=== PATIENT | female | born 1965 | race Caucasian/White ===

== ENCOUNTER → 2017-03-26 | Outpatient (CLI) | payer MEDICARE, OTHER ==
--- NOTE | 2017-03-27 07:15 | US ---
EXAMINATION TYPE: US thyroid st tissue head/neck DATE OF EXAM: 03/26/2017 5:13 PM COMPARISON: 06/17/2016 CLINICAL HISTORY: E03.9 Hypothyroidism unspecified. GLAND SIZE: Right Lobe: 4.4 x 1.7 x 1.2 cm Overall Parenchyma: heterogenous Left Lobe: 4.2 x 1.9 x 1.2 cm Overall Parenchyma: heterogeneous Isthmus Thickness: 0.3 cm NODULES RIGHT: # of nodules measured on right: 1 1. 0.6 X 0.5 x 0.5 cm hypoechoic mixed nodule at the mid pole with well-defined margins; . This no dule is wider than tall and shows peripheral vascularity. Prior size: 0.8 x 0.6 x 0.6 cm LEFT: # of nodules measured on left: 3 1. 1.0 X 0.5 x 0.7 cm isoechoic solid nodule at the upper pole with well-defined margins; . This n odule is wider than tall and shows intranodular vascularity. Prior size: 1.1 x 0.6 x 0.7 cm 2. 0.5 X 0.5 x 0.4 cm hypoechoic cystic nodule at the mid pole with well-defined margins; . This no dule is wider than tall and shows no intranodular vascularity. Prior size: 0.6 x 0.5 x 0.6 cm 3. 0.4 X 0.4 x 0.4 cm hypoechoic solid nodule at the lower pole with well-defined margins; present w ith microcalcifications. This nodule is wider than tall and shows intranodular vascularity. Prior size: 0.5 x 0.4 x 0.5 cm ISTHMUS: # of nodules measured in the isthmus: 0 Bilateral neck scanned, no evidence of lymphadenopathy. IMPRESSION: Nonspecific nodules as discussed above.
== END | disposition home or self-care (01) ==
LOC: RADUSWWP 16:50
PROVIDERS: ATTEND Internal Medicine Endocrinology, Diabetes & Metabolism
DX: E04.2 Nontoxic multinodular goiter (principal); E03.9 Hypothyroidism, unspecified
CPT/HCPCS: 76536

== ENCOUNTER 2017-12-23 19:28 | Emergency (ER) | payer MEDICARE, OTHER ==
[2017-12-23 20:07] VITALS: TEMP 99.2
[2017-12-23] MEDS ORDERED: KETOROLAC 30 MG/ML 1 ML VIAL IVP STA (22:13)
[2017-12-23] MEDS ORDERED: SODIUM CHLORIDE 0.9% 1,000 ML IV STA (22:13)
[2017-12-23] MEDS ORDERED: ONDANSETRON 4 MG/2 ML VIAL IVP STA (22:13)
[2017-12-23 22:51] LABS: Basophils % (A) 1 %; Eosinophils # (A) 0.2 k/uL (0-0.7); Eosinophils % (A) 4 %; HCT 39.8 % (34.0-46.0); Lymphocytes # (A) 1.4 k/uL (1.0-4.8); Lymphocytes % (A) 29 %; MCH 29.1 pg (25.0-35.0); MCHC 32.6 g/dL (31.0-37.0); MCV 89.2 fL (80.0-100.0); Mean Platelet Volume 7.5; Monocytes # (A) 0.3 k/uL (0-1.0); Monocytes % (A) 6 %; Neutrophils # (A) 2.9 k/uL (1.3-7.7); Neutrophils % (A) 58 %; Platelet Count 208 k/uL (150-450); RBC 4.46 m/uL (3.80-5.40); RDW 13.2 % (11.5-15.5)
[2017-12-23 22:54] LABS: Appearance,Urine Clear (Clear); Bilirubin,Urine 3+ (Negative); Blood,Urine Negative (Negative); Color,Urine Yellow; Glucose,Urine (UA) Negative (Negative); Ketones,Urine Negative (Negative); Leukocyte Esterase,Urine Negative (Negative); Nitrite,Urine Negative (Negative); PH, Urine 5.5 (5.0-8.0); Protein,Urine Trace (Negative)
--- NOTE | 2017-12-23 22:56 | ED ---
Abdominal Pain HPI - General Chief Complaint: Abdominal Pain Stated Complaint: right side pain Time Seen by Provider: 12/23/17 21:55 Source: patient Mode of arrival: ambulatory Limitations: no limitations - History of Present Illness Initial Comments: 52-year-old female patient presents to the emergency department today for complaints of right upper quadrant abdominal pain. Patient states that she has a sharp severe pain just below her ribs on the right side. She states that this pain started last night however has been increasingly worse throughout the day today. She states that she has had no appetite. She denies any nausea or vomiting with this. Denies any constipation or diarrhea. Patient states that she has had similar pain intermittently throughout the past 14 years. States she has been worked up twice for gallbladder issues and hasn't tested been inconclusive. She denies any history of abdominal surgeries. She denies any fever or chills. Patient denies any recent rash, shortness breath, chest pain, back pain, numbness, tingling, dizziness, weakness, hematuria, dysuria, urinary urgency, urinary frequency, headache, visual changes, or any other complaints. - Related Data Home Medications Medication Instructions Recorded Confirmed ALPRAZolam [Xanax] 0.25 mg PO TID 12/05/15 12/23/17 DULoxetine HCL [Cymbalta] 60 mg PO BID 12/05/15 12/23/17 Dexlansoprazole [Dexilant] 60 mg PO DAILY 12/05/15 12/23/17 Etodolac [Lodine] 400 mg PO BID 12/05/15 12/23/17 Gabapentin [Neurontin] 800 mg PO TID 12/05/15 12/23/17 Levothyroxine Sodium [Levoxyl] 100 mcg PO DAILY 12/05/15 12/23/17 Metaxalone [Skelaxin] 800 mg PO TID 12/05/15 12/23/17 Multivitamins, Thera [Theragran] 1 tab PO DAILY 12/05/15 12/23/17 traZODone HCL [Desyrel] 100 mg PO HS 12/05/15 12/23/17 HYDROcodone/APAP 7.5-325MG [[place] 1 tab PO Q6HR PRN 04/05/16 12/23/17 7.5-325] Balsalazide Disodium [Colazal] 750 mg PO TID 12/23/17 12/23/17 Budesonide/Formoterol Fumarate 2 puff INHALATION RT-BID 12/23/17 12/23/17 [Symbicort 160-4.5 Mcg Inhaler] Cetirizine HCl [Zyrtec] 10 mg PO DAILY PRN 12/23/17 12/23/17 Loteprednol Etabonate [Alrex] 1 drop BOTH EYES BID 12/23/17 12/23/17 Allergies Allergy/AdvReac Type Severity Reaction Status Date / Time aspirin Allergy Severe Vomiting Verified 12/23/17 21:56 amoxicillin trihydrate Allergy yeast Verified 12/23/17 21:56 [From Augmentin] infection buspirone HCl [From BuSpar] Allergy numbness Verified 12/23/17 21:56 of tongue and face iron Allergy Nausea & Verified 12/23/17 21:56 Vomiting,hives,swelling,skin changed color loracarbef [From Lorabid] Allergy yeast Verified 12/23/17 21:56 infection potassium clavulanate Allergy yeast Verified 12/23/17 21:56 [From Augmentin] infection Sulfa (Sulfonamide Allergy Rash/Hives Verified 12/23/17 21:56 Antibiotics) coconut Allergy Rash/Hives Uncoded 12/23/17 20:06 Review of Systems ROS Statement: Those systems with pertinent positive or pertinent negative responses have been documented in the HPI. ROS Other: All systems not noted in ROS Statement are negative. Past Medical History Past Medical History: Asthma, Eye Disorder, GERD/Reflux, Osteoarthritis (OA), Thyroid Disorder Additional Past Medical History / Comment(s): ANEMIA, FIBROMYALGIA, MIGRAINE, DIVERTICULOSIS, ULCERATIVE COLITIS, IBD, OVARIAN CYST, CHRONIC BACK History of Any Multi-Drug Resistant Organisms: None Reported Additional Past Surgical History / Comment(s): CARPAL TUNNEL BILATERAL, RT HAND THUMB TENDON REPAIR, LIPOMA, LEFT KNEE REPLACEMENT, RIGHT KNEE PREPLACEMENT, D&C Past Psychological History: Anxiety, Depression Smoking Status: Former smoker Past Alcohol Use History: Occasional Past Drug Use History: None Reported General Exam Limitations: no limitations General appearance: alert, in no apparent distress, other (This is a well- developed, obese female patient in no acute distress. Vital signs upon presentation are temperature 99.2F, pulse 82, respirations 18, blood pressure 152/85, pulse ox 98% on room air.) Eye exam: Present: normal appearance, PERRL, EOMI. Absent: scleral icterus, conjunctival injection, periorbital swelling ENT exam: Present: normal exam, normal oropharynx, mucous membranes moist Respiratory exam: Present: normal lung sounds bilaterally. Absent: respiratory distress, wheezes, rales, rhonchi, stridor Cardiovascular Exam: Present: regular rate, normal rhythm, normal heart sounds. Absent: systolic murmur, diastolic murmur, rubs, gallop, clicks GI/Abdominal exam: Present: soft, tenderness (Right upper quadrant abdominal tenderness, negative Nayak sign), normal bowel sounds. Absent: distended, guarding, rebound, rigid Back exam: Present: normal inspection. Absent: CVA tenderness (R), CVA tenderness (L) Neurological exam: Present: alert, oriented X3, CN II-XII intact Psychiatric exam: Present: normal affect, normal mood Skin exam: Present: warm, dry, intact, normal color. Absent: rash Course Vital Signs 12/23/17 20:04 Temperature 99.2 F Pulse Rate 82 Respiratory 18 Rate Blood Pressure 152/85 O2 Sat by Pulse 98 Oximetry Medical Decision Making - Medical Decision Making 52-year-old female patient presents to the emergency department today for complaints of right upper quadrant abdominal pain. Physical examination did reveal some right upper quadrant tenderness however there is negative Nayak sign. Labs reviewed and were unremarkable. KUB x-ray of the abdomen did show overall nonobstructive bowel gas pattern but a large hiatal hernia. Ultrasound of the right upper quadrant was negative for any acute process. I did discuss the findings with the patient. She was aware of this hiatal hernia. She is instructed to follow up with GI specialist for further evaluation. She is instructed to return here immediately for any new, worsening, or concerning symptoms. She verbalizes understanding and agrees with this plan. - Lab Data Result diagrams: 12/23/17 22:36 12/23/17 22:36 Lab Results 12/23/17 12/23/17 12/23/17 Range/Units 22:36 22:36 22:36 WBC 5.0 (3.8-10.6) k/uL RBC 4.46 (3.80-5.40) m/uL Hgb 13.0 (11.4-16.0) gm/dL Hct 39.8 (34.0-46.0) % MCV 89.2 (80.0-100.0) fL MCH 29.1 (25.0-35.0) pg MCHC 32.6 (31.0-37.0) g/dL RDW 13.2 (11.5-15.5) % Plt Count 208 (150-450) k/uL Neutrophils % 58 % Lymphocytes % 29 % Monocytes % 6 % Eosinophils % 4 % Basophils % 1 % Neutrophils # 2.9 (1.3-7.7) k/uL Lymphocytes # 1.4 (1.0-4.8) k/uL Monocytes # 0.3 (0-1.0) k/uL Eosinophils # 0.2 (0-0.7) k/uL Basophils # 0.0 (0-0.2) k/uL Sodium 145 (137-145) mmol/L Potassium 4.2 (3.5-5.1) mmol/L Chloride 104 (98-107) mmol/L Carbon Dioxide 30 (22-30) mmol/L Anion Gap 11 mmol/L BUN 9 (7-17) mg/dL Creatinine 0.80 (0.52-1.04) mg/dL Est GFR (MDRD) Af Amer >60 (>60 ml/min/1.73 sqM) Est GFR (MDRD) Non-Af >60 (>60 ml/min/1.73 sqM) Glucose 107 H (74-99) mg/dL Calcium 9.3 (8.4-10.2) mg/dL Total Bilirubin 0.4 (0.2-1.3) mg/dL AST 23 (14-36) U/L ALT 23 (9-52) U/L Alkaline Phosphatase 62 (38-126) U/L Total Protein 6.9 (6.3-8.2) g/dL Albumin 4.0 (3.5-5.0) g/dL Amylase <30 L (30-110) U/L Lipase 39 (23-300) U/L Urine Color Yellow Urine Appearance Clear (Clear) Urine pH 5.5 (5.0-8.0) Ur Specific [place] 1.020 (1.001-1.035) Urine Protein Trace H (Negative) Urine Glucose (UA) Negative (Negative) Urine Ketones Negative (Negative) Urine Blood Negative (Negative) Urine Nitrite Negative (Negative) Urine Bilirubin 3+ H (Negative) Urine Urobilinogen 2.0 (<2.0) mg/dL Ur Leukocyte Esterase Negative (Negative) - Radiology Data Radiology results: report reviewed, image reviewed Ultrasound of the right upper quadrant was obtained, report was reviewed in its entirety. Impression by Dr. Blevins shows negative right upper quadrant abdominal sonogram. No gallstones or dilated ducts. No free fluid. KUB x-ray of the abdomen was obtained, no sign of intestinal obstruction or pneumoperitoneum. Fecal pattern is normal. There is a large hiatal hernia. There are no pathologic calcifications over the kidneys. Impression by Dr. Blevins shows nonacute abdomen. Hiatal hernia. Disposition Clinical Impression: Right upper quadrant abdominal pain Disposition: HOME SELF-CARE Condition: Good Instructions: Abdominal Pain (ED) Additional Instructions: Follow-up with GI specialist for further evaluation. Return here immediately for any new, worsening, or concerning symptoms. Referrals: Lu Mancera MD [Primary Care Provider] - 1-2 days Cecilia Meehan MD [STAFF PHYSICIAN] - 1-2 days Time of Disposition: 23:48
[2017-12-23 23:03] LABS: ALT 23 U/L (9-52); AST 23 U/L (14-36); Alkaline Phosphatase 62 U/L (38-126); Amylase <30 U/L (30-110); Anion Gap 11 mmol/L; Blood Urea Nitrogen 9 mg/dL (7-17); Calcium 9.3 mg/dL (8.4-10.2); Carbon Dioxide 30 mmol/L (22-30); Chloride 104 mmol/L (98-107); Glucose 107 mg/dL (74-99); Lipase 39 U/L (23-300); Potassium 4.2 mmol/L (3.5-5.1); Sodium 145 mmol/L (137-145); Total Bilirubin 0.4 mg/dL (0.2-1.3); Total Protein 6.9 g/dL (6.3-8.2)
--- NOTE | 2017-12-23 23:03 | XR ---
EXAMINATION TYPE: XR KUB DATE OF EXAM: 12/23/2017 COMPARISON: NONE HISTORY: Flank pain TECHNIQUE: 2 views FINDINGS: There is no sign of intestinal obstruction or pneumoperitoneum. Fecal pattern is normal. Th ere is a large hiatal hernia. There are no pathologic calcifications over the kidneys. IMPRESSION: Nonacute abdomen. Hiatal hernia.
--- NOTE | 2017-12-23 23:36 | US ---
EXAMINATION TYPE: US abdomen limited DATE OF EXAM: 12/23/2017 COMPARISON: NONE CLINICAL HISTORY: RUQ pain. RUQ pain EXAM MEASUREMENTS: Liver Length: 18.1 cm Gallbladder Wall: 0.22 cm CBD: 0.42 cm Right Kidney: 11.2 x 4.7 x 4.2 cm Pancreas: Obscured by bowel gas Liver: Increased attenuation Gallbladder: No stones seen Evidence for sonographic Nayak's sign: No CBD: wnl Right Kidney: No hydronephrosis or masses seen IMPRESSION: Negative right upper quadrant abdominal sonogram. No gallstones or dilated ducts. No free fluid.
[2017-12-23 23:58] VITALS: BP 152/81; PULSE 70; RESP 16
== END 2017-12-23 23:58 | disposition home or self-care (01) ==
LOC: EC 19:28
DX: R10.11 Right upper quadrant pain (principal); J45.909 Unspecified asthma, uncomplicated; K21.9 Gastro-esophageal reflux disease without esophagitis; E07.9 Disorder of thyroid, unspecified; M79.7 Fibromyalgia; Z86.69 Personal history of other diseases of the nervous system and sense organs; F41.9 Anxiety disorder, unspecified; F32.9 Major depressive disorder, single episode, unspecified; Z87.891 Personal history of nicotine dependence; Z79.51 Long term (current) use of inhaled steroids; Z79.1 Long term (current) use of non-steroidal anti-inflammatories (NSAID); Z79.899 Other long term (current) drug therapy; Z88.6 Allergy status to analgesic agent; Z88.0 Allergy status to penicillin; Z88.8 Allergy status to other drugs, medicaments and biological substances; Z91.048 Other nonmedicinal substance allergy status; Z88.2 Allergy status to sulfonamides; Z91.018 Allergy to other foods
CPT/HCPCS: 36415; 80053; 82150; 83690; 85025; 81003; 74018; 76705; 99284; 96374; 96375; 96361; J2405; J1885

== ENCOUNTER 2018-04-25 11:30 | Inpatient (IN) | payer MEDICARE, OTHER ==
[2018-04-25] MEDS ORDERED: SODIUM CHLORIDE 0.9% 1,000 ML IV STA (11:46)
[2018-04-25] MEDS ORDERED: ACETAMINOPHEN TAB 325 MG TAB PO STA (12:00)
--- NOTE | 2018-04-25 12:00 | ED ---
General Adult HPI - General Source: patient, RN notes reviewed Mode of arrival: ambulatory Limitations: no limitations <Dion Meza - Last Filed: 04/25/18 13:27> <Yfn Padron - Last Filed: 04/25/18 13:32> - General Chief complaint: Nausea/Vomiting/Diarrhea Stated complaint: Diarrhea Time Seen by Provider: 04/25/18 11:45 - History of Present Illness Initial comments: This is a 52-year-old female presents emergency department to complaint of abdominal pain. Patient states pain started last few days and she's developed diarrhea which is yellow in nature. She does have a history of ulcerative colitis and states that she is concerned about exacerbation. Patient states her GI physician is Dr. Herzog her surgeon is Dr. Simpson. Patient states that she is also had on-and-off fever at home. Patient states that she's had some nausea and burping but no vomiting. She states mainly she has right-sided abdominal pain and diarrhea. (Dion Meza) - Related Data Home Medications Medication Instructions Recorded Confirmed ALPRAZolam [Xanax] 0.25 mg PO TID 12/05/15 12/23/17 DULoxetine HCL [Cymbalta] 60 mg PO BID 12/05/15 12/23/17 Dexlansoprazole [Dexilant] 60 mg PO DAILY 12/05/15 12/23/17 Etodolac [Lodine] 400 mg PO BID 12/05/15 12/23/17 Gabapentin [Neurontin] 800 mg PO TID 12/05/15 12/23/17 Levothyroxine Sodium [Levoxyl] 100 mcg PO DAILY 12/05/15 12/23/17 Metaxalone [Skelaxin] 800 mg PO TID 12/05/15 12/23/17 Multivitamins, Thera [Theragran] 1 tab PO DAILY 12/05/15 12/23/17 traZODone HCL [Desyrel] 100 mg PO HS 12/05/15 12/23/17 HYDROcodone/APAP 7.5-325MG [[place] 1 tab PO Q6HR PRN 04/05/16 12/23/17 7.5-325] Balsalazide Disodium [Colazal] 750 mg PO TID 12/23/17 12/23/17 Budesonide/Formoterol Fumarate 2 puff INHALATION RT-BID 12/23/17 12/23/17 [Symbicort 160-4.5 Mcg Inhaler] Cetirizine HCl [Zyrtec] 10 mg PO DAILY PRN 12/23/17 12/23/17 Loteprednol Etabonate [Alrex] 1 drop BOTH EYES BID 12/23/17 12/23/17 Allergies Allergy/AdvReac Type Severity Reaction Status Date / Time aspirin Allergy Severe Vomiting Verified 04/25/18 11:41 amoxicillin trihydrate Allergy yeast Verified 04/25/18 11:41 [From Augmentin] infection buspirone HCl [From BuSpar] Allergy numbness Verified 04/25/18 11:41 of tongue and face iron Allergy Nausea & Verified 04/25/18 11:41 Vomiting,hives,swelling,skin changed color loracarbef [From Lorabid] Allergy yeast Verified 04/25/18 11:41 infection potassium clavulanate Allergy yeast Verified 04/25/18 11:41 [From Augmentin] infection Sulfa (Sulfonamide Allergy Rash/Hives Verified 04/25/18 11:41 Antibiotics) coconut Allergy Rash/Hives Uncoded 04/25/18 11:41 Review of Systems ROS Other: All systems not noted in ROS Statement are negative. <Dion Meza - Last Filed: 04/25/18 13:27> ROS Other: All systems not noted in ROS Statement are negative. <Yfn Padron - Last Filed: 04/25/18 13:32> ROS Statement: Those systems with pertinent positive or pertinent negative responses have been documented in the HPI. Past Medical History Past Medical History: Asthma, Eye Disorder, GERD/Reflux, Osteoarthritis (OA), Thyroid Disorder Additional Past Medical History / Comment(s): ANEMIA, FIBROMYALGIA, MIGRAINE, DIVERTICULOSIS, ULCERATIVE COLITIS, IBD, OVARIAN CYST, CHRONIC BACK History of Any Multi-Drug Resistant Organisms: None Reported Additional Past Surgical History / Comment(s): CARPAL TUNNEL BILATERAL, RT HAND THUMB TENDON REPAIR, LIPOMA, LEFT KNEE REPLACEMENT, RIGHT KNEE PREPLACEMENT, D&C Past Psychological History: Anxiety, Depression Smoking Status: Former smoker Past Alcohol Use History: Occasional Past Drug Use History: None Reported <Dion Meza - Last Filed: 04/25/18 13:27> General Exam Limitations: no limitations General appearance: alert, in no apparent distress Head exam: Present: atraumatic, normocephalic, normal inspection Respiratory exam: Present: normal lung sounds bilaterally. Absent: respiratory distress, wheezes, rales, rhonchi, stridor Cardiovascular Exam: Present: regular rate, normal rhythm, normal heart sounds. Absent: systolic murmur, diastolic murmur, rubs, gallop, clicks GI/Abdominal exam: Present: soft, tenderness (Moderate right lower quadrant tenderness), normal bowel sounds. Absent: distended, guarding, rebound, rigid Back exam: Absent: CVA tenderness (R), CVA tenderness (L) Skin exam: Present: warm, dry, intact, normal color. Absent: rash <Dion Meza - Last Filed: 04/25/18 13:27> Course <Dion Meza - Last Filed: 04/25/18 13:27> <Yfn Padron - Last Filed: 04/25/18 13:32> Vital Signs 04/25/18 11:37 Temperature 101.7 F H Pulse Rate 96 Respiratory 20 Rate Blood Pressure 126/74 O2 Sat by Pulse 97 Oximetry - Reevaluation(s) Reevaluation #1: 04/25/18 13:31 PA supervision: I proceeded do a [id number] evaluation the patient did discuss the findings with her. She does demonstrate some evidence of right side abdominal pain with no guarding or rebound at this time. She's had diarrhea with fever. CAT scan does show evidence of colitis. I did discuss the case with Dr. Welch. Patient will be admitted GI consultation IV antibiotics and pain control. (Yfn Padron) Medical Decision Making - Lab Data Result diagrams: 04/25/18 12:04 04/25/18 12:04 <Dion Meza - Last Filed: 04/25/18 13:27> - Lab Data Result diagrams: 04/25/18 12:04 04/25/18 12:04 <Yfn Padron - Last Filed: 04/25/18 13:32> - Lab Data Lab Results 04/25/18 04/25/18 04/25/18 Range/Units 12:04 12:04 12:04 WBC 8.0 (3.8-10.6) k/uL RBC 4.66 (3.80-5.40) m/uL Hgb 13.2 (11.4-16.0) gm/dL Hct 39.9 (34.0-46.0) % MCV 85.6 (80.0-100.0) fL MCH 28.2 (25.0-35.0) pg MCHC 33.0 (31.0-37.0) g/dL RDW 13.6 (11.5-15.5) % Plt Count 197 (150-450) k/uL Neutrophils % 85 % Lymphocytes % 8 % Monocytes % 4 % Eosinophils % 1 % Basophils % 0 % Neutrophils # 6.8 (1.3-7.7) k/uL Lymphocytes # 0.7 L (1.0-4.8) k/uL Monocytes # 0.4 (0-1.0) k/uL Eosinophils # 0.1 (0-0.7) k/uL Basophils # 0.0 (0-0.2) k/uL PT (9.0-12.0) sec INR (<1.2) APTT (22.0-30.0) sec Sodium 141 (137-145) mmol/L Potassium 3.4 L (3.5-5.1) mmol/L Chloride 103 (98-107) mmol/L Carbon Dioxide 23 (22-30) mmol/L Anion Gap 15 mmol/L BUN 7 (7-17) mg/dL Creatinine 0.80 (0.52-1.04) mg/dL Est GFR (CKD-EPI)AfAm >90 (>60 ml/min/1.73 sqM) Est GFR (CKD-EPI)NonAf 85 (>60 ml/min/1.73 sqM) Glucose 110 H (74-99) mg/dL Plasma Lactic Acid [place] 1.3 (0.7-2.0) mmol/L Calcium 9.1 (8.4-10.2) mg/dL Total Bilirubin 0.2 (0.2-1.3) mg/dL AST 29 (14-36) U/L ALT 34 (9-52) U/L Alkaline Phosphatase 84 (38-126) U/L Total Protein 6.9 (6.3-8.2) g/dL Albumin 3.8 (3.5-5.0) g/dL Amylase 54 (30-110) U/L Lipase 144 (23-300) U/L Urine Color Urine Appearance (Clear) Urine pH (5.0-8.0) Ur Specific [place] (1.001-1.035) Urine Protein (Negative) Urine Glucose (UA) (Negative) Urine Ketones (Negative) Urine Blood (Negative) Urine Nitrite (Negative) Urine Bilirubin (Negative) Urine Urobilinogen (<2.0) mg/dL Ur Leukocyte Esterase (Negative) Urine RBC (0-5) /hpf Urine WBC (0-5) /hpf Ur Squamous Epith Cells (0-4) /hpf Urine Bacteria (None) /hpf Hyaline Casts (0-2) /lpf Urine Mucus (None) /hpf 04/25/18 04/25/18 Range/Units 12:04 12:04 WBC (3.8-10.6) k/uL RBC (3.80-5.40) m/uL Hgb (11.4-16.0) gm/dL Hct (34.0-46.0) % MCV (80.0-100.0) fL MCH (25.0-35.0) pg MCHC (31.0-37.0) g/dL RDW (11.5-15.5) % Plt Count (150-450) k/uL Neutrophils % % Lymphocytes % % Monocytes % % Eosinophils % % Basophils % % Neutrophils # (1.3-7.7) k/uL Lymphocytes # (1.0-4.8) k/uL Monocytes # (0-1.0) k/uL Eosinophils # (0-0.7) k/uL Basophils # (0-0.2) k/uL PT 9.6 (9.0-12.0) sec INR 1.0 (<1.2) APTT 23.9 (22.0-30.0) sec Sodium (137-145) mmol/L Potassium (3.5-5.1) mmol/L Chloride (98-107) mmol/L Carbon Dioxide (22-30) mmol/L Anion Gap mmol/L BUN (7-17) mg/dL Creatinine (0.52-1.04) mg/dL Est GFR (CKD-EPI)AfAm (>60 ml/min/1.73 sqM) Est GFR (CKD-EPI)NonAf (>60 ml/min/1.73 sqM) Glucose (74-99) mg/dL Plasma Lactic Acid [place] (0.7-2.0) mmol/L Calcium (8.4-10.2) mg/dL Total Bilirubin (0.2-1.3) mg/dL AST (14-36) U/L ALT (9-52) U/L Alkaline Phosphatase (38-126) U/L Total Protein (6.3-8.2) g/dL Albumin (3.5-5.0) g/dL Amylase (30-110) U/L Lipase (23-300) U/L Urine Color Dark Brown Urine Appearance Turbid H (Clear) Urine pH 6.0 (5.0-8.0) Ur Specific [place] 1.023 (1.001-1.035) Urine Protein 3+ H (Negative) Urine Glucose (UA) Trace H (Negative) Urine Ketones Trace H (Negative) Urine Blood Moderate H (Negative) Urine Nitrite Negative (Negative) Urine Bilirubin 1+ H (Negative) Urine Urobilinogen 3.0 (<2.0) mg/dL Ur Leukocyte Esterase Large H (Negative) Urine RBC 11 H (0-5) /hpf Urine WBC 81 H (0-5) /hpf Ur Squamous Epith Cells 46 H (0-4) /hpf Urine Bacteria Many H (None) /hpf Hyaline Casts 91 H (0-2) /lpf Urine Mucus Many H (None) /hpf Disposition <Dion Meza - Last Filed: 04/25/18 13:27> <Yfn Padron - Last Filed: 04/25/18 13:32> Clinical Impression: Exacerbation of ulcerative colitis, UTI (urinary tract infection) Disposition: ADMITTED IP TO THIS HOSP Referrals: Lu Mancera MD [Primary Care Provider] - 1-2 days
[2018-04-25 12:15] LABS: Basophils % (A) 0 %; Eosinophils # (A) 0.1 k/uL (0-0.7); Eosinophils % (A) 1 %; HCT 39.9 % (34.0-46.0); HGB 13.2 gm/dL (11.4-16.0); Lymphocytes # (A) 0.7 k/uL (1.0-4.8); Lymphocytes % (A) 8 %; MCH 28.2 pg (25.0-35.0); MCV 85.6 fL (80.0-100.0); Monocytes # (A) 0.4 k/uL (0-1.0); Monocytes % (A) 4 %; Neutrophils # (A) 6.8 k/uL (1.3-7.7); Neutrophils % (A) 85 %; Platelet Count 197 k/uL (150-450); RBC 4.66 m/uL (3.80-5.40); RDW 13.6 % (11.5-15.5)
[2018-04-25 12:17] LABS: Appearance,Urine Turbid (Clear); Bacteria,Urine Many /hpf; Bilirubin,Urine 1+ (Negative); Blood,Urine Moderate (Negative); Color,Urine Dark Brown; Glucose,Urine (UA) Trace (Negative); Hyaline Casts,Urine 91 /lpf (0-2); Ketones,Urine Trace (Negative); Leukocyte Esterase,Urine Large (Negative); Mucus,Urine Many /hpf; Nitrite,Urine Negative (Negative); Protein,Urine 3+ (Negative); RBC,Urine 11 /hpf (0-5); Specific Gravity,Urine 1.023 (1.001-1.035); Squamous Epithelial Cell,Urine 46 /hpf (0-4); WBC,Urine 81 /hpf (0-5)
[2018-04-25 12:25] LABS: ALT 34 U/L (9-52); AST 29 U/L (14-36); Albumin 3.8 g/dL (3.5-5.0); Alkaline Phosphatase 84 U/L (38-126); Amylase 54 U/L (30-110); Anion Gap 15 mmol/L; Blood Urea Nitrogen 7 mg/dL (7-17); Calcium 9.1 mg/dL (8.4-10.2); Carbon Dioxide 23 mmol/L (22-30); Chloride 103 mmol/L (98-107); Glucose 110 mg/dL (74-99); Lipase 144 U/L (23-300); Potassium 3.4 mmol/L (3.5-5.1); Sodium 141 mmol/L (137-145); Total Bilirubin 0.2 mg/dL (0.2-1.3); Total Protein 6.9 g/dL (6.3-8.2)
[2018-04-25 12:27] LABS: Partial Thromboplastin Time 23.9 sec (22.0-30.0); Prothrombin Time 9.6 sec (9.0-12.0)
--- NOTE | 2018-04-25 12:54 | CT ---
EXAMINATION TYPE: CT abdomen pelvis w con DATE OF EXAM: 04/25/2018 COMPARISON: NONE HISTORY: RLQ pain CT DLP: 2912.0 mGycm CONTRAST: CT scan of the abdomen and pelvis is performed without Oral Contrast and with IV Contrast, patient in jected with 100 mL of Isovue 300. FINDINGS: LUNG BASES-: No visible nodule. No infiltrate. Moderate to large fixed hiatal hernia noted. LIVER/GB: No calcified gallstones. No space occupying hepatic lesion. Biliary tree is of normal ca liber. PANCREAS: No inflammation. No distinct mass. SPLEEN: No splenic enlargement. No lesion seen. ADRENALS: No nodule. No thickening. KIDNEYS/BLADDER: No hydronephrosis. No nephrolithiasis. No distinct renal mass. Urinary bladder g rossly unremarkable. BOWEL: Wall thickening involving the cecum and portions of the ascending colon with differential diag nostic possibilities include inflammatory, infectious and vascular etiologies. Normal appendix. Remai nder of the small and large bowel are of normal caliber. GENITAL ORGANS: No gross abnormality. LYMPH NODES: No greater than 1cm abdominal or pelvic lymph nodes are appreciated. AORTA: No significant abnormality. OSSEOUS STRUCTURES: No significant abnormality is seen. OTHER: No significant additional abnormality is seen. IMPRESSION: 1. Nonspecific colitis ascending colon and cecum.
[2018-04-25] MEDS ORDERED: HYDROcodone/APAP 5-325MG 1 EACH TAB PO PRN (13:28)
[2018-04-25] MEDS ORDERED: NALOXONE 0.4 MG/ML 1 ML VIAL IV PRN (13:28)
[2018-04-25] MEDS ORDERED: ONDANSETRON 4 MG/2 ML VIAL IVP PRN (13:28)
[2018-04-25] MEDS ORDERED: LEVOFLOXACIN 750MG-D5W PMX 750 MG in DEXTROSE/WATER 1 150ML.BAG IVPB STA (13:29)
[2018-04-25] MEDS ORDERED: metroNIDAZOLE-NS PMX 500 MG in SALINE 1 100ML.BAG IVPB STA (13:30)
[2018-04-25 15:39] VITALS: BMI 46.3
[2018-04-25] MEDS: SODIUM CHLORIDE 0.9% 1,000 ML IV SCH (17:38)
[2018-04-25] MEDS ORDERED: LORATADINE 10 MG TAB PO PRN (21:33)
[2018-04-25] MEDS ORDERED: HYDROcodone/APAP 7.5-325MG 1 EACH TAB PO PRN (21:33)
[2018-04-25] MEDS: BALSALAZIDE DISODIUM 750 MG CAPSULE PO SCH (22:11)
[2018-04-25] MEDS: GABAPENTIN 400 MG CAP PO SCH (22:11)
[2018-04-25] MEDS: CYCLOBENZAPRINE 10 MG TAB PO SCH (22:11)
[2018-04-25] MEDS: ALPRAZolam 0.25 MG TAB PO SCH (22:11)
[2018-04-25] MEDS: prednisoLONE ACETATE 1% OPHTH DROPS 5 ML BTL BOTH EYES SCH (22:11)
[2018-04-25] MEDS: MULTIVITAMINS, THERA 1 EACH TAB PO SCH (22:50)
[2018-04-25] MEDS: MELOXICAM 7.5 MG TAB PO SCH (22:50)
[2018-04-25] MEDS: DULoxetine HCL 60 MG CAPSULE.DR PO SCH (22:50)
[2018-04-25] MEDS: traZODone HCL 100 MG TAB PO SCH (22:50)
[2018-04-25] MEDS: metroNIDAZOLE-NS PMX 500 MG in SALINE 1 100ML.BAG IVPB SCH (23:55)
[2018-04-26] MEDS: SODIUM CHLORIDE 0.9% 1,000 ML IV SCH ×2 (06:13→15:04)
[2018-04-26] MEDS: PANTOPRAZOLE 40 MG TABLET PO SCH (06:36)
[2018-04-26] MEDS: LEVOTHYROXINE 100 MCG TAB PO SCH (06:36)
[2018-04-26] MEDS ORDERED: DULoxetine HCL 60 MG CAPSULE.DR PO SCH (09:00)
[2018-04-26] MEDS ORDERED: MELOXICAM 7.5 MG TAB PO SCH (09:00)
[2018-04-26] MEDS: metroNIDAZOLE-NS PMX 500 MG in SALINE 1 100ML.BAG IVPB SCH ×2 (09:13→16:13)
--- NOTE | 2018-04-26 09:46 | CONS ---
CONSULTATION DATE OF SERVICE: April 26, 2018. REQUESTING PHYSICIAN: Dr. Lu Mancera. REASON FOR CONSULTATION: Exacerbation of ulcerative colitis. HISTORY OF PRESENT ILLNESS: The patient is a 52-year-old pleasant white female with longstanding history of ulcerative colitis diagnosed in the . She follows with Dr. Simpson on outpatient basis and has recently seen her in office in consultation about 6 weeks ago for management of ulcerative colitis. The patient has been maintained on Asacol for several years. However, for the last 2 years, the medications were changed to 750 mg 3 times daily and remained in clinical remission. She had a very mild flare up in November of this year that lasted for a week and resolved. She started experiencing worsening diarrhea for the last 5 days duration. Bowel movements anywhere from 5-6 a day which are loose to water in consistency with small streaks of blood in the stool. Some cramping lower abdominal pain. She denies any fever, chills, or night sweats. She denies any recent antibiotic use. Last colonoscopy in November of this year by Dr. Simpson showed quiescent colitis. At the time of admission to the hospital, she did have a CT of the abdomen and pelvis done that showed some mild thickening in the cecum and ascending colon. She was subsequently started on empiric antibiotics with Flagyl. PAST MEDICAL HISTORY: Significant for hypertension, anxiety, depression, GERD, hypothyroidism, ulcerative colitis, COPD. MEDICATIONS: At home include: Desyrel, Theragran, Mobic, Levoxyl, [place], Neurontin, , Cymbalta, Flexeril, Zyrtec, Tenormin and Xanax. ALLERGIES: TO ASPIRIN, BUSPAR, SULFA, LORABID, AUGMENTIN. SOCIAL HISTORY: No smoking. No alcohol use. FAMILY HISTORY: Unremarkable. REVIEW OF SYSTEMS: Cardiopulmonary: She denies any chest pain or shortness of breath. GENITOURINARY: No dysuria or hematuria. Musculoskeletal unremarkable. Skin unremarkable. Endocrine unremarkable. Psychiatric unremarkable other than history of anxiety and depression. Neurology unremarkable. ENT vision unremarkable. Constitutional no recent weight loss. No fever, chills, night sweats. PAST SURGICAL HISTORY: Carpal tunnel surgery, right thumb surgery, hernia repair, right knee replacement, colonoscopy in November of this year. PHYSICAL EXAMINATION: She appears comfortable in no apparent distress. VITAL SIGNS: Vital signs stable. Blood pressure is 117/73, pulse rate is 87, temperature 98. HEENT examination unremarkable. Conjunctivae pink. Sclerae anicteric. Oral cavity no lesions. NECK: No JVD or lymph node enlargement. CHEST: Clear to auscultation. HEART: Regular rate and rhythm. ABDOMEN: Soft, it was slightly obese. Bowel sounds are positive. No organomegaly. EXTREMITIES: No pedal edema. SKIN: No rashes. NEUROLOGIC: Alert and oriented x3. No focal deficits. LAB: WBC 8, hemoglobin 13.2, platelets are normal. Basic metabolic panel is within normal limits. Urinalysis showed moderate amount of blood and leukocyte esterase that was positive. C diff toxin was negative. CT of the abdomen and pelvis done yesterday showed thickening of the cecum and ascending colon. IMPRESSION: This is a patient with longstanding history of ulcerative colitis maintained on 1 tablet 3 times daily, presents to the hospital with worsening diarrhea for the last 5-6 days duration. She had small streaks of blood in the stool. Lately has been having 5- [address] of the abdomen showed thickening of the cecum and ascending colon suspicious for acute colitis. Her symptoms are likely related to exacerbation of ulcerative colitis with [id number] activity. Stool for C diff toxin has been negative. RECOMMENDATIONS: 1. Advance diet as tolerated. 2. We will start her on prednisone 30 mg orally and was advised to taper it by 5 mg every week. 3. Increase to 3 tablets 3 times daily. 4. Obtain sedimentation rate and C-reactive protein. Thank you for this consultation. We will follow the patient during her hospital stay. MMODL / IJN: [id number] /
[2018-04-26] MEDS: ACETAMINOPHEN TAB 325 MG TAB PO PRN (09:56)
[2018-04-26] MEDS: ATENOLOL 25 MG TAB PO SCH (09:57)
[2018-04-26] MEDS: ALPRAZolam 0.25 MG TAB PO SCH ×3 (09:57→21:29)
[2018-04-26] MEDS: CYCLOBENZAPRINE 10 MG TAB PO SCH ×3 (09:58→21:30)
[2018-04-26] MEDS: DULoxetine HCL 60 MG CAPSULE.DR PO SCH ×2 (09:58→21:26)
[2018-04-26] MEDS: GABAPENTIN 400 MG CAP PO SCH ×3 (09:58→21:28)
[2018-04-26] MEDS: BALSALAZIDE DISODIUM 750 MG CAPSULE PO SCH ×3 (09:58→21:28)
[2018-04-26] MEDS: prednisoLONE ACETATE 1% OPHTH DROPS 5 ML BTL BOTH EYES SCH ×3 (09:59→21:25)
[2018-04-26] MEDS: MELOXICAM 7.5 MG TAB PO SCH ×2 (09:59→21:28)
[2018-04-26] MEDS: predniSONE 10 MG TAB PO SCH (10:14)
--- NOTE | 2018-04-26 14:00 | P.HPIM ---
History of Present Illness H&P Date: 04/26/18 Ny Covington is a 52-year-old female who presented to [facility] emergency department with a chief complaint of abdominal pain. Patient states pain started last few days and she started having diarrhea which is yellow in nature she also had low-grade fever at home. She has a known history of ulcerative colitis , her last exacerbation was in November 2017, patient stated that her pain and discomfort at this time is similar to her previous exacerbations. Patient states her primary care physician is Dr. villa in [place], GI physician is Dr. Meehan and her surgeon is Dr. Simpson. . Patient states that she's had some nausea and burping but no vomiting. She states mainly she has right-sided abdominal pain and diarrhea. patient was evaluated in the emergency room she had a computed tomography scan that confirmed evidence of colitis in the cecum and ascending colon was started on steroid and was admitted to medical floor and gastroenterology consultation was requested . Past Medical History Past Medical History: Asthma, Eye Disorder, Fibromyalgia, GERD/Reflux, Hypertension, Osteoarthritis (OA), Thyroid Disorder Additional Past Medical History / Comment(s): ANEMIA, FIBROMYALGIA, MIGRAINE, DIVERTICULOSIS, ULCERATIVE COLITIS, IBD, OVARIAN CYST, CHRONIC BACK PAIN. BULDGING AND COMPRESSED DISC C 6/7; T 3/4; L4/5. BURSITIS TENDONITIS RIGHT SHOULDRE, ENDOMETRIOSIS. CARPAL TUNNEL SYNDROME LEANNE WRISTS. BRUXISM, BREAST CYSTS. ANEMIA, GLAUCOMA History of Any Multi-Drug Resistant Organisms: None Reported Past Surgical History: Joint Replacement Additional Past Surgical History / Comment(s): CARPAL TUNNEL BILATERAL, RT HAND THUMB TENDON REPAIR, LIPOMA, LEFT KNEE REPLACEMENT, RIGHT KNEE PREPLACEMENT, D&C Past Anesthesia/Blood Transfusion Reactions: No Reported Reaction Past Psychological History: Anxiety, Depression, PTSD Additional Psychological History / Comment(s): Panic attacks. Smoking Status: Never smoker Past Alcohol Use History: Occasional Past Drug Use History: None Reported - Past Family History Mother Family Medical History: Asthma, Cancer, GERD/Reflux, Osteoarthritis (OA) Additional Family Medical History / Comment(s): cancer on the kidney that grew into the kidney. cancer of the uterine. blood clots. obesity. carotid artery narrowing Medications and Allergies Home Medications Medication Instructions Recorded Confirmed Type ALPRAZolam [Xanax] 0.25 mg PO TID 12/05/15 04/25/18 History DULoxetine HCL [Cymbalta] 60 mg PO BID 12/05/15 04/25/18 History Dexlansoprazole [Dexilant] 60 mg PO DAILY 12/05/15 04/25/18 History Gabapentin [Neurontin] 800 mg PO TID 12/05/15 04/25/18 History Levothyroxine Sodium [Levoxyl] 100 mcg PO DAILY 12/05/15 04/25/18 History Multivitamins, Thera [Theragran] 1 tab PO HS 12/05/15 04/25/18 History traZODone HCL [Desyrel] 100 mg PO HS 12/05/15 04/25/18 History HYDROcodone/APAP 7.5-325MG [[place] 0.5 - 1 tab PO Q6HR PRN 04/05/16 04/25/18 History 7.5-325] Balsalazide Disodium [Colazal] 750 mg PO TID 12/23/17 04/25/18 History Budesonide/Formoterol Fumarate 2 puff INHALATION RT-BID PRN 12/23/17 04/25/18 History [Symbicort 160-4.5 Mcg Inhaler] Cetirizine HCl [Zyrtec] 10 mg PO DAILY PRN 12/23/17 04/25/18 History Atenolol [Tenormin] 25 mg PO DAILY 04/25/18 04/25/18 History Cyclobenzaprine [Flexeril] 10 mg PO TID 04/25/18 04/25/18 History Meloxicam [Mobic] 7.5 mg PO BID 04/25/18 04/25/18 History prednisoLONE ACETATE [Pred Forte 1 drop BOTH EYES TID 04/25/18 04/25/18 History 1%] Allergies Allergy/AdvReac Type Severity Reaction Status Date / Time aspirin Allergy Severe Vomiting Verified 04/25/18 16:00 buspirone HCl [From BuSpar] Allergy Severe numbness Verified 04/25/18 16:00 of tongue and face iron Allergy Severe Nausea & Verified 04/25/18 16:00 Vomiting,hives,swelling,skin changed color Sulfa (Sulfonamide Allergy Severe Rash/Hives Verified 04/25/18 16:00 Antibiotics) loracarbef [From Lorabid] Allergy Intermediate yeast Verified 04/25/18 16:00 infection potassium clavulanate Allergy Intermediate yeast Verified 04/25/18 16:00 [From Augmentin] infection amoxicillin trihydrate Allergy yeast Verified 04/25/18 16:00 [From Augmentin] infection coconut Allergy Severe Rash/Hives Uncoded 04/25/18 16:00 Physical Exam Vitals: Vital Signs Temp Pulse Pulse Resp BP BP BP 04/26/18 08:30 98.1 F 58 L 19 99/57 04/25/18 23:57 98.7 F 89 18 116/75 04/25/18 20:06 98.5 F 64 20 119/75 04/25/18 16:12 98.1 F 87 24 117/77 04/25/18 14:25 99.5 F 88 20 123/73 04/25/18 13:56 99.8 F H 88 18 146/77 Pulse Ox 04/26/18 08:30 94 L 04/25/18 23:57 95 04/25/18 20:06 95 04/25/18 16:12 95 04/25/18 14:25 95 04/25/18 13:56 96 Intake and Output 04/25/18 04/26/18 04/26/18 22:59 06:59 14:59 Intake Total 1160 240 Output Total 700 Balance 460 240 Intake: Oral 1160 240 Output: Stool 700 Other: Voiding Method Toilet # Voids 1 # Bowel Movements 1 In general patient is alert and oriented 3 in no apparent distress HEENT head normocephalic and atraumatic Neck is supple no JVD no goiter no lymphadenopathy Chest exam reveals a few scattered crackles no wheezing Cardiac exam reveals regular heart sounds no murmurs Abdomen is soft with mild diffuse tenderness no organomegaly no palpable masses was normal bowel sounds Extremity exam reveals no edema no cyanosis or clubbing Neurological examination reveals no gross focal deficit Results CBC & Chem 7: 04/25/18 12:04 04/25/18 12:04 Labs: Microbiology - Last 24 Hours (Table) 04/25/18 16:30 Urine Culture - Preliminary Urine,Clean Catch Thrombosis Risk Factor Assmnt - Choose All That Apply Any of the Below Risk Factors Present?: Yes Each Factor Represents 1 point: Age 41-60 years, Hx of IBD, Obesity (BMI >25) Other congenital or acquired thrombophilia - If yes, enter type in comment: No Thrombosis Risk Factor Assessment Total Risk Factor Score: 3 Thrombosis Risk Factor Assessment Level: Moderate Risk Assessment and Plan Plan: #1 acute exacerbation of ulcerative colitis #2 underlying history of hypertension #3 underlying history of hypothyroidism #4 underlying history of depression with anxiety disorder and posttraumatic stress disorder #5 underlying history of fibromyalgia per patient #6 evidence of urinary tract infection #7 underlying history of asthma #8 for DVT prophylaxis we will use subcu Lovenox for GI prophylaxis we will use Protonix At this time continue with IV antibiotic, oral steroids, Further treatment plan will depend on clinical progress
[2018-04-26] MEDS: LEVOFLOXACIN 500MG-D5W PMX 500 MG in DEXTROSE/WATER 1 100ML.BAG IVPB SCH (15:06)
[2018-04-26] MEDS ORDERED: MULTIVITAMINS, THERA 1 EACH TAB PO SCH (21:00)
[2018-04-26] MEDS ORDERED: traZODone HCL 100 MG TAB PO SCH (21:00)
[2018-04-26] MEDS: traZODone HCL 100 MG TAB PO SCH (21:25)
[2018-04-26] MEDS: MULTIVITAMINS, THERA 1 EACH TAB PO SCH (21:29)
[2018-04-27] MEDS: metroNIDAZOLE-NS PMX 500 MG in SALINE 1 100ML.BAG IVPB SCH ×4 (00:04→23:29)
[2018-04-27] MEDS: SODIUM CHLORIDE 0.9% 1,000 ML IV SCH ×2 (00:04→16:33)
[2018-04-27 06:43] LABS: Basophils % (A) 0 %; Eosinophils # (A) 0.1 k/uL (0-0.7); Eosinophils % (A) 1 %; HCT 34.6 % (34.0-46.0); HGB 11.4 gm/dL (11.4-16.0); Lymphocytes % (A) 18 %; MCH 28.2 pg (25.0-35.0); MCHC 33.1 g/dL (31.0-37.0); MCV 85.1 fL (80.0-100.0); Monocytes # (A) 0.4 k/uL (0-1.0); Monocytes % (A) 6 %; Neutrophils % (A) 72 %; Platelet Count 173 k/uL (150-450); RBC 4.06 m/uL (3.80-5.40); RDW 13.4 % (11.5-15.5); WBC 5.5 k/uL (3.8-10.6)
[2018-04-27] MEDS: SYMBICORT 160-4.5 MCG INHALER INHALATION PRN ×2 (07:20→20:56)
[2018-04-27 07:21] LABS: ALT 26 U/L (9-52); AST 23 U/L (14-36); Albumin 3.1 g/dL (3.5-5.0); Alkaline Phosphatase 55 U/L (38-126); Anion Gap 9 mmol/L; Blood Urea Nitrogen 9 mg/dL (7-17); Calcium 8.9 mg/dL (8.4-10.2); Carbon Dioxide 25 mmol/L (22-30); Chloride 110 mmol/L (98-107); Glucose 94 mg/dL (74-99); Potassium 3.8 mmol/L (3.5-5.1); Sodium 144 mmol/L (137-145); Total Bilirubin 0.3 mg/dL (0.2-1.3); Total Protein 5.7 g/dL (6.3-8.2)
[2018-04-27] MEDS: ENOXAPARIN 40 MG/0.4 ML SYRINGE SQ SCH (07:41)
[2018-04-27] MEDS: predniSONE 10 MG TAB PO SCH (07:42)
[2018-04-27] MEDS: GABAPENTIN 400 MG CAP PO SCH ×3 (07:42→20:46)
[2018-04-27] MEDS: prednisoLONE ACETATE 1% OPHTH DROPS 5 ML BTL BOTH EYES SCH ×3 (07:42→20:46)
[2018-04-27] MEDS: MELOXICAM 7.5 MG TAB PO SCH ×2 (07:43→20:45)
[2018-04-27] MEDS: BALSALAZIDE DISODIUM 750 MG CAPSULE PO SCH ×3 (07:44→20:46)
[2018-04-27] MEDS: PANTOPRAZOLE 40 MG TABLET PO SCH (07:44)
[2018-04-27] MEDS: ALPRAZolam 0.25 MG TAB PO SCH ×3 (07:44→20:46)
[2018-04-27] MEDS: CYCLOBENZAPRINE 10 MG TAB PO SCH ×3 (07:44→20:46)
[2018-04-27] MEDS: DULoxetine HCL 60 MG CAPSULE.DR PO SCH ×2 (07:44→20:46)
[2018-04-27] MEDS: ATENOLOL 25 MG TAB PO SCH (07:45)
--- NOTE | 2018-04-27 10:55 | P.PN ---
Subjective Progress Note Date: 04/27/18 Ny Covington is a 52-year-old female who presented to [facility] emergency department with a chief complaint of abdominal pain. Patient states pain started last few days and she started having diarrhea which is yellow in nature she also had low-grade fever at home. She has a known history of ulcerative colitis , her last exacerbation was in November 2017, patient stated that her pain and discomfort at this time is similar to her previous exacerbations. Patient states her primary care physician is Dr. villa in [place], GI physician is Dr. Meehan and her surgeon is Dr. Simpson. . Patient states that she's had some nausea and burping but no vomiting. She states mainly she has right-sided abdominal pain and diarrhea. patient was evaluated in the emergency room she had a computed tomography scan that confirmed evidence of colitis in the cecum and ascending colon was started on steroid and was admitted to medical floor and gastroenterology consultation was requested . 04/27/2018 patient had 8 stools through the day yesterday. Already has had 2 bowel movements this morning. Stools are still liquidy. Abdominal pain is improved. They're still greenish in color. She has an occasional spot of blood on the tissue. Denies any nausea or vomiting. Does maintain on the prednisone 30 mg daily. Also on Levaquin and Flagyl. Followed by GI service. Stool for C. diff negative Objective - Vital Signs Vital signs: Vital Signs Temp 98.0 F 04/27/18 07:43 Pulse 71 04/27/18 07:43 Resp 20 04/27/18 07:43 BP 132/73 04/27/18 07:43 Pulse Ox 94 L 04/27/18 07:43 Intake & Output 04/26/18 04/27/18 04/27/18 18:59 06:59 18:59 Intake Total 600 600 Balance 600 600 Weight 128.3 kg Intake: Oral 600 600 Other: Voiding Method Toilet Toilet Toilet # Voids 2 1 1 # Bowel Movements 2 2 1 - Exam Head normocephalic Neck supple Lungs clear to auscultation bilaterally no wheezing or crackles Heart regular rate and rhythm S1-S2, no rub or gallop Abdomen is soft nontender nondistended positive bowel sounds no hepatosplenomegaly Extremities no edema Neuro alert and orientated to 3 - Labs CBC & Chem 7: 04/27/18 06:21 04/27/18 06:21 Labs: Abnormal Lab Results - Last 24 Hours (Table) 04/27/18 Range/Units 06:21 Chloride 110 H (98-107) mmol/L Total Protein 5.7 L (6.3-8.2) g/dL Albumin 3.1 L (3.5-5.0) g/dL Microbiology - Last 24 Hours (Table) 04/25/18 16:30 Urine Culture - Final Urine,Clean Catch 04/25/18 12:04 Blood Culture - Preliminary Blood No Growth after 24 hours Assessment and Plan Assessment: #1 acute exacerbation of ulcerative colitis: Seen by GI service. Continue oral prednisone. Continue Levaquin and Flagyl for possible infectious cause. Stool for C. diff negative. Still having frequent watery stools. #2 underlying history of hypertension #3 underlying history of hypothyroidism #4 underlying history of depression with anxiety disorder and posttraumatic stress disorder #5 underlying history of fibromyalgia per patient #6 UTI ruled out: Urine culture negative. Likely contaminated from stool #7 underlying history of asthma #8 for DVT prophylaxis we will use subcu Lovenox for GI prophylaxis we will use Protonix I performed an examination of the patient and discussed their management with the physician Latent Print Examiner. I have reviewed the Physician Latent Print Examiner's notes and agree with the documented findings and plan of care
[2018-04-27] MEDS: LEVOTHYROXINE 100 MCG TAB PO SCH (14:25)
[2018-04-27] MEDS: LEVOFLOXACIN 500MG-D5W PMX 500 MG in DEXTROSE/WATER 1 100ML.BAG IVPB SCH (14:25)
[2018-04-27] MEDS: traZODone HCL 100 MG TAB PO SCH (20:45)
[2018-04-27] MEDS: MULTIVITAMINS, THERA 1 EACH TAB PO SCH (20:46)
[2018-04-27] MEDS: ACETAMINOPHEN TAB 325 MG TAB PO PRN (23:33)
[2018-04-28 06:36] LABS: Basophils % (A) 0 %; Eosinophils % (A) 0 %; HCT 32.8 % (34.0-46.0); HGB 10.6 gm/dL (11.4-16.0); Hypochromasia Slight; Lymphocytes # (A) 1.2 k/uL (1.0-4.8); Lymphocytes % (A) 22 %; MCH 28.1 pg (25.0-35.0); MCHC 32.2 g/dL (31.0-37.0); MCV 87.3 fL (80.0-100.0); Mean Platelet Volume 7.3; Monocytes # (A) 0.3 k/uL (0-1.0); Monocytes % (A) 6 %; Neutrophils # (A) 3.7 k/uL (1.3-7.7); Neutrophils % (A) 69 %; Platelet Count 187 k/uL (150-450); RBC 3.75 m/uL (3.80-5.40); RDW 13.4 % (11.5-15.5); WBC 5.4 k/uL (3.8-10.6)
[2018-04-28] MEDS: LEVOTHYROXINE 100 MCG TAB PO SCH (06:44)
[2018-04-28] MEDS: PANTOPRAZOLE 40 MG TABLET PO SCH (06:44)
[2018-04-28] MEDS: SODIUM CHLORIDE 0.9% 1,000 ML IV SCH ×2 (06:49→21:44)
[2018-04-28 06:52] LABS: ALT 28 U/L (9-52); AST 20 U/L (14-36); Albumin 3.1 g/dL (3.5-5.0); Alkaline Phosphatase 55 U/L (38-126); Anion Gap 12 mmol/L; Blood Urea Nitrogen 14 mg/dL (7-17); Calcium 8.9 mg/dL (8.4-10.2); Carbon Dioxide 24 mmol/L (22-30); Chloride 108 mmol/L (98-107); Glucose 95 mg/dL (74-99); Magnesium 1.9 mg/dL (1.6-2.3); Potassium 3.1 mmol/L (3.5-5.1); Sodium 144 mmol/L (137-145); Total Bilirubin 0.1 mg/dL (0.2-1.3); Total Protein 5.7 g/dL (6.3-8.2)
[2018-04-28] MEDS: metroNIDAZOLE 500 MG TAB PO SCH ×2 (07:44→15:38)
[2018-04-28] MEDS: prednisoLONE ACETATE 1% OPHTH DROPS 5 ML BTL BOTH EYES SCH ×3 (07:44→21:37)
[2018-04-28] MEDS: ENOXAPARIN 40 MG/0.4 ML SYRINGE SQ SCH (07:44)
[2018-04-28] MEDS: DULoxetine HCL 60 MG CAPSULE.DR PO SCH ×2 (07:45→21:34)
[2018-04-28] MEDS: BALSALAZIDE DISODIUM 750 MG CAPSULE PO SCH ×3 (07:45→21:36)
[2018-04-28] MEDS: GABAPENTIN 400 MG CAP PO SCH ×3 (07:45→21:32)
[2018-04-28] MEDS: ALPRAZolam 0.25 MG TAB PO SCH ×3 (07:45→21:33)
[2018-04-28] MEDS: predniSONE 10 MG TAB PO SCH (07:45)
[2018-04-28] MEDS: ATENOLOL 25 MG TAB PO SCH (07:45)
[2018-04-28] MEDS: CYCLOBENZAPRINE 10 MG TAB PO SCH ×3 (07:46→21:35)
[2018-04-28] MEDS: MELOXICAM 7.5 MG TAB PO SCH ×2 (07:46→21:33)
[2018-04-28] MEDS ORDERED: POTASSIUM CHLORIDE ER 20 MEQ TAB.ER PO STA (08:13)
[2018-04-28] MEDS: SYMBICORT 160-4.5 MCG INHALER INHALATION PRN ×2 (08:26→19:23)
[2018-04-28] MEDS ORDERED: MAGNESIUM SULFATE-D5W PMX 1 GM in DEXTROSE/WATER 1 100ML.BAG IVPB ONE (09:00)
--- NOTE | 2018-04-28 10:47 | P.PN ---
Subjective Progress Note Date: 04/28/18 Ny Covington is a 52-year-old female who presented to [facility] emergency department with a chief complaint of abdominal pain. Patient states pain started last few days and she started having diarrhea which is yellow in nature she also had low-grade fever at home. She has a known history of ulcerative colitis , her last exacerbation was in November 2017, patient stated that her pain and discomfort at this time is similar to her previous exacerbations. Patient states her primary care physician is Dr. villa in [place], GI physician is Dr. Meehan and her surgeon is Dr. Simpson. . Patient states that she's had some nausea and burping but no vomiting. She states mainly she has right-sided abdominal pain and diarrhea. patient was evaluated in the emergency room she had a computed tomography scan that confirmed evidence of colitis in the cecum and ascending colon was started on steroid and was admitted to medical floor and gastroenterology consultation was requested . 04/27/2018 patient had 8 stools through the day yesterday. Already has had 2 bowel movements this morning. Stools are still liquidy. Abdominal pain is improved. They're still greenish in color. She has an occasional spot of blood on the tissue. Denies any nausea or vomiting. Does maintain on the prednisone 30 mg daily. Also on Levaquin and Flagyl. Followed by GI service. Stool for C. diff negative 04/28/2018 patient is still having multiple watery stools. She's already had 3 bowel movements this morning. She is feeling about the same. Denies any significant abdominal pain. Denies any nausea or vomiting. Denies any chest pain or shortness of breath. Denies any burning with urination. No blood reported in stools Objective - Vital Signs Vital signs: Vital Signs Temp 97.6 F 04/28/18 07:30 Pulse 67 04/28/18 07:30 Resp 18 04/28/18 07:30 BP 116/68 04/28/18 07:30 Pulse Ox 96 04/28/18 07:30 Intake & Output 04/27/18 04/28/18 04/28/18 18:59 06:59 18:59 Intake Total 1000 1180 Output Total 1 Balance 999 1180 Intake: Oral 1000 1180 Output: Emesis 1 Other: Voiding Method Toilet # Voids 2 1 # Bowel Movements 1 1 - Exam Head normocephalic Neck supple Lungs clear to auscultation bilaterally no wheezing or crackles Heart regular rate and rhythm S1-S2, no rub or gallop Abdomen is soft mild right-sided tenderness nondistended positive bowel sounds no hepatosplenomegaly Extremities no edema Neuro alert and orientated to 3 - Labs CBC & Chem 7: 04/28/18 06:13 04/28/18 06:13 Labs: Abnormal Lab Results - Last 24 Hours (Table) 04/28/18 04/28/18 Range/Units 06:13 06:13 RBC 3.75 L (3.80-5.40) m/uL Hgb 10.6 L (11.4-16.0) gm/dL Hct 32.8 L (34.0-46.0) % Potassium 3.1 L (3.5-5.1) mmol/L Chloride 108 H (98-107) mmol/L Total Bilirubin 0.1 L (0.2-1.3) mg/dL Total Protein 5.7 L (6.3-8.2) g/dL Albumin 3.1 L (3.5-5.0) g/dL Microbiology - Last 24 Hours (Table) 04/25/18 12:04 Blood Culture - Preliminary Blood No Growth after 48 hours Assessment and Plan Assessment: #1 acute exacerbation of ulcerative colitis: Seen by GI service. Continue oral prednisone. Continue Levaquin and Flagyl for possible infectious cause. Stool for C. diff negative. Still having frequent watery stools. #2 underlying history of hypertension #3 underlying history of hypothyroidism #4 underlying history of depression with anxiety disorder and posttraumatic stress disorder #5 underlying history of fibromyalgia per patient #6 UTI ruled out: Urine culture negative. Likely contaminated from stool #7 underlying history of mild intermittent asthma #8 hypokalemia and hypomagnesemia likely secondary to the diarrhea. Patient will receive replacement. Repeat labs in a.m. #9 anemia with a known history of iron deficiency anemia and could be dilutional from IV fluids. Patient also reports having ALLERGY to both oral and IV iron. Check iron stool studies. Check stool for occult blood. Patient reporting no further blood in stools for DVT prophylaxis we will use subcu Lovenox for GI prophylaxis we will use Protonix I performed an examination of the patient and discussed their management with the physician Sky Diver. I have reviewed the Physician Sky Diver's notes and agree with the documented findings and plan of care
[2018-04-28] MEDS ORDERED: BALSALAZIDE DISODIUM 750 MG CAPSULE PO ONE (11:15)
[2018-04-28] MEDS: LEVOFLOXACIN 500 MG TAB PO SCH (13:11)
--- NOTE | 2018-04-28 13:26 | P.PN ---
Subjective Progress Note Date: 04/28/18 Principal diagnosis: Ulcerative colitis Still passing multiple nonbloody bowel movements today. Denies abdominal pain. Tolerating diet. Afebrile. Hemoglobin 10.6. White count 5.4. C. diff negative. Objective - Vital Signs Vital signs: Vital Signs Temp 97.7 F 04/28/18 11:35 Pulse 63 04/28/18 11:35 Resp 18 04/28/18 11:35 BP 117/74 04/28/18 11:35 Pulse Ox 95 04/28/18 11:35 Intake & Output 04/27/18 04/28/18 04/28/18 18:59 06:59 18:59 Intake Total 1000 1180 300 Output Total 1 1 Balance 999 1180 299 Intake: Oral 1000 1180 300 Output: Emesis 1 1 Other: Voiding Method Toilet # Voids 2 1 1 # Bowel Movements 1 1 - Exam General appearance: The patient is alert, oriented, in no acute distress. HET: Head is normocephalic and atraumatic. Pupils are equal and reactive. Oropharynx is clear without lesions. Neck: Supple without lymphadenopathy. Trachea midline. Heart: S1 S2. Regular rate and rhythm. Lungs: No crackles or wheezes are heard. Abdomen: Soft, nontender, nondistended with bowel sounds. No peritoneal signs. No palpable organomegaly or masses. Extremities: Normal skin color and turgor. No cyanosis, rash, ulceration, clubbing, or edema. Radial and pedal pulses are 2/4 bilaterally. Neurological: No focal deficits. Strength and sensation are grossly intact. - Labs CBC & Chem 7: 04/29/18 06:52 04/29/18 06:52 Labs: Abnormal Lab Results - Last 24 Hours (Table) 04/28/18 04/28/18 Range/Units 06:13 06:13 RBC 3.75 L (3.80-5.40) m/uL Hgb 10.6 L (11.4-16.0) gm/dL Hct 32.8 L (34.0-46.0) % Potassium 3.1 L (3.5-5.1) mmol/L Chloride 108 H (98-107) mmol/L Total Bilirubin 0.1 L (0.2-1.3) mg/dL Total Protein 5.7 L (6.3-8.2) g/dL Albumin 3.1 L (3.5-5.0) g/dL Microbiology - Last 24 Hours (Table) 04/25/18 12:04 Blood Culture - Preliminary Blood No Growth after 48 hours Assessment and Plan (1) Exacerbation of ulcerative colitis Narrative/Plan: Possible underlying IBS Current Visit: Yes Status: Acute Code(s): K51.90 - ULCERATIVE COLITIS, UNSPECIFIED, WITHOUT COMPLICATIONS SNOMED Code(s): 548154266 (2) UTI (urinary tract infection) Current Visit: Yes Status: Acute Code(s): N39.0 - URINARY TRACT INFECTION, SITE NOT SPECIFIED SNOMED Code(s): 70365496 Plan: 1. Increase balsalazide 750 mg 3 tablets 3 times a day. Continue prednisone 30 mg daily with 5 mg taper every 7 days. 2. CRP in a.m. Continue to observe. Continue antibiotics. We'll continue to follow. Assessment and plan a care discussed with Dr. Meehan
[2018-04-28 17:52] LABS: Iron Saturation 30.61 (12.00-45.00)
[2018-04-28] MEDS: MULTIVITAMINS, THERA 1 EACH TAB PO SCH (21:35)
[2018-04-28] MEDS: traZODone HCL 100 MG TAB PO SCH (21:37)
[2018-04-29] MEDS: metroNIDAZOLE 500 MG TAB PO SCH ×4 (00:13→23:50)
[2018-04-29] MEDS: PANTOPRAZOLE 40 MG TABLET PO SCH (06:26)
[2018-04-29] MEDS: LEVOTHYROXINE 100 MCG TAB PO SCH (06:26)
[2018-04-29] MEDS: SYMBICORT 160-4.5 MCG INHALER INHALATION PRN (07:43)
[2018-04-29] MEDS: ALPRAZolam 0.25 MG TAB PO SCH ×3 (08:30→21:29)
[2018-04-29] MEDS: BALSALAZIDE DISODIUM 750 MG CAPSULE PO SCH ×3 (08:30→21:35)
[2018-04-29] MEDS: CYCLOBENZAPRINE 10 MG TAB PO SCH ×3 (08:31→21:29)
[2018-04-29] MEDS: GABAPENTIN 400 MG CAP PO SCH ×3 (08:31→21:29)
[2018-04-29] MEDS: MELOXICAM 7.5 MG TAB PO SCH ×2 (08:32→21:27)
[2018-04-29 08:33] LABS: Basophils % (A) 0 %; Eosinophils % (A) 1 %; HCT 34.5 % (34.0-46.0); HGB 11.1 gm/dL (11.4-16.0); Lymphocytes # (A) 1.5 k/uL (1.0-4.8); Lymphocytes % (A) 28 %; MCH 27.9 pg (25.0-35.0); MCHC 32.2 g/dL (31.0-37.0); MCV 86.6 fL (80.0-100.0); Mean Platelet Volume 7.3; Monocytes # (A) 0.4 k/uL (0-1.0); Monocytes % (A) 7 %; Neutrophils # (A) 3.2 k/uL (1.3-7.7); Neutrophils % (A) 61 %; Platelet Count 205 k/uL (150-450); RBC 3.98 m/uL (3.80-5.40); RDW 13.6 % (11.5-15.5); WBC 5.2 k/uL (3.8-10.6)
[2018-04-29] MEDS: predniSONE 10 MG TAB PO SCH (08:33)
[2018-04-29] MEDS: DULoxetine HCL 60 MG CAPSULE.DR PO SCH ×2 (08:34→21:27)
[2018-04-29] MEDS: prednisoLONE ACETATE 1% OPHTH DROPS 5 ML BTL BOTH EYES SCH ×3 (08:35→21:29)
[2018-04-29] MEDS: ACETAMINOPHEN TAB 325 MG TAB PO PRN ×2 (08:35→16:42)
[2018-04-29] MEDS: ATENOLOL 25 MG TAB PO SCH (08:35)
[2018-04-29] MEDS: ENOXAPARIN 40 MG/0.4 ML SYRINGE SQ SCH (08:37)
[2018-04-29 08:42] LABS: ALT 31 U/L (9-52); AST 43 U/L (14-36); Albumin 3.3 g/dL (3.5-5.0); Alkaline Phosphatase 58 U/L (38-126); Anion Gap 11 mmol/L; Blood Urea Nitrogen 16 mg/dL (7-17); Calcium 8.8 mg/dL (8.4-10.2); Carbon Dioxide 27 mmol/L (22-30); Chloride 108 mmol/L (98-107); Glucose 86 mg/dL (74-99); Potassium 3.6 mmol/L (3.5-5.1); Sodium 146 mmol/L (137-145); Total Bilirubin 0.2 mg/dL (0.2-1.3); Total Protein 5.9 g/dL (6.3-8.2)
[2018-04-29] MEDS ORDERED: amLODIPine 5 MG TAB PO STA (11:37)
[2018-04-29] MEDS: methylPREDNISolone SOD SUCCI 125 MG/2 ML VIAL IV SCH ×3 (11:54→23:50)
[2018-04-29 12:02] LABS: C Reactive Protein 12.4 mg/L (<10.0)
--- NOTE | 2018-04-29 12:05 | P.PN ---
Subjective Progress Note Date: 04/29/18 Principal diagnosis: Ulcerative colitis Still passing multiple nonbloody bowel movements 3 today so far, 8 yesterday; amounts vary from small to moderate. Denies abdominal pain. Tolerating diet. Afebrile. C. diff negative. Stool culture pending. CRP 12.4. Objective - Vital Signs Vital signs: Vital Signs Temp 97.8 F 04/29/18 07:55 Pulse 73 04/29/18 08:00 Resp 18 04/29/18 08:00 BP 148/86 04/29/18 07:55 Pulse Ox 94 L 04/29/18 07:55 Intake & Output 04/28/18 04/29/18 04/29/18 18:59 06:59 18:59 Intake Total 500 Output Total 1 Balance 499 Intake: Oral 500 Output: Emesis 1 Other: Voiding Method Toilet Toilet # Voids 1 1 # Bowel Movements 1 1 1 - Exam General appearance: The patient is alert, oriented, in no acute distress. HET: Head is normocephalic and atraumatic. Pupils are equal and reactive. Oropharynx is clear without lesions. Neck: Supple without lymphadenopathy. Trachea midline. Heart: S1 S2. Regular rate and rhythm. Lungs: No crackles or wheezes are heard. Abdomen: Soft, nontender, nondistended with bowel sounds. No peritoneal signs. No palpable organomegaly or masses. Extremities: Normal skin color and turgor. No cyanosis, rash, ulceration, clubbing, or edema. Radial and pedal pulses are 2/4 bilaterally. Neurological: No focal deficits. Strength and sensation are grossly intact. - Labs CBC & Chem 7: 04/29/18 06:52 04/29/18 06:52 Labs: Abnormal Lab Results - Last 24 Hours (Table) 04/28/18 04/29/18 04/29/18 Range/Units 13:15 06:52 06:52 Hgb 11.1 L (11.4-16.0) gm/dL Sodium 146 H (137-145) mmol/L Chloride 108 H (98-107) mmol/L AST 43 H (14-36) U/L Total Protein 5.9 L (6.3-8.2) g/dL Albumin 3.3 L (3.5-5.0) g/dL Stool Occult Blood Positive H (Negative) Microbiology - Last 24 Hours (Table) 04/28/18 13:15 Stool Culture - Preliminary Stool 04/25/18 12:04 Blood Culture - Preliminary Blood No Growth after 72 hours Assessment and Plan (1) Exacerbation of ulcerative colitis Narrative/Plan: Possible underlying IBS Current Visit: Yes Status: Acute Code(s): K51.90 - ULCERATIVE COLITIS, UNSPECIFIED, WITHOUT COMPLICATIONS SNOMED Code(s): 616333226 (2) UTI (urinary tract infection) Current Visit: Yes Status: Acute Code(s): N39.0 - URINARY TRACT INFECTION, SITE NOT SPECIFIED SNOMED Code(s): 77548401 Plan: 1. Continue balsalazide 750 mg 3 tablets 3 times a day. Continue prednisone 30 mg daily with 5 mg taper every 7 days. Bentyl 10 mg TID. 2. Continue to observe. Continue antibiotics. We'll continue to follow. Assessment and plan a care discussed with Dr. Meehan
[2018-04-29] MEDS: LEVOFLOXACIN 500 MG TAB PO SCH (14:15)
[2018-04-29] MEDS: DICYCLOMINE 10 MG CAP PO SCH ×2 (16:35→21:29)
[2018-04-29] MEDS: MULTIVITAMINS, THERA 1 EACH TAB PO SCH (21:28)
[2018-04-29] MEDS: traZODone HCL 100 MG TAB PO SCH (21:28)
[2018-04-29 23:57] VITALS: RESP 16
[2018-04-30] MEDS: LEVOTHYROXINE 100 MCG TAB PO SCH (06:36)
[2018-04-30] MEDS: PANTOPRAZOLE 40 MG TABLET PO SCH (06:36)
[2018-04-30 07:07] LABS: Basophils % (A) 0 %; Eosinophils % (A) 1 %; HCT 35.1 % (34.0-46.0); HGB 11.4 gm/dL (11.4-16.0); Lymphocytes # (A) 0.7 k/uL (1.0-4.8); Lymphocytes % (A) 9 %; MCHC 32.4 g/dL (31.0-37.0); MCV 86.2 fL (80.0-100.0); Mean Platelet Volume 7.2; Monocytes # (A) 0.2 k/uL (0-1.0); Monocytes % (A) 2 %; Neutrophils # (A) 6.2 k/uL (1.3-7.7); Neutrophils % (A) 87 %; Platelet Count 225 k/uL (150-450); RBC 4.07 m/uL (3.80-5.40); RDW 13.7 % (11.5-15.5); WBC 7.1 k/uL (3.8-10.6)
[2018-04-30 07:31] LABS: ALT 36 U/L (9-52); AST 48 U/L (14-36); Albumin 3.4 g/dL (3.5-5.0); Alkaline Phosphatase 64 U/L (38-126); Anion Gap 11 mmol/L; Blood Urea Nitrogen 14 mg/dL (7-17); Calcium 8.8 mg/dL (8.4-10.2); Carbon Dioxide 27 mmol/L (22-30); Chloride 107 mmol/L (98-107); Glucose 135 mg/dL (74-99); Potassium 3.5 mmol/L (3.5-5.1); Sodium 145 mmol/L (137-145); Total Bilirubin 0.2 mg/dL (0.2-1.3)
[2018-04-30] MEDS: ENOXAPARIN 40 MG/0.4 ML SYRINGE SQ SCH (07:40)
[2018-04-30] MEDS: prednisoLONE ACETATE 1% OPHTH DROPS 5 ML BTL BOTH EYES SCH (07:41)
[2018-04-30] MEDS: methylPREDNISolone SOD SUCCI 125 MG/2 ML VIAL IV SCH (07:41)
[2018-04-30] MEDS: metroNIDAZOLE 500 MG TAB PO SCH (07:41)
[2018-04-30] MEDS: GABAPENTIN 400 MG CAP PO SCH (07:41)
[2018-04-30] MEDS: DICYCLOMINE 10 MG CAP PO SCH (07:42)
[2018-04-30] MEDS: CYCLOBENZAPRINE 10 MG TAB PO SCH (07:42)
[2018-04-30] MEDS: BALSALAZIDE DISODIUM 750 MG CAPSULE PO SCH (07:42)
[2018-04-30] MEDS: ALPRAZolam 0.25 MG TAB PO SCH (07:42)
[2018-04-30] MEDS: MELOXICAM 7.5 MG TAB PO SCH (07:42)
[2018-04-30] MEDS: ATENOLOL 25 MG TAB PO SCH (07:42)
[2018-04-30] MEDS: DULoxetine HCL 60 MG CAPSULE.DR PO SCH (07:43)
[2018-04-30 08:22] VITALS: BP 143/84; PULSE 58; TEMP 98
--- NOTE | 2018-04-30 09:54 | P.PN ---
Subjective Progress Note Date: 04/29/18 Ny Covington is a 52-year-old female who presented to [facility] emergency department with a chief complaint of abdominal pain. Patient states pain started last few days and she started having diarrhea which is yellow in nature she also had low-grade fever at home. She has a known history of ulcerative colitis , her last exacerbation was in November 2017, patient stated that her pain and discomfort at this time is similar to her previous exacerbations. Patient states her primary care physician is Dr. villa in [place], GI physician is Dr. Meehan and her surgeon is Dr. Simpson. . Patient states that she's had some nausea and burping but no vomiting. She states mainly she has right-sided abdominal pain and diarrhea. patient was evaluated in the emergency room she had a computed tomography scan that confirmed evidence of colitis in the cecum and ascending colon was started on steroid and was admitted to medical floor and gastroenterology consultation was requested . 04/27/2018 patient had 8 stools through the day yesterday. Already has had 2 bowel movements this morning. Stools are still liquidy. Abdominal pain is improved. They're still greenish in color. She has an occasional spot of blood on the tissue. Denies any nausea or vomiting. Does maintain on the prednisone 30 mg daily. Also on Levaquin and Flagyl. Followed by GI service. Stool for C. diff negative 04/28/2018 patient is still having multiple watery stools. She's already had 3 bowel movements this morning. She is feeling about the same. Denies any significant abdominal pain. Denies any nausea or vomiting. Denies any chest pain or shortness of breath. Denies any burning with urination. No blood reported in stools On 04/29/2018 patient is alert and oriented 3 she denies any nausea vomiting or abdominal pain she is still having multiple episodes of diarrhea otherwise no complaints at this time patient had very slow improvement, at this point will discontinue prednisone and start IV Solu-Medrol 60 mg every 8 hours Objective - Vital Signs Vital signs: Vital Signs Temp 98 F 04/30/18 07:37 Pulse 58 L 04/30/18 07:37 Resp 16 04/30/18 07:37 BP 143/84 04/30/18 07:37 Pulse Ox 97 04/30/18 07:37 Intake & Output 04/29/18 04/30/18 04/30/18 18:59 06:59 18:59 Intake Total 240 Balance 240 Intake: Oral 240 Other: Voiding Method Toilet # Voids 1 # Bowel Movements 5 1 - Exam Head normocephalic and atraumatic Neck supple no JVD Lungs clear to auscultation bilaterally no wheezing or crackles Heart regular rate and rhythm S1-S2, no rub or gallop Abdomen is soft mild right-sided tenderness nondistended positive bowel sounds no hepatosplenomegaly Extremities no edema Neuro alert and orientated to 3 - Labs CBC & Chem 7: 04/30/18 06:52 04/30/18 06:52 Labs: Abnormal Lab Results - Last 24 Hours (Table) 04/28/18 04/29/18 04/30/18 Range/Units 13:15 06:52 06:52 Lymphocytes # 0.7 L (1.0-4.8) k/uL Glucose (74-99) mg/dL AST (14-36) U/L C-Reactive Protein 12.4 H (<10.0) mg/L Total Protein (6.3-8.2) g/dL Albumin (3.5-5.0) g/dL Stool Lactoferrin POSITIVE H (NEGATIVE) 04/30/18 Range/Units 06:52 Lymphocytes # (1.0-4.8) k/uL Glucose 135 H (74-99) mg/dL AST 48 H (14-36) U/L C-Reactive Protein (<10.0) mg/L Total Protein 6.0 L (6.3-8.2) g/dL Albumin 3.4 L (3.5-5.0) g/dL Stool Lactoferrin (NEGATIVE) Microbiology - Last 24 Hours (Table) 04/25/18 12:04 Blood Culture - Preliminary Blood No Growth after 96 hours Assessment and Plan Plan: #1 acute exacerbation of ulcerative colitis: Seen by GI service. Hold oral prednisone. Start IV Solu-Medrol Continue Levaquin and Flagyl for possible infectious cause. Stool for C. diff negative. Still having frequent watery stools. #2 underlying history of hypertension #3 underlying history of hypothyroidism #4 underlying history of depression with anxiety disorder and posttraumatic stress disorder #5 underlying history of fibromyalgia per patient #6 UTI ruled out: Urine culture negative. Likely contaminated from stool #7 underlying history of mild intermittent asthma #8 hypokalemia and hypomagnesemia likely secondary to the diarrhea. Patient will receive replacement. Repeat labs in a.m. #9 anemia with a known history of iron deficiency anemia and could be dilutional from IV fluids. Patient also reports having ALLERGY to both oral and IV iron. Check iron stool studies. Check stool for occult blood. Patient reporting no further blood in stools for DVT prophylaxis we will use subcu Lovenox for GI prophylaxis we will use Protonix
--- NOTE | 2018-04-30 09:59 | P.PN ---
Subjective Progress Note Date: 04/30/18 Principal diagnosis: Ulcerative colitis Multiple nonbloody bowel movements 5 yesterday 1 this morning frequency improving. Afebrile. Tolerating diet. Denies abdominal pain. Started on Bentyl 3 times daily yesterday. Stool lactoferrin positive. Objective - Vital Signs Vital signs: Vital Signs Temp 98 F 04/30/18 07:37 Pulse 58 L 04/30/18 07:37 Resp 16 04/30/18 07:37 BP 143/84 04/30/18 07:37 Pulse Ox 97 04/30/18 07:37 Intake & Output 04/29/18 04/30/18 04/30/18 18:59 06:59 18:59 Intake Total 240 Balance 240 Intake: Oral 240 Other: Voiding Method Toilet # Voids 1 # Bowel Movements 5 1 - Exam General appearance: The patient is alert, oriented, in no acute distress. HET: Head is normocephalic and atraumatic. Pupils are equal and reactive. Oropharynx is clear without lesions. Neck: Supple without lymphadenopathy. Trachea midline. Heart: S1 S2. Regular rate and rhythm. Lungs: No crackles or wheezes are heard. Abdomen: Soft, nontender, nondistended with bowel sounds. No peritoneal signs. No palpable organomegaly or masses. Extremities: Normal skin color and turgor. No cyanosis, rash, ulceration, clubbing, or edema. Radial and pedal pulses are 2/4 bilaterally. Neurological: No focal deficits. Strength and sensation are grossly intact. - Labs CBC & Chem 7: 04/30/18 06:52 04/30/18 06:52 Labs: Abnormal Lab Results - Last 24 Hours (Table) 04/28/18 04/29/18 04/30/18 Range/Units 13:15 06:52 06:52 Lymphocytes # 0.7 L (1.0-4.8) k/uL Glucose (74-99) mg/dL AST (14-36) U/L C-Reactive Protein 12.4 H (<10.0) mg/L Total Protein (6.3-8.2) g/dL Albumin (3.5-5.0) g/dL Stool Lactoferrin POSITIVE H (NEGATIVE) 04/30/18 Range/Units 06:52 Lymphocytes # (1.0-4.8) k/uL Glucose 135 H (74-99) mg/dL AST 48 H (14-36) U/L C-Reactive Protein (<10.0) mg/L Total Protein 6.0 L (6.3-8.2) g/dL Albumin 3.4 L (3.5-5.0) g/dL Stool Lactoferrin (NEGATIVE) Microbiology - Last 24 Hours (Table) 04/25/18 12:04 Blood Culture - Preliminary Blood No Growth after 96 hours Assessment and Plan (1) Exacerbation of ulcerative colitis Narrative/Plan: Possible underlying IBS Current Visit: Yes Status: Acute Code(s): K51.90 - ULCERATIVE COLITIS, UNSPECIFIED, WITHOUT COMPLICATIONS SNOMED Code(s): 854699331 (2) UTI (urinary tract infection) Narrative/Plan: Ruled out urine culture negative. Current Visit: Yes Status: Acute Code(s): N39.0 - URINARY TRACT INFECTION, SITE NOT SPECIFIED SNOMED Code(s): 78239032 Plan: 1. Continue balsalazide 750 mg 3 tablets 3 times a day. DC IV steroids. Continue prednisone 30 mg daily on discharge with 5 mg taper every 7 days. Bentyl 10 mg TID. 2. Agreeable for discharge. Return to office in 4-6 weeks. Assessment and plan a care discussed with Dr. Meehan
--- NOTE | 2018-04-30 10:04 | P.DS ---
Providers Date of admission: 04/25/18 13:30 Expected date of discharge: 04/30/18 Attending physician: Roma Welch Consults: 04/25/18 13:28 Consult Physician Stat Consulting Provider: Cecilia Meehan Consult Reason/Comments: Ulcerative colitis Do you want consulting provider notified?: Yes Primary care physician: Lu Mancera [facility] Course: Diagnoses on discharge: #1 acute exacerbation of ulcerative colitis: Seen by GI service. Continue oral prednisone. Continue Levaquin and Flagyl for possible infectious cause. Stool for C. diff negative. Still having frequent watery stools. #2 underlying history of hypertension #3 underlying history of hypothyroidism #4 underlying history of depression with anxiety disorder and posttraumatic stress disorder #5 underlying history of fibromyalgia per patient #6 UTI ruled out: Urine culture negative. Likely contaminated from stool #7 underlying history of mild intermittent asthma #8 hypokalemia and hypomagnesemia likely secondary to the diarrhea. Patient will receive replacement. Repeat labs in a.m. #9 anemia with a known history of iron deficiency anemia and could be dilutional from IV fluids. Patient also reports having ALLERGY to both oral and IV iron. Check iron stool studies. Check stool for occult blood. Patient reporting no further blood in stools Hospital course: Ny Covington is a 52-year-old female who presented to [facility] emergency department with a chief complaint of abdominal pain. Patient states pain started last few days and she started having diarrhea which is yellow in nature she also had low-grade fever at home. She has a known history of ulcerative colitis , her last exacerbation was in November 2017, patient stated that her pain and discomfort at this time is similar to her previous exacerbations. Patient states her primary care physician is Dr. villa in [place], GI physician is Dr. Meehan and her surgeon is Dr. Simpson. . Patient states that she's had some nausea and burping but no vomiting. She states mainly she has right-sided abdominal pain and diarrhea. patient was evaluated in the emergency room she had a computed tomography scan that confirmed evidence of colitis in the cecum and ascending colon was started on steroid and was admitted to medical floor and gastroenterology consultation was requested . 04/27/2018 patient had 8 stools through the day yesterday. Already has had 2 bowel movements this morning. Stools are still liquidy. Abdominal pain is improved. They're still greenish in color. She has an occasional spot of blood on the tissue. Denies any nausea or vomiting. Does maintain on the prednisone 30 mg daily. Also on Levaquin and Flagyl. Followed by GI service. Stool for C. diff negative 04/28/2018 patient is still having multiple watery stools. She's already had 3 bowel movements this morning. She is feeling about the same. Denies any significant abdominal pain. Denies any nausea or vomiting. Denies any chest pain or shortness of breath. Denies any burning with urination. No blood reported in stools On 04/29/2018 patient is alert and oriented 3 she denies any nausea vomiting or abdominal pain she is still having multiple episodes of diarrhea otherwise no complaints at this time patient had very slow improvement, at this point will discontinue prednisone and start IV Solu-Medrol 60 mg every 8 hours On 04/30/2018 patient is feeling better, she had one bowel movements this morning there is no fever or chills no headache no dizziness no chest pain no shortness of breath no cough no nausea or vomiting no abdominal pain and no urinary symptoms. Patient was evaluated by gastroenterology and was cleared for discharge Patient Condition at Discharge: Stable Plan - Discharge Summary Discharge Rx Participant: Yes New Discharge Prescriptions: New Balsalazide Disodium 2,250 mg PO TID #270 capsule Dicyclomine [Bentyl] 10 mg PO TID #90 capsule Dicyclomine [Bentyl] 10 mg PO TID cap Levofloxacin [Levaquin] 500 mg PO 1400 tab metroNIDAZOLE [Flagyl] 500 mg PO Q8HR tab predniSONE 10 mg PO DAILY #30 tab Continue ALPRAZolam [Xanax] 0.25 mg PO TID Multivitamins, Thera [Multivitamin (formulary)] 1 tab PO HS Gabapentin [Neurontin] 800 mg PO TID Levothyroxine Sodium [Levoxyl] 100 mcg PO DAILY Dexlansoprazole [Dexilant] 60 mg PO DAILY traZODone HCL [Desyrel] 100 mg PO HS DULoxetine HCL [Cymbalta] 60 mg PO BID HYDROcodone/APAP 7.5-325MG [[place] 7.5-325] 0.5 - 1 tab PO Q6HR PRN PRN Reason: Pain Cetirizine HCl [Zyrtec] 10 mg PO DAILY PRN PRN Reason: Allergy Symptoms Budesonide/Formoterol Fumarate [Symbicort 160-4.5 Mcg Inhaler] 2 puff INHALATION RT-BID PRN PRN Reason: breathing problems Atenolol [Tenormin] 25 mg PO DAILY Cyclobenzaprine [Flexeril] 10 mg PO TID Meloxicam [Mobic] 7.5 mg PO BID prednisoLONE ACETATE [Pred Forte 1%] 1 drop BOTH EYES TID Discontinued Balsalazide Disodium [Colazal] 750 mg PO TID Discharge Medication List ALPRAZolam [Xanax] 0.25 mg PO TID 12/05/15 [History] DULoxetine HCL [Cymbalta] 60 mg PO BID 12/05/15 [History] Dexlansoprazole [Dexilant] 60 mg PO DAILY 12/05/15 [History] Gabapentin [Neurontin] 800 mg PO TID 12/05/15 [History] Levothyroxine Sodium [Levoxyl] 100 mcg PO DAILY 12/05/15 [History] Multivitamins, Thera [Multivitamin (formulary)] 1 tab PO HS 12/05/15 [History] traZODone HCL [Desyrel] 100 mg PO HS 12/05/15 [History] HYDROcodone/APAP 7.5-325MG [[place] 7.5-325] 0.5 - 1 tab PO Q6HR PRN 04/05/16 [ History] Budesonide/Formoterol Fumarate [Symbicort 160-4.5 Mcg Inhaler] 2 puff INHALATION RT-BID PRN 12/23/17 [History] Cetirizine HCl [Zyrtec] 10 mg PO DAILY PRN 12/23/17 [History] Atenolol [Tenormin] 25 mg PO DAILY 04/25/18 [History] Cyclobenzaprine [Flexeril] 10 mg PO TID 04/25/18 [History] Meloxicam [Mobic] 7.5 mg PO BID 04/25/18 [History] prednisoLONE ACETATE [Pred Forte 1%] 1 drop BOTH EYES TID 04/25/18 [History] Balsalazide Disodium 2,250 mg PO TID #270 capsule 04/30/18 [Rx] Dicyclomine [Bentyl] 10 mg PO TID cap 04/30/18 [Rx] Dicyclomine [Bentyl] 10 mg PO TID #90 capsule 04/30/18 [Rx] Levofloxacin [Levaquin] 500 mg PO 1400 tab 04/30/18 [Rx] metroNIDAZOLE [Flagyl] 500 mg PO Q8HR tab 04/30/18 [Rx] predniSONE 10 mg PO DAILY #30 tab 04/30/18 [Rx] Follow up Appointment(s)/Referral(s): Cecilia Meehan MD [STAFF PHYSICIAN] - 05/20/18 4:30 pm Lu Mancera MD [Primary Care Provider] - 1-2 days
== END 2018-04-30 11:45 | disposition home or self-care (01) | DRG 387 ==
LOC: EC 11:30 → 6PED 13:30
PROVIDERS: ADMIT Internal Medicine; ATTEND Internal Medicine
DX: K51.911 Ulcerative colitis, unspecified with rectal bleeding (principal); E03.9 Hypothyroidism, unspecified; E83.42 Hypomagnesemia; E87.6 Hypokalemia; F32.9 Major depressive disorder, single episode, unspecified; F41.0 Panic disorder [episodic paroxysmal anxiety]; F43.10 Post-traumatic stress disorder, unspecified; H40.9 Unspecified glaucoma; I10 Essential (primary) hypertension; J44.9 Chronic obstructive pulmonary disease, unspecified; J45.20 Mild intermittent asthma, uncomplicated; K21.9 Gastro-esophageal reflux disease without esophagitis; M79.7 Fibromyalgia; Z79.51 Long term (current) use of inhaled steroids; Z80.51 Family history of malignant neoplasm of kidney; Z82.5 Family history of asthma and other chronic lower respiratory diseases; Z87.891 Personal history of nicotine dependence; Z96.653 Presence of artificial knee joint, bilateral; Z79.890 Hormone replacement therapy; Z79.899 Other long term (current) drug therapy; Z88.6 Allergy status to analgesic agent; Z88.1 Allergy status to other antibiotic agents; Z88.2 Allergy status to sulfonamides; Z88.8 Allergy status to other drugs, medicaments and biological substances; Z91.018 Allergy to other foods
CPT/HCPCS: 36415; 74177; 80053; 81001; 82150; 82272; 82728; 83540; 83550; 83605; 83630; 83690; 83735; 85025; 85610; 85730; 86140; 87040; 87045; 87046; 87086; 87324; 87328; 87329; 94640; 96361; 96365; 99285

== ENCOUNTER → 2019-09-15 | Outpatient (CLI) | payer MEDICARE ==
--- NOTE | 2019-09-15 16:21 | XR ---
EXAMINATION TYPE: XR chest 2V DATE OF EXAM: 09/15/2019 COMPARISON: Right chest 08/14/2011 HISTORY: Stridor, wheezing TECHNIQUE: Frontal and lateral views of the chest are obtained. FINDINGS: There is no focal air space opacity, pleural effusion, or pneumothorax seen. The cardiac silhouette size is table, enlarged. Retrocardiac lucency and soft tissue density compatible with pro bable partial intrathoracic stomach. The osseous structures are intact. IMPRESSION: No acute cardiopulmonary process.
--- NOTE | 2019-09-15 16:35 | XR ---
Soft tissue neck HISTORY: Stridor and wheezing 2 views of the neck The airway is patent. Epiglottis shows a normal appearance in profile. No radiopaque foreign body. De generative disc changes in the visualized spine. IMPRESSION: Normal soft tissue neck. Degenerative disc disease.
== END | disposition home or self-care (01) ==
LOC: RADXRMAIN 15:34
PROVIDERS: ATTEND Family Medicine
DX: M50.30 Other cervical disc degeneration, unspecified cervical region (principal); R06.1 Stridor; R06.2 Wheezing
CPT/HCPCS: 70360; 71046

== ENCOUNTER → 2019-11-01 | Outpatient (CLI) | payer MEDICARE ==
[2019-11-02 10:56] LABS: Alt. alternata IgE Class CLASS 0; Alternaria alternata IgE <0.10 kU/L (<0.10); Asperg. fumagatus IgE <0.10 kU/L (<0.10); Asperg. fumagatus IgE Class CLASS 0; Candida albicans IgE Class CLASS 0; Clad herbarum IgE <0.10 kU/L (<0.10); Clad herbarum IgE Class CLASS 0; Latex IgE Class CLASS 0; Mucor racemosus IgE <0.10 kU/L (<0.10); Mucor racemosus IgE Class CLASS 0; Penicillium chrysogenum IgE <0.10 kU/L (<0.10); Penicillium chrysogenum IgE Cl CLASS 0
[2019-11-05 22:15] LABS: Alternaria Alternata IgG 9.1 mcg/mL (< 13.6); Aspergillus fumigatus IgG Not detected (Not detected); Aureobasidium pullulans IgG 10.8 mcg/mL (< 13.6); Cladosporium herbarium IgG 50.3 mcg/mL (< 14.7); Phoma ssp. IgG 11.4 mcg/mL (< 6.6); Saccaharomospora viridis Not detected (Not detected); Saccaharopoly. rectivirgula Not detected (Not detected)
== END ==
LOC: LABWHC1 12:23
PROVIDERS: ATTEND Internal Medicine Sleep Medicine
DX: B44.81 Allergic bronchopulmonary aspergillosis (principal)
CPT/HCPCS: 36415; 86001; 86003; 86606; 86609

== ENCOUNTER → 2019-12-13 | Outpatient (CLI) | payer MEDICARE ==
--- NOTE | 2019-12-14 13:23 | MM ---
Reason for exam: screening (asymptomatic). Last mammogram was performed 5 years and 6 months ago. History: Patient is postmenopausal and is nulliparous. Family history of breast cancer in maternal grandmother and breast cancer in aunt at age 49. Benign cyst aspiration of the right breast, 2011. Benign cyst aspiration of the right breast, 2010. Took hormonal contraceptives for 1 month beginning at age 36. Physical Findings: A clinical breast exam by your physician is recommended on an annual basis and results should be correlated with mammographic findings. MG 3D Screening Mammo W/Cad Bilateral CC and MLO view(s) were taken. Prior study comparison: June 17, 2014, bilateral MG screening mammo w CAD. June 15, 2013, CAD bilateral diagnostic mammogram. The breast tissue is heterogeneously dense. This may lower the sensitivity of mammography. Finding #1: There is a 8 mm high density, oval mass in the upper outer quadrant of the left breast. Finding #2: There are typically benign calcifications in the right breast. There is a chronic nodularity in the left breast. ASSESSMENT: Incomplete: need additional imaging evaluation, BI-RAD 0 RECOMMENDATION: Special view mammogram of the left breast. If lesion persists on supplemental views, image directed ultrasound is recommended. [facility] will attempt to contact patient to return for supplemental views and ultrasound if indicated.
== END | disposition home or self-care (01) ==
LOC: RADMAMWWP 13:13
PROVIDERS: ATTEND Family Medicine
DX: Z12.31 Encounter for screening mammogram for malignant neoplasm of breast (principal)
CPT/HCPCS: 77063; 77067

== ENCOUNTER → 2019-12-13 | Outpatient (CLI) | payer MEDICARE | END | disposition home or self-care (01) | LOC: LABWHC1 13:48 | PROVIDERS: ATTEND Internal Medicine Sleep Medicine | DX: G47.419 Narcolepsy without cataplexy (principal) | CPT/HCPCS: 36415; 81383 ==

== ENCOUNTER → 2019-12-23 | Outpatient (CLI) | payer MEDICARE ==
--- NOTE | 2019-12-24 10:26 | MM ---
Reason for exam: additional evaluation requested from abnormal screening. Last mammogram was performed less than 1 month ago. History: Patient is postmenopausal and is nulliparous. Family history of breast cancer in maternal grandmother and breast cancer in aunt at age 49. Benign cyst aspiration of the right breast, 2011. Benign cyst aspiration of the right breast, 2010. Took hormonal contraceptives for 1 month beginning at age 36. Physical Findings: Nurse did not find any significant physical abnormalities on exam. MG 3D Work Up W/Cad LT Spot compression CC, spot compression MLO, and LM view(s) were taken of the left breast. Prior study comparison: December 13, 2019, bilateral MG 3d screening mammo w/cad. June 17, 2014, bilateral MG screening mammo w CAD. The breast tissue is heterogeneously dense. This may lower the sensitivity of mammography. There is a persistent upper outer quadrant mass at middle depth measuring 9 x 5mm on the left, ultrasound will be performed. These results were verbally communicated with the patient and result sheet given to the patient on 12/23/19. ASSESSMENT: Incomplete: need additional imaging evaluation, BI-RAD 0 RECOMMENDATION: Ultrasound of the left breast. (upper outer quadrant)
--- NOTE | 2019-12-24 10:27 | USB ---
Reason for exam: additional evaluation requested from abnormal screening. History: Patient is postmenopausal and is nulliparous. Family history of breast cancer in maternal grandmother and breast cancer in aunt at age 49. Benign cyst aspiration of the right breast, 2012. Benign cyst aspiration of the right breast, 2010. Took hormonal contraceptives for 1 month beginning at age 36. US Breast Workup Limited LT Technologist: Shanae Yanez Left limited breast ultrasound including focal area of concern, retroareolar and axilla demonstrates a 0.8 x 0.6 x 0.4cm lymph node at 2 o'clock, correlates with mammogram. These results were verbally communicated with the patient and result sheet given to the patient on 12/23/19. ASSESSMENT: Benign, BI-RAD 2 RECOMMENDATION: Return to routine screening mammogram schedule for both breasts.
== END | disposition home or self-care (01) ==
LOC: RADMAMWWP 13:30
PROVIDERS: ATTEND Family Medicine
DX: R92.8 Other abnormal and inconclusive findings on diagnostic imaging of breast (principal)
CPT/HCPCS: 77065; 76642; G0279; 77061

== ENCOUNTER 2020-06-09 08:42 | Day surgery (SDC) | payer MEDICARE ==
[2020-06-07 12:04] VITALS: BMI 51.6
[~2020-06-09 08:42] MED LIST: LIDOCAINE 1% (10MG/ML) FOR IV START INTRADERMA PRN
[2020-06-09 09:12] VITALS: TEMP 97
[2020-06-09] MEDS: LACTATED RINGERS 1,000 ML IV SCH ×2 (09:28→09:32)
[2020-06-09] MEDS ORDERED: PROPOFOL 10 MG/ML 20 ML VIAL IV ONE (09:36)
[2020-06-09] MEDS ORDERED: LIDOCAINE 1% INJ 10MG/ML (20 ML MDV) ONE (09:36)
--- NOTE | 2020-06-09 09:58 | P.PCN ---
Date of Procedure: 06/09/20 Procedure(s) Performed: Brief history: Patient is a pleasant 55-year-old white female scheduled for an elective upper endoscopy as well as colonoscopy as a part of evaluation of and long-standing history of ulcerative colitis Procedure performed: Esophagogastroduodenoscopy with biopsy Colonoscopy with biopsy Preoperative diagnosis: GERD Long-standing history of ulcerative colitis Anesthesia: [facility] [place] Procedure: After informed consent was obtained from the patient was brought into the endoscopy unit and IV sedation was administered by anesthesia under continuous monitoring. Initially upper endoscopy was done. The Olympus GF 160 video endoscope was inserted inserted into the mouth and esophagus intubated without any difficulty and was gradually advanced into the stomach and duodenum and carefully examined. The bulb and second part of the duodenum appeared normal. The scope was then withdrawn into the stomach adequately insufflated with air and upon careful examination the antrum had mild gastritis and biopsies were done from this area. The body, cardia and fundus appeared normal. The scope was then withdrawn into the esophagus. Moderate size hiatal hernia noted. The GE junction was located at 33 cm to the incisors. It appeared regular with no erythema erosions or ulcerations. Rest of the esophagus appeared normal. Patient tolerated the procedure well. At this time the patient continued to remain sedation. Initial digital rectal examination was normal. Olympus CF 160 video colonoscope was then inserted into the rectum and gradually advanced to the cecum without any difficulty. Careful examination was performed as the scope was gradually being withdrawn. The prep was excellent. The cecum, ascending colon, transverse colon appeared normal. In the descending colon there was a 5 mm polyp that was removed by cold biopsy. Rest, descending colon, sigmoid colon appeared normal. In the mid rectum there was one isolated area witherythema and superficial erosion it somewhat thickened folds and biopsies were done from this area. Also random biopsies were done from the cecum to rectum at every 10 cm intervals. Retroflexion was performed in the rectum and no lesions were noted. Patient tolerated the procedure well. Impression: 1. Upper endoscopy revealed moderate size hiatal hernia and mild gastritis 2. Colonoscopy revealed mild erythema with superficial erosions in the mid rectum and a 5 polyps in the descending colon biopsied. No evidence of active colitis Recommendations: Findings of this examination were discussed with the patient as well as a family. She was advised to follow with the biopsy results. If the biopsy does not show any evidence of distal esophagus she can have a repeat colonoscopy in 2 years. She will continue her medications .
[2020-06-09 10:04] VITALS: RESP 16
[2020-06-09 10:14] VITALS: BP 125/84; PULSE 69
== END 2020-06-09 10:34 | disposition home or self-care (01) ==
LOC: ORWHC2ENDO 08:42
PROVIDERS: ATTEND Internal Medicine Gastroenterology
DX: K21.9 Gastro-esophageal reflux disease without esophagitis (principal); K44.9 Diaphragmatic hernia without obstruction or gangrene; K29.50 Unspecified chronic gastritis without bleeding; D12.2 Benign neoplasm of ascending colon; L81.8 Other specified disorders of pigmentation; K51.90 Ulcerative colitis, unspecified, without complications; J45.909 Unspecified asthma, uncomplicated; E07.9 Disorder of thyroid, unspecified; M19.90 Unspecified osteoarthritis, unspecified site; M79.7 Fibromyalgia; Z79.899 Other long term (current) drug therapy; Z79.890 Hormone replacement therapy; Z79.891 Long term (current) use of opiate analgesic; Z88.6 Allergy status to analgesic agent; Z88.2 Allergy status to sulfonamides; Z88.8 Allergy status to other drugs, medicaments and biological substances; Z88.1 Allergy status to other antibiotic agents
CPT/HCPCS: 88305; 88342; 45380; 43239; J2001; J2704

== ENCOUNTER 2021-02-18 02:38 | Emergency (ER) | payer MEDICARE, OTHER ==
[2021-02-18 02:47] VITALS: TEMP 100.9
[2021-02-18] MEDS ORDERED: CLINDAMYCIN 150 MG CAP PO STA (04:07)
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
[2021-02-18 05:04] VITALS: BP 130/78; PULSE 88; RESP 18
== END 2021-02-18 05:04 | disposition home or self-care (01) ==
LOC: EC 02:38
DX: U07.1 COVID-19 (principal); K02.9 Dental caries, unspecified; F41.9 Anxiety disorder, unspecified; F32.9 Major depressive disorder, single episode, unspecified; F43.10 Post-traumatic stress disorder, unspecified; J45.909 Unspecified asthma, uncomplicated; K21.9 Gastro-esophageal reflux disease without esophagitis; I10 Essential (primary) hypertension; M19.90 Unspecified osteoarthritis, unspecified site; E07.9 Disorder of thyroid, unspecified; Z79.51 Long term (current) use of inhaled steroids; Z79.899 Other long term (current) drug therapy; Z79.890 Hormone replacement therapy; Z88.0 Allergy status to penicillin; Z88.1 Allergy status to other antibiotic agents; Z88.2 Allergy status to sulfonamides; Z88.6 Allergy status to analgesic agent; Z88.8 Allergy status to other drugs, medicaments and biological substances; Z91.018 Allergy to other foods; Z91.048 Other nonmedicinal substance allergy status; Z86.69 Personal history of other diseases of the nervous system and sense organs; Z87.891 Personal history of nicotine dependence; Z77.22 Contact with and (suspected) exposure to environmental tobacco smoke (acute) (chronic); Z90.89 Acquired absence of other organs; Z96.653 Presence of artificial knee joint, bilateral
CPT/HCPCS: 99283; U0003; U0005

== ENCOUNTER 2021-02-27 23:12 | Inpatient (IN) | payer MEDICARE, OTHER ==
[2021-02-27] MEDS ORDERED: ACETAMINOPHEN TAB 500 MG TAB PO STA (23:40)
--- NOTE | 2021-02-27 23:49 | ED ---
Fever HPI - General Chief Complaint: Fever Stated Complaint: Covid+,SOB Time Seen by Provider: 02/27/21 23:49 Source: patient, RN notes reviewed, old records reviewed Mode of arrival: wheelchair Limitations: no limitations - History of Present Illness Initial Comments: This is a 55-year-old female DF for evaluation patient Dese for evaluation of severe shortness of breath weakness positive fever in known coronavirus. Patient has cough congestion lightheaded, not feeling well. Patient believes she is about 1 week into coronavirus diagnosis. MD Complaint: fever, malaise, weakness -: week(s) Temperature Source: subjective Context: multiple patients with similar symptoms Associated Symptoms: chills, myalgias, headache, sore throat, cough, shortness of breath, abdominal pain, nausea, vomiting Treatments Prior to Arrival: none - Related Data Home Medications Medication Instructions Recorded Confirmed ALPRAZolam [Xanax] 0.25 mg PO TID 12/05/15 06/09/20 DULoxetine HCL [Cymbalta] 60 mg PO BID 12/05/15 06/09/20 Dexlansoprazole [Dexilant] 60 mg PO DAILY 12/05/15 06/09/20 Gabapentin [Neurontin] 800 mg PO TID 12/05/15 06/09/20 Levothyroxine Sodium [Levoxyl] 100 mcg PO DAILY 12/05/15 06/09/20 Multivitamins, Thera [Multivitamin 1 tab PO HS 12/05/15 06/09/20 (formulary)] traZODone HCL [Desyrel] 100 mg PO HS 12/05/15 06/09/20 Budesonide/Formoterol Fumarate 2 puff INHALATION RT-BID PRN 12/23/17 06/09/20 [Symbicort 160-4.5 Mcg Inhaler] Cyclobenzaprine [Flexeril] 10 mg PO TID 04/25/18 06/09/20 atenoloL [Tenormin] 25 mg PO DAILY 04/25/18 06/09/20 Albuterol Sulfate [Ventolin HFA] 1 - 2 puff INHALATION Q6H PRN 06/07/20 06/09/20 Hydroxychloroquine Sulfate 200 mg PO BID 06/07/20 06/09/20 [Plaquenil] Loteprednol Etabonate [Alrex] 2 drop BOTH EYES BID 06/07/20 06/09/20 Previous Rx's Medication Instructions Recorded Balsalazide Disodium 2,250 mg PO TID #270 capsule 04/30/18 Dicyclomine [Bentyl] 10 mg PO TID #90 capsule 04/30/18 Clindamycin [Cleocin] 150 mg PO Q6H #28 capsule 02/18/21 Allergies Allergy/AdvReac Type Severity Reaction Status Date / Time aspirin Allergy Severe Vomiting Verified 02/27/21 23:28 buspirone HCl [From BuSpar] Allergy Severe numbness Verified 02/27/21 23:28 of tongue and face iron Allergy Severe Nausea & Verified 02/27/21 23:28 Vomiting,hives,swelling,skin changed color Sulfa (Sulfonamide Allergy Severe Rash/Hives Verified 02/27/21 23:28 Antibiotics) loracarbef [From Lorabid] Allergy Intermediate yeast Verified 02/27/21 23:28 infection potassium clavulanate Allergy Intermediate yeast Verified 02/27/21 23:28 [From Augmentin] infection amoxicillin trihydrate Allergy yeast Verified 02/27/21 23:28 [From Augmentin] infection coconut Allergy Severe Rash/Hives Uncoded 02/27/21 23:28 Review of Systems ROS Statement: Those systems with pertinent positive or pertinent negative responses have been documented in the HPI. ROS Other: All systems not noted in ROS Statement are negative. Past Medical History Past Medical History: Asthma, Eye Disorder, Fibromyalgia, GERD/Reflux, Hypertension, Osteoarthritis (OA), Thyroid Disorder Additional Past Medical History / Comment(s): ANEMIA, FIBROMYALGIA, MIGRAINE, DIVERTICULOSIS, ULCERATIVE COLITIS, IBD, OVARIAN CYST, CHRONIC BACK PAIN. BULDGING AND COMPRESSED DISC C 6/7; T 3/4; L4/5. BURSITIS TENDONITIS RIGHT SHOULDER, ENDOMETRIOSIS. CARPAL TUNNEL SYNDROME LEANNE WRISTS. BRUXISM, BREAST CYSTS. GLAUCOMA, DX SJORGREN'S SYNDROME, HIATAL HERNIA History of Any Multi-Drug Resistant Organisms: None Reported Past Surgical History: Joint Replacement, Orthopedic Surgery, Tonsillectomy Additional Past Surgical History / Comment(s): , RT HAND THUMB TENDON REPAIR, LIPOMA, BILAT TKA, D&C, COLONOSCOPY, EGD, EYE SX FOR GLAUCOMA X 2, CYST REMOVED FROM BREAST AND FOOT, BILAT KNEE SX Past Anesthesia/Blood Transfusion Reactions: Motion Sickness Past Psychological History: Anxiety, Depression, PTSD Smoking Status: Former smoker, Second hand smoke exposure Past Alcohol Use History: Rare Past Drug Use History: None Reported - Past Family History Mother Family Medical History: Asthma, Cancer, GERD/Reflux, Osteoarthritis (OA) Additional Family Medical History / Comment(s): cancer on the kidney that grew into the kidney. cancer of the uterine. blood clots. obesity. carotid artery narrowing General Exam Limitations: no limitations General appearance: alert, in no apparent distress, anxious, in distress, obese Head exam: Present: atraumatic, normocephalic, normal inspection Eye exam: Present: normal appearance, PERRL, EOMI. Absent: scleral icterus, conjunctival injection, periorbital swelling ENT exam: Present: normal exam, mucous membranes moist Neck exam: Present: normal inspection. Absent: tenderness, meningismus, lymphad enopathy Respiratory exam: Present: normal lung sounds bilaterally. Absent: respiratory distress, wheezes, rales, rhonchi, stridor Cardiovascular Exam: Present: regular rate, normal rhythm, normal heart sounds. Absent: systolic murmur, diastolic murmur, rubs, gallop, clicks GI/Abdominal exam: Present: soft, normal bowel sounds. Absent: distended, tenderness, guarding, rebound, rigid Extremities exam: Present: normal inspection, full ROM, normal capillary refill. Absent: tenderness, pedal edema, joint swelling, calf tenderness Back exam: Present: normal inspection Neurological exam: Present: alert, oriented X3, CN II-XII intact Psychiatric exam: Present: normal affect, normal mood Skin exam: Present: warm, dry, intact, normal color. Absent: rash Course Vital Signs 02/27/21 02/28/21 02/28/21 23:25 00:29 00:31 Temperature 101.1 F H Pulse Rate 79 98 Respiratory 22 28 H 25 H Rate Blood Pressure 123/68 104/58 O2 Sat by Pulse 90 L 87 L Oximetry 02/28/21 02/28/21 02/28/21 00:34 01:01 01:55 Temperature 100.0 F H Pulse Rate 78 Respiratory 18 Rate Blood Pressure 104/56 O2 Sat by Pulse 93 L 93 L Oximetry - Reevaluation(s) Reevaluation #1: 02/28/21 02:21 Medical record is reviewed Reevaluation #2: 02/28/21 02:21 Symptoms mildly improved Reevaluation #3: 02/28/21 02:21 Spoke patient regarding findings here in the ER questions have been answered - Consultations Consultation #1: Spoke with sound who agrees to admit the patient Medical Decision Making - Medical Decision Making 55 female DEL with known coronavirus positive coronavirus positive hypoxia positive pneumonia on x-ray. Patient be admitted for supportive care - Lab Data Result diagrams: 02/28/21 00:26 02/28/21 00:26 Lab Results 02/28/21 02/28/21 02/28/21 Range/Units 00:26 00:26 00:26 WBC 3.9 (3.8-10.6) k/uL RBC 4.21 (3.80-5.40) m/uL Hgb 12.5 (11.4-16.0) gm/dL Hct 36.3 (34.0-46.0) % MCV 86.1 (80.0-100.0) fL MCH 29.6 (25.0-35.0) pg MCHC 34.3 (31.0-37.0) g/dL RDW 13.2 (11.5-15.5) % Plt Count 108 L (150-450) k/uL MPV 9.2 Neutrophils % 83 % Lymphocytes % 10 % Monocytes % 5 % Eosinophils % 0 % Basophils % 0 % Neutrophils # 3.2 (1.3-7.7) k/uL Lymphocytes # 0.4 L (1.0-4.8) k/uL Monocytes # 0.2 (0-1.0) k/uL Eosinophils # 0.0 (0-0.7) k/uL Basophils # 0.0 (0-0.2) k/uL PT 9.8 (9.0-12.0) sec INR 0.9 (<1.2) APTT 24.0 (22.0-30.0) sec Sodium 137 (137-145) mmol/L Potassium 3.5 (3.5-5.1) mmol/L Chloride 97 L (98-107) mmol/L Carbon Dioxide 31 H (22-30) mmol/L Anion Gap 9 mmol/L BUN 12 (7-17) mg/dL Creatinine 0.84 (0.52-1.04) mg/dL Est GFR (CKD-EPI)AfAm >90 (>60 ml/min/1.73 sqM) Est GFR (CKD-EPI)NonAf 78 (>60 ml/min/1.73 sqM) Glucose 104 H (74-99) mg/dL Plasma Lactic Acid [place] (0.7-2.0) mmol/L Calcium 7.9 L (8.4-10.2) mg/dL Magnesium 1.9 (1.6-2.3) mg/dL Total Bilirubin 0.6 (0.2-1.3) mg/dL AST 104 H (14-36) U/L ALT 17 (4-34) U/L Alkaline Phosphatase 69 (38-126) U/L Lactate Dehydrogenase 1355 H (313-618) U/L C-Reactive Protein 55.9 H (<10.0) mg/L Total Protein 6.1 L (6.3-8.2) g/dL Albumin 3.4 L (3.5-5.0) g/dL 02/28/21 Range/Units 00:26 WBC (3.8-10.6) k/uL RBC (3.80-5.40) m/uL Hgb (11.4-16.0) gm/dL Hct (34.0-46.0) % MCV (80.0-100.0) fL MCH (25.0-35.0) pg MCHC (31.0-37.0) g/dL RDW (11.5-15.5) % Plt Count (150-450) k/uL MPV Neutrophils % % Lymphocytes % % Monocytes % % Eosinophils % % Basophils % % Neutrophils # (1.3-7.7) k/uL Lymphocytes # (1.0-4.8) k/uL Monocytes # (0-1.0) k/uL Eosinophils # (0-0.7) k/uL Basophils # (0-0.2) k/uL PT (9.0-12.0) sec INR (<1.2) APTT (22.0-30.0) sec Sodium (137-145) mmol/L Potassium (3.5-5.1) mmol/L Chloride (98-107) mmol/L Carbon Dioxide (22-30) mmol/L Anion Gap mmol/L BUN (7-17) mg/dL Creatinine (0.52-1.04) mg/dL Est GFR (CKD-EPI)AfAm (>60 ml/min/1.73 sqM) Est GFR (CKD-EPI)NonAf (>60 ml/min/1.73 sqM) Glucose (74-99) mg/dL Plasma Lactic Acid [place] 1.5 (0.7-2.0) mmol/L Calcium (8.4-10.2) mg/dL Magnesium (1.6-2.3) mg/dL Total Bilirubin (0.2-1.3) mg/dL AST (14-36) U/L ALT (4-34) U/L Alkaline Phosphatase (38-126) U/L Lactate Dehydrogenase (313-618) U/L C-Reactive Protein (<10.0) mg/L Total Protein (6.3-8.2) g/dL Albumin (3.5-5.0) g/dL - EKG Data -: EKG Interpreted by Me (EKG shows sinus rhythm 76 WI 172 QRS 76 QTC 400) - Radiology Data Radiology results: report reviewed (Chest x-rays positive for coronavirus with pneumonia), image reviewed Critical Care Time Critical Care Time: Yes Total Critical Care Time: 31 Disposition Clinical Impression: Upper respiratory infection, Coronavirus infection, Pneumonia due to COVID-19 virus, Hypoxia Disposition: ADMITTED IP TO THIS [facility] Condition: Serious Is patient prescribed a controlled substance at d/c from ED?: No Referrals: Lu Mancera MD [Primary Care Provider] - 1-2 days
[2021-02-27] MEDS ORDERED: ALBUTEROL HFA INHALER INHALATION STA (23:55)
[2021-02-27] MEDS ORDERED: DEXAMETHASONE SOD PHOSPHATE 10 MG/ML 1 ML VIAL IV STA (23:55)
[2021-02-27] MEDS ORDERED: KETOROLAC 15 MG/ML 1 ML VIAL IVP STA (23:55)
[2021-02-27] MEDS ORDERED: SODIUM CHLORIDE 0.9% 1,000 ML IV STA ×2 (23:55)
--- NOTE | 2021-02-27 23:57 | XR ---
EXAMINATION TYPE: XR chest 2V DATE OF EXAM: 02/27/2021 COMPARISON: 09/15/2019 HISTORY: Vertebra TECHNIQUE: 2 views FINDINGS: There is large hiatal hernia with air-fluid level. There is pulmonary interstitial and airs pace edema. Heart appears enlarged. There is no definite pleural effusion. IMPRESSION: Pulmonary edema appears new compared to old exam and could relate to acute pneumonia or R DS. No pleural fluid seen to suggest heart failure. Large hiatal hernia unchanged.
[2021-02-28 00:54] LABS: Basophils % (A) 0 %; Eosinophils % (A) 0 %; HCT 36.3 % (34.0-46.0); HGB 12.5 gm/dL (11.4-16.0); Lymphocytes # (A) 0.4 k/uL (1.0-4.8); Lymphocytes % (A) 10 %; MCH 29.6 pg (25.0-35.0); MCHC 34.3 g/dL (31.0-37.0); MCV 86.1 fL (80.0-100.0); Mean Platelet Volume 9.2; Monocytes # (A) 0.2 k/uL (0-1.0); Monocytes % (A) 5 %; Neutrophils # (A) 3.2 k/uL (1.3-7.7); Neutrophils % (A) 83 %; Platelet Count 108 k/uL (150-450); RBC 4.21 m/uL (3.80-5.40); RDW 13.2 % (11.5-15.5); WBC 3.9 k/uL (3.8-10.6)
[2021-02-28 01:06] LABS: INR 0.9 (<1.2); Prothrombin Time 9.8 sec (9.0-12.0)
[2021-02-28 01:12] LABS: ALT 17 U/L (4-34); AST 104 U/L (14-36); African American GFR (CKD) >90 (>60 ml/min/1.73 sqM); Albumin 3.4 g/dL (3.5-5.0); Alkaline Phosphatase 69 U/L (38-126); Anion Gap 9 mmol/L; Blood Urea Nitrogen 12 mg/dL (7-17); C Reactive Protein 55.9 mg/L (<10.0); Calcium 7.9 mg/dL (8.4-10.2); Carbon Dioxide 31 mmol/L (22-30); Chloride 97 mmol/L (98-107); Glucose 104 mg/dL (74-99); LDH 1355 U/L (313-618); Magnesium 1.9 mg/dL (1.6-2.3); Non-African American GFR(CKD) 78 (>60 ml/min/1.73 sqM); Potassium 3.5 mmol/L (3.5-5.1); Sodium 137 mmol/L (137-145); Total Bilirubin 0.6 mg/dL (0.2-1.3); Total Protein 6.1 g/dL (6.3-8.2)
[2021-02-28] MEDS ORDERED: NALOXONE 0.4 MG/ML 1 ML VIAL IV PRN (01:39)
[2021-02-28] MEDS: SODIUM CHLORIDE 0.9% 1,000 ML IV SCH ×3 (02:35→23:01)
--- NOTE | 2021-02-28 04:53 | P.HPIM ---
History of Present Illness H&P Date: 02/28/21 Chief Complaint: SOB , dizziness 55 year old female with sjogren syndrome , colitis , intermittent asthma she was diagnosed with COVID about 1 week ago , she is not sure how she contracted the disease, no known sick contact. she has been experiencing progressive symptoms of fever, chills, sore throat, body aches, loss of taste sensation , and intermittent diarrhea. she felt that she was getting worse over past two days, with episodes of feeling dizzy , fogginess, and confusion , she was not feeling much worse SOB or any chest pain . [facility] decided to come and get evaluated. she was found to be hypoxic and was started on supplemental oxygen and IVF hydration with normal saline, she started feeling some improvement. she is currently on 3 L NC blood work showed mild thrombocytopenia , elevated LDH and CRP CXR showed some degree of pulmonary edema Review of Systems Pertinent positives as noted in HPI. All other systems were reviewed and are negative Past Medical History Past Medical History: Asthma, Eye Disorder, Fibromyalgia, GERD/Reflux, Hypertension, Osteoarthritis (OA), Thyroid Disorder Additional Past Medical History / Comment(s): ANEMIA, FIBROMYALGIA, MIGRAINE, DIVERTICULOSIS, ULCERATIVE COLITIS, IBD, OVARIAN CYST, CHRONIC BACK PAIN. BULDGING AND COMPRESSED DISC C 6/7; T 3/4; L4/5. BURSITIS TENDONITIS RIGHT SHOULDER, ENDOMETRIOSIS. CARPAL TUNNEL SYNDROME LEANNE WRISTS. BRUXISM, BREAST CYSTS. GLAUCOMA, DX SJORGREN'S SYNDROME, HIATAL HERNIA History of Any Multi-Drug Resistant Organisms: None Reported Past Surgical History: Joint Replacement, Orthopedic Surgery, Tonsillectomy Additional Past Surgical History / Comment(s): , RT HAND THUMB TENDON REPAIR, LIPOMA, BILAT TKA, D&C, COLONOSCOPY, EGD, EYE SX FOR GLAUCOMA X 2, CYST REMOVED FROM BREAST AND FOOT, BILAT KNEE SX Past Anesthesia/Blood Transfusion Reactions: Motion Sickness Past Psychological History: Anxiety, Depression, PTSD Smoking Status: Former smoker, Second hand smoke exposure Past Alcohol Use History: Rare Past Drug Use History: None Reported - Past Family History Mother Family Medical History: Asthma, Cancer, GERD/Reflux, Osteoarthritis (OA) Additional Family Medical History / Comment(s): cancer on the kidney that grew into the kidney. cancer of the uterine. blood clots. obesity. carotid artery narrowing Medications and Allergies Home Medications Medication Instructions Recorded Confirmed Type ALPRAZolam [Xanax] 0.25 mg PO TID 12/05/15 06/09/20 History DULoxetine HCL [Cymbalta] 60 mg PO BID 12/05/15 06/09/20 History Dexlansoprazole [Dexilant] 60 mg PO DAILY 12/05/15 06/09/20 History Gabapentin [Neurontin] 800 mg PO TID 12/05/15 06/09/20 History Levothyroxine Sodium [Levoxyl] 100 mcg PO DAILY 12/05/15 06/09/20 History Multivitamins, Thera [Multivitamin 1 tab PO HS 12/05/15 06/09/20 History (formulary)] traZODone HCL [Desyrel] 100 mg PO HS 12/05/15 06/09/20 History Budesonide/Formoterol Fumarate 2 puff INHALATION RT-BID PRN 12/23/17 06/09/20 History [Symbicort 160-4.5 Mcg Inhaler] Cyclobenzaprine [Flexeril] 10 mg PO TID 04/25/18 06/09/20 History atenoloL [Tenormin] 25 mg PO DAILY 04/25/18 06/09/20 History Balsalazide Disodium 2,250 mg PO TID #270 capsule 04/30/18 06/09/20 Rx Dicyclomine [Bentyl] 10 mg PO TID #90 capsule 04/30/18 06/09/20 Rx Albuterol Sulfate [Ventolin HFA] 1 - 2 puff INHALATION Q6H PRN 06/07/20 06/09/20 History Hydroxychloroquine Sulfate 200 mg PO BID 06/07/20 06/09/20 History [Plaquenil] Loteprednol Etabonate [Alrex] 2 drop BOTH EYES BID 06/07/20 06/09/20 History Clindamycin [Cleocin] 150 mg PO Q6H #28 capsule 02/18/21 Rx Allergies Allergy/AdvReac Type Severity Reaction Status Date / Time aspirin Allergy Severe Vomiting Verified 02/27/21 23:28 buspirone HCl [From BuSpar] Allergy Severe numbness Verified 02/27/21 23:28 of tongue and face iron Allergy Severe Nausea & Verified 02/27/21 23:28 Vomiting,hives,swelling,skin changed color Sulfa (Sulfonamide Allergy Severe Rash/Hives Verified 02/27/21 23:28 Antibiotics) loracarbef [From Lorabid] Allergy Intermediate yeast Verified 02/27/21 23:28 infection potassium clavulanate Allergy Intermediate yeast Verified 02/27/21 23:28 [From Augmentin] infection amoxicillin trihydrate Allergy yeast Verified 02/27/21 23:28 [From Augmentin] infection coconut Allergy Severe Rash/Hives Uncoded 02/27/21 23:28 Physical Exam Vitals: Vital Signs Temp Pulse Resp BP Pulse Ox 02/28/21 02:00 99.0 F 02/28/21 01:55 78 18 104/56 93 L 02/28/21 01:01 100.0 F H 02/28/21 00:34 93 L 02/28/21 00:31 98 25 H 104/58 87 L 02/28/21 00:29 28 H 02/27/21 23:25 101.1 F H 79 22 123/68 90 L Intake and Output 02/27/21 02/27/21 02/28/21 14:59 22:59 06:59 Other: Weight 147.418 kg Constitutional: No acute distress, conversant, pleasant Eyes: Anicteric sclerae, moist conjunctiva, Pupils equal round reactive to light ENMT: NC/AT Oropharynx clear, no erythema, or exudates Neck: Supple, FROM, no masses, or JVD No carotid bruits No thyromegaly Lungs: Clear to auscultation Clear to percussion Normal respiratory effort, no accessory muscle use Cardiovascular: Heart regular in rate and rhythm, No murmurs, gallops, or rubs No peripheral edema Abdominal: Soft Nontender, no guarding, rebound or rigidity Abdomen moving with respiration Normoactive bowel sounds No hepatomegaly, No splenomegaly No palpable mass No abdominal wall hernia noted Skin: Normal temperature, tone, texture, turgor No induration No subcutaneous nodules No rash, lesions No ulcers Extremities: No digital cyanosis No clubbing Pedal pulses intact and symmetrical Radial pulses intact and symmetrical No calf tenderness Psychiatric: Alert and oriented to person, place and time Appropriate affect fair judgement Neuro Muscles Strength 5/5 in all 4 extremities Sensation to light touch grossly present throughout Cranial nerves II-XII grossly intact No focal sensory deficits Lymphatics: no palpable cervical or supraclavicular , or inguinal lymph nodes Results CBC & Chem 7: 02/28/21 00:26 02/28/21 00:26 Labs: Abnormal Lab Results - Last 24 Hours (Table) 02/28/21 02/28/21 Range/Units 00:26 00:26 Plt Count 108 L (150-450) k/uL Lymphocytes # 0.4 L (1.0-4.8) k/uL Chloride 97 L (98-107) mmol/L Carbon Dioxide 31 H (22-30) mmol/L Glucose 104 H (74-99) mg/dL Calcium 7.9 L (8.4-10.2) mg/dL AST 104 H (14-36) U/L Lactate Dehydrogenase 1355 H (313-618) U/L C-Reactive Protein 55.9 H (<10.0) mg/L Total Protein 6.1 L (6.3-8.2) g/dL Albumin 3.4 L (3.5-5.0) g/dL Assessment and Plan Assessment: Acute hypoxic respiratory failure [place] with pneumonitis Mild thrombocytopenia Plan Supportive care Supplemental oxygen as needed Patient started on Decadron Check d-dimer Pulmonary consult Inhalers as needed Lovenox with DVT prophylaxis Monitor for any evidence of bleeding Contact and droplet precautions Chronic conditions sjogren syndrome Colitis Intermittent asthma Hypothyroid Hypertension CODE STATUS: Full code Discussed with: Patient, ER Anticipated length of stay > than [address]: Home A total of 65 minutes was spent on the care of this complex patient more than 50% of the time was spent in counseling and care coordination.
[2021-02-28] MEDS: ALBUTEROL HFA INHALER INHALATION SCH ×4 (08:12→21:27)
[2021-02-28] MEDS: SYMBICORT 160-4.5 MCG INHALER INHALATION PRN ×2 (08:13→21:30)
[2021-02-28] MEDS ORDERED: REMDESIVIR 200 MG in SODIUM CHLORIDE 0.9% 250 ML IVPB ONE (10:00)
[2021-02-28] MEDS: DEXAMETHASONE SOD PHOSPHATE 10 MG/ML 1 ML VIAL IV SCH (12:18)
[2021-02-28] MEDS: atenoloL 25 MG TAB PO SCH (12:18)
[2021-02-28] MEDS: ENOXAPARIN 40 MG/0.4 ML SYRINGE SQ SCH (12:18)
[2021-02-28] MEDS: LEVOTHYROXINE 100 MCG TAB PO SCH (12:18)
--- NOTE | 2021-02-28 12:57 | P.PN ---
Subjective Progress Note Date: 02/28/21 No new complaints. Feels better from admission Objective - Vital Signs Vital signs: Vital Signs Temp 97.4 F L 02/28/21 06:44 Pulse 62 02/28/21 06:44 Resp 20 02/28/21 06:44 BP 127/75 02/28/21 06:44 Pulse Ox 92 L 02/28/21 06:44 Intake & Output 02/27/21 02/28/21 02/28/21 18:59 06:59 18:59 Weight 147.418 kg - Exam Gen: awake, alert HEENT: normocephalic, atraumatic, good hearing acuity, moist mucous membranes Resp: good air exchange, breathing comfortably with no accessory muscle use CVS: good distal perfusion x 4, GI: soft, NTTP, ND : no SPT, no CVAT, damon catheter not present MSK: no pitting edema, no clubbing Neuro: non-focal, moving all extremities Psych: cooperative, euthymic mood - Labs CBC & Chem 7: 02/28/21 00:26 02/28/21 00:26 Labs: Abnormal Lab Results - Last 24 Hours (Table) 02/28/21 02/28/21 Range/Units 00:26 00:26 Plt Count 108 L (150-450) k/uL Lymphocytes # 0.4 L (1.0-4.8) k/uL Chloride 97 L (98-107) mmol/L Carbon Dioxide 31 H (22-30) mmol/L Glucose 104 H (74-99) mg/dL Calcium 7.9 L (8.4-10.2) mg/dL AST 104 H (14-36) U/L Lactate Dehydrogenase 1355 H (313-618) U/L C-Reactive Protein 55.9 H (<10.0) mg/L Total Protein 6.1 L (6.3-8.2) g/dL Albumin 3.4 L (3.5-5.0) g/dL Assessment and Plan Assessment: Acute hypoxic respiratory failure [place] with pneumonitis Mild thrombocytopenia Plan Supportive care Supplemental oxygen as needed Patient started on Decadron Check d-dimer Pulmonary consult Inhalers as needed Lovenox with DVT prophylaxis Monitor for any evidence of bleeding Contact and droplet precautions Chronic conditions sjogren syndrome Colitis Intermittent asthma Hypothyroid Hypertension CODE STATUS: Full code Discussed with: Patient, ER Anticipated length of stay > than [address]: Home
--- NOTE | 2021-02-28 13:20 | P.CNPUL ---
History of Present Illness Consult date: 02/28/21 Requesting physician: Shawn Somers Reason for consult: dyspnea, hypoxemia, pneumonia, abnormal CXR/CT Chief complaint: Shortness of breath, fever, hypoxia, Covid 19 pneumonia History of present illness: 55-year-old white female patient with past medical history of hypertension, morbid obesity with BMI of 54.1 kg/m, ulcerative colitis, possible sleep apnea, chronic bronchial asthma, unspecified patient is on Symbicort on a regular basis, GERD/reflux, hiatal hernia, osteoarthritis, hypothyroidism, and fibromyalgia. Come into the emergency department on 02/27/2021 with symptoms of headache, fever, worsening shortness of breath. Her symptom onset was about a week ago and patient had a positive outpatient Covid 19 test. She is not normally on any oxygen, she reports fevers, body aches, headaches, she reports some diarrhea, but no nausea or vomiting, she is requiring supplement oxygen, 4 L. Pulse ox is 92-93%, she is still having a low-grade fevers this morning, with a temp of 100F, she was started on IV steroids, he was given some IV hydration, prophylactic anticoagulation. She states she is feeling better, her headache is better, she seems to be breathing comfortably, although still requiring 4 L of supplemental oxygen, lung sounds are diminished, with some diffuse crackles at bilateral bases, her lab work revealed squamous cell, 3.9, hemoglobin is 12.5, platelet count was 108, leukocyte, 0.4, d-dimer 0.9, sodium is 137, potassium is 3.5, B1 is 12 creatinine 0.84, LDH is 1355, CRP is 55.9. Review of Systems All systems: negative Constitutional: Reports fatigue, Reports fever, Reports malaise, Reports weakness, Denies chills Eyes: denies blurred vision, denies pain Ears, nose, mouth and throat: Denies headache, Denies sore throat Cardiovascular: Denies chest pain, Denies shortness of breath Respiratory: Reports cough, Reports dyspnea Gastrointestinal: Reports diarrhea, Denies abdominal pain, Denies nausea, Denies vomiting Genitourinary: Denies dysuria, Denies hematuria Musculoskeletal: Denies myalgias Integumentary: Denies pruritus, Denies rash Neurological: Denies numbness, Denies weakness Psychiatric: Denies anxiety, Denies depression Endocrine: Denies fatigue, Denies weight change Past Medical History Past Medical History: Asthma, Eye Disorder, Fibromyalgia, GERD/Reflux, Hypertension, Osteoarthritis (OA), Thyroid Disorder Additional Past Medical History / Comment(s): ANEMIA, FIBROMYALGIA, MIGRAINE, DIVERTICULOSIS, ULCERATIVE COLITIS, IBD, OVARIAN CYST, CHRONIC BACK PAIN. BULDGING AND COMPRESSED DISC C 6/7; T 3/4; L4/5. BURSITIS TENDONITIS RIGHT SHOULDER, ENDOMETRIOSIS. CARPAL TUNNEL SYNDROME LEANNE WRISTS. BRUXISM, BREAST CYSTS. GLAUCOMA, DX SJORGREN'S SYNDROME, HIATAL HERNIA History of Any Multi-Drug Resistant Organisms: None Reported Past Surgical History: Joint Replacement, Orthopedic Surgery, Tonsillectomy Additional Past Surgical History / Comment(s): , RT HAND THUMB TENDON REPAIR, LIPOMA, BILAT TKA, D&C, COLONOSCOPY, EGD, EYE SX FOR GLAUCOMA X 2, CYST REMOVED FROM BREAST AND FOOT, BILAT KNEE SX Past Anesthesia/Blood Transfusion Reactions: Motion Sickness Past Psychological History: Anxiety, Depression, PTSD Smoking Status: Former smoker, Second hand smoke exposure Past Alcohol Use History: Rare Past Drug Use History: None Reported - Past Family History Mother Family Medical History: Asthma, Cancer, GERD/Reflux, Osteoarthritis (OA) Additional Family Medical History / Comment(s): cancer on the kidney that grew into the kidney. cancer of the uterine. blood clots. obesity. carotid artery narrowing Medications and Allergies Home Medications Medication Instructions Recorded Confirmed Type ALPRAZolam [Xanax] 0.25 mg PO QAM 12/05/15 02/28/21 History DULoxetine HCL [Cymbalta] 60 mg PO BID 12/05/15 02/28/21 History Dexlansoprazole [Dexilant] 60 mg PO DAILY 12/05/15 02/28/21 History Gabapentin [Neurontin] 800 mg PO TID 12/05/15 02/28/21 History Levothyroxine Sodium [Levoxyl] 100 mcg PO DAILY 12/05/15 02/28/21 History Multivitamins, Thera [Multivitamin 1 tab PO HS 12/05/15 02/28/21 History (formulary)] traZODone HCL [Desyrel] 100 mg PO HS 12/05/15 02/28/21 History Budesonide/Formoterol Fumarate 2 puff INHALATION RT-BID PRN 12/23/17 02/28/21 History [Symbicort 160-4.5 Mcg Inhaler] Cyclobenzaprine [Flexeril] 10 mg PO TID 04/25/18 02/28/21 History atenoloL [Tenormin] 25 mg PO DAILY 04/25/18 02/28/21 History Balsalazide Disodium 2,250 mg PO TID #270 capsule 04/30/18 02/28/21 Rx Dicyclomine [Bentyl] 10 mg PO TID #90 capsule 04/30/18 02/28/21 Rx Albuterol Sulfate [Ventolin HFA] 1 - 2 puff INHALATION RT-Q6H PRN 06/07/20 02/28/21 History Hydroxychloroquine Sulfate 200 mg PO BID 06/07/20 02/28/21 History [Plaquenil] Loteprednol Etabonate [Alrex] 2 drop BOTH EYES BID 06/07/20 02/28/21 History Cetirizine HCl [Zyrtec] 10 mg PO DAILY PRN 02/28/21 02/28/21 History Allergies Allergy/AdvReac Type Severity Reaction Status Date / Time buspirone HCl [From BuSpar] Allergy Severe numbness Verified 02/28/21 07:45 of tongue and face Sulfa (Sulfonamide Allergy Severe Rash/Hives Verified 02/28/21 07:45 Antibiotics) coconut Allergy Rash/Hives Verified 02/28/21 07:45 aspirin AdvReac Severe Vomiting Verified 02/28/21 07:45 iron AdvReac Severe Nausea & Verified 02/28/21 07:45 Vomiting,hives,swelling,skin changed color loracarbef [From Lorabid] AdvReac Intermediate yeast Verified 02/28/21 07:45 infection potassium clavulanate AdvReac Intermediate yeast Verified 02/28/21 07:45 [From Augmentin] infection amoxicillin trihydrate AdvReac yeast Verified 02/28/21 07:45 [From Augmentin] infection Physical Exam Vitals: Vital Signs Temp Pulse Resp BP Pulse Ox 02/28/21 06:44 97.4 F L 62 20 127/75 92 L 02/28/21 02:00 99.0 F 02/28/21 01:55 78 18 104/56 93 L 02/28/21 01:01 100.0 F H 02/28/21 00:34 93 L 02/28/21 00:31 98 25 H 104/58 87 L 02/28/21 00:29 28 H 02/27/21 23:25 101.1 F H 79 22 123/68 90 L Intake and Output 02/27/21 02/28/21 02/28/21 22:59 06:59 14:59 Other: Weight 147.418 kg GENERAL EXAM: Alert, pleasant, morbidly obese, 55-year-old white female on 4 L of oxygen pulse ox between 89-92%, resting comfortably on a gurney in the emergency department, comfortable in no apparent distress. HEAD: Normocephalic/atraumatic. EYES: Normal reaction of pupils, equal size. Conjunctiva pink, sclera white. NOSE: Clear with pink turbinates. THROAT: No erythema or exudates. NECK: No masses, no JVD, no thyroid enlargement, no adenopathy. CHEST: No chest wall deformity. Symmetrical expansion. LUNGS: Equal air entry with crackles in bilateral bases CVS: Regular rate and rhythm, normal S1 and S2, no gallops, no murmurs, no rubs ABDOMEN: Soft, nontender. No hepatosplenomegaly, normal bowel sounds, no guarding or rigidity. EXTREMITIES: No clubbing, no edema, no cyanosis, 2+ pulses and upper and lower extremities. MUSCULOSKELETAL: Muscle strength and tone normal. SPINE: No scoliosis or deformity SKIN: No rashes CENTRAL NERVOUS SYSTEM: Alert and oriented -3. No focal deficits, tone is normal in all 4 extremities. PSYCHIATRIC: Alert and oriented -3. Appropriate affect. Intact judgment and insight. Results - Laboratory Findings CBC and BMP: 02/28/21 00:26 02/28/21 00:26 PT/INR, D-dimer PT 9.8 sec (9.0-12.0) 02/28/21 00:26 INR 0.9 (<1.2) 02/28/21 00:26 D-Dimer 0.29 mg/L FEU (<0.60) 02/28/21 04:54 Abnormal lab findings: Abnormal Labs 02/28/21 02/28/21 00:26 00:26 Plt Count 108 L Lymphocytes # 0.4 L Chloride 97 L Carbon Dioxide 31 H Glucose 104 H Calcium 7.9 L AST 104 H Lactate Dehydrogenase 1355 H C-Reactive Protein 55.9 H Total Protein 6.1 L Albumin 3.4 L - Diagnostic Findings Chest x-ray: report reviewed, image reviewed Additional studies: EKG reviewed Assessment and Plan Plan: Assessment: #1. Acute hypoxic respiratory failure related to COVID 19 pneumonia, with onset of symptoms approximately 1 week ago, and positive outpatient Covid 19 test, will be started on Remdesivir #2. Fever, headaches, shortness of breath, cough related to the above #3. Increased inflammatory markers related to the above #4. Morbid obesity with BMI 54.1 kg/m #5. History of chronic bronchial asthma, unspecified, maintained on Symbicort on a regular basis #6. Possible obstructive sleep apnea #7. Lifetime nonsmoker #8. History of ulcerative colitis #9. Hypertension #10. Fibromyalgia #11. Anxiety/depression #12. GERD/reflux, and a large hiatal hernia Plan: Continue current medical treatment, continue IV steroids, we'll start the patient on Remdesivir treatment, continue with vitamins, continue with prophylactic dose Lovenox, we'll continue to monitor her clinical course, oxygenation dyspnea and female pattern, continue following inflammatory markers I performed a history & physical examination of the patient and discussed their management with my nurse practitioner, Lindsay Nelson. I reviewed the nurse practitioner's note and agree with the documented findings and plan of care. Lung sounds are positive for diffuse bilateral crackles The findings and the impression was discussed with the patient. I attest to the documentation by the nurse practitioner. Time with Patient: Greater than 30
[2021-02-28] MEDS: DICYCLOMINE 10 MG CAP PO SCH ×2 (14:34→20:32)
[2021-02-28] MEDS: ZINC SULFATE 220 MG CAP PO SCH (14:34)
[2021-02-28] MEDS: ASCORBIC ACID 500 MG TAB PO SCH (14:34)
[2021-02-28] MEDS: CHOLECALCIFEROL 25 MCG (1000 IU) TABLET PO SCH (14:37)
[2021-02-28] MEDS: ONDANSETRON 4 MG/2 ML VIAL IVP PRN (20:30)
[2021-02-28] MEDS: MORPHINE SULFATE 4 MG/ML SYRINGE IV PRN (20:31)
[2021-02-28] MEDS: DULoxetine HCL 60 MG CAPSULE.DR PO SCH (20:32)
[2021-03-01] MEDS: ASCORBIC ACID 500 MG TAB PO SCH ×3 (03:07→19:59)
[2021-03-01] MEDS: LEVOTHYROXINE 100 MCG TAB PO SCH (06:14)
[2021-03-01] MEDS: SODIUM CHLORIDE 0.9% 1,000 ML IV SCH ×3 (06:14→20:00)
[2021-03-01] MEDS ORDERED: ACETAMINOPHEN TAB 325 MG TAB PO STA (06:21)
[2021-03-01] MEDS: ALBUTEROL HFA INHALER INHALATION SCH ×4 (07:10→20:33)
[2021-03-01] MEDS: ENOXAPARIN 40 MG/0.4 ML SYRINGE SQ SCH (08:39)
[2021-03-01] MEDS: DEXAMETHASONE SOD PHOSPHATE 10 MG/ML 1 ML VIAL IV SCH (08:39)
[2021-03-01] MEDS: REMDESIVIR 100 MG in SODIUM CHLORIDE 0.9% 250 ML IVPB SCH (08:39)
[2021-03-01] MEDS: ALPRAZolam 0.25 MG TAB PO SCH (08:40)
[2021-03-01] MEDS: CHOLECALCIFEROL 25 MCG (1000 IU) TABLET PO SCH (08:40)
[2021-03-01] MEDS: DICYCLOMINE 10 MG CAP PO SCH ×3 (08:40→19:58)
[2021-03-01] MEDS: DULoxetine HCL 60 MG CAPSULE.DR PO SCH ×2 (08:40→19:58)
[2021-03-01] MEDS: ZINC SULFATE 220 MG CAP PO SCH (08:40)
[2021-03-01] MEDS: atenoloL 25 MG TAB PO SCH (08:40)
[2021-03-01 09:37] LABS: Basophils # (A) 0.01 X 10*3/uL (0.00-0.10); Basophils % (A) 0.1 %; Eosinophils # (A) 0 X 10*3/uL (0.04-0.35); Eosinophils % (A) 0 %; HCT 37.5 % (37.2-46.3); HGB 11.8 g/dL (12.0-15.0); Lymphocytes # (A) 0.31 X 10*3/uL (0.90-5.00); Lymphocytes % (A) 4.5 %; MCH 28.1 pg (27.0-32.0); MCHC 31.5 g/dL (32.0-37.0); MCV 89.3 fL (80.0-97.0); Mean Platelet Volume 12.3 fL (9.5-12.2); Monocytes # (A) 0.48 X 10*3/uL (0.20-1.00); Monocytes % (A) 6.9 %; Neutrophils # (A) 6.05 X 10*3/uL (1.80-7.70); Neutrophils % (A) 87.6 %; Platelet Count 135 X 10*3/uL (140-440); RDW 13.3 % (11.5-14.5); WBC 6.91 X 10*3/uL (4.50-10.00)
[2021-03-01 10:26] LABS: Albumin 3.9 g/dL (3.80-4.90); Albumin/Globulin Ratio 2.05 (1.60-3.17); Anion Gap 10.2 mmol/L (4.00-12.00); Calcium 8.4 mg/dL (8.7-10.3); Carbon Dioxide 29.8 mmol/L (21.6-31.8); Globulin 1.9 g/dL (1.6-3.3); Non-African American GFR(CKD) 97.5 (60.0-200.0); Phosphorus 2.9 mg/dL (2.4-5.1); Potassium 3.8 mmol/L (3.5-5.5); Total Bilirubin 0.3 mg/dL (0.2-1.2); Total Protein 5.8 g/dL (6.2-8.2)
--- NOTE | 2021-03-01 13:49 | P.PN ---
Subjective Progress Note Date: 03/01/21 Principal diagnosis: Acute hypoxic respiratory failure secondary to Covid19 pneumonitis Patient was reevaluated today on 03/01/2021, she seems to be quite comfortable, resting in bed, she is however on 15 L high flow nasal cannula, O2 saturation is 90%. Again clinically she looks great and does not seem to be in any form of distress. She is afebrile and her vital signs are stable. CBC today is relatively normal. Her d-dimer is 0.29 normal. Her electrolytes are normal, LD H today is 487. It is significantly improved and her C-reactive protein is down to 5.8. Patient feels generally weak and tired, she also feels achy, but on physical examination she looks great. Objective - Vital Signs Vital signs: Vital Signs Temp 98.4 F 03/01/21 10:06 Pulse 62 03/01/21 10:06 Resp 18 03/01/21 10:06 BP 121/53 03/01/21 10:06 Pulse Ox 90 L 03/01/21 10:06 Intake & Output 02/28/21 03/01/21 03/01/21 18:59 06:59 18:59 Intake Total 1813 300 Balance 1813 300 Intake: Intake, IV Titration 1200 Amount Sodium Chloride 0.9% 1, 1200 000 ml @ 100 mls/hr IV . Q10H [facility] Rx#:[id number] Oral 300 300 Blood Product 313 Ffp Convalescent Plasma 313 Cpd Unit [id number] Other: Voiding Method Bedpan - Exam Physical Exam: Revealed a 55-year-old female on high flow oxygen, surprisingly not in distress. Head: Atraumatic normocephalic. HEENT:[Neck is supple.] [No neck masses.] [No thyromegaly.] [No JVD.] Chest: [Crackles at the bases no rhonchi and no wheezes] Cardiac Exam: [Normal S1 and S2, no S3 gallop, no murmur.] Abdomen: [Soft, nontender, no megaly, no rebound, no guarding, normal bowel sounds.] Extremities: [No clubbing, no edema, no cyanosis.] Neurological Exam: [No focal neurologic deficit.] Alert and oriented 3 focal deficit Psychiatric: Normal mood affect and normal mental status examination. Skin: No rashes. - Labs CBC & Chem 7: 03/01/21 04:32 03/01/21 04:32 Labs: Abnormal Lab Results - Last 24 Hours (Table) 03/01/21 03/01/21 Range/Units 04:32 04:32 Hgb 11.8 L (12.0-15.0) g/dL MCHC 31.5 L (32.0-37.0) g/dL Plt Count 135 L (140-440) X 10*3/uL MPV 12.3 H (9.5-12.2) fL Immature Gran # 0.06 H (0.00-0.04) X 10*3/uL Lymphocytes # 0.31 L (0.90-5.00) X 10*3/uL Eosinophils # 0 L (0.04-0.35) X 10*3/uL Glucose 133 H (70-110) mg/dL Calcium 8.4 L (8.7-10.3) mg/dL AST 70 H (13-35) U/L Lactate Dehydrogenase 487 H (120-246) U/L Total Protein 5.8 L (6.2-8.2) g/dL Assessment and Plan Assessment: Impression: Acute hypoxic respiratory failure secondary to acute covid 19 pneumonia, within the window for REM. Multiple constitutional symptoms secondary to above. Increased inflammatory markers secondary to above. Morbid obesity which is a great risk factor for Covid 19 pneumonia Benign essential hypertension Underlying bronchial asthma, presently inactive mild intermittent History of ulcerative colitis History of hiatal hernia and GERD Generalized anxiety disorder Recommendation: Continue Decadron Continue REM Continue the Covid 19 cocktail and the vitamins Continue prophylactic Lovenox Continue oxygen and titrate accordingly Continue to follow the inflammatory markers We'll continue to follow Prognosis is definitely guarded considering the patient is requiring significant FiO2. Time with Patient: Less than 30
--- NOTE | 2021-03-01 16:24 | P.PN ---
Subjective Progress Note Date: 03/01/21 No new complaints. Appears comfortable, but has high O2 requirement. Objective - Vital Signs Vital signs: Vital Signs Temp 98.6 F 03/01/21 14:09 Pulse 63 03/01/21 14:09 Resp 18 03/01/21 14:09 BP 145/76 03/01/21 14:09 Pulse Ox 91 L 03/01/21 14:09 Intake & Output 02/28/21 03/01/21 03/01/21 18:59 06:59 18:59 Intake Total 1813 600 Balance 1813 600 Intake: Intake, IV Titration 1200 Amount Sodium Chloride 0.9% 1, 1200 000 ml @ 100 mls/hr IV . Q10H [facility] Rx#:[id number] Oral 300 600 Blood Product 313 Ffp Convalescent Plasma 313 Cpd Unit [id number] Other: Voiding Method Bedpan - Exam Gen: awake, alert HEENT: normocephalic, atraumatic, good hearing acuity, moist mucous membranes Resp: good air exchange, breathing comfortably with no accessory muscle use CVS: good distal perfusion x 4, GI: soft, NTTP, ND : no SPT, no CVAT, damon catheter not present MSK: no pitting edema, no clubbing Neuro: non-focal, moving all extremities Psych: cooperative, euthymic mood - Labs CBC & Chem 7: 03/01/21 04:32 03/01/21 04:32 Labs: Abnormal Lab Results - Last 24 Hours (Table) 03/01/21 03/01/21 Range/Units 04:32 04:32 Hgb 11.8 L (12.0-15.0) g/dL MCHC 31.5 L (32.0-37.0) g/dL Plt Count 135 L (140-440) X 10*3/uL MPV 12.3 H (9.5-12.2) fL Immature Gran # 0.06 H (0.00-0.04) X 10*3/uL Lymphocytes # 0.31 L (0.90-5.00) X 10*3/uL Eosinophils # 0 L (0.04-0.35) X 10*3/uL Glucose 133 H (70-110) mg/dL Calcium 8.4 L (8.7-10.3) mg/dL AST 70 H (13-35) U/L Lactate Dehydrogenase 487 H (120-246) U/L Total Protein 5.8 L (6.2-8.2) g/dL Assessment and Plan Assessment: Acute hypoxic respiratory failure [place] with pneumonitis Mild thrombocytopenia Plan Supportive care Supplemental oxygen as needed Patient started on Decadron Check d-dimer Pulmonary consult Inhalers as needed Lovenox with DVT prophylaxis Monitor for any evidence of bleeding Contact and droplet precautions Chronic conditions sjogren syndrome Colitis Intermittent asthma Hypothyroid Hypertension CODE STATUS: Full code Discussed with: Patient, ER Anticipated length of stay > than [address]: Home
[2021-03-01] MEDS: ACETAMINOPHEN TAB 325 MG TAB PO PRN (19:58)
[2021-03-02] MEDS: ACETAMINOPHEN TAB 325 MG TAB PO PRN (01:32)
[2021-03-02] MEDS: LEVOTHYROXINE 100 MCG TAB PO SCH (05:18)
[2021-03-02] MEDS: ALBUTEROL HFA INHALER INHALATION SCH ×4 (08:16→19:13)
[2021-03-02] MEDS ORDERED: BUTA/APAP/CAF/COD 50-325-40-30 CAP PO PRN (08:39)
[2021-03-02] MEDS: DEXAMETHASONE SOD PHOSPHATE 10 MG/ML 1 ML VIAL IV SCH (08:50)
[2021-03-02] MEDS: ENOXAPARIN 40 MG/0.4 ML SYRINGE SQ SCH (08:51)
[2021-03-02] MEDS: REMDESIVIR 100 MG in SODIUM CHLORIDE 0.9% 250 ML IVPB SCH (08:51)
[2021-03-02] MEDS: ALPRAZolam 0.25 MG TAB PO SCH (08:51)
[2021-03-02] MEDS: atenoloL 25 MG TAB PO SCH (08:55)
[2021-03-02] MEDS: DULoxetine HCL 60 MG CAPSULE.DR PO SCH ×2 (08:55→20:45)
[2021-03-02] MEDS: ZINC SULFATE 220 MG CAP PO SCH (08:55)
[2021-03-02] MEDS: DICYCLOMINE 10 MG CAP PO SCH ×3 (08:55→23:18)
[2021-03-02] MEDS: CHOLECALCIFEROL 25 MCG (1000 IU) TABLET PO SCH (08:55)
[2021-03-02] MEDS: ASCORBIC ACID 500 MG TAB PO SCH ×2 (08:55→20:45)
[2021-03-02] MEDS: MORPHINE SULFATE 4 MG/ML SYRINGE IV PRN (10:57)
[2021-03-02] MEDS ORDERED: FUROSEMIDE 10 MG/ML 4 ML VIAL IV STA (11:01)
--- NOTE | 2021-03-02 11:03 | P.PN ---
Subjective Progress Note Date: 03/02/21 Principal diagnosis: Acute hypoxic respiratory failure secondary to Covid19 pneumonitis Patient was reevaluated today on 03/01/2021, she seems to be quite comfortable, resting in bed, she is however on 15 L high flow nasal cannula, O2 saturation is 90%. Again clinically she looks great and does not seem to be in any form of distress. She is afebrile and her vital signs are stable. CBC today is relatively normal. Her d-dimer is 0.29 normal. Her electrolytes are normal, LDH today is 487. It is significantly improved and her C-reactive protein is down to 5.8. Patient feels generally weak and tired, she also feels achy, but on physical examination she looks great. Patient was reevaluated today on 03/02/2021, patient seems to be getting worse since yesterday. Patient is now requiring placement on BiPAP, she is on IPAP of 14 and EPAP of 600% FiO2, and she is barely maintaining an O2 saturation of 83%. I saw the patient and I ordered a follow-up chest x-ray this morning, chest x- ray is showing significant worsening of her bilateral infiltrates. Not to mention the patient has a very large hiatal hernia. Patient was tried on prone positions, and did not seem to help, she was placed on left lateral decubitus position that seems to be the best for her oxygenation on this patient. Considering the worsening of her chest x-ray, and considering the patient is req uiring relatively high FiO2 with BiPAP, I will arrange for the patient to be transferred to the ICU immediately. In the meantime I will arrange for the patient to start on actemra, and would also add convalescent plasma. Her inflammatory markers were noted to come down yesterday, LDH came down to 487 from 1355 Objective - Vital Signs Vital signs: Vital Signs Temp 97.8 F 03/02/21 10:00 Pulse 90 03/02/21 10:00 Resp 24 03/02/21 10:00 BP 134/74 03/02/21 10:00 Pulse Ox 83 L 03/02/21 10:00 Intake & Output 03/01/21 03/02/21 03/02/21 18:59 06:59 18:59 Intake Total 600 1900 Balance 600 1900 Intake: Intake, IV Titration 1200 Amount Sodium Chloride 0.9% 1, 1200 000 ml @ 100 mls/hr IV . Q10H [facility] Rx#:[id number] Oral 600 700 Other: Voiding Method Bedpan Bedpan # Voids 3 3 3 - Exam Physical Exam: Revealed a 55-year-old female on BiPAP on the percent with IPAP of 14 and EPAP of 6, patient does not seem in distress in spite of worsening chest x-ray and worsening oxygenation. Head: Atraumatic normocephalic. HEENT:[Neck is supple.] [No neck masses.] [No thyromegaly.] [No JVD.] Chest: [Symmetrical chest expansion, crackles and rhonchi noted bilaterally. Cardiac Exam: [Normal S1 and S2, no S3 gallop, no murmur.] Abdomen: [Soft, nontender, no megaly, no rebound, no guarding, normal bowel sounds.] Extremities: [No clubbing, no edema, no cyanosis.] Neurological Exam: [No focal neurologic deficit.] Alert and oriented 3 focal deficit Psychiatric: Normal mood affect and normal mental status examination. Skin: No rashes. - Labs CBC & Chem 7: 03/01/21 04:32 03/01/21 04:32 Assessment and Plan Assessment: Impression: Acute hypoxic respiratory failure secondary to acute covid 19 pneumonia, within the window for REM. Multiple constitutional symptoms secondary to above. Increased inflammatory markers secondary to above. Morbid obesity which is a great risk factor for Covid 19 pneumonia Benign essential hypertension Underlying bronchial asthma, presently inactive mild intermittent History of ulcerative colitis History of hiatal hernia and GERD Generalized anxiety disorder Recommendation: Placed patient on BiPAP, and we'll arrange for the patient to transfer to ICU. Continue Decadron Continue REM We will add TOCI and convalescent plasma. Continue the Covid 19 cocktail and the vitamins Continue prophylactic Lovenox Continue to follow the inflammatory markers We'll continue to follow Considering the rapid progression of her pneumonitis, patient may actually require intubation mechanical ventilation if she doesn't improve much in the ICU. We will continue to follow Time with Patient: Less than 30
[2021-03-02] MEDS ORDERED: TOCILIZUMAB 800 MG in SODIUM CHLORIDE 0.9% 60 ML IV ONE (11:30)
[2021-03-02 11:31] LABS: Glucose,Whole Blood 141 mg/dL (75-99)
--- NOTE | 2021-03-02 11:33 | XR ---
EXAMINATION TYPE: XR chest 1V portable DATE OF EXAM: 03/02/2021 COMPARISON: 02/27/2021 HISTORY: Shortness of breath TECHNIQUE: Single frontal view of the chest is obtained. FINDINGS: Large hiatal hernia noted with diffuse bilateral infiltrates may be mildly progressed. No pneumothorax. No sizable pleural effusion. Cardiomediastinal silhouette difficult to evaluate due to large hernia. Osseous structures are stable. Limited inspiration. IMPRESSION: Diffuse bilateral infiltrates with mild progression suspected on the right.
[2021-03-02 11:45] LABS: ABG Base Excess 8.9 mmol/L; ABG HCO3 33 mmol/L (21-25); ABG Oxygen Saturation 85.3 % (94-97); ABG PCO2 48 mmHg (35-45); ABG PH 7.44 (7.35-7.45); ABG TCO2 35 mmol/L (19-24); Allen Test Performed? Yes
[2021-03-02 11:47] LABS: ABG PO2 50 mmHg (83-108)
[2021-03-02] MEDS ORDERED: CHLORHEXIDINE GLUCONATE 15 ML CUP MUCOUS MEM ONE (11:54)
[2021-03-02] MEDS ORDERED: CISATRACURIUM 2 MG/ML 5 ML VIAL IV ONE ×3 (12:04→14:20)
[2021-03-02] MEDS ORDERED: propofoL 100 ML IV ONE (12:04)
--- NOTE | 2021-03-02 12:12 | P.PN ---
Subjective Progress Note Date: 03/02/21 Worsening respiratory status today requiring rescue BIPAP with 83% oxygenation warranting transfer to the ICU. Objective - Vital Signs Vital signs: Vital Signs Temp 97.8 F 03/02/21 10:00 Pulse 90 03/02/21 10:00 Resp 24 03/02/21 10:00 BP 134/74 03/02/21 10:00 Pulse Ox 83 L 03/02/21 10:00 Intake & Output 03/01/21 03/02/21 03/02/21 18:59 06:59 18:59 Intake Total 600 1900 Balance 600 1900 Intake: Intake, IV Titration 1200 Amount Sodium Chloride 0.9% 1, 1200 000 ml @ 100 mls/hr IV . Q10H [facility] Rx#:[id number] Oral 600 700 Other: Voiding Method Bedpan Bedpan # Voids 3 3 3 - Exam Gen: awake, alert HEENT: normocephalic, atraumatic, good hearing acuity, moist mucous membranes Resp: +accessory muscle use, moderate distress from dyspnea, equal chest expansion CVS: good distal perfusion x 4, GI: soft, NTTP, ND : no SPT, no CVAT, damon catheter not present MSK: no pitting edema, no clubbing Neuro: non-focal, moving all extremities Psych: cooperative, euthymic mood - Labs CBC & Chem 7: 03/01/21 04:32 03/01/21 04:32 Labs: Abnormal Lab Results - Last 24 Hours (Table) 03/02/21 03/02/21 Range/Units 11:29 11:37 ABG pCO2 48 H (35-45) mmHg ABG pO2 50 L* (83-108) mmHg ABG HCO3 33 H (21-25) mmol/L ABG Total CO2 35 H (19-24) mmol/L ABG O2 Saturation 85.3 L (94-97) % POC Glucose (mg/dL) 141 H (75-99) mg/dL Assessment and Plan Assessment: Acute hypoxic respiratory failure [place] with pneumonitis Mild thrombocytopenia Plan Supportive care Supplemental oxygen as needed --> rescue BIPAP on 03/02 Patient started on Decadron Check d-dimer Pulmonary consult - evaluating for actemra on 03/02 Inhalers as needed Lovenox with DVT prophylaxis Monitor for any evidence of bleeding Contact and droplet precautions Chronic conditions sjogren syndrome Colitis Intermittent asthma Hypothyroid Hypertension CODE STATUS: Full code Discussed with: Patient, ER Anticipated length of stay > than [address]: Home
[2021-03-02] MEDS ORDERED: NOREPINEPHRIN 4 MG-0.9% NS PMX 4 MG/250 ML ML IV ONE (12:16)
[2021-03-02 12:22] LABS: ALT 24 U/L (4-34); AST 94 U/L (14-36); African American GFR (CKD) >90 (>60 ml/min/1.73 sqM); Albumin 3.3 g/dL (3.5-5.0); Albumin/Globulin Ratio 1.2; Alkaline Phosphatase 75 U/L (38-126); Anion Gap 7 mmol/L; Blood Urea Nitrogen 17 mg/dL (7-17); Calcium 8.3 mg/dL (8.4-10.2); Carbon Dioxide 30 mmol/L (22-30); Chloride 106 mmol/L (98-107); Globulin 2.7 g/dL; Glucose 149 mg/dL (74-99); LDH 1811 U/L (313-618); Non-African American GFR(CKD) >90 (>60 ml/min/1.73 sqM); Potassium 3.5 mmol/L (3.5-5.1); Sodium 143 mmol/L (137-145); Total Bilirubin 0.5 mg/dL (0.2-1.3)
[2021-03-02 12:31] LABS: Basophils % (A) 0 %; Eosinophils % (A) 0 %; HCT 39.3 % (34.0-46.0); HGB 12.6 gm/dL (11.4-16.0); Lymphocytes # (A) 0.2 k/uL (1.0-4.8); Lymphocytes % (A) 2 %; MCH 27.9 pg (25.0-35.0); MCHC 32.2 g/dL (31.0-37.0); MCV 86.8 fL (80.0-100.0); Mean Platelet Volume 9.2; Monocytes # (A) 0.4 k/uL (0-1.0); Monocytes % (A) 3 %; Neutrophils # (A) 9.7 k/uL (1.3-7.7); Neutrophils % (A) 94 %; RBC 4.52 m/uL (3.80-5.40); RDW 13.7 % (11.5-15.5); WBC 10.4 k/uL (3.8-10.6)
[2021-03-02 12:34] LABS: Platelet Count 180 k/uL (150-450)
--- NOTE | 2021-03-02 13:08 | XR ---
EXAMINATION TYPE: XR chest 1V portable DATE OF EXAM: 03/02/2021 COMPARISON: 03/02/2021 HISTORY: Tube placement TECHNIQUE: Single frontal view of the chest is obtained. FINDINGS: ET tube is approximately 2.6 centers above david. NG tube seen only the level of midesoph arleen which likely is at the level of the GE junction due to a large intrathoracic hiatal hernia. Diff use bilateral airspace disease stable. Tiny bilateral effusions. IMPRESSION: 1. ET tube in good position with stable diffuse severe bilateral airspace disease correlate for diffu se pneumonia and ARDS. 2. NG tube is seen at the level of mid thoracic region likely near the GE junction given the patient has a history of large intrathoracic hiatal hernia. Tube could be advanced a few centimeters correlat e clinically
[2021-03-02 13:09] LABS: ABG Base Excess 4.6 mmol/L; ABG HCO3 31 mmol/L (21-25); ABG Oxygen Saturation 75.7 % (94-97); ABG PCO2 60 mmHg (35-45); ABG PH 7.32 (7.35-7.45); ABG TCO2 33 mmol/L (19-24)
[2021-03-02 13:11] LABS: ABG PO2 46 mmHg (83-108)
[2021-03-02] MEDS ORDERED: ATROPINE SULFATE 0.1 MG/ML 10ML SYRINGE ONE (14:25)
--- NOTE | 2021-03-02 15:10 | PCN ---
PROCEDURE NOTE PROCEDURE: Left subclavian triple-lumen catheter. OPERATORS: Dr. Ge and Dr. Ann. TRIPLE LUMEN CATHETER PLACEMENT: Indication: Hemodynamic monitoring/Intravenous access. A time-out was completed verifying correct patient, procedure, site, positioning, and implant(s) or special equipment if applicable. The patient was placed in a dependent position appropriate for triple lumen catheter placement based on the vein to be cannulated. The patient's left shoulder was prepped and draped in sterile fashion. 1% Lidocaine was used to anesthetize the surrounding skin area. A triple lumen 9F Cordis catheter was introduced into the left subclavian vein using Seldinger technique. The catheter was threaded smoothly over the guide wire and appropriate blood return was obtained. Each lumen of the catheter was evacuated of air and flushed with sterile saline. The catheter was then sutured in place to the skin and a sterile dressing applied. Perfusion to the extremity distal to the point of catheter insertion was checked and found to be adequate. There was informed consent and universal timeout. The patient's procedure took place in room 253. We used the left subclavian vein. There was no immediate complication. There was good blood return from all 3 ports. The patient tolerated procedure well. The tip of the catheter was seen in the right atrium. A chest x-ray was ordered. The catheter was sutured in place and sterile dressing was applied by the nurse. There was no immediate complication. MMODL / IJN: [id number] /
--- NOTE | 2021-03-02 15:14 | PCN ---
PROCEDURE NOTE PULMONARY CRITICAL CARE PROCEDURE NOTE: PROCEDURE: Right radial arterial line. PREOPERATIVE DIAGNOSIS: Frequent blood draws and blood gas monitoring. POSTOPERATIVE DIAGNOSIS: Frequent blood draws and blood gas monitoring. OPERATORS: Dr. Ge and Dr. Ann. ARTERIAL LINE PLACEMENT: Indications: Hemodynamic monitoring. A time-out was completed verifying correct patient, procedure, site, positioning, and implant(s) or special equipment if applicable. Keith's test was performed to ensure adequate perfusion. The patient's right wrist was prepped and draped in sterile fashion. 1% Lidocaine was used to anesthetize the area. An 18G Arrow arterial line was introduced into the right radial artery. The catheter was threaded over the guide wire and the needle was removed with appropriate pulsatile blood return. Blood loss was minimal. The catheter was then sutured in place to the skin and a sterile dressing applied. Perfusion to the extremity distal to the point of catheter insertion was checked and found to be adequate. The patient tolerated the procedure well and there were no complications. There was no immediate complication. The catheter was sutured in place. There was good blood return and waveform. A sterile dressing was applied by the nurse. There was no immediate complication. The patient tolerated the procedure well. MMODL / IJN: [id number] /
[2021-03-02 15:18] LABS: ABG Base Excess 4.6 mmol/L; ABG HCO3 30 mmol/L (21-25); ABG Oxygen Saturation 86.2 % (94-97); ABG PCO2 53 mmHg (35-45); ABG PH 7.36 (7.35-7.45); ABG TCO2 32 mmol/L (19-24); Allen Test Performed? Yes
[2021-03-02 15:21] LABS: ABG PO2 55 mmHg (83-108)
--- NOTE | 2021-03-02 15:56 | XR ---
EXAMINATION TYPE: XR chest 1V portable DATE OF EXAM: 03/02/2021 COMPARISON: 03/02/2021 HISTORY: Line placement TECHNIQUE: Single frontal view of the chest is obtained. FINDINGS: Left-sided central line seen with the tip overlying the right atrium. No sizable pneumotho rax. ET and NG tube stable. Diffuse bilateral infiltrates and small effusion stable. Heart size stabl e. IMPRESSION: 1. No evidence of pneumothorax postcentral line placement. 2. Diffuse bilateral infiltrates correlate for ARDS or diffuse pneumonia. 3. NG tube again appears to be near the region of the GE junction of the suspected hiatal hernia princess elate clinically.
[2021-03-02] MEDS: SODIUM CHLORIDE 0.9% 1,000 ML IV SCH (16:11)
[2021-03-02] MEDS: NOREPINEPHRINE 4 MG in SODIUM CHLORIDE 0.9% 250 ML IV SCH ×2 (18:10→23:19)
[2021-03-02 18:13] LABS: Glucose,Whole Blood 147 mg/dL (75-99)
[2021-03-02] MEDS: SYMBICORT 160-4.5 MCG INHALER INHALATION PRN (19:13)
[2021-03-02] MEDS: CHLORHEXIDINE GLUCONATE 15 ML CUP MUCOUS MEM SCH (20:45)
[2021-03-03] MEDS: SODIUM CHLORIDE 0.9% 1,000 ML IV SCH ×3 (04:06→19:21)
[2021-03-03 04:49] LABS: HCT 32.6 % (34.0-46.0); HGB 11.4 gm/dL (11.4-16.0); MCH 30.4 pg (25.0-35.0); MCHC 34.9 g/dL (31.0-37.0); MCV 87.3 fL (80.0-100.0); Mean Platelet Volume 9.4; Platelet Count 148 k/uL (150-450); RBC 3.74 m/uL (3.80-5.40); RDW 13.3 % (11.5-15.5); WBC 5.9 k/uL (3.8-10.6)
[2021-03-03 05:27] LABS: ALT 19 U/L (4-34); AST 51 U/L (14-36); African American GFR (CKD) >90 (>60 ml/min/1.73 sqM); Albumin 2.8 g/dL (3.5-5.0); Alkaline Phosphatase 63 U/L (38-126); Anion Gap 5 mmol/L; Blood Urea Nitrogen 19 mg/dL (7-17); C Reactive Protein 65.6 mg/L (<10.0); Calcium 7.9 mg/dL (8.4-10.2); Carbon Dioxide 30 mmol/L (22-30); Chloride 107 mmol/L (98-107); Glucose 118 mg/dL (74-99); LDH 1403 U/L (313-618); Non-African American GFR(CKD) >90 (>60 ml/min/1.73 sqM); Potassium 3.6 mmol/L (3.5-5.1); Sodium 142 mmol/L (137-145); Total Bilirubin 0.5 mg/dL (0.2-1.3); Total Protein 5.3 g/dL (6.3-8.2)
[2021-03-03 05:31] LABS: ABG Base Excess 4.1 mmol/L; ABG HCO3 29 mmol/L (21-25); ABG Oxygen Saturation 98.6 % (94-97); ABG PCO2 49 mmHg (35-45); ABG PH 7.38 (7.35-7.45); ABG PO2 127 mmHg (83-108); ABG TCO2 31 mmol/L (19-24)
[2021-03-03] MEDS ORDERED: Potassium Replacement Protocol 1 EACH MISC MISCELLANE PRN (05:45)
[2021-03-03] MEDS: POTASSIUM CHLORIDE 10 MEQ in WATER FOR INJECTION 1 100ML.BAG IVPB SCH ×2 (05:56→07:02)
[2021-03-03 06:21] LABS: Allen Test Performed? no
[2021-03-03] MEDS: ALBUTEROL HFA INHALER INHALATION SCH ×4 (07:11→19:29)
[2021-03-03] MEDS: SYMBICORT 160-4.5 MCG INHALER INHALATION PRN ×2 (07:11→19:29)
[2021-03-03] MEDS: LEVOTHYROXINE 100 MCG TAB PO SCH (07:11)
--- NOTE | 2021-03-03 07:40 | XR ---
EXAMINATION TYPE: XR chest 1V portable DATE OF EXAM: 03/03/2021 COMPARISON: 03/03/2021 INDICATION: OG tube placement TECHNIQUE: Single frontal view of the chest is obtained. FINDINGS: The heart size is upper limits of normal. The pulmonary vasculature is normal. Diffuse increased lung markings are present bilaterally. There is placement of a nasogastric tube with the tip in the abdomen. Left central venous catheter wi th the tip in the proximal right atrium and the endotracheal tube tip above the david remains stable IMPRESSION: 1. Nasogastric tube tip is within the abdomen. 2. Additional lines and catheters discussed above. 3. Stable diffuse increased lung markings.
[2021-03-03] MEDS: ASCORBIC ACID 500 MG TAB PO SCH ×2 (08:24→19:59)
[2021-03-03] MEDS: REMDESIVIR 100 MG in SODIUM CHLORIDE 0.9% 250 ML IVPB SCH (08:24)
[2021-03-03] MEDS: DEXAMETHASONE SOD PHOSPHATE 10 MG/ML 1 ML VIAL IV SCH (08:24)
[2021-03-03] MEDS: ALPRAZolam 0.25 MG TAB PO SCH (08:24)
[2021-03-03] MEDS: DULoxetine HCL 60 MG CAPSULE.DR PO SCH ×3 (08:24→20:08)
[2021-03-03] MEDS: CHOLECALCIFEROL 25 MCG (1000 IU) TABLET PO SCH (08:25)
[2021-03-03] MEDS: ZINC SULFATE 220 MG CAP PO SCH (08:25)
[2021-03-03] MEDS: CHLORHEXIDINE GLUCONATE 15 ML CUP MUCOUS MEM SCH ×2 (08:25→20:00)
[2021-03-03] MEDS: ENOXAPARIN 40 MG/0.4 ML SYRINGE SQ SCH (08:25)
--- NOTE | 2021-03-03 10:01 | XR ---
EXAMINATION TYPE: XR chest 1V portable DATE OF EXAM: 03/03/2021 COMPARISON: 03/02/2021 INDICATION: Line placement TECHNIQUE: Single frontal view of the chest is obtained. FINDINGS: The heart size is normal. The pulmonary vasculature is normal. Patchy infiltrates are present bilaterally. This is slightly greater on the right than the left. Find ings are similar to prior study. Endotracheal tube tip is above the david. Left central venous catheter tip is within the right atriu m. Nasal gastric tube has been removed. IMPRESSION: 1. Patchy bilateral infiltrates greater on the right, stable from comparison.
[2021-03-03] MEDS ORDERED: ATROPINE SULFATE 0.1 MG/ML 10ML SYRINGE ONE (10:09)
--- NOTE | 2021-03-03 11:18 | P.PN ---
Subjective Progress Note Date: 03/03/21 Principal diagnosis: Acute hypoxic respiratory failure secondary to CoVID 19 pneumonia 55-year-old white female patient with past medical history of hypertension, morbid obesity with BMI of 54.1 kg/m, ulcerative colitis, possible sleep apnea, chronic bronchial asthma, unspecified patient is on Symbicort on a regular basis, GERD/reflux, hiatal hernia, osteoarthritis, hypothyroidism, and fibromyalgia. Come into the emergency department on 02/27/2021 with symptoms of headache, fever, worsening shortness of breath. Her symptom onset was about a week ago and patient had a positive outpatient Covid 19 test. She is not normally on any oxygen, she reports fevers, body aches, headaches, she reports some diarrhea, but no nausea or vomiting, she is requiring supplement oxygen, 4 L. Pulse ox is 92-93%, she is still having a low-grade fevers this morning, with a temp of 100F, she was started on IV steroids, he was given some IV hydration, prophylactic anticoagulation. She states she is feeling better, her headache is better, she seems to be breathing comfortably, although still requiring 4 L of supplemental oxygen, lung sounds are diminished, with some diffuse crackles at bilateral bases, her lab work revealed squamous cell, 3.9, hemoglobin is 12.5, platelet count was 108, leukocyte, 0.4, d-dimer 0.9, sodium is 137, potassium is 3.5, B1 is 12 creatinine 0.84, LDH is 1355, CRP is 55.9. Patient was reevaluated today on 03/01/2021, she seems to be quite comfortable, resting in bed, she is however on 15 L high flow nasal cannula, O2 saturation is 90%. Again clinically she looks great and does not seem to be in any form of distress. She is afebrile and her vital signs are stable. CBC today is relatively normal. Her d-dimer is 0.29 normal. Her electrolytes are normal, LDH today is 487. It is significantly improved and her C-reactive protein is down to 5.8. Patient feels generally weak and tired, she also feels achy, but on physical examination she looks great. Patient was reevaluated today on 03/02/2021, patient seems to be getting worse since yesterday. Patient is now requiring placement on BiPAP, she is on IPAP of 14 and EPAP of 600% FiO2, and she is barely maintaining an O2 saturation of 83%. I saw the patient and I ordered a follow-up chest x-ray this morning, chest x- ray is showing significant worsening of her bilateral infiltrates. Not to mention the patient has a very large hiatal hernia. Patient was tried on prone positions, and did not seem to help, she was placed on left lateral decubitus position that seems to be the best for her oxygenation on this patient. Considering the worsening of her chest x-ray, and considering the patient is requiring relatively high FiO2 with BiPAP, I will arrange for the patient to be transferred to the ICU immediately. In the meantime I will arrange for the patient to start on actemra, and would also add convalescent plasma. Her inflammatory markers were noted to come down yesterday, LDH came down to 487 from 1355 The patient is seen today 03/03/2021 in follow-up in the intensive care unit. She did require urgent transfer to the ICU and intubation yesterday. She is currently sedated on the mechanical ventilator at assist control mode at a rate of 24, tidal volume 400, FiO2 100%, PEEP of 15. Morning blood gases reveal a pO2 127, pCO2 49, pH 7.38. She is sedated on propofol 50 mcg/kg/m. 0.9 normal saline at 100 ML's per hour. Chest x-ray reveals patchy bilateral infiltrates right greater than left. She did receive 1 unit of convalescent plasma. Also received tocilizumab. White count 5.9. Hemoglobin 11.4. D-dimer 1.72. Sodium 142. Potassium 3.6. Creatinine 0.59. LDH 1403. C-reactive protein 65.6. Glucose 147. She is continued on Decadron, Symbicort, albuterol, vitamin supplements. Lovenox for DVT prophylaxis. Objective - Vital Signs Vital signs: Vital Signs Temp 97.3 F L 03/03/21 08:00 Pulse 46 L 03/03/21 08:00 Resp 24 03/03/21 08:00 BP 119/70 03/03/21 08:00 Pulse Ox 97 03/03/21 08:00 Intake & Output 03/02/21 03/03/21 03/03/21 18:59 06:59 18:59 Intake Total 2400 1558.967 700 Output Total 825 700 150 Balance 1575 858.967 550 Weight 147.5 kg 147.5 kg Intake: IV 2400 1300 600 0.9 2400 1200 500 Potassium Chloride 10 meq 100 100 In Water For Injection 1 100ml.bag @ 100 mls/hr IVPB Q1H VIANEY Rx#: [id number] Intake, IV Titration 258.967 100 Amount propofoL 1,000 mg In 258.967 100 Empty Bag 1 bag @ Titrate IV .Q0M VIANEY Rx#: [id number] Output: Urine 825 700 150 Other: Voiding Method Bedpan Indwelling Catheter Indwelling Catheter # Voids 3 ABP, PAP, CO, CI - Last Documented Arterial Blood Pressure 119/67 - Exam GENERAL EXAM: Intubated, sedated obese 55-year-old female patient, comfortable in no apparent distress. HEAD: Normocephalic. EYES: Normal reaction of pupils, equal size. NOSE: Clear with pink turbinates. THROAT: No erythema or exudates. NECK: No masses, no JVD. CHEST: No chest wall deformity. LUNGS: Equal air entry with crackles in the bilateral posterior bases CVS: S1 and S2 normal with no audible murmur, regular rhythm. ABDOMEN: No hepatosplenomegaly, normal bowel sounds, no guarding or rigidity. SPINE: No scoliosis or deformity SKIN: No rashes CENTRAL NERVOUS SYSTEM: Sedated. No focal deficits, tone is normal in all 4 extremities. EXTREMITIES: There is no peripheral edema. No clubbing, no cyanosis. Peripheral pulses are intact. - Labs CBC & Chem 7: 03/03/21 04:30 03/03/21 04:30 Labs: Abnormal Lab Results - Last 24 Hours (Table) 03/02/21 03/02/21 03/02/21 Range/Units 11:29 11:37 11:45 RBC (3.80-5.40) m/uL Hct (34.0-46.0) % Plt Count (150-450) k/uL Neutrophils # 9.7 H (1.3-7.7) k/uL Lymphocytes # 0.2 L (1.0-4.8) k/uL D-Dimer (<0.60) mg/L FEU ABG pH (7.35-7.45) ABG pCO2 48 H (35-45) mmHg ABG pO2 50 L* (83-108) mmHg ABG HCO3 33 H (21-25) mmol/L ABG Total CO2 35 H (19-24) mmol/L ABG O2 Saturation 85.3 L (94-97) % BUN (7-17) mg/dL Glucose (74-99) mg/dL POC Glucose (mg/dL) 141 H (75-99) mg/dL Calcium (8.4-10.2) mg/dL AST (14-36) U/L Lactate Dehydrogenase (313-618) U/L C-Reactive Protein (<10.0) mg/L Total Protein (6.3-8.2) g/dL Albumin (3.5-5.0) g/dL 03/02/21 03/02/21 03/02/21 Range/Units 11:45 11:45 13:07 RBC (3.80-5.40) m/uL Hct (34.0-46.0) % Plt Count (150-450) k/uL Neutrophils # (1.3-7.7) k/uL Lymphocytes # (1.0-4.8) k/uL D-Dimer 1.46 H (<0.60) mg/L FEU ABG pH 7.32 L (7.35-7.45) ABG pCO2 60 H (35-45) mmHg ABG pO2 46 L* (83-108) mmHg ABG HCO3 31 H (21-25) mmol/L ABG Total CO2 33 H (19-24) mmol/L ABG O2 Saturation 75.7 L (94-97) % BUN (7-17) mg/dL Glucose 149 H (74-99) mg/dL POC Glucose (mg/dL) (75-99) mg/dL Calcium 8.3 L (8.4-10.2) mg/dL AST 94 H (14-36) U/L Lactate Dehydrogenase 1811 H (313-618) U/L C-Reactive Protein (<10.0) mg/L Total Protein 6.0 L (6.3-8.2) g/dL Albumin 3.3 L (3.5-5.0) g/dL 03/02/21 03/02/21 03/03/21 Range/Units 15:14 18:11 04:30 RBC 3.74 L (3.80-5.40) m/uL Hct 32.6 L (34.0-46.0) % Plt Count 148 L (150-450) k/uL Neutrophils # (1.3-7.7) k/uL Lymphocytes # (1.0-4.8) k/uL D-Dimer (<0.60) mg/L FEU ABG pH (7.35-7.45) ABG pCO2 53 H (35-45) mmHg ABG pO2 55 L* (83-108) mmHg ABG HCO3 30 H (21-25) mmol/L ABG Total CO2 32 H (19-24) mmol/L ABG O2 Saturation 86.2 L (94-97) % BUN (7-17) mg/dL Glucose (74-99) mg/dL POC Glucose (mg/dL) 147 H (75-99) mg/dL Calcium (8.4-10.2) mg/dL AST (14-36) U/L Lactate Dehydrogenase (313-618) U/L C-Reactive Protein (<10.0) mg/L Total Protein (6.3-8.2) g/dL Albumin (3.5-5.0) g/dL 03/03/21 03/03/21 03/03/21 Range/Units 04:30 04:30 05:29 RBC (3.80-5.40) m/uL Hct (34.0-46.0) % Plt Count (150-450) k/uL Neutrophils # (1.3-7.7) k/uL Lymphocytes # (1.0-4.8) k/uL D-Dimer 1.72 H (<0.60) mg/L FEU ABG pH (7.35-7.45) ABG pCO2 49 H (35-45) mmHg ABG pO2 127 H (83-108) mmHg ABG HCO3 29 H (21-25) mmol/L ABG Total CO2 31 H (19-24) mmol/L ABG O2 Saturation 98.6 H (94-97) % BUN 19 H (7-17) mg/dL Glucose 118 H (74-99) mg/dL POC Glucose (mg/dL) (75-99) mg/dL Calcium 7.9 L (8.4-10.2) mg/dL AST 51 H (14-36) U/L Lactate Dehydrogenase 1403 H (313-618) U/L C-Reactive Protein 65.6 H (<10.0) mg/L Total Protein 5.3 L (6.3-8.2) g/dL Albumin 2.8 L (3.5-5.0) g/dL Assessment and Plan Assessment: 1 Acute hypoxic respiratory failure requiring intubation and mechanical ventila tory support on 03/02/2021 econdary to CoVID 19 pneumonia. Outside the window for Remdesivir. Did receive tocilizumab and convalescent plasma on 03/02/2021 2 Increased inflammatory markers secondary to above 3 Morbid obesity 4 Hypertension 5 History of mild intermittent chronic bronchial asthma 6 History of ulcerative colitis 7 Hiatal hernia 8 Gastroesophageal reflux disease 9 Generalized anxiety disorder Plan: The patient was seen and evaluated by Dr. Ge Chest x-ray, ABGs and labs reviewed Decrease FiO2 to 90%, continue PEEP at 15 Initiate tube feedings for nutritional support Did receive Tocilizumab and convalescent plasma Remains on Lovenox, X Monika some, vitamin supplements Continued on bronchodilators We will continue to follow and make further recommendations based on her clinical status Critical care time 38 minutes I, the cosigning physician, performed a history & physical examination of the patient. Lungs sounds with crackles in the bilateral posterior bases. Maintaining O2 saturations in the 90s on 90% FiO2 and a PEEP of 15 via the [employer] chanical ventilator. I discussed the assessment and plan of care with my nurse practitioner, Elise Ann. I attest to the above note as dictated by her.
--- NOTE | 2021-03-03 11:45 | P.PN ---
Subjective Progress Note Date: 03/03/21 Pt is intubated/sedated on propofol. PEEP 15, oxygenating well, CXR appears worse. UOP is on lower end of 30cc/hr, IVF at 100cc/hr. BPs 130/89, no pressors. Objective - Vital Signs Vital signs: Vital Signs Temp 97.3 F L 03/03/21 08:00 Pulse 46 L 03/03/21 11:00 Resp 24 03/03/21 11:00 BP 138/83 03/03/21 11:00 Pulse Ox 100 03/03/21 11:00 Intake & Output 03/02/21 03/03/21 03/03/21 18:59 06:59 18:59 Intake Total 2400 1558.967 700 Output Total 825 700 150 Balance 1575 858.967 550 Weight 147.5 kg 147.5 kg Intake: IV 2400 1300 600 0.9 2400 1200 500 Potassium Chloride 10 meq 100 100 In Water For Injection 1 100ml.bag @ 100 mls/hr IVPB Q1H VIANEY Rx#: [id number] Intake, IV Titration 258.967 100 Amount propofoL 1,000 mg In 258.967 100 Empty Bag 1 bag @ Titrate IV .Q0M VIANEY Rx#: [id number] Output: Urine 825 700 150 Other: Voiding Method Bedpan Indwelling Catheter Indwelling Catheter # Voids 3 ABP, PAP, CO, CI - Last Documented Arterial Blood Pressure 130/89 - Exam Gen: intubated/sedated HEENT: normocephalic, atraumatic, good hearing acuity, moist mucous membranes Resp: Vent - FiO2 80%, TV 400, PEEP 15 CVS: good distal perfusion x 4, GI: soft, NTTP, ND : no SPT, no CVAT, damon catheter is present MSK: no pitting edema, no clubbing Neuro: non-focal, moving all extremities - Labs CBC & Chem 7: 03/03/21 04:30 03/03/21 04:30 Labs: Abnormal Lab Results - Last 24 Hours (Table) 03/02/21 03/02/21 03/02/21 Range/Units 11:37 11:45 11:45 RBC (3.80-5.40) m/uL Hct (34.0-46.0) % Plt Count (150-450) k/uL Neutrophils # 9.7 H (1.3-7.7) k/uL Lymphocytes # 0.2 L (1.0-4.8) k/uL D-Dimer (<0.60) mg/L FEU ABG pH (7.35-7.45) ABG pCO2 48 H (35-45) mmHg ABG pO2 50 L* (83-108) mmHg ABG HCO3 33 H (21-25) mmol/L ABG Total CO2 35 H (19-24) mmol/L ABG O2 Saturation 85.3 L (94-97) % BUN (7-17) mg/dL Glucose 149 H (74-99) mg/dL POC Glucose (mg/dL) (75-99) mg/dL Calcium 8.3 L (8.4-10.2) mg/dL AST 94 H (14-36) U/L Lactate Dehydrogenase 1811 H (313-618) U/L C-Reactive Protein (<10.0) mg/L Total Protein 6.0 L (6.3-8.2) g/dL Albumin 3.3 L (3.5-5.0) g/dL 03/02/21 03/02/21 03/02/21 Range/Units 11:45 13:07 15:14 RBC (3.80-5.40) m/uL Hct (34.0-46.0) % Plt Count (150-450) k/uL Neutrophils # (1.3-7.7) k/uL Lymphocytes # (1.0-4.8) k/uL D-Dimer 1.46 H (<0.60) mg/L FEU ABG pH 7.32 L (7.35-7.45) ABG pCO2 60 H 53 H (35-45) mmHg ABG pO2 46 L* 55 L* (83-108) mmHg ABG HCO3 31 H 30 H (21-25) mmol/L ABG Total CO2 33 H 32 H (19-24) mmol/L ABG O2 Saturation 75.7 L 86.2 L (94-97) % BUN (7-17) mg/dL Glucose (74-99) mg/dL POC Glucose (mg/dL) (75-99) mg/dL Calcium (8.4-10.2) mg/dL AST (14-36) U/L Lactate Dehydrogenase (313-618) U/L C-Reactive Protein (<10.0) mg/L Total Protein (6.3-8.2) g/dL Albumin (3.5-5.0) g/dL 03/02/21 03/03/21 03/03/21 Range/Units 18:11 04:30 04:30 RBC 3.74 L (3.80-5.40) m/uL Hct 32.6 L (34.0-46.0) % Plt Count 148 L (150-450) k/uL Neutrophils # (1.3-7.7) k/uL Lymphocytes # (1.0-4.8) k/uL D-Dimer 1.72 H (<0.60) mg/L FEU ABG pH (7.35-7.45) ABG pCO2 (35-45) mmHg ABG pO2 (83-108) mmHg ABG HCO3 (21-25) mmol/L ABG Total CO2 (19-24) mmol/L ABG O2 Saturation (94-97) % BUN (7-17) mg/dL Glucose (74-99) mg/dL POC Glucose (mg/dL) 147 H (75-99) mg/dL Calcium (8.4-10.2) mg/dL AST (14-36) U/L Lactate Dehydrogenase (313-618) U/L C-Reactive Protein (<10.0) mg/L Total Protein (6.3-8.2) g/dL Albumin (3.5-5.0) g/dL 03/03/21 03/03/21 Range/Units 04:30 05:29 RBC (3.80-5.40) m/uL Hct (34.0-46.0) % Plt Count (150-450) k/uL Neutrophils # (1.3-7.7) k/uL Lymphocytes # (1.0-4.8) k/uL D-Dimer (<0.60) mg/L FEU ABG pH (7.35-7.45) ABG pCO2 49 H (35-45) mmHg ABG pO2 127 H (83-108) mmHg ABG HCO3 29 H (21-25) mmol/L ABG Total CO2 31 H (19-24) mmol/L ABG O2 Saturation 98.6 H (94-97) % BUN 19 H (7-17) mg/dL Glucose 118 H (74-99) mg/dL POC Glucose (mg/dL) (75-99) mg/dL Calcium 7.9 L (8.4-10.2) mg/dL AST 51 H (14-36) U/L Lactate Dehydrogenase 1403 H (313-618) U/L C-Reactive Protein 65.6 H (<10.0) mg/L Total Protein 5.3 L (6.3-8.2) g/dL Albumin 2.8 L (3.5-5.0) g/dL Assessment and Plan Assessment: Acute hypoxic respiratory failure [place] with pneumonitis Mild thrombocytopenia Plan Supportive care Supplemental oxygen as needed --> rescue BIPAP on 03/02 Patient started on Decadron Check d-dimer Pulmonary consult - s/p actemra on 03/02 Inhalers as needed Lovenox with DVT prophylaxis Monitor for any evidence of bleeding Contact and droplet precautions Chronic conditions sjogren syndrome Colitis Intermittent asthma Hypothyroid Hypertension CODE STATUS: Full code Discussed with: Patient, ER Anticipated length of stay > than [address]: Home
[2021-03-03 12:02] LABS: Ferritin 318.5 ng/mL (10.0-291.0)
[2021-03-03 12:11] LABS: Glucose,Whole Blood 107 mg/dL (75-99)
[2021-03-03] MEDS ORDERED: SODIUM CHLORIDE 0.9% 1,000 ML IV ONE (12:53)
[2021-03-03] MEDS: NOREPINEPHRINE 4 MG in SODIUM CHLORIDE 0.9% 250 ML IV SCH ×2 (13:05→15:38)
[2021-03-03] MEDS: atenoloL 25 MG TAB PO SCH (13:06)
[2021-03-03] MEDS: DICYCLOMINE 10 MG CAP PO SCH ×3 (15:37→23:55)
[2021-03-03 17:08] LABS: Glucose,Whole Blood 119 mg/dL (75-99)
[2021-03-03] MEDS ORDERED: ARTIFICIAL TEARS-HYPROMELLOSE DROPS 15 ML BTL BOTH EYES PRN (22:15)
[2021-03-03] MEDS: MORPHINE SULFATE 4 MG/ML SYRINGE IV PRN (23:37)
[2021-03-04] MEDS: ARTIFICIAL TEARS-HYPROMELLOSE DROPS 15 ML BTL BOTH EYES PRN ×2 (00:18→20:30)
[2021-03-04 00:32] LABS: Glucose,Whole Blood 109 mg/dL (75-99)
[2021-03-04] MEDS: NOREPINEPHRINE 4 MG in SODIUM CHLORIDE 0.9% 250 ML IV SCH ×3 (01:55→16:35)
[2021-03-04 05:28] LABS: Basophils % (A) 0 %; Eosinophils % (A) 0 %; HCT 34.4 % (34.0-46.0); Hypochromasia Slight; Lymphocytes # (A) 0.4 k/uL (1.0-4.8); Lymphocytes % (A) 8 %; MCH 28.5 pg (25.0-35.0); MCHC 31.9 g/dL (31.0-37.0); MCV 89.4 fL (80.0-100.0); Mean Platelet Volume 9.4; Monocytes # (A) 0.2 k/uL (0-1.0); Monocytes % (A) 5 %; Neutrophils # (A) 4.1 k/uL (1.3-7.7); Neutrophils % (A) 86 %; Platelet Count 175 k/uL (150-450); RBC 3.85 m/uL (3.80-5.40); RDW 13.7 % (11.5-15.5); WBC 4.8 k/uL (3.8-10.6)
[2021-03-04 05:32] LABS: ALT 21 U/L (4-34); AST 48 U/L (14-36); African American GFR (CKD) >90 (>60 ml/min/1.73 sqM); Albumin 2.5 g/dL (3.5-5.0); Alkaline Phosphatase 62 U/L (38-126); Anion Gap 6 mmol/L; Blood Urea Nitrogen 17 mg/dL (7-17); Calcium 8.1 mg/dL (8.4-10.2); Carbon Dioxide 28 mmol/L (22-30); Chloride 109 mmol/L (98-107); Glucose 128 mg/dL (74-99); Non-African American GFR(CKD) >90 (>60 ml/min/1.73 sqM); Potassium 3.6 mmol/L (3.5-5.1); Sodium 143 mmol/L (137-145); Total Bilirubin 0.3 mg/dL (0.2-1.3); Total Protein 4.8 g/dL (6.3-8.2)
[2021-03-04 06:00] LABS: ABG Base Excess 3.8 mmol/L; ABG HCO3 29 mmol/L (21-25); ABG Oxygen Saturation 95.5 % (94-97); ABG PCO2 46 mmHg (35-45); ABG PO2 76 mmHg (83-108); ABG TCO2 30 mmol/L (19-24)
[2021-03-04] MEDS: SODIUM CHLORIDE 0.9% 1,000 ML IV SCH ×2 (06:14→16:34)
[2021-03-04 06:25] LABS: Glucose,Whole Blood 120 mg/dL (75-99)
[2021-03-04] MEDS: LEVOTHYROXINE 100 MCG TAB PO SCH (06:41)
[2021-03-04 07:12] LABS: Allen Test Performed? no
[2021-03-04] MEDS: ALBUTEROL HFA INHALER INHALATION SCH ×4 (07:44→19:23)
[2021-03-04] MEDS: SYMBICORT 160-4.5 MCG INHALER INHALATION PRN ×2 (07:44→19:23)
[2021-03-04] MEDS ORDERED: Potassium Replacement Protocol 1 EACH MISC MISCELLANE PRN (07:53)
[2021-03-04] MEDS ORDERED: POTASSIUM BICARBONATE/CIT AC 20 MEQ TABLET.EFF NG-TUBE SCH (08:00)
[2021-03-04] MEDS: ALPRAZolam 0.25 MG TAB PO SCH (08:06)
[2021-03-04] MEDS: ASCORBIC ACID 500 MG TAB PO SCH ×2 (08:06→20:51)
[2021-03-04] MEDS: CHOLECALCIFEROL 25 MCG (1000 IU) TABLET PO SCH (08:06)
[2021-03-04] MEDS: DEXAMETHASONE SOD PHOSPHATE 10 MG/ML 1 ML VIAL IV SCH (08:06)
[2021-03-04] MEDS: DULoxetine HCL 60 MG CAPSULE.DR PO SCH ×2 (08:07→20:51)
[2021-03-04] MEDS: DICYCLOMINE 10 MG CAP PO SCH ×3 (08:07→21:10)
[2021-03-04] MEDS: ENOXAPARIN 40 MG/0.4 ML SYRINGE SQ SCH (08:07)
[2021-03-04] MEDS: atenoloL 25 MG TAB PO SCH (08:07)
[2021-03-04] MEDS: ZINC SULFATE 220 MG CAP PO SCH (08:07)
[2021-03-04] MEDS: CHLORHEXIDINE GLUCONATE 15 ML CUP MUCOUS MEM SCH ×2 (08:16→20:51)
[2021-03-04] MEDS: REMDESIVIR 100 MG in SODIUM CHLORIDE 0.9% 250 ML IVPB SCH (09:24)
--- NOTE | 2021-03-04 11:50 | P.PN ---
Subjective Progress Note Date: 03/04/21 Principal diagnosis: Acute hypoxic respiratory failure secondary to CoVID 19 pneumonia 55-year-old white female patient with past medical history of hypertension, morbid obesity with BMI of 54.1 kg/m, ulcerative colitis, possible sleep apnea, chronic bronchial asthma, unspecified patient is on Symbicort on a regular basis, GERD/reflux, hiatal hernia, osteoarthritis, hypothyroidism, and fibromyalgia. Come into the emergency department on 02/27/2021 with symptoms of headache, fever, worsening shortness of breath. Her symptom onset was about a week ago and patient had a positive outpatient Covid 19 test. She is not normally on any oxygen, she reports fevers, body aches, headaches, she reports some diarrhea, but no nausea or vomiting, she is requiring supplement oxygen, 4 L. Pulse ox is 92-93%, she is still having a low-grade fevers this morning, with a temp of 100F, she was started on IV steroids, he was given some IV hydration, prophylactic anticoagulation. She states she is feeling better, her headache is better, she seems to be breathing comfortably, although still requiring 4 L of supplemental oxygen, lung sounds are diminished, with some diffuse crackles at bilateral bases, her lab work revealed squamous cell, 3.9, hemoglobin is 12.5, platelet count was 108, leukocyte, 0.4, d-dimer 0.9, sodium is 137, potassium is 3.5, B1 is 12 creatinine 0.84, LDH is 1355, CRP is 55.9. Patient was reevaluated today on 03/01/2021, she seems to be quite comfortable, resting in bed, she is however on 15 L high flow nasal cannula, O2 saturation is 90%. Again clinically she looks great and does not seem to be in any form of distress. She is afebrile and her vital signs are stable. CBC today is relatively normal. Her d-dimer is 0.29 normal. Her electrolytes are normal, LDH today is 487. It is significantly improved and her C-reactive protein is down to 5.8. Patient feels generally weak and tired, she also feels achy, but on physical examination she looks great. Patient was reevaluated today on 03/02/2021, patient seems to be getting worse since yesterday. Patient is now requiring placement on BiPAP, she is on IPAP of 14 and EPAP of 600% FiO2, and she is barely maintaining an O2 saturation of 83%. I saw the patient and I ordered a follow-up chest x-ray this morning, chest x- ray is showing significant worsening of her bilateral infiltrates. Not to mention the patient has a very large hiatal hernia. Patient was tried on prone positions, and did not seem to help, she was placed on left lateral decubitus position that seems to be the best for her oxygenation on this patient. Considering the worsening of her chest x-ray, and considering the patient is requiring relatively high FiO2 with BiPAP, I will arrange for the patient to be transferred to the ICU immediately. In the meantime I will arrange for the patient to start on actemra, and would also add convalescent plasma. Her inflammatory markers were noted to come down yesterday, LDH came down to 487 from 1355 The patient is seen today 03/03/2021 in follow-up in the intensive care unit. She did require urgent transfer to the ICU and intubation yesterday. She is currently sedated on the mechanical ventilator at assist control mode at a rate of 24, tidal volume 400, FiO2 100%, PEEP of 15. Morning blood gases reveal a pO2 127, pCO2 49, pH 7.38. She is sedated on propofol 50 mcg/kg/m. 0.9 normal saline at 100 ML's per hour. Chest x-ray reveals patchy bilateral infiltrates right greater than left. She did receive 1 unit of convalescent plasma. Also received tocilizumab. White count 5.9. Hemoglobin 11.4. D-dimer 1.72. Sodium 142. Potassium 3.6. Creatinine 0.59. LDH 1403. C-reactive protein 65.6. Glucose 147. She is continued on Decadron, Symbicort, albuterol, vitamin supplements. Lovenox for DVT prophylaxis. The patient is seen today 03/04/2021 follow-up in the intensive care unit. She remains intubated, sedated and on the mechanical ventilator. Current mode assist control with a rate of 24, tidal volume 400, FiO2 50% and a PEEP of 15. Arterial blood gases reveal a P O2 of 76, pCO2 46, pH 7.40. She is sedated on propofol at 40 mcg/kg/m. 0.9 normal saline at 100 ML's per hour. She is being nourished with vital HP at 37 mL per hour which is goal. Chest x-ray continues to show bilateral patchy infiltrates. She did receive 1 unit of convalescent plasma. White count 4.8. Hemoglobin 11.0. Lymphocytes 0.4. Sodium 143. Potassium 3.6. Creatinine 0.48. AST 48, ALT 21. She remains on Symbicort, albuterol, dexamethasone. Lovenox. Vitamin supplements. Objective - Vital Signs Vital signs: Vital Signs Temp 36.4 F L 03/04/21 06:00 Pulse 49 L 03/04/21 06:00 Resp 25 H 03/04/21 06:00 BP 125/68 03/04/21 06:00 Pulse Ox 95 03/04/21 05:00 Intake & Output 03/03/21 03/04/21 03/04/21 18:59 06:59 18:59 Intake Total 1540 3779.693 9952.345 Output Total 460 645 150 Balance 1080 1322.704 894.345 Weight 147.5 kg 146.6 kg Intake: IV 1250 440 500 0.9 1150 440 300 Potassium Chloride 10 meq 100 In Water For Injection 1 100ml.bag @ 100 mls/hr IVPB Q1H [facility] Rx#: [id number] Sodium Chloride 0.9% 1, 200 000 ml @ 100 mls/hr IV . Q10H [facility] Rx#:[id number] Intake, IV Titration 200 1159.704 209.345 Amount Sodium Chloride 0.9% 1, 800 000 ml @ 100 mls/hr IV . Q10H [facility] Rx#:[id number] propofoL 1,000 mg In 200 359.704 209.345 Empty Bag 1 bag @ Titrate IV .Q0M [facility] Rx#: [id number] Oral 150 Tube Feeding 60 338 185 Other 30 30 Output: Urine 460 645 150 Other: Voiding Method Indwelling Catheter Indwelling Catheter Indwelling Catheter ABP, PAP, CO, CI - Last Documented Arterial Blood Pressure 137/57 - Exam GENERAL EXAM: Intubated, sedated, obese 55-year-old female patient, comfortable in no apparent distress. HEAD: Normocephalic. EYES: Normal reaction of pupils, equal size. NOSE: Clear with pink turbinates. THROAT: Oral endotracheal and gastric tube secured in place. No erythema or exudates. NECK: No masses, no JVD. CHEST: No chest wall deformity. LUNGS: Equal air entry with crackles in the bilateral posterior bases CVS: S1 and S2 normal with no audible murmur, regular rhythm. ABDOMEN: No hepatosplenomegaly, normal bowel sounds, no guarding or rigidity. SPINE: No scoliosis or deformity SKIN: No rashes CENTRAL NERVOUS SYSTEM: Sedated. No focal deficits, tone is normal in all 4 extremities. EXTREMITIES: There is no peripheral edema. No clubbing, no cyanosis. Peripheral pulses are intact. - Labs CBC & Chem 7: 03/04/21 04:36 03/04/21 04:36 Labs: Abnormal Lab Results - Last 24 Hours (Table) 03/03/21 03/03/21 03/03/21 Range/Units 04:30 12:09 17:06 Hgb (11.4-16.0) gm/dL Lymphocytes # (1.0-4.8) k/uL ABG pCO2 (35-45) mmHg ABG pO2 (83-108) mmHg ABG HCO3 (21-25) mmol/L ABG Total CO2 (19-24) mmol/L Chloride (98-107) mmol/L Creatinine (0.52-1.04) mg/dL Glucose (74-99) mg/dL POC Glucose (mg/dL) 107 H 119 H (75-99) mg/dL Calcium (8.4-10.2) mg/dL Ferritin 318.5 H (10.0-291.0) ng/mL AST (14-36) U/L Total Protein (6.3-8.2) g/dL Albumin (3.5-5.0) g/dL 03/04/21 03/04/21 03/04/21 Range/Units 00:28 04:36 04:36 Hgb 11.0 L (11.4-16.0) gm/dL Lymphocytes # 0.4 L (1.0-4.8) k/uL ABG pCO2 (35-45) mmHg ABG pO2 (83-108) mmHg ABG HCO3 (21-25) mmol/L ABG Total CO2 (19-24) mmol/L Chloride 109 H (98-107) mmol/L Creatinine 0.48 L (0.52-1.04) mg/dL Glucose 128 H (74-99) mg/dL POC Glucose (mg/dL) 109 H (75-99) mg/dL Calcium 8.1 L (8.4-10.2) mg/dL Ferritin (10.0-291.0) ng/mL AST 48 H (14-36) U/L Total Protein 4.8 L (6.3-8.2) g/dL Albumin 2.5 L (3.5-5.0) g/dL 03/04/21 03/04/21 Range/Units 05:57 06:22 Hgb (11.4-16.0) gm/dL Lymphocytes # (1.0-4.8) k/uL ABG pCO2 46 H (35-45) mmHg ABG pO2 76 L (83-108) mmHg ABG HCO3 29 H (21-25) mmol/L ABG Total CO2 30 H (19-24) mmol/L Chloride (98-107) mmol/L Creatinine (0.52-1.04) mg/dL Glucose (74-99) mg/dL POC Glucose (mg/dL) 120 H (75-99) mg/dL Calcium (8.4-10.2) mg/dL Ferritin (10.0-291.0) ng/mL AST (14-36) U/L Total Protein (6.3-8.2) g/dL Albumin (3.5-5.0) g/dL Assessment and Plan Assessment: 1 Acute hypoxic respiratory failure requiring intubation and mechanical v entilatory support on 03/02/2021 secondary to CoVID 19 pneumonia. Outside the window for Remdesivir. Did receive tocilizumab and convalescent plasma on 03/02/2021 2 Increased inflammatory markers secondary to above 3 Morbid obesity 4 Hypertension 5 History of mild intermittent chronic bronchial asthma 6 History of ulcerative colitis 7 Hiatal hernia 8 Gastroesophageal reflux disease 9 Generalized anxiety disorder Plan: The patient was seen and evaluated by Dr. Ge Chest x-ray, ABGs and labs reviewed Plan for daily interruption of sedation Did receive Tocilizumab and convalescent plasma Remains on Lovenox, dexamethasone, vitamin supplements Continued on bronchodilators Repeat chest x-ray, inflammatory markers in the a.m. We will continue to follow and make further recommendations based on her clinical status Critical care time 36 minutes I, the cosigning physician, performed a history & physical examination of the patient. Lungs sounds with crackles in the bilateral posterior bases. Maintaining O2 saturations in the 90s on 50% FiO2 and a PEEP of 15 via the mechanical ventilator. I discussed the assessment and plan of care with my nurse practitioner, Elise Ann. I attest to the above note as dictated by her.
--- NOTE | 2021-03-04 12:16 | P.PN ---
Subjective Progress Note Date: 03/04/21 Pt still vented, FiO2 titrated down to 50%. BNP was 1060. UOP is good. Objective - Vital Signs Vital signs: Vital Signs Temp 36.4 F L 03/04/21 06:00 Pulse 49 L 03/04/21 12:13 Resp 24 03/04/21 12:13 BP 119/64 03/04/21 12:13 Pulse Ox 95 03/04/21 12:13 Intake & Output 03/03/21 03/04/21 03/04/21 18:59 06:59 18:59 Intake Total 1540 8643.226 8314.345 Output Total 460 645 150 Balance 1080 1322.704 894.345 Weight 147.5 kg 146.6 kg Intake: IV 1250 440 500 0.9 1150 440 300 Potassium Chloride 10 meq 100 In Water For Injection 1 100ml.bag @ 100 mls/hr IVPB Q1H [facility] Rx#: [id number] Sodium Chloride 0.9% 1, 200 000 ml @ 100 mls/hr IV . Q10H [facility] Rx#:[id number] Intake, IV Titration 200 1159.704 209.345 Amount Sodium Chloride 0.9% 1, 800 000 ml @ 100 mls/hr IV . Q10H [facility] Rx#:[id number] propofoL 1,000 mg In 200 359.704 209.345 Empty Bag 1 bag @ Titrate IV .Q0M [facility] Rx#: [id number] Oral 150 Tube Feeding 60 338 185 Other 30 30 Output: Urine 460 645 150 Other: Voiding Method Indwelling Catheter Indwelling Catheter Indwelling Catheter ABP, PAP, CO, CI - Last Documented Arterial Blood Pressure 122/61 - Exam Gen: intubated/sedated HEENT: normocephalic, atraumatic, good hearing acuity, moist mucous membranes Resp: Vent - FiO2 50%, TV 400, PEEP 15 CVS: good distal perfusion x 4, GI: soft, NTTP, ND : no SPT, no CVAT, damon catheter is present MSK: no pitting edema, no clubbing Neuro: non-focal, moving all extremities - Labs CBC & Chem 7: 03/04/21 04:36 03/04/21 04:36 Labs: Abnormal Lab Results - Last 24 Hours (Table) 03/03/21 03/04/21 03/04/21 Range/Units 17:06 00:28 04:36 Hgb 11.0 L (11.4-16.0) gm/dL Lymphocytes # 0.4 L (1.0-4.8) k/uL ABG pCO2 (35-45) mmHg ABG pO2 (83-108) mmHg ABG HCO3 (21-25) mmol/L ABG Total CO2 (19-24) mmol/L Chloride (98-107) mmol/L Creatinine (0.52-1.04) mg/dL Glucose (74-99) mg/dL POC Glucose (mg/dL) 119 H 109 H (75-99) mg/dL Calcium (8.4-10.2) mg/dL AST (14-36) U/L Total Protein (6.3-8.2) g/dL Albumin (3.5-5.0) g/dL 03/04/21 03/04/21 03/04/21 Range/Units 04:36 05:57 06:22 Hgb (11.4-16.0) gm/dL Lymphocytes # (1.0-4.8) k/uL ABG pCO2 46 H (35-45) mmHg ABG pO2 76 L (83-108) mmHg ABG HCO3 29 H (21-25) mmol/L ABG Total CO2 30 H (19-24) mmol/L Chloride 109 H (98-107) mmol/L Creatinine 0.48 L (0.52-1.04) mg/dL Glucose 128 H (74-99) mg/dL POC Glucose (mg/dL) 120 H (75-99) mg/dL Calcium 8.1 L (8.4-10.2) mg/dL AST 48 H (14-36) U/L Total Protein 4.8 L (6.3-8.2) g/dL Albumin 2.5 L (3.5-5.0) g/dL Assessment and Plan Assessment: Acute hypoxic respiratory failure [place] with pneumonitis Mild thrombocytopenia Plan Supportive care Supplemental oxygen as needed --> rescue BIPAP on 03/02 --> intubated on 03/03 Patient started on Decadron Check d-dimer Pulmonary consult - s/p actemra on 03/02 Inhalers as needed Lovenox with DVT prophylaxis Monitor for any evidence of bleeding Contact and droplet precautions Chronic conditions sjogren syndrome Colitis Intermittent asthma Hypothyroid Hypertension CODE STATUS: Full code Discussed with: Patient, ER Anticipated length of stay > than [address]: Home
--- NOTE | 2021-03-04 13:18 | XR ---
EXAMINATION TYPE: XR chest 1V portable DATE OF EXAM: 03/04/2021 COMPARISON: 03/03/2021 INDICATION: Tube placement, difficulty breathing TECHNIQUE: Single frontal view of the chest is obtained. FINDINGS: The heart size is normal. The pulmonary vasculature is normal. Diffuse bilateral lung infiltrates are present. Endotracheal tube tip is 4.2 cm above the david. Nasogastric tube transverses the thorax. Left centr al venous catheter tip is within the right atrium. IMPRESSION: 1. Improving bilateral lung infiltrates. 2. Lines and catheters discussed above.
[2021-03-04] MEDS: MORPHINE SULFATE 4 MG/ML SYRINGE IV PRN (16:40)
[2021-03-04 16:46] LABS: Glucose,Whole Blood 162 mg/dL (75-99)
[2021-03-04] MEDS ORDERED: CLEVIDIPINE BUTYRATE 25 MG/50 ML VIAL IV ONE (18:40)
[2021-03-04] MEDS: CLEVIDIPINE BUTYRATE 25 MG in EMPTY BAG 1 BAG IV SCH (18:49)
[2021-03-04 23:12] LABS: Glucose,Whole Blood 125 mg/dL (75-99)
[2021-03-05] MEDS: CLEVIDIPINE BUTYRATE 25 MG in EMPTY BAG 1 BAG IV SCH ×3 (01:52→19:19)
[2021-03-05] MEDS: SODIUM CHLORIDE 0.9% 1,000 ML IV SCH (01:57)
[2021-03-05] MEDS: NOREPINEPHRINE 4 MG in SODIUM CHLORIDE 0.9% 250 ML IV SCH (03:59)
[2021-03-05] MEDS: ARTIFICIAL TEARS-HYPROMELLOSE DROPS 15 ML BTL BOTH EYES PRN (03:59)
[2021-03-05 04:25] LABS: Basophils % (A) 0 %; Eosinophils % (A) 1 %; HCT 33.6 % (34.0-46.0); HGB 11.8 gm/dL (11.4-16.0); Lymphocytes # (A) 0.4 k/uL (1.0-4.8); Lymphocytes % (A) 10 %; MCH 30.1 pg (25.0-35.0); MCV 86.2 fL (80.0-100.0); Monocytes # (A) 0.3 k/uL (0-1.0); Monocytes % (A) 6 %; Neutrophils # (A) 3.8 k/uL (1.3-7.7); Neutrophils % (A) 82 %; Platelet Count 183 k/uL (150-450); RDW 13.4 % (11.5-15.5); WBC 4.6 k/uL (3.8-10.6)
[2021-03-05 04:44] LABS: African American GFR (CKD) >90 (>60 ml/min/1.73 sqM); Anion Gap 5 mmol/L; Blood Urea Nitrogen 19 mg/dL (7-17); Calcium 8.4 mg/dL (8.4-10.2); Carbon Dioxide 28 mmol/L (22-30); Chloride 108 mmol/L (98-107); Glucose 130 mg/dL (74-99); Non-African American GFR(CKD) >90 (>60 ml/min/1.73 sqM); Potassium 3.9 mmol/L (3.5-5.1); Sodium 141 mmol/L (137-145)
[2021-03-05 05:12] LABS: Glucose,Whole Blood 103 mg/dL (75-99)
[2021-03-05 05:20] LABS: ABG HCO3 29 mmol/L (21-25); ABG PCO2 38 mmHg (35-45); ABG PH 7.48 (7.35-7.45); ABG PO2 134 mmHg (83-108); ABG TCO2 30 mmol/L (19-24); Allen Test Performed? Yes
[2021-03-05 05:25] LABS: C Reactive Protein 27.1 mg/L (<10.0)
[2021-03-05] MEDS: LEVOTHYROXINE 100 MCG TAB PO SCH (05:52)
[2021-03-05] MEDS ORDERED: POTASSIUM BICARBONATE/CIT AC 20 MEQ TABLET.EFF PO SCH (06:00)
[2021-03-05] MEDS: ALBUTEROL HFA INHALER INHALATION SCH ×4 (07:09→19:21)
[2021-03-05] MEDS: SYMBICORT 160-4.5 MCG INHALER INHALATION PRN (07:09)
--- NOTE | 2021-03-05 07:32 | P.PN ---
Subjective Progress Note Date: 03/05/21 55-year-old white female patient with past medical history of hypertension, morbid obesity with BMI of 54.1 kg/m, ulcerative colitis, possible sleep apnea, chronic bronchial asthma, unspecified patient is on Symbicort on a regular basis, GERD/reflux, hiatal hernia, osteoarthritis, hypothyroidism, and fibromyalgia. Come into the emergency department on 02/27/2021 with symptoms of headache, fever, worsening shortness of breath. Her symptom onset was about a week ago and patient had a positive outpatient Covid 19 test. She is not normally on any oxygen, she reports fevers, body aches, headaches, she reports some diarrhea, but no nausea or vomiting, she is requiring supplement oxygen, 4 L. Pulse ox is 92-93%, she is still having a low-grade fevers this morning, with a temp of 100F, she was started on IV steroids, he was given some IV hydration, prophylactic anticoagulation. She states she is feeling better, her headache is better, she seems to be breathing comfortably, although still r equiring 4 L of supplemental oxygen, lung sounds are diminished, with some diffuse crackles at bilateral bases, her lab work revealed squamous cell, 3.9, hemoglobin is 12.5, platelet count was 108, leukocyte, 0.4, d-dimer 0.9, sodium is 137, potassium is 3.5, B1 is 12 creatinine 0.84, LDH is 1355, CRP is 55.9. Patient was reevaluated today on 03/01/2021, she seems to be quite comfortable, resting in bed, she is however on 15 L high flow nasal cannula, O2 saturation is 90%. Again clinically she looks great and does not seem to be in any form of distress. She is afebrile and her vital signs are stable. CBC today is relatively normal. Her d-dimer is 0.29 normal. Her electrolytes are normal, LDH today is 487. It is significantly improved and her C-reactive protein is down to 5.8. Patient feels generally weak and tired, she also feels achy, but on physical examination she looks great. Patient was reevaluated today on 03/02/2021, patient seems to be getting worse since yesterday. Patient is now requiring placement on BiPAP, she is on IPAP of 14 and EPAP of 600% FiO2, and she is barely maintaining an O2 saturation of 83%. I saw the patient and I ordered a follow-up chest x-ray this morning, chest x- ray is showing significant worsening of her bilateral infiltrates. Not to menti on the patient has a very large hiatal hernia. Patient was tried on prone positions, and did not seem to help, she was placed on left lateral decubitus position that seems to be the best for her oxygenation on this patient. Considering the worsening of her chest x-ray, and considering the patient is requiring relatively high FiO2 with BiPAP, I will arrange for the patient to be transferred to the ICU immediately. In the meantime I will arrange for the patient to start on actemra, and would also add convalescent plasma. Her inflammatory markers were noted to come down yesterday, LDH came down to 487 from 1355 The patient is seen today 03/03/2021 in follow-up in the intensive care unit. S he did require urgent transfer to the ICU and intubation yesterday. She is currently sedated on the mechanical ventilator at assist control mode at a rate of 24, tidal volume 400, FiO2 100%, PEEP of 15. Morning blood gases reveal a pO2 127, pCO2 49, pH 7.38. She is sedated on propofol 50 mcg/kg/m. 0.9 normal saline at 100 ML's per hour. Chest x-ray reveals patchy bilateral infiltrates right greater than left. She did receive 1 unit of convalescent plasma. Also received tocilizumab. White count 5.9. Hemoglobin 11.4. D-dimer 1.72. Sodium 142. Potassium 3.6. Creatinine 0.59. LDH 1403. C-reactive protein 65.6. Glucose 147. She is continued on Decadron, Symbicort, albuterol, vitamin supplements. Lovenox for DVT prophylaxis. The patient is seen today 03/04/2021 follow-up in the intensive care unit. She remains intubated, sedated and on the mechanical ventilator. Current mode assist control with a rate of 24, tidal volume 400, FiO2 50% and a PEEP of 15. Arterial blood gases reveal a P O2 of 76, pCO2 46, pH 7.40. She is sedated on propofol at 40 mcg/kg/m. 0.9 normal saline at 100 ML's per hour. She is being nourished with vital HP at 37 mL per hour which is goal. Chest x-ray continues to show bilateral patchy infiltrates. She did receive 1 unit of convalescent plasma. White count 4.8. Hemoglobin 11.0. Lymphocytes 0.4. Sodium 143. Potassium 3.6. Creatinine 0.48. AST 48, ALT 21. She remains on Symbicort, albuterol, dexamethasone. Lovenox. Vitamin supplements. On today's evaluation of 03/05/2021, seeing the patient for a follow-up in the intensive care unit. The patient was hospitalized for community related pneumonia and the patient was also intubated and placed on a mechanical ventilator on 03/02/2021. The patient sedated with propofol. The patient is on a mechanical ventilator assist control mode with a tidal volume 400, FiO2 of 50%, PEEP of 15 and a rate of 24. Propofol is running at 50 mcg/kg per minute and the patient is also on IV fluids with normal saline at the rate of 50 mL an hour. The ABGs from today showing a pH of 7.48 with a pCO2 of 38 and pO2 of 134. The peak and static pressures are 37/32 Patient receiving enteral feeding for nutritional support. The patient was given convalescent plasma. The patient is on Decadron. Patient anticoagulation with Lovenox. The chest x-ray showing diffuse bilateral pulmonary infiltrates. ET tube is in a good location. The patient's left subclavian catheter in place. The patient is also requiring on and off norepinephrine infusion for blood pressure control. The LDH level from 03/03/2021 was 1063 with a CRP of 27. The fluid balance is positive in the order of 2.4 L 4 03/03/2021 and 2.4 L on 03/04/2021. As such, the patient is in a positive fluid balance. Objective - Vital Signs Vital signs: Vital Signs Temp 36.1 F L 03/05/21 07:00 Pulse 44 L 03/05/21 07:00 Resp 24 03/05/21 07:00 BP 114/61 03/05/21 07:00 Pulse Ox 96 03/05/21 07:00 Intake & Output 03/04/21 03/05/21 03/05/21 18:59 06:59 18:59 Intake Total 2725.498 1643.269 110.983 Output Total 525 675 30 Balance 2200.498 968.269 80.983 Intake: IV 1400 550 50 0.9 300 Sodium Chloride 0.9% 1, 1100 550 50 000 ml @ 50 mls/hr IV . Q20H [facility] Rx#:[id number] Intake, IV Titration 530.498 551.269 5.983 Amount Clevidipine Butyrate 25 0.3 37.099 0.983 mg In Empty Bag 1 bag @ 1 MG/HR 2 mls/hr IV .Q24H [facility] Rx#:[id number] Sodium Chloride 0.9% 1, 55 5 000 ml @ 50 mls/hr IV . Q20H [facility] Rx#:[id number] propofoL 1,000 mg In 530.198 459.170 Empty Bag 1 bag @ Titrate IV .Q0M [facility] Rx#: [id number] Oral 150 Tube Feeding 585 442 35 Other 60 100 20 Output: Urine 525 675 30 Other: Voiding Method Indwelling Catheter Indwelling Catheter ABP, PAP, CO, CI - Last Documented Arterial Blood Pressure 122/58 - Exam GENERAL EXAM: Intubated, sedated, obese 55-year-old female patient, comfortable in no apparent distress. HEAD: Normocephalic. EYES: Normal reaction of pupils, equal size. NOSE: Clear with pink turbinates. THROAT: Oral endotracheal and gastric tube secured in place. No erythema or exudates. NECK: No masses, no JVD. CHEST: No chest wall deformity. LUNGS: Equal air entry with crackles in the bilateral posterior bases CVS: S1 and S2 normal with no audible murmur, regular rhythm. ABDOMEN: No hepatosplenomegaly, normal bowel sounds, no guarding or rigidity. SPINE: No scoliosis or deformity SKIN: No rashes CENTRAL NERVOUS SYSTEM: Sedated. No focal deficits, tone is normal in all 4 extremities. EXTREMITIES: There is no peripheral edema. No clubbing, no cyanosis. Peripheral pulses are intact. - Labs CBC & Chem 7: 03/05/21 03:55 03/05/21 03:55 Labs: Abnormal Lab Results - Last 24 Hours (Table) 03/04/21 03/04/21 03/05/21 Range/Units 16:45 23:10 03:55 Hct (34.0-46.0) % Lymphocytes # (1.0-4.8) k/uL D-Dimer 2.92 H (<0.60) mg/L FEU ABG pH (7.35-7.45) ABG pO2 (83-108) mmHg ABG HCO3 (21-25) mmol/L ABG Total CO2 (19-24) mmol/L ABG O2 Saturation (94-97) % Chloride (98-107) mmol/L BUN (7-17) mg/dL Creatinine (0.52-1.04) mg/dL Glucose (74-99) mg/dL POC Glucose (mg/dL) 162 H 125 H (75-99) mg/dL Lactate Dehydrogenase (313-618) U/L C-Reactive Protein (<10.0) mg/L 03/05/21 03/05/21 03/05/21 Range/Units 03:55 03:55 03:55 Hct 33.6 L (34.0-46.0) % Lymphocytes # 0.4 L (1.0-4.8) k/uL D-Dimer (<0.60) mg/L FEU ABG pH (7.35-7.45) ABG pO2 (83-108) mmHg ABG HCO3 (21-25) mmol/L ABG Total CO2 (19-24) mmol/L ABG O2 Saturation (94-97) % Chloride 108 H (98-107) mmol/L BUN 19 H (7-17) mg/dL Creatinine 0.42 L (0.52-1.04) mg/dL Glucose 130 H (74-99) mg/dL POC Glucose (mg/dL) (75-99) mg/dL Lactate Dehydrogenase 1063 H (313-618) U/L C-Reactive Protein 27.1 H (<10.0) mg/L 03/05/21 03/05/21 Range/Units 05:10 05:11 Hct (34.0-46.0) % Lymphocytes # (1.0-4.8) k/uL D-Dimer (<0.60) mg/L FEU ABG pH 7.48 H (7.35-7.45) ABG pO2 134 H (83-108) mmHg ABG HCO3 29 H (21-25) mmol/L ABG Total CO2 30 H (19-24) mmol/L ABG O2 Saturation 99.0 H (94-97) % Chloride (98-107) mmol/L BUN (7-17) mg/dL Creatinine (0.52-1.04) mg/dL Glucose (74-99) mg/dL POC Glucose (mg/dL) 103 H (75-99) mg/dL Lactate Dehydrogenase (313-618) U/L C-Reactive Protein (<10.0) mg/L Assessment and Plan Plan: 1 Acute hypoxic respiratory failure requiring intubation and mechanical ventilatory support on 03/02/2021 secondary to CoVID 19 pneumonia. Outside the window for Remdesivir. Did receive tocilizumab and convalescent plasma on 03/02/2021. The patient continues to receive mechanical ventilation for now. Chest x-ray was noted. Blood gases was noted. 2 Increased inflammatory markers secondary to above 3 Morbid obesity, body mass index of 53.8 4 Hypertension 5 History of mild intermittent chronic bronchial asthma , maintained on Symbicort 6 History of ulcerative colitis 7 Hiatal hernia 8 Gastroesophageal reflux disease 9 Generalized anxiety disorder, maintained on Xanax on outpatient basis 10 hypothyroidism on thyroid hormone replacement Plan: The patient is in a positive fluid balance. The patient will be started on Lasix 40 mg IV every 12 hours and IV Fluids to 20 ML an Hour Drop the PEEP down to 13 and his desaturations hold above 92%, dropping down to 11 FiO2 at 50% Did receive Tocilizumab and convalescent plasma Remains on Lovenox, dexamethasone, vitamin supplements Continued on bronchodilators Repeat chest x-ray, inflammatory markers in the a.m. We will continue to follow and make further recommendations based on her clinical status Critical care time > 30 min Time with Patient: Greater than 30
[2021-03-05] MEDS: CHLORHEXIDINE GLUCONATE 15 ML CUP MUCOUS MEM SCH ×2 (08:26→20:04)
[2021-03-05] MEDS: DEXAMETHASONE SOD PHOSPHATE 10 MG/ML 1 ML VIAL IV SCH (08:27)
[2021-03-05] MEDS: atenoloL 25 MG TAB PO SCH (08:27)
[2021-03-05] MEDS: DICYCLOMINE 10 MG CAP PO SCH ×3 (08:27→21:43)
[2021-03-05] MEDS: ZINC SULFATE 220 MG CAP PO SCH (08:27)
[2021-03-05] MEDS: ALPRAZolam 0.25 MG TAB PO SCH (08:27)
[2021-03-05] MEDS: ENOXAPARIN 40 MG/0.4 ML SYRINGE SQ SCH (08:27)
[2021-03-05] MEDS: DULoxetine HCL 60 MG CAPSULE.DR PO SCH ×2 (08:27→20:04)
[2021-03-05] MEDS: ASCORBIC ACID 500 MG TAB PO SCH ×2 (08:27→20:04)
[2021-03-05] MEDS: FUROSEMIDE 10 MG/ML 4 ML VIAL IV SCH ×2 (08:28→20:04)
--- NOTE | 2021-03-05 09:10 | XR ---
EXAMINATION TYPE: XR chest 1V portable DATE OF EXAM: 03/05/2021 COMPARISON: 03/04/2021 HISTORY: Tube placement TECHNIQUE: Single frontal view of the chest is obtained. FINDINGS: ET tube, NG tube and central line stable. Bilateral interstitial and alveolar infiltrates with tiny effusion stable. No pneumothorax. Heart size stable and mildly enlarged. IMPRESSION: Diffuse interstitial and alveolar infiltrate stable.
--- NOTE | 2021-03-05 09:53 | ECHOF ---
Referral Reason:heart failure MEASUREMENTS -------- HEIGHT: 165.1 cm WEIGHT: 147.4 kg BP: 130/89 RVIDd: 2.8 cm (< 3.3) IVSd: 1.3 cm (0.6 - 1.1) LVIDd: 4.5 cm (3.9 - 5.3) LVPWd: 1.2 cm (0.6 - 1.1) IVSs: 1.7 cm LVIDs: 3.2 cm LVPWs: 1.6 cm LA Diam: 3.0 cm (2.7 - 3.8) Ao Diam: 3.8 cm (2.0 - 3.7) AV Cusp: 2.4 cm (1.5 - 2.6) MV EXCURSION: 21.150 mm (> 18.000) MV EF SLOPE: 78 mm/s (70 - 150) EPSS: 1.1 cm MV E Gallo: 0.76 m/s MV DecT: 273 ms MV A Gallo: 0.73 m/s MV E/A Ratio: 1.04 RAP: 5.00 mmHg RVSP: 37.19 mmHg FINDINGS -------- Resting bradycardia (HR<60bpm). This was a technically adequate study. The left ventricular size is normal. There is mild concentric left ventricular hypertrophy. Overa ll left ventricular systolic function is normal with, an EF between 55 - 60 %. The right ventricle is normal in size. The left atrium is normal in size. The right atrium is normal in size. Interatrial and interventricular septum intact. Aortic valve is trileaflet and is mildly thickened. The mitral valve is normal. Mild tricuspid regurgitation present. There is mild pulmonary hypertension. The right ventricular systolic pressure, as measured by Doppler, is 37.19mmHg. Trace/mild (physiologic) pulmonic regurgitation. The aortic root is dilated measuring 3.8cm. IVC Not well visulized. There is no pericardial effusion. CONCLUSIONS -------- 1. Resting bradycardia (HR<60bpm). 2. The left ventricular size is normal. 3. There is mild concentric left ventricular hypertrophy. 4. Overall left ventricular systolic function is normal with, an EF between 55 - 60 %. 5. Aortic valve is trileaflet and is mildly thickened. 6. Mild tricuspid regurgitation present. 7. There is mild pulmonary hypertension. 8. The right ventricular systolic pressure, as measured by Doppler, is 37.19mmHg. 9. Trace/mild (physiologic) pulmonic regurgitation. 10. The aortic root is dilated measuring 3.8cm. 11. There is no pericardial effusion. IMPLEMENTATION COORDINATOR: Phoebe Antunez RDCS
[2021-03-05] MEDS: CHOLECALCIFEROL 25 MCG (1000 IU) TABLET PO SCH (10:08)
[2021-03-05 12:25] LABS: Glucose,Whole Blood 87 mg/dL (75-99)
--- NOTE | 2021-03-05 12:52 | P.PN ---
Subjective Progress Note Date: 03/05/21 Principal diagnosis: Remains intubated on vent Objective - Vital Signs Vital signs: Vital Signs Temp 98.1 F 03/05/21 08:30 Pulse 53 L 03/05/21 10:00 Resp 27 H 03/05/21 10:00 BP 162/80 03/05/21 09:30 Pulse Ox 97 03/05/21 10:00 Intake & Output 03/04/21 03/05/21 03/05/21 18:59 06:59 18:59 Intake Total 2725.498 1643.269 337.696 Output Total 678 869 8154 Balance 2200.498 968.269 -2432.304 Intake: IV 1400 550 50 0.9 300 Sodium Chloride 0.9% 1, 1100 550 50 000 ml @ 20 mls/hr IV . Q24H [facility] Rx#:[id number] Intake, IV Titration 530.498 551.269 197.696 Amount Clevidipine Butyrate 25 0.3 37.099 2.116 mg In Empty Bag 1 bag @ 1 MG/HR 2 mls/hr IV .Q24H [facility] Rx#:[id number] Sodium Chloride 0.9% 1, 55 5 000 ml @ 20 mls/hr IV . Q24H [facility] Rx#:[id number] propofoL 1,000 mg In 530.198 459.170 190.580 Empty Bag 1 bag @ Titrate IV .Q0M [facility] Rx#: [id number] Oral 150 Tube Feeding 585 442 70 Other 60 100 20 Output: Urine 874 615 5430 Other: Voiding Method Indwelling Catheter Indwelling Catheter Indwelling Catheter ABP, PAP, CO, CI - Last Documented Arterial Blood Pressure 143/60 - Exam GENERAL EXAM: Intubated, on vent HEAD: Normocephalic. EYES: Normal reaction of pupils, equal size. NOSE: Clear with pink turbinates. NECK: No masses, no JVD. LUNGS: decreased bs CVS: S1 and S2 normal with no audible murmur, regular rhythm. ABDOMEN: No hepatosplenomegaly, normal bowel sounds, no guarding or rigidity. SPINE: No scoliosis or deformity SKIN: No rashes CENTRAL NERVOUS SYSTEM: intubated EXTREMITIES: There is no peripheral edema. No clubbing, no cyanosis. - Labs CBC & Chem 7: 03/05/21 03:55 03/05/21 03:55 Labs: Abnormal Lab Results - Last 24 Hours (Table) 03/04/21 03/04/21 03/05/21 Range/Units 16:45 23:10 03:55 Hct (34.0-46.0) % Lymphocytes # (1.0-4.8) k/uL D-Dimer 2.92 H (<0.60) mg/L FEU ABG pH (7.35-7.45) ABG pO2 (83-108) mmHg ABG HCO3 (21-25) mmol/L ABG Total CO2 (19-24) mmol/L ABG O2 Saturation (94-97) % Chloride (98-107) mmol/L BUN (7-17) mg/dL Creatinine (0.52-1.04) mg/dL Glucose (74-99) mg/dL POC Glucose (mg/dL) 162 H 125 H (75-99) mg/dL Lactate Dehydrogenase (313-618) U/L C-Reactive Protein (<10.0) mg/L 03/05/21 03/05/21 03/05/21 Range/Units 03:55 03:55 03:55 Hct 33.6 L (34.0-46.0) % Lymphocytes # 0.4 L (1.0-4.8) k/uL D-Dimer (<0.60) mg/L FEU ABG pH (7.35-7.45) ABG pO2 (83-108) mmHg ABG HCO3 (21-25) mmol/L ABG Total CO2 (19-24) mmol/L ABG O2 Saturation (94-97) % Chloride 108 H (98-107) mmol/L BUN 19 H (7-17) mg/dL Creatinine 0.42 L (0.52-1.04) mg/dL Glucose 130 H (74-99) mg/dL POC Glucose (mg/dL) (75-99) mg/dL Lactate Dehydrogenase 1063 H (313-618) U/L C-Reactive Protein 27.1 H (<10.0) mg/L 03/05/21 03/05/21 Range/Units 05:10 05:11 Hct (34.0-46.0) % Lymphocytes # (1.0-4.8) k/uL D-Dimer (<0.60) mg/L FEU ABG pH 7.48 H (7.35-7.45) ABG pO2 134 H (83-108) mmHg ABG HCO3 29 H (21-25) mmol/L ABG Total CO2 30 H (19-24) mmol/L ABG O2 Saturation 99.0 H (94-97) % Chloride (98-107) mmol/L BUN (7-17) mg/dL Creatinine (0.52-1.04) mg/dL Glucose (74-99) mg/dL POC Glucose (mg/dL) 103 H (75-99) mg/dL Lactate Dehydrogenase (313-618) U/L C-Reactive Protein (<10.0) mg/L Assessment and Plan Plan: 1 Acute hypoxic respiratory failure requiring intubation and mechanical ventilatory support on 03/02/2021 secondary to CoVID 19 pneumonia. Outside the window for Remdesivir. sp tocilizumab and convalescent plasma on 03/02/2021. Continue vent management, ICU following. Continue on dexamethasone, bronchodilators, vitamin C and zinc. 2 Increased inflammatory markers secondary to above: Continue to treat underlying condition 3 Morbid obesity, body mass index of 53.8 4 Hypertension, essential: On atenolol 5 History of mild intermittent chronic bronchial asthma , maintained on Symbicort 6 History of ulcerative colitis 7 Hiatal hernia 8 Gastroesophageal reflux disease without esophagitis 9 Generalized anxiety disorder, maintained on Xanax on outpatient basis 10 hypothyroidism: Continue Synthroid Disposition: Pending clinical progression
[2021-03-05 13:13] LABS: Glucose,Whole Blood 127 mg/dL (75-99)
[2021-03-05 17:29] LABS: Glucose,Whole Blood 132 mg/dL (75-99)
[2021-03-05 23:26] LABS: Glucose,Whole Blood 98 mg/dL (75-99)
[2021-03-06] MEDS: CLEVIDIPINE BUTYRATE 25 MG in EMPTY BAG 1 BAG IV SCH ×3 (02:20→20:30)
[2021-03-06 04:46] LABS: Basophils % (A) 0 %; Eosinophils % (A) 1 %; HCT 34.2 % (34.0-46.0); HGB 11.8 gm/dL (11.4-16.0); Lymphocytes # (A) 0.6 k/uL (1.0-4.8); Lymphocytes % (A) 9 %; MCH 29.3 pg (25.0-35.0); MCHC 34.5 g/dL (31.0-37.0); MCV 84.8 fL (80.0-100.0); Mean Platelet Volume 8.9; Monocytes # (A) 0.6 k/uL (0-1.0); Monocytes % (A) 10 %; Neutrophils # (A) 4.8 k/uL (1.3-7.7); Neutrophils % (A) 78 %; Platelet Count 209 k/uL (150-450); RBC 4.04 m/uL (3.80-5.40); RDW 13.6 % (11.5-15.5); WBC 6.2 k/uL (3.8-10.6)
[2021-03-06 04:50] LABS: ABG Base Excess 10.7 mmol/L; ABG HCO3 34 mmol/L (21-25); ABG Oxygen Saturation 97.9 % (94-97); ABG PCO2 44 mmHg (35-45); ABG PH 7.49 (7.35-7.45); ABG PO2 101 mmHg (83-108); ABG TCO2 35 mmol/L (19-24); Allen Test Performed? Yes
[2021-03-06 05:05] LABS: ALT 27 U/L (4-34); AST 54 U/L (14-36); African American GFR (CKD) >90 (>60 ml/min/1.73 sqM); Albumin 2.7 g/dL (3.5-5.0); Alkaline Phosphatase 54 U/L (38-126); Anion Gap 3 mmol/L; Blood Urea Nitrogen 22 mg/dL (7-17); Calcium 8.5 mg/dL (8.4-10.2); Carbon Dioxide 35 mmol/L (22-30); Chloride 102 mmol/L (98-107); Glucose 114 mg/dL (74-99); Non-African American GFR(CKD) >90 (>60 ml/min/1.73 sqM); Potassium 3.5 mmol/L (3.5-5.1); Sodium 140 mmol/L (137-145); Total Bilirubin 0.4 mg/dL (0.2-1.3)
[2021-03-06] MEDS: SODIUM CHLORIDE 0.9% 1,000 ML IV SCH (06:12)
[2021-03-06] MEDS: LEVOTHYROXINE 100 MCG TAB PO SCH (06:13)
[2021-03-06] MEDS: POTASSIUM BICARBONATE/CIT AC 20 MEQ TABLET.EFF NG-TUBE SCH ×2 (06:13→08:52)
[2021-03-06 06:36] LABS: Glucose,Whole Blood 115 mg/dL (75-99)
[2021-03-06] MEDS: SYMBICORT 160-4.5 MCG INHALER INHALATION PRN ×2 (07:45→19:05)
[2021-03-06] MEDS: ALBUTEROL HFA INHALER INHALATION SCH ×4 (07:45→18:57)
--- NOTE | 2021-03-06 08:18 | P.PN ---
Subjective Progress Note Date: 03/05/21 55-year-old white female patient with past medical history of hypertension, morbid obesity with BMI of 54.1 kg/m, ulcerative colitis, possible sleep apnea, chronic bronchial asthma, unspecified patient is on Symbicort on a regular basis, GERD/reflux, hiatal hernia, osteoarthritis, hypothyroidism, and fibromyalgia. Come into the emergency department on 02/27/2021 with symptoms of headache, fever, worsening shortness of breath. Her symptom onset was about a week ago and patient had a positive outpatient Covid 19 test. She is not normally on any oxygen, she reports fevers, body aches, headaches, she reports some diarrhea, but no nausea or vomiting, she is requiring supplement oxygen, 4 L. Pulse ox is 92-93%, she is still having a low-grade fevers this morning, with a temp of 100F, she was started on IV steroids, he was given some IV hydration, prophylactic anticoagulation. She states she is feeling better, her headache is better, she seems to be breathing comfortably, although still r equiring 4 L of supplemental oxygen, lung sounds are diminished, with some diffuse crackles at bilateral bases, her lab work revealed squamous cell, 3.9, hemoglobin is 12.5, platelet count was 108, leukocyte, 0.4, d-dimer 0.9, sodium is 137, potassium is 3.5, B1 is 12 creatinine 0.84, LDH is 1355, CRP is 55.9. Patient was reevaluated today on 03/01/2021, she seems to be quite comfortable, resting in bed, she is however on 15 L high flow nasal cannula, O2 saturation is 90%. Again clinically she looks great and does not seem to be in any form of distress. She is afebrile and her vital signs are stable. CBC today is relatively normal. Her d-dimer is 0.29 normal. Her electrolytes are normal, LDH today is 487. It is significantly improved and her C-reactive protein is down to 5.8. Patient feels generally weak and tired, she also feels achy, but on physical examination she looks great. Patient was reevaluated today on 03/02/2021, patient seems to be getting worse since yesterday. Patient is now requiring placement on BiPAP, she is on IPAP of 14 and EPAP of 600% FiO2, and she is barely maintaining an O2 saturation of 83%. I saw the patient and I ordered a follow-up chest x-ray this morning, chest x- ray is showing significant worsening of her bilateral infiltrates. Not to menti on the patient has a very large hiatal hernia. Patient was tried on prone positions, and did not seem to help, she was placed on left lateral decubitus position that seems to be the best for her oxygenation on this patient. Considering the worsening of her chest x-ray, and considering the patient is requiring relatively high FiO2 with BiPAP, I will arrange for the patient to be transferred to the ICU immediately. In the meantime I will arrange for the patient to start on actemra, and would also add convalescent plasma. Her inflammatory markers were noted to come down yesterday, LDH came down to 487 from 1355 The patient is seen today 03/03/2021 in follow-up in the intensive care unit. S he did require urgent transfer to the ICU and intubation yesterday. She is currently sedated on the mechanical ventilator at assist control mode at a rate of 24, tidal volume 400, FiO2 100%, PEEP of 15. Morning blood gases reveal a pO2 127, pCO2 49, pH 7.38. She is sedated on propofol 50 mcg/kg/m. 0.9 normal saline at 100 ML's per hour. Chest x-ray reveals patchy bilateral infiltrates right greater than left. She did receive 1 unit of convalescent plasma. Also received tocilizumab. White count 5.9. Hemoglobin 11.4. D-dimer 1.72. Sodium 142. Potassium 3.6. Creatinine 0.59. LDH 1403. C-reactive protein 65.6. Glucose 147. She is continued on Decadron, Symbicort, albuterol, vitamin supplements. Lovenox for DVT prophylaxis. The patient is seen today 03/04/2021 follow-up in the intensive care unit. She remains intubated, sedated and on the mechanical ventilator. Current mode assist control with a rate of 24, tidal volume 400, FiO2 50% and a PEEP of 15. Arterial blood gases reveal a P O2 of 76, pCO2 46, pH 7.40. She is sedated on propofol at 40 mcg/kg/m. 0.9 normal saline at 100 ML's per hour. She is being nourished with vital HP at 37 mL per hour which is goal. Chest x-ray continues to show bilateral patchy infiltrates. She did receive 1 unit of convalescent plasma. White count 4.8. Hemoglobin 11.0. Lymphocytes 0.4. Sodium 143. Potassium 3.6. Creatinine 0.48. AST 48, ALT 21. She remains on Symbicort, albuterol, dexamethasone. Lovenox. Vitamin supplements. On today's evaluation of 03/05/2021, seeing the patient for a follow-up in the intensive care unit. The patient was hospitalized for community related pneumonia and the patient was also intubated and placed on a mechanical ventilator on 03/02/2021. The patient sedated with propofol. The patient is on a mechanical ventilator assist control mode with a tidal volume 400, FiO2 of 50%, PEEP of 15 and a rate of 24. Propofol is running at 50 mcg/kg per minute and the patient is also on IV fluids with normal saline at the rate of 50 mL an hour. The ABGs from today showing a pH of 7.48 with a pCO2 of 38 and pO2 of 134. The peak and static pressures are 37/32 Patient receiving enteral feeding for nutritional support. The patient was given convalescent plasma. The patient is on Decadron. Patient anticoagulation with Lovenox. The chest x-ray showing diffuse bilateral pulmonary infiltrates. ET tube is in a good location. The patient's left subclavian catheter in place. The patient is also requiring on and off norepinephrine infusion for blood pressure control. The LDH level from 03/03/2021 was 1063 with a CRP of 27. The fluid balance is positive in the order of 2.4 L 4 03/03/2021 and 2.4 L on 03/04/2021. As such, the patient is in a positive fluid balance. 03/06/2021 the patient remains intubated on a mechanical ventilator. This is a case of COVID related pneumonia with respiratory failure and the patient has been on mechanical ventilator since 03/02/2021. She currently sedated with propofol. Propofol is running at 30 mcg/kg per minute and the patient is on a mechanical ventilator on assist control mode with a tidal volume of 400 and a PEEP of 8 with an FiO2 of 50% and rate of 24. The peak airway pressure in the setting of her pressure is 28 and 26 respectively. Chest x-ray findings are stable with lower lobe pulmonary infiltrates. Lung volumes are small and the patient is morbidly obese and the patient has a BMI of 56. ET tube is sitting high in the trachea. NG tube is in a good location. The patient is returning her volumes back. Otherwise, the patient is currently being treated with Decadron 6 mg IV daily, Lovenox 40 mg by subcu daily, the patient is also on Lasix 40 mg every 12 hours and this was started yesterday. The neck fluid balance is -3 L over the past 24 hours. The labs from today shows a pH of 7.49 with a pCO2 of 44 and pO2 of 101. The rest of the blood work is all within normal limits. She continues to have some degree of lymphopenia. No other significant events. The patient is on no pressors for now. The patient is receiving enteral feeding for nutritional support and she is currently on vital high protein at that a goal of 37 mL. She is tolerating her tube feeds fine. Objective - Vital Signs Vital signs: Vital Signs Temp 98.1 F 03/05/21 08:30 Pulse 62 03/05/21 16:30 Resp 24 03/05/21 16:30 BP 151/86 03/05/21 16:30 Pulse Ox 98 03/05/21 16:30 Intake & Output 03/05/21 03/05/21 03/06/21 06:59 18:59 06:59 Intake Total 9493.269 7457.847 Output Total 675 3130 Balance 968.269 -1795.153 Weight 153.2 kg Intake: IV 550 270 Sodium Chloride 0.9% 1, 550 270 000 ml @ 20 mls/hr IV . Q24H [facility] Rx#:[id number] Intake, IV Titration 551.269 434.847 Amount Clevidipine Butyrate 25 37.099 39.267 mg In Empty Bag 1 bag @ 1 MG/HR 2 mls/hr IV .Q24H [facility] Rx#:[id number] Sodium Chloride 0.9% 1, 55 5 000 ml @ 20 mls/hr IV . Q24H [facility] Rx#:[id number] propofoL 1,000 mg In 459.170 390.580 Empty Bag 1 bag @ Titrate IV .Q0M [facility] Rx#: [id number] Tube Feeding 442 550 Other 100 80 Output: Urine 675 3130 Other: Voiding Method Indwelling Catheter Indwelling Catheter ABP, PAP, CO, CI - Last Documented Arterial Blood Pressure 178/89 - Exam GENERAL EXAM: Intubated, sedated, obese 55-year-old female patient, comfortable in no apparent distress. HEAD: Normocephalic. EYES: Normal reaction of pupils, equal size. NOSE: Clear with pink turbinates. THROAT: Oral endotracheal and gastric tube secured in place. No erythema or exudates. NECK: No masses, no JVD. CHEST: No chest wall deformity. LUNGS: Equal air entry with crackles in the bilateral posterior bases CVS: S1 and S2 normal with no audible murmur, regular rhythm. ABDOMEN: No hepatosplenomegaly, normal bowel sounds, no guarding or rigidity. SPINE: No scoliosis or deformity SKIN: No rashes CENTRAL NERVOUS SYSTEM: Sedated. No focal deficits, tone is normal in all 4 extremities. EXTREMITIES: There is no peripheral edema. No clubbing, no cyanosis. Peripheral pulses are intact. - Labs CBC & Chem 7: 03/06/21 04:08 03/06/21 04:08 Labs: Abnormal Lab Results - Last 24 Hours (Table) 03/04/21 03/05/21 03/05/21 Range/Units 23:10 03:55 03:55 Hct (34.0-46.0) % Lymphocytes # (1.0-4.8) k/uL D-Dimer 2.92 H (<0.60) mg/L FEU ABG pH (7.35-7.45) ABG pO2 (83-108) mmHg ABG HCO3 (21-25) mmol/L ABG Total CO2 (19-24) mmol/L ABG O2 Saturation (94-97) % Chloride (98-107) mmol/L BUN (7-17) mg/dL Creatinine (0.52-1.04) mg/dL Glucose (74-99) mg/dL POC Glucose (mg/dL) 125 H (75-99) mg/dL Lactate Dehydrogenase 1063 H (313-618) U/L C-Reactive Protein 27.1 H (<10.0) mg/L 03/05/21 03/05/21 03/05/21 Range/Units 03:55 03:55 05:10 Hct 33.6 L (34.0-46.0) % Lymphocytes # 0.4 L (1.0-4.8) k/uL D-Dimer (<0.60) mg/L FEU ABG pH 7.48 H (7.35-7.45) ABG pO2 134 H (83-108) mmHg ABG HCO3 29 H (21-25) mmol/L ABG Total CO2 30 H (19-24) mmol/L ABG O2 Saturation 99.0 H (94-97) % Chloride 108 H (98-107) mmol/L BUN 19 H (7-17) mg/dL Creatinine 0.42 L (0.52-1.04) mg/dL Glucose 130 H (74-99) mg/dL POC Glucose (mg/dL) (75-99) mg/dL Lactate Dehydrogenase (313-618) U/L C-Reactive Protein (<10.0) mg/L 03/05/21 03/05/21 03/05/21 Range/Units 05:11 13:09 17:27 Hct (34.0-46.0) % Lymphocytes # (1.0-4.8) k/uL D-Dimer (<0.60) mg/L FEU ABG pH (7.35-7.45) ABG pO2 (83-108) mmHg ABG HCO3 (21-25) mmol/L ABG Total CO2 (19-24) mmol/L ABG O2 Saturation (94-97) % Chloride (98-107) mmol/L BUN (7-17) mg/dL Creatinine (0.52-1.04) mg/dL Glucose (74-99) mg/dL POC Glucose (mg/dL) 103 H 127 H 132 H (75-99) mg/dL Lactate Dehydrogenase (313-618) U/L C-Reactive Protein (<10.0) mg/L Assessment and Plan Plan: 1 Acute hypoxic respiratory failure requiring intubation and mechanical ventilatory support on 03/02/2021 secondary to CoVID 19 pneumonia. Outside the window for Remdesivir. Did receive tocilizumab and convalescent plasma on 03/02/2021. The patient continues to receive mechanical ventilation for now. Chest x-ray was noted. Blood gases was noted. The patient has diabetes over the past 24 hours and she remains a negative fluid balance. The PEEP has been weaned down to 8. She is sedated this morning and when the process of weaning down the PEEP and propofol and given the patient is point is breathing trial. 2 Increased inflammatory markers secondary to above 3 Morbid obesity, body mass index of 53.8 4 Hypertension 5 History of mild intermittent chronic bronchial asthma , maintained on S ymbicort 6 History of ulcerative colitis 7 Hiatal hernia 8 Gastroesophageal reflux disease 9 Generalized anxiety disorder, maintained on Xanax on outpatient basis 10 hypothyroidism on thyroid hormone replacement Plan: Lasix 40 mg IV every 12 hours Drop the PEEP down to 5 FiO2 at 50% Sedation holiday Weaning parameters Spontaneous breathing trial Possible extubation Did receive Tocilizumab and convalescent plasma Remains on Lovenox, dexamethasone, vitamin supplements Continued on bronchodilators Repeat chest x-ray, inflammatory markers in the a.m. We will continue to follow and make further recommendations based on her clinical status Critical care time > 30 min Time with Patient: Greater than 30
[2021-03-06] MEDS: CHOLECALCIFEROL 25 MCG (1000 IU) TABLET PO SCH (08:48)
[2021-03-06] MEDS: ALPRAZolam 0.25 MG TAB PO SCH (08:48)
[2021-03-06] MEDS: CHLORHEXIDINE GLUCONATE 15 ML CUP MUCOUS MEM SCH ×2 (08:48→20:01)
--- NOTE | 2021-03-06 08:50 | XR ---
EXAMINATION TYPE: XR chest 1V portable DATE OF EXAM: 03/06/2021 COMPARISON: 03/05/2021 HISTORY: Tube placement TECHNIQUE: Single frontal view of the chest is obtained. FINDINGS: ET and NG tube stable. Left-sided central line stable. Bilateral infiltrate and pleural ef fusion unchanged. Interstitial pattern stable. No sizable pneumothorax. IMPRESSION: Bilateral infiltrate stable
[2021-03-06] MEDS: DULoxetine HCL 60 MG CAPSULE.DR PO SCH ×2 (08:51→20:05)
[2021-03-06] MEDS: DEXAMETHASONE SOD PHOSPHATE 10 MG/ML 1 ML VIAL IV SCH (08:51)
[2021-03-06] MEDS: ASCORBIC ACID 500 MG TAB PO SCH ×2 (08:51→20:01)
[2021-03-06] MEDS: FUROSEMIDE 10 MG/ML 4 ML VIAL IV SCH ×2 (08:52→20:05)
[2021-03-06] MEDS: ZINC SULFATE 220 MG CAP PO SCH (09:07)
[2021-03-06 11:31] LABS: Glucose,Whole Blood 121 mg/dL (75-99)
--- NOTE | 2021-03-06 12:16 | P.PN ---
Subjective Progress Note Date: 03/06/21 Principal diagnosis: Remains intubated on vent , on less oxygen 50% Objective - Vital Signs Vital signs: Vital Signs Temp 97.5 F L 03/06/21 12:00 Pulse 53 L 03/06/21 12:00 Resp 25 H 03/06/21 12:00 BP 149/85 03/06/21 12:00 Pulse Ox 99 03/06/21 12:00 Intake & Output 03/05/21 03/06/21 03/06/21 18:59 06:59 18:59 Intake Total 4535.736 9194.358 359.550 Output Total 3130 2508 1600 Balance -1792.886 -1215.642 -1240.450 Weight 153.2 kg 152.6 kg 152.6 kg Intake: IV 270 253 138 Pressure Bag 33 18 Sodium Chloride 0.9% 1, 270 220 120 000 ml @ 20 mls/hr IV . Q24H [facility] Rx#:[id number] Intake, IV Titration 437.114 542.358 147.550 Amount Clevidipine Butyrate 25 41.534 50 50.0 mg In Empty Bag 1 bag @ 1 MG/HR 2 mls/hr IV .Q24H [facility] Rx#:[id number] Sodium Chloride 0.9% 1, 5 000 ml @ 20 mls/hr IV . Q24H [facility] Rx#:[id number] propofoL 1,000 mg In 390.580 492.358 97.550 Empty Bag 1 bag @ Titrate IV .Q0M [facility] Rx#: [id number] Tube Feeding 550 407 74 Other 80 90 Output: Urine 3130 2508 1600 Other: Voiding Method Indwelling Catheter Indwelling Catheter Indwelling Catheter # Voids 3 ABP, PAP, CO, CI - Last Documented Arterial Blood Pressure 151/65 - Exam GENERAL EXAM: Intubated, on vent HEAD: Normocephalic. EYES: Normal reaction of pupils, equal size. NOSE: Clear NECK: No masses, no JVD. LUNGS: decreased bs CVS: S1 and S2 normal with no audible murmur, regular rhythm. ABDOMEN: No hepatosplenomegaly, normal bowel sounds, no guarding or rigidity. SPINE: No scoliosis or deformity SKIN: No rashes CENTRAL NERVOUS SYSTEM: intubated EXTREMITIES: no peripheral edema. No clubbing, no cyanosis. - Labs CBC & Chem 7: 03/06/21 04:08 03/06/21 04:08 Labs: Abnormal Lab Results - Last 24 Hours (Table) 03/05/21 03/05/21 03/06/21 Range/Units 13:09 17:27 04:08 Lymphocytes # 0.6 L (1.0-4.8) k/uL ABG pH (7.35-7.45) ABG HCO3 (21-25) mmol/L ABG Total CO2 (19-24) mmol/L ABG O2 Saturation (94-97) % Carbon Dioxide (22-30) mmol/L BUN (7-17) mg/dL Glucose (74-99) mg/dL POC Glucose (mg/dL) 127 H 132 H (75-99) mg/dL AST (14-36) U/L Total Protein (6.3-8.2) g/dL Albumin (3.5-5.0) g/dL 03/06/21 03/06/21 03/06/21 Range/Units 04:08 04:41 06:30 Lymphocytes # (1.0-4.8) k/uL ABG pH 7.49 H (7.35-7.45) ABG HCO3 34 H (21-25) mmol/L ABG Total CO2 35 H (19-24) mmol/L ABG O2 Saturation 97.9 H (94-97) % Carbon Dioxide 35 H (22-30) mmol/L BUN 22 H (7-17) mg/dL Glucose 114 H (74-99) mg/dL POC Glucose (mg/dL) 115 H (75-99) mg/dL AST 54 H (14-36) U/L Total Protein 5.0 L (6.3-8.2) g/dL Albumin 2.7 L (3.5-5.0) g/dL 03/06/21 Range/Units 11:28 Lymphocytes # (1.0-4.8) k/uL ABG pH (7.35-7.45) ABG HCO3 (21-25) mmol/L ABG Total CO2 (19-24) mmol/L ABG O2 Saturation (94-97) % Carbon Dioxide (22-30) mmol/L BUN (7-17) mg/dL Glucose (74-99) mg/dL POC Glucose (mg/dL) 121 H (75-99) mg/dL AST (14-36) U/L Total Protein (6.3-8.2) g/dL Albumin (3.5-5.0) g/dL Assessment and Plan Plan: 1 Acute hypoxic respiratory failure requiring intubation and mechanical ventilatory support on 03/02/2021 secondary to CoVID 19 pneumonia. Outside the window for Remdesivir. sp tocilizumab and convalescent plasma on 03/02/2021. Continue vent management, ICU following. Continue on dexamethasone, bronchodilators, vitamin C and zinc. titrate to extubate as tolerated 2 Increased inflammatory markers secondary to above: Continue to treat underlying condition 3 Morbid obesity, body mass index of 53.8 4 Hypertension, essential: On atenolol 5 History of mild intermittent chronic bronchial asthma , maintained on Symbicort 6 History of ulcerative colitis 7 Hiatal hernia 8 Gastroesophageal reflux disease without esophagitis 9 Generalized anxiety disorder, maintained on Xanax on outpatient basis 10 hypothyroidism: Continue Synthroid Disposition: Gradually improving, continue supportive care
[2021-03-06] MEDS: atenoloL 25 MG TAB PO SCH (14:06)
[2021-03-06] MEDS: DICYCLOMINE 10 MG CAP PO SCH ×3 (14:13→21:47)
[2021-03-06] MEDS: ENOXAPARIN 40 MG/0.4 ML SYRINGE SQ SCH (14:13)
[2021-03-06] MEDS: DEXMEDETOMIDINE/0.9% NACL(PMX) 400 MCG in EMPTY BAG 1 BAG IV SCH ×2 (15:09→23:09)
[2021-03-06 17:40] LABS: Glucose,Whole Blood 178 mg/dL (75-99)
[2021-03-06] MEDS: INSULIN ASPART (NovoLOG) 100 UNIT/ML VIAL SQ SCH (18:01)
[2021-03-06] MEDS ORDERED: Potassium Replacement Protocol 1 EACH MISC MISCELLANE PRN (18:50)
[2021-03-06] MEDS ORDERED: POTASSIUM BICARBONATE/CIT AC 20 MEQ TABLET.EFF NG-TUBE SCH (20:00)
[2021-03-07 00:31] LABS: Glucose,Whole Blood 126 mg/dL (75-99)
[2021-03-07] MEDS: CLEVIDIPINE BUTYRATE 25 MG in EMPTY BAG 1 BAG IV SCH ×3 (02:45→18:48)
[2021-03-07 05:13] LABS: ABG Base Excess 15.2 mmol/L; ABG HCO3 37 mmol/L (21-25); ABG Oxygen Saturation 97.4 % (94-97); ABG PCO2 40 mmHg (35-45); ABG PO2 86 mmHg (83-108); ABG TCO2 38 mmol/L (19-24); Allen Test Performed? Yes
[2021-03-07 05:33] LABS: ABG PH 7.57 (7.35-7.45)
[2021-03-07 06:08] LABS: Glucose,Whole Blood 131 mg/dL (75-99)
[2021-03-07 06:22] LABS: Basophils % (A) 0 %; Eosinophils % (A) 0 %; HCT 35.8 % (34.0-46.0); HGB 12.4 gm/dL (11.4-16.0); Lymphocytes # (A) 0.7 k/uL (1.0-4.8); Lymphocytes % (A) 8 %; MCH 29.2 pg (25.0-35.0); MCHC 34.6 g/dL (31.0-37.0); MCV 84.4 fL (80.0-100.0); Monocytes # (A) 0.6 k/uL (0-1.0); Monocytes % (A) 7 %; Neutrophils # (A) 7.2 k/uL (1.3-7.7); Neutrophils % (A) 83 %; Platelet Count 194 k/uL (150-450); RBC 4.24 m/uL (3.80-5.40); RDW 13.2 % (11.5-15.5); WBC 8.7 k/uL (3.8-10.6)
[2021-03-07] MEDS: INSULIN ASPART (NovoLOG) 100 UNIT/ML VIAL SQ SCH ×4 (06:25→17:40)
[2021-03-07] MEDS: LEVOTHYROXINE 100 MCG TAB PO SCH (06:27)
[2021-03-07 06:46] LABS: C Reactive Protein 14.1 mg/L (<10.0)
[2021-03-07 06:48] LABS: Prothrombin Time 10.8 sec (9.0-12.0)
--- NOTE | 2021-03-07 07:05 | P.PN ---
Subjective Progress Note Date: 03/07/21 55-year-old white female patient with past medical history of hypertension, morbid obesity with BMI of 54.1 kg/m, ulcerative colitis, possible sleep apnea, chronic bronchial asthma, unspecified patient is on Symbicort on a regular basis, GERD/reflux, hiatal hernia, osteoarthritis, hypothyroidism, and fibromyalgia. Come into the emergency department on 02/27/2021 with symptoms of headache, fever, worsening shortness of breath. Her symptom onset was about a week ago and patient had a positive outpatient Covid 19 test. She is not normally on any oxygen, she reports fevers, body aches, headaches, she reports some diarrhea, but no nausea or vomiting, she is requiring supplement oxygen, 4 L. Pulse ox is 92-93%, she is still having a low-grade fevers this morning, with a temp of 100F, she was started on IV steroids, he was given some IV hydration, prophylactic anticoagulation. She states she is feeling better, her headache is better, she seems to be breathing comfortably, although still r equiring 4 L of supplemental oxygen, lung sounds are diminished, with some diffuse crackles at bilateral bases, her lab work revealed squamous cell, 3.9, hemoglobin is 12.5, platelet count was 108, leukocyte, 0.4, d-dimer 0.9, sodium is 137, potassium is 3.5, B1 is 12 creatinine 0.84, LDH is 1355, CRP is 55.9. Patient was reevaluated today on 03/01/2021, she seems to be quite comfortable, resting in bed, she is however on 15 L high flow nasal cannula, O2 saturation is 90%. Again clinically she looks great and does not seem to be in any form of distress. She is afebrile and her vital signs are stable. CBC today is relatively normal. Her d-dimer is 0.29 normal. Her electrolytes are normal, LDH today is 487. It is significantly improved and her C-reactive protein is down to 5.8. Patient feels generally weak and tired, she also feels achy, but on physical examination she looks great. Patient was reevaluated today on 03/02/2021, patient seems to be getting worse since yesterday. Patient is now requiring placement on BiPAP, she is on IPAP of 14 and EPAP of 600% FiO2, and she is barely maintaining an O2 saturation of 83%. I saw the patient and I ordered a follow-up chest x-ray this morning, chest x- ray is showing significant worsening of her bilateral infiltrates. Not to menti on the patient has a very large hiatal hernia. Patient was tried on prone positions, and did not seem to help, she was placed on left lateral decubitus position that seems to be the best for her oxygenation on this patient. Considering the worsening of her chest x-ray, and considering the patient is requiring relatively high FiO2 with BiPAP, I will arrange for the patient to be transferred to the ICU immediately. In the meantime I will arrange for the patient to start on actemra, and would also add convalescent plasma. Her inflammatory markers were noted to come down yesterday, LDH came down to 487 from 1355 The patient is seen today 03/03/2021 in follow-up in the intensive care unit. S he did require urgent transfer to the ICU and intubation yesterday. She is currently sedated on the mechanical ventilator at assist control mode at a rate of 24, tidal volume 400, FiO2 100%, PEEP of 15. Morning blood gases reveal a pO2 127, pCO2 49, pH 7.38. She is sedated on propofol 50 mcg/kg/m. 0.9 normal saline at 100 ML's per hour. Chest x-ray reveals patchy bilateral infiltrates right greater than left. She did receive 1 unit of convalescent plasma. Also received tocilizumab. White count 5.9. Hemoglobin 11.4. D-dimer 1.72. Sodium 142. Potassium 3.6. Creatinine 0.59. LDH 1403. C-reactive protein 65.6. Glucose 147. She is continued on Decadron, Symbicort, albuterol, vitamin supplements. Lovenox for DVT prophylaxis. The patient is seen today 03/04/2021 follow-up in the intensive care unit. She remains intubated, sedated and on the mechanical ventilator. Current mode assist control with a rate of 24, tidal volume 400, FiO2 50% and a PEEP of 15. Arterial blood gases reveal a P O2 of 76, pCO2 46, pH 7.40. She is sedated on propofol at 40 mcg/kg/m. 0.9 normal saline at 100 ML's per hour. She is being nourished with vital HP at 37 mL per hour which is goal. Chest x-ray continues to show bilateral patchy infiltrates. She did receive 1 unit of convalescent plasma. White count 4.8. Hemoglobin 11.0. Lymphocytes 0.4. Sodium 143. Potassium 3.6. Creatinine 0.48. AST 48, ALT 21. She remains on Symbicort, albuterol, dexamethasone. Lovenox. Vitamin supplements. On today's evaluation of 03/05/2021, seeing the patient for a follow-up in the intensive care unit. The patient was hospitalized for community related pneumonia and the patient was also intubated and placed on a mechanical ventilator on 03/02/2021. The patient sedated with propofol. The patient is on a mechanical ventilator assist control mode with a tidal volume 400, FiO2 of 50%, PEEP of 15 and a rate of 24. Propofol is running at 50 mcg/kg per minute and the patient is also on IV fluids with normal saline at the rate of 50 mL an hour. The ABGs from today showing a pH of 7.48 with a pCO2 of 38 and pO2 of 134. The peak and static pressures are 37/32 Patient receiving enteral feeding for nutritional support. The patient was given convalescent plasma. The patient is on Decadron. Patient anticoagulation with Lovenox. The chest x-ray showing diffuse bilateral pulmonary infiltrates. ET tube is in a good location. The patient's left subclavian catheter in place. The patient is also requiring on and off norepinephrine infusion for blood pressure control. The LDH level from 03/03/2021 was 1063 with a CRP of 27. The fluid balance is positive in the order of 2.4 L 4 03/03/2021 and 2.4 L on 03/04/2021. As such, the patient is in a positive fluid balance. 03/06/2021 the patient remains intubated on a mechanical ventilator. This is a case of COVID related pneumonia with respiratory failure and the patient has been on mechanical ventilator since 03/02/2021. She currently sedated with propofol. Propofol is running at 30 mcg/kg per minute and the patient is on a mechanical ventilator on assist control mode with a tidal volume of 400 and a PEEP of 8 with an FiO2 of 50% and rate of 24. The peak airway pressure in the setting of her pressure is 28 and 26 respectively. Chest x-ray findings are stable with lower lobe pulmonary infiltrates. Lung volumes are small and the patient is morbidly obese and the patient has a BMI of 56. ET tube is sitting high in the trachea. NG tube is in a good location. The patient is returning her volumes back. Otherwise, the patient is currently being treated with Decadron 6 mg IV daily, Lovenox 40 mg by subcu daily, the patient is also on Lasix 40 mg every 12 hours and this was started yesterday. The neck fluid balance is -3 L over the past 24 hours. The labs from today shows a pH of 7.49 with a pCO2 of 44 and pO2 of 101. The rest of the blood work is all within normal limits. She continues to have some degree of lymphopenia. No other significant events. The patient is on no pressors for now. The patient is receiving enteral feeding for nutritional support and she is currently on vital high protein at that a goal of 37 mL. She is tolerating her tube feeds fine. On 03/07/2021, the patient remains intubated on a mechanical ventilator. The patient is sedated with propofol which is running at 25 mcg/kg per minute. She is also on mechanical ventilator on assist control mode with a tidal volume of 400, PEEP of 5, FiO2 of 50% and a rate of 24. The peak airway pressures around 28. The static pressure is 24. The blood gases from today shows a pH of 7.7 with a pCO2 of 40 and pO2 of 86. The chest x-ray from today showing stable lower lobe pulmonary infiltrates. ET tube remains in a good location. The patient may have an underlying hiatal hernia. NG tube is also in good location. Note that the patient was given a sedation holiday yesterday and following that she was given a spontaneous breathing trial. During the process, the patient became restless, tachypneic and agitated. She was not felt to be ready for extubation and following she was not following directions or commands and for that reason, the procedure was aborted. The same will be done today with the possibility of switching her sedation to Precedex if needed. The patient was started on Precedex which is currently running at 0.7 mcg/kg/h. For now, we're going to try to wean off the propofol and assess the patient's mental status and weaning parameters. She is on enteral feeding for nutritional support and currently she is on vital high protein at 37 mL an hour. Her net fluid balance -3 L over the past 24 hours and the patient is receiving Lasix on a daily basis. She is also on Decadron 6 mg IV 24 hours and Lovenox 40 mg subcu every 24 hours Objective - Vital Signs Vital signs: Vital Signs Temp 97.4 F L 03/07/21 04:00 Pulse 43 L 03/07/21 06:00 Resp 24 03/07/21 06:00 BP 129/81 03/07/21 05:00 Pulse Ox 99 03/07/21 06:00 Intake & Output 03/06/21 03/06/21 03/07/21 06:59 18:59 06:59 Intake Total 1292.358 981.843 2509.830 Output Total 2508 2310 2715 Balance -1215.642 -1479.818 -1709.170 Weight 152.6 kg 152.6 kg 148.6 kg Intake: IV 253 276 253 Pressure Bag 33 36 33 Sodium Chloride 0.9% 1, 220 240 220 000 ml @ 20 mls/hr IV . Q24H [facility]ANE[facility] Rx#:[id number] Intake, IV Titration 542.358 249.182 255.830 Amount Clevidipine Butyrate 25 50 65.533 71.467 mg In Empty Bag 1 bag @ 1 MG/HR 2 mls/hr IV .Q24H [facility] Rx#:[id number] Dexmedetomidine/0.9% NaCl 59.386 40.614 (Pmx) 400 mcg In Empty Bag 1 bag @ Titrate IV . Q0M [facility] Rx#:[id number] propofoL 1,000 mg In 492.358 124.263 143.749 Empty Bag 1 bag @ Titrate IV .Q0M VIANEY Rx#: [id number] Tube Feeding 407 185 407 Other 90 120 90 Output: Urine 2508 2310 2715 Other: Voiding Method Indwelling Catheter Indwelling Catheter Indwelling Catheter # Voids 3 ABP, PAP, CO, CI - Last Documented Arterial Blood Pressure 120/56 - Exam GENERAL EXAM: Intubated, sedated, obese 55-year-old female patient, comfortable in no apparent distress. He is currently sedated with a combination of propofol and Precedex. Probable will be gradually weaned off. HEAD: Normocephalic. EYES: Normal reaction of pupils, equal size. NOSE: Clear with pink turbinates. THROAT: Oral endotracheal and gastric tube secured in place. No erythema or exudates. NECK: No masses, no JVD. CHEST: No chest wall deformity. LUNGS: Equal air entry with crackles in the bilateral posterior bases CVS: S1 and S2 normal with no audible murmur, regular rhythm. ABDOMEN: No hepatosplenomegaly, normal bowel sounds, no guarding or rigidity. SPINE: No scoliosis or deformity SKIN: No rashes CENTRAL NERVOUS SYSTEM: Sedated. No focal deficits, tone is normal in all 4 extremities. EXTREMITIES: There is no peripheral edema. No clubbing, no cyanosis. Peripheral pulses are intact. - Labs CBC & Chem 7: 03/07/21 05:05 03/06/21 16:35 Labs: Abnormal Lab Results - Last 24 Hours (Table) 03/06/21 03/06/21 03/07/21 Range/Units 11:28 17:38 00:28 Lymphocytes # (1.0-4.8) k/uL ABG pH (7.35-7.45) ABG HCO3 (21-25) mmol/L ABG Total CO2 (19-24) mmol/L ABG O2 Saturation (94-97) % POC Glucose (mg/dL) 121 H 178 H 126 H (75-99) mg/dL Lactate Dehydrogenase (313-618) U/L Creatine Kinase (30-135) U/L C-Reactive Protein (<10.0) mg/L 03/07/21 03/07/21 03/07/21 Range/Units 05:05 05:05 05:05 Lymphocytes # 0.7 L (1.0-4.8) k/uL ABG pH 7.57 H* (7.35-7.45) ABG HCO3 37 H (21-25) mmol/L ABG Total CO2 38 H (19-24) mmol/L ABG O2 Saturation 97.4 H (94-97) % POC Glucose (mg/dL) (75-99) mg/dL Lactate Dehydrogenase 1062 H (313-618) U/L Creatine Kinase 26 L (30-135) U/L C-Reactive Protein 14.1 H (<10.0) mg/L 03/07/21 Range/Units 06:06 Lymphocytes # (1.0-4.8) k/uL ABG pH (7.35-7.45) ABG HCO3 (21-25) mmol/L ABG Total CO2 (19-24) mmol/L ABG O2 Saturation (94-97) % POC Glucose (mg/dL) 131 H (75-99) mg/dL Lactate Dehydrogenase (313-618) U/L Creatine Kinase (30-135) U/L C-Reactive Protein (<10.0) mg/L Assessment and Plan Plan: 1 Acute hypoxic respiratory failure requiring intubation and mechanical ventilatory support on 03/02/2021 secondary to CoVID 19 pneumonia. Outside the window for Remdesivir. Did receive tocilizumab and convalescent plasma on 03/02/2021. The patient continues to receive mechanical ventilation for now. Chest x-ray was noted. Blood gases was noted. Oxygenation is improved considerably and there is been significant drop in the patient's peak and static pressures. Chest x-ray findings are stable. The patient failed a sedation holiday and her weaning trial yesterday and disabled be done today. She is currently on a combination of propofol and Precedex. 2 Increased inflammatory markers secondary to above, LDH level today is at 1062 and a CRP is at 14 3 Morbid obesity, body mass index of 53.8 4 Hypertension 5 History of mild intermittent chronic bronchial asthma , maintained on Symbicort 6 History of ulcerative colitis 7 Hiatal hernia 8 Gastroesophageal reflux disease 9 Generalized anxiety disorder, maintained on Xanax on outpatient basis 10 hypothyroidism on thyroid hormone replacement Plan: Lasix 40 mg IV every 12 hours, the patient remains in a negative fluid balance Drop the PEEP down to 5 FiO2 will be dropped down to 40% Sedation holiday Weaning parameters Spontaneous breathing trial if the patient is able to demonstrate adequate mentation. For now the patient was taken off the propofol first and we'll keep the Precedex on board Did receive Tocilizumab and convalescent plasma Remains on Lovenox, dexamethasone, vitamin supplements Continued on bronchodilators Repeat chest x-ray, inflammatory markers in the a.m. We will continue to follow and make further recommendations based on her clinical status Critical care time > 30 min Time with Patient: Greater than 30
[2021-03-07 07:37] LABS: ALT 32 U/L (4-34); AST 47 U/L (14-36); African American GFR (CKD) >90 (>60 ml/min/1.73 sqM); Alkaline Phosphatase 56 U/L (38-126); Anion Gap 6 mmol/L; Blood Urea Nitrogen 26 mg/dL (7-17); Calcium 8.5 mg/dL (8.4-10.2); Carbon Dioxide 37 mmol/L (22-30); Chloride 98 mmol/L (98-107); Glucose 124 mg/dL (74-99); Non-African American GFR(CKD) >90 (>60 ml/min/1.73 sqM); Potassium 3.5 mmol/L (3.5-5.1); Sodium 141 mmol/L (137-145); Total Bilirubin 0.7 mg/dL (0.2-1.3); Total Protein 5.4 g/dL (6.3-8.2)
[2021-03-07 08:05] LABS: Partial Thromboplastin Time 20.3 sec (22.0-30.0)
[2021-03-07] MEDS: CHLORHEXIDINE GLUCONATE 15 ML CUP MUCOUS MEM SCH ×2 (08:31→23:04)
[2021-03-07] MEDS: DULoxetine HCL 60 MG CAPSULE.DR PO SCH ×2 (08:31→21:22)
[2021-03-07] MEDS: CHOLECALCIFEROL 25 MCG (1000 IU) TABLET PO SCH (08:31)
[2021-03-07] MEDS: DEXAMETHASONE SOD PHOSPHATE 10 MG/ML 1 ML VIAL IV SCH (08:32)
[2021-03-07] MEDS: ASCORBIC ACID 500 MG TAB PO SCH ×2 (08:33→21:20)
[2021-03-07] MEDS: DICYCLOMINE 10 MG CAP PO SCH ×3 (08:33→21:20)
[2021-03-07] MEDS: ZINC SULFATE 220 MG CAP PO SCH (08:34)
[2021-03-07] MEDS: ENOXAPARIN 40 MG/0.4 ML SYRINGE SQ SCH (08:34)
[2021-03-07] MEDS: FUROSEMIDE 10 MG/ML 4 ML VIAL IV SCH ×2 (08:35→21:20)
[2021-03-07] MEDS: ALBUTEROL HFA INHALER INHALATION SCH ×4 (08:39→19:24)
[2021-03-07] MEDS: SYMBICORT 160-4.5 MCG INHALER INHALATION PRN ×2 (08:40→19:24)
--- NOTE | 2021-03-07 08:48 | P.PN ---
Subjective Principal diagnosis: Remains intubated on vent weaning trials Objective - Vital Signs Vital signs: Vital Signs Temp 97.4 F L 03/07/21 04:00 Pulse 42 L 03/07/21 07:00 Resp 24 03/07/21 07:00 BP 129/81 03/07/21 05:00 Pulse Ox 99 03/07/21 07:00 Intake & Output 03/06/21 03/07/21 03/07/21 18:59 06:59 18:59 Intake Total 752.471 6438.830 217.388 Output Total 2310 2775 95 Balance -1479.818 -1709.170 122.388 Weight 152.6 kg 148.6 kg Intake: IV 276 276 46 Pressure Bag 36 36 6 Sodium Chloride 0.9% 1, 240 240 40 000 ml @ 20 mls/hr IV . Q24H [facility] Rx#:[id number] Intake, IV Titration 249.182 255.830 97.388 Amount Clevidipine Butyrate 25 65.533 71.467 mg In Empty Bag 1 bag @ 1 MG/HR 2 mls/hr IV .Q24H [facility] Rx#:[id number] Dexmedetomidine/0.9% NaCl 59.386 40.614 (Pmx) 400 mcg In Empty Bag 1 bag @ Titrate IV . Q0M [facility] Rx#:[id number] propofoL 1,000 mg In 124.263 143.749 97.388 Empty Bag 1 bag @ Titrate IV .Q0M [facility] Rx#: [id number] Tube Feeding 185 444 74 Other 120 90 Output: Urine 2310 2775 95 Other: Voiding Method Indwelling Catheter Indwelling Catheter # Voids 3 ABP, PAP, CO, CI - Last Documented Arterial Blood Pressure 126/56 - Exam GENERAL EXAM: Intubated, on vent HEAD: Normocephalic. EYES: Normal reaction of pupils, equal size. NOSE: Clear NECK: No masses LUNGS: decreased bs CVS: S1 and S2 normal with no audible murmur, regular rhythm. ABDOMEN: No hepatosplenomegaly, normal bowel sounds, no guarding or rigidity. SPINE: No scoliosis or deformity SKIN: No rashes CENTRAL NERVOUS SYSTEM: intubated EXTREMITIES: no peripheral edema. No clubbing, no cyanosis. - Labs CBC & Chem 7: 03/07/21 05:05 03/07/21 05:05 Labs: Abnormal Lab Results - Last 24 Hours (Table) 03/06/21 03/06/21 03/07/21 Range/Units 11:28 17:38 00:28 Lymphocytes # (1.0-4.8) k/uL APTT (22.0-30.0) sec D-Dimer (<0.60) mg/L FEU ABG pH (7.35-7.45) ABG HCO3 (21-25) mmol/L ABG Total CO2 (19-24) mmol/L ABG O2 Saturation (94-97) % Carbon Dioxide (22-30) mmol/L BUN (7-17) mg/dL Creatinine (0.52-1.04) mg/dL Glucose (74-99) mg/dL POC Glucose (mg/dL) 121 H 178 H 126 H (75-99) mg/dL AST (14-36) U/L Lactate Dehydrogenase (313-618) U/L Creatine Kinase (30-135) U/L C-Reactive Protein (<10.0) mg/L Total Protein (6.3-8.2) g/dL Albumin (3.5-5.0) g/dL 03/07/21 03/07/21 03/07/21 Range/Units 05:05 05:05 05:05 Lymphocytes # (1.0-4.8) k/uL APTT 20.3 L (22.0-30.0) sec D-Dimer 3.00 H (<0.60) mg/L FEU ABG pH 7.57 H* (7.35-7.45) ABG HCO3 37 H (21-25) mmol/L ABG Total CO2 38 H (19-24) mmol/L ABG O2 Saturation 97.4 H (94-97) % Carbon Dioxide (22-30) mmol/L BUN (7-17) mg/dL Creatinine (0.52-1.04) mg/dL Glucose (74-99) mg/dL POC Glucose (mg/dL) (75-99) mg/dL AST (14-36) U/L Lactate Dehydrogenase 1062 H (313-618) U/L Creatine Kinase 26 L (30-135) U/L C-Reactive Protein 14.1 H (<10.0) mg/L Total Protein (6.3-8.2) g/dL Albumin (3.5-5.0) g/dL 03/07/21 03/07/21 03/07/21 Range/Units 05:05 05:05 06:06 Lymphocytes # 0.7 L (1.0-4.8) k/uL APTT (22.0-30.0) sec D-Dimer (<0.60) mg/L FEU ABG pH (7.35-7.45) ABG HCO3 (21-25) mmol/L ABG Total CO2 (19-24) mmol/L ABG O2 Saturation (94-97) % Carbon Dioxide 37 H (22-30) mmol/L BUN 26 H (7-17) mg/dL Creatinine 0.48 L (0.52-1.04) mg/dL Glucose 124 H (74-99) mg/dL POC Glucose (mg/dL) 131 H (75-99) mg/dL AST 47 H (14-36) U/L Lactate Dehydrogenase (313-618) U/L Creatine Kinase (30-135) U/L C-Reactive Protein (<10.0) mg/L Total Protein 5.4 L (6.3-8.2) g/dL Albumin 3.0 L (3.5-5.0) g/dL Assessment and Plan Plan: 1 Acute hypoxic respiratory failure requiring intubation and mechanical ventilatory support on 03/02/2021 secondary to CoVID 19 pneumonia. Outside the window for Remdesivir. sp tocilizumab and convalescent plasma on 03/02/2021. Continue vent management, ICU following. Continue on dexamethasone, bronchod ilators, vitamin C and zinc. titrate to extubate as tolerated Continue with IV Lasix 2 Increased inflammatory markers secondary to above: Continue to treat underlying condition 3 Morbid obesity, body mass index of 53.8 4 Hypertension, essential: On atenolol 5 History of mild intermittent chronic bronchial asthma , maintained on Symbicort 6 History of ulcerative colitis, monitor 7 Hiatal hernia 8 Gastroesophageal reflux disease without esophagitis 9 Generalized anxiety disorder, maintained on Xanax on outpatient basis 10 hypothyroidism: Continue Synthroid Disposition: Gradually improving, continue supportive care, wean as tolerated.
[2021-03-07] MEDS: atenoloL 25 MG TAB PO SCH (09:00)
--- NOTE | 2021-03-07 09:31 | XR ---
EXAMINATION TYPE: XR chest 1V portable DATE OF EXAM: 03/07/2021 COMPARISON: Chest x-ray 03/06/2021 HISTORY: Intubated TECHNIQUE: Single frontal view of the chest is obtained. FINDINGS: NG tube, left subclavian central venous catheter, endotracheal tube are overlying appropri ate positions. The david is not well seen, endotracheal tube likely in closer proximity to the teddy a as compared to prior exam. Patchy bilateral basilar density persists, lucencies present behind the heart which likely represents partial intrathoracic stomach. IMPRESSION: Correlate for pneumonia, edema there is a large hiatal hernia with partial intrathoracic stomach. Endotracheal tube as described.
[2021-03-07] MEDS: POTASSIUM BICARBONATE/CIT AC 20 MEQ TABLET.EFF NG-TUBE SCH ×2 (09:54→11:11)
[2021-03-07] MEDS: DEXMEDETOMIDINE/0.9% NACL(PMX) 400 MCG in EMPTY BAG 1 BAG IV SCH ×3 (10:32→21:21)
[2021-03-07 11:43] LABS: Glucose,Whole Blood 153 mg/dL (75-99)
[2021-03-07 13:32] LABS: ABG Base Excess 15.6 mmol/L; ABG HCO3 38 mmol/L (21-25); ABG Oxygen Saturation 98.1 % (94-97); ABG PCO2 46 mmHg (35-45); ABG PH 7.53 (7.35-7.45); ABG PO2 106 mmHg (83-108); ABG TCO2 40 mmol/L (19-24)
[2021-03-07 13:48] LABS: Allen Test Performed? no
[2021-03-07 15:56] LABS: Ferritin 273.5 ng/mL (10.0-291.0)
[2021-03-07 17:49] LABS: Glucose,Whole Blood 139 mg/dL (75-99)
[2021-03-07] MEDS: ONDANSETRON 4 MG/2 ML VIAL IVP PRN (19:04)
[2021-03-07] MEDS ORDERED: HALOPERIDOL LACTATE 5 MG/ML 1 ML VIAL IVP ONE (22:33)
[2021-03-07] MEDS: SODIUM CHLORIDE 0.9% 1,000 ML IV SCH ×2 (23:03→23:05)
[2021-03-08 00:07] LABS: Glucose,Whole Blood 111 mg/dL (75-99)
[2021-03-08] MEDS: INSULIN ASPART (NovoLOG) 100 UNIT/ML VIAL SQ SCH ×5 (00:17→21:00)
[2021-03-08] MEDS: HALOPERIDOL LACTATE 5 MG/ML 1 ML VIAL IVP PRN ×3 (01:29→22:52)
[2021-03-08] MEDS: CLEVIDIPINE BUTYRATE 25 MG in EMPTY BAG 1 BAG IV SCH ×4 (02:53→23:56)
[2021-03-08] MEDS: DEXMEDETOMIDINE/0.9% NACL(PMX) 400 MCG in EMPTY BAG 1 BAG IV SCH ×4 (04:03→20:12)
--- NOTE | 2021-03-08 05:46 | P.PN ---
Subjective Progress Note Date: 03/08/21 55-year-old white female patient with past medical history of hypertension, morbid obesity with BMI of 54.1 kg/m, ulcerative colitis, possible sleep apnea, chronic bronchial asthma, unspecified patient is on Symbicort on a regular basis, GERD/reflux, hiatal hernia, osteoarthritis, hypothyroidism, and fibromyalgia. Come into the emergency department on 02/27/2021 with symptoms of headache, fever, worsening shortness of breath. Her symptom onset was about a week ago and patient had a positive outpatient Covid 19 test. She is not normally on any oxygen, she reports fevers, body aches, headaches, she reports some diarrhea, but no nausea or vomiting, she is requiring supplement oxygen, 4 L. Pulse ox is 92-93%, she is still having a low-grade fevers this morning, with a temp of 100F, she was started on IV steroids, he was given some IV hydration, prophylactic anticoagulation. She states she is feeling better, her headache is better, she seems to be breathing comfortably, although still r equiring 4 L of supplemental oxygen, lung sounds are diminished, with some diffuse crackles at bilateral bases, her lab work revealed squamous cell, 3.9, hemoglobin is 12.5, platelet count was 108, leukocyte, 0.4, d-dimer 0.9, sodium is 137, potassium is 3.5, B1 is 12 creatinine 0.84, LDH is 1355, CRP is 55.9. Patient was reevaluated today on 03/01/2021, she seems to be quite comfortable, resting in bed, she is however on 15 L high flow nasal cannula, O2 saturation is 90%. Again clinically she looks great and does not seem to be in any form of distress. She is afebrile and her vital signs are stable. CBC today is relatively normal. Her d-dimer is 0.29 normal. Her electrolytes are normal, LDH today is 487. It is significantly improved and her C-reactive protein is down to 5.8. Patient feels generally weak and tired, she also feels achy, but on physical examination she looks great. Patient was reevaluated today on 03/02/2021, patient seems to be getting worse since yesterday. Patient is now requiring placement on BiPAP, she is on IPAP of 14 and EPAP of 600% FiO2, and she is barely maintaining an O2 saturation of 83%. I saw the patient and I ordered a follow-up chest x-ray this morning, chest x- ray is showing significant worsening of her bilateral infiltrates. Not to menti on the patient has a very large hiatal hernia. Patient was tried on prone positions, and did not seem to help, she was placed on left lateral decubitus position that seems to be the best for her oxygenation on this patient. Considering the worsening of her chest x-ray, and considering the patient is requiring relatively high FiO2 with BiPAP, I will arrange for the patient to be transferred to the ICU immediately. In the meantime I will arrange for the patient to start on actemra, and would also add convalescent plasma. Her inflammatory markers were noted to come down yesterday, LDH came down to 487 from 1355 The patient is seen today 03/03/2021 in follow-up in the intensive care unit. S he did require urgent transfer to the ICU and intubation yesterday. She is currently sedated on the mechanical ventilator at assist control mode at a rate of 24, tidal volume 400, FiO2 100%, PEEP of 15. Morning blood gases reveal a pO2 127, pCO2 49, pH 7.38. She is sedated on propofol 50 mcg/kg/m. 0.9 normal saline at 100 ML's per hour. Chest x-ray reveals patchy bilateral infiltrates right greater than left. She did receive 1 unit of convalescent plasma. Also received tocilizumab. White count 5.9. Hemoglobin 11.4. D-dimer 1.72. Sodium 142. Potassium 3.6. Creatinine 0.59. LDH 1403. C-reactive protein 65.6. Glucose 147. She is continued on Decadron, Symbicort, albuterol, vitamin supplements. Lovenox for DVT prophylaxis. The patient is seen today 03/04/2021 follow-up in the intensive care unit. She remains intubated, sedated and on the mechanical ventilator. Current mode assist control with a rate of 24, tidal volume 400, FiO2 50% and a PEEP of 15. Arterial blood gases reveal a P O2 of 76, pCO2 46, pH 7.40. She is sedated on propofol at 40 mcg/kg/m. 0.9 normal saline at 100 ML's per hour. She is being nourished with vital HP at 37 mL per hour which is goal. Chest x-ray continues to show bilateral patchy infiltrates. She did receive 1 unit of convalescent plasma. White count 4.8. Hemoglobin 11.0. Lymphocytes 0.4. Sodium 143. Potassium 3.6. Creatinine 0.48. AST 48, ALT 21. She remains on Symbicort, albuterol, dexamethasone. Lovenox. Vitamin supplements. On today's evaluation of 03/05/2021, seeing the patient for a follow-up in the intensive care unit. The patient was hospitalized for community related pneumonia and the patient was also intubated and placed on a mechanical ventilator on 03/02/2021. The patient sedated with propofol. The patient is on a mechanical ventilator assist control mode with a tidal volume 400, FiO2 of 50%, PEEP of 15 and a rate of 24. Propofol is running at 50 mcg/kg per minute and the patient is also on IV fluids with normal saline at the rate of 50 mL an hour. The ABGs from today showing a pH of 7.48 with a pCO2 of 38 and pO2 of 134. The peak and static pressures are 37/32 Patient receiving enteral feeding for nutritional support. The patient was given convalescent plasma. The patient is on Decadron. Patient anticoagulation with Lovenox. The chest x-ray showing diffuse bilateral pulmonary infiltrates. ET tube is in a good location. The patient's left subclavian catheter in place. The patient is also requiring on and off norepinephrine infusion for blood pressure control. The LDH level from 03/03/2021 was 1063 with a CRP of 27. The fluid balance is positive in the order of 2.4 L 4 03/03/2021 and 2.4 L on 03/04/2021. As such, the patient is in a positive fluid balance. 03/06/2021 the patient remains intubated on a mechanical ventilator. This is a case of COVID related pneumonia with respiratory failure and the patient has been on mechanical ventilator since 03/02/2021. She currently sedated with propofol. Propofol is running at 30 mcg/kg per minute and the patient is on a mechanical ventilator on assist control mode with a tidal volume of 400 and a PEEP of 8 with an FiO2 of 50% and rate of 24. The peak airway pressure in the setting of her pressure is 28 and 26 respectively. Chest x-ray findings are stable with lower lobe pulmonary infiltrates. Lung volumes are small and the patient is morbidly obese and the patient has a BMI of 56. ET tube is sitting high in the trachea. NG tube is in a good location. The patient is returning her volumes back. Otherwise, the patient is currently being treated with Decadron 6 mg IV daily, Lovenox 40 mg by subcu daily, the patient is also on Lasix 40 mg every 12 hours and this was started yesterday. The neck fluid balance is -3 L over the past 24 hours. The labs from today shows a pH of 7.49 with a pCO2 of 44 and pO2 of 101. The rest of the blood work is all within normal limits. She continues to have some degree of lymphopenia. No other significant events. The patient is on no pressors for now. The patient is receiving enteral feeding for nutritional support and she is currently on vital high protein at that a goal of 37 mL. She is tolerating her tube feeds fine. On 03/07/2021, the patient remains intubated on a mechanical ventilator. The patient is sedated with propofol which is running at 25 mcg/kg per minute. She is also on mechanical ventilator on assist control mode with a tidal volume of 400, PEEP of 5, FiO2 of 50% and a rate of 24. The peak airway pressures around 28. The static pressure is 24. The blood gases from today shows a pH of 7.7 with a pCO2 of 40 and pO2 of 86. The chest x-ray from today showing stable lower lobe pulmonary infiltrates. ET tube remains in a good location. The patient may have an underlying hiatal hernia. NG tube is also in good location. Note that the patient was given a sedation holiday yesterday and following that she was given a spontaneous breathing trial. During the process, the patient became restless, tachypneic and agitated. She was not felt to be ready for extubation and following she was not following directions or commands and for that reason, the procedure was aborted. The same will be done today with the possibility of switching her sedation to Precedex if needed. The patient was started on Precedex which is currently running at 0.7 mcg/kg/h. For now, we're going to try to wean off the propofol and assess the patient's mental status and weaning parameters. She is on enteral feeding for nutritional support and currently she is on vital high protein at 37 mL an hour. Her net fluid balance -3 L over the past 24 hours and the patient is receiving Lasix on a daily basis. She is also on Decadron 6 mg IV 24 hours and Lovenox 40 mg subcu every 24 hours 03/08/2021, the patient is currently extubated. As planned, the patient was given sedation holiday, she demonstrated adequate weaning parameters. She was given this point is breathing trial and following that she was extubated and currently she is on oxygen at 4 L per minute nasal cannula. She is resting comfortably in bed. Note that postextubation, the patient became a bit use and restless and agitated. I had to continue sedation and the patient is currently still on Precedex which is running at 0.5 mcg/kg per minute. She also required Haldol. She received 2 mg IV overnight and later on another milligram was given which very much controlled her agitation and she is resting comfortably in bed. The chest x-ray is unchanged. There is diffuse bilateral pulmonary pulses consistent with COVID-19 related pneumonia. Rest of the labs are still pending from this morning. Meanwhile, the patient is doing well pH is hemodynamically stable. She is producing adequate amount of urine output. She remains on Decadron 6 mg IV every 24 hours and she is also on Lovenox 40 mg subcu every 24 hours. She is profoundly weak and she will need aggressive physical therapy. In terms of swallow, she did a bedside evaluation and she swallows fine. Objective - Vital Signs Vital signs: Vital Signs Temp 97.5 F L 03/08/21 04:00 Pulse 63 03/08/21 05:00 Resp 18 03/08/21 05:00 BP 138/78 03/08/21 05:00 Pulse Ox 99 03/08/21 05:00 Intake & Output 03/07/21 03/07/21 03/08/21 06:59 18:59 06:59 Intake Total 1065.830 893.939 401.500 Output Total 2775 1735 1610 Balance -1709.170 -841.061 -1208.500 Weight 148.6 kg Intake: IV 276 303 253 Pressure Bag 36 63 33 Sodium Chloride 0.9% 1, 240 240 220 000 ml @ 20 mls/hr IV . Q24H [facility] Rx#:[id number] Intake, IV Titration 255.830 352.939 148.500 Amount Clevidipine Butyrate 25 71.467 100.000 48.5 mg In Empty Bag 1 bag @ 1 MG/HR 2 mls/hr IV .Q24H [facility] Rx#:[id number] Dexmedetomidine/0.9% NaCl 40.614 152.939 (Pmx) 400 mcg In Empty Bag 1 bag @ Titrate IV . Q0M [facility] Rx#:[id number] Dexmedetomidine/0.9% NaCl 100.000 (Pmx) 400 mcg In Empty Bag 1 bag @ Titrate IV . Q0M [facility] Rx#:[id number] propofoL 1,000 mg In 143.749 100.000 Empty Bag 1 bag @ Titrate IV .Q0M [facility] Rx#: [id number] Tube Feeding 444 148 Other 90 90 Output: Urine 2775 1735 1610 Other: Voiding Method Indwelling Catheter Indwelling Catheter Indwelling Catheter ABP, PAP, CO, CI - Last Documented Arterial Blood Pressure 137/76 - Exam GENERAL EXAM: Extubated on 5 L of oxygen by nasal cannula. Calm and comfortable. No signs of any respiratory distress. Still on Precedex. The patient is calm and comfortable moving all 4 extremities without any limitation. HEAD: Normocephalic. EYES: Normal reaction of pupils, equal size. NOSE: Clear with pink turbinates. THROAT: Oral endotracheal and gastric tube secured in place. No erythema or exudates. NECK: No masses, no JVD. CHEST: No chest wall deformity. LUNGS: Equal air entry with crackles in the bilateral posterior bases CVS: S1 and S2 normal with no audible murmur, regular rhythm. ABDOMEN: No hepatosplenomegaly, normal bowel sounds, no guarding or rigidity. SPINE: No scoliosis or deformity SKIN: No rashes CENTRAL NERVOUS SYSTEM: Sedated. No focal deficits, tone is normal in all 4 extremities. There is global generalized motor weakness. She is still are not confused. She is also on Precedex and she is sedated. The time of my evaluation this morning, she was resting comfortably in bed. EXTREMITIES: There is no peripheral edema. No clubbing, no cyanosis. Peripheral pulses are intact. - Labs CBC & Chem 7: 03/07/21 05:05 03/07/21 14:45 Labs: Abnormal Lab Results - Last 24 Hours (Table) 03/07/21 03/07/21 03/07/21 Range/Units 05:05 05:05 05:05 Lymphocytes # 0.7 L (1.0-4.8) k/uL APTT 20.3 L (22.0-30.0) sec D-Dimer 3.00 H (<0.60) mg/L FEU ABG pH (7.35-7.45) ABG pCO2 (35-45) mmHg ABG HCO3 (21-25) mmol/L ABG Total CO2 (19-24) mmol/L ABG O2 Saturation (94-97) % Carbon Dioxide (22-30) mmol/L BUN (7-17) mg/dL Creatinine (0.52-1.04) mg/dL Glucose (74-99) mg/dL POC Glucose (mg/dL) (75-99) mg/dL AST (14-36) U/L Lactate Dehydrogenase 1062 H (313-618) U/L Creatine Kinase 26 L (30-135) U/L C-Reactive Protein 14.1 H (<10.0) mg/L Total Protein (6.3-8.2) g/dL Albumin (3.5-5.0) g/dL 03/07/21 03/07/21 03/07/21 Range/Units 05:05 06:06 11:41 Lymphocytes # (1.0-4.8) k/uL APTT (22.0-30.0) sec D-Dimer (<0.60) mg/L FEU ABG pH (7.35-7.45) ABG pCO2 (35-45) mmHg ABG HCO3 (21-25) mmol/L ABG Total CO2 (19-24) mmol/L ABG O2 Saturation (94-97) % Carbon Dioxide 37 H (22-30) mmol/L BUN 26 H (7-17) mg/dL Creatinine 0.48 L (0.52-1.04) mg/dL Glucose 124 H (74-99) mg/dL POC Glucose (mg/dL) 131 H 153 H (75-99) mg/dL AST 47 H (14-36) U/L Lactate Dehydrogenase (313-618) U/L Creatine Kinase (30-135) U/L C-Reactive Protein (<10.0) mg/L Total Protein 5.4 L (6.3-8.2) g/dL Albumin 3.0 L (3.5-5.0) g/dL 03/07/21 03/07/21 03/08/21 Range/Units 13:27 17:47 00:03 Lymphocytes # (1.0-4.8) k/uL APTT (22.0-30.0) sec D-Dimer (<0.60) mg/L FEU ABG pH 7.53 H (7.35-7.45) ABG pCO2 46 H (35-45) mmHg ABG HCO3 38 H (21-25) mmol/L ABG Total CO2 40 H (19-24) mmol/L ABG O2 Saturation 98.1 H (94-97) % Carbon Dioxide (22-30) mmol/L BUN (7-17) mg/dL Creatinine (0.52-1.04) mg/dL Glucose (74-99) mg/dL POC Glucose (mg/dL) 139 H 111 H (75-99) mg/dL AST (14-36) U/L Lactate Dehydrogenase (313-618) U/L Creatine Kinase (30-135) U/L C-Reactive Protein (<10.0) mg/L Total Protein (6.3-8.2) g/dL Albumin (3.5-5.0) g/dL Assessment and Plan Plan: 1 Acute hypoxic respiratory failure requiring intubation and mechanical ventilatory support on 03/02/2021 secondary to CoVID 19 pneumonia. Outside the window for Remdesivir. Did receive tocilizumab and convalescent plasma on 03/02/2021. The patient was extubated on 03/07/2021 the patient is currently on 5 L of oxygen by nasal cannula. The chest x-ray still showing some bilateral pulmonary infiltration consistent with coronary event-related pneumonia. She is resting comfortably in bed. She remains on Decadron IV. She is also on Lovenox 40 mg subcu for DVT prophylaxis. Neurologic status is confused and sedated possibly the anemia still and the patient remains on Precedex. 2 Increased inflammatory markers secondary to above, LDH level today is at 1062 and a CRP is at 14, awaiting follow-up inflammatory markers from today 3 Morbid obesity, body mass index of 54 4 Hypertension 5 History of mild intermittent chronic bronchial asthma , maintained on Symbicort 6 History of ulcerative colitis 7 Hiatal hernia 8 Gastroesophageal reflux disease 9 Generalized anxiety disorder, maintained on Xanax on outpatient basis 10 hypothyroidism on thyroid hormone replacement Plan: Restart Symbicort 160/4.52 puffs twice a day The patient has been negative fluid balance of 3.1 L over the past 24 hours. I'm going to switch her to oral Lasix 40 mg by mouth daily. Wean off Precedex and discontinue Start the patient on Seroquel 50 mg by mouth twice a day Restarted Cymbalta Synthroid to oral 100 g by mouth daily Did receive Tocilizumab and convalescent plasma Remains on Lovenox, dexamethasone, vitamin supplements Decadron oral 60 mg by mouth daily Hold on giving any benzodiazepines for now Her atenolol 25 mg by mouth daily and wean off Celebrex drip We will continue to follow and make further recommendations based on her clinical status addition is still critical. The patient will need physical therapy aggressive. She has not some progress with weaning and extubation. We'll continue to follow make further recommendations based on her progress. critically care evaluation, 30 minutes.
[2021-03-08] MEDS ORDERED: ENALAPRILAT 1.25 MG/ML 1 ML VIAL IVP PRN (05:49)
[2021-03-08 05:50] LABS: Glucose,Whole Blood 104 mg/dL (75-99)
[2021-03-08 06:13] LABS: Basophils % (A) 0 %; Eosinophils # (A) 0.1 k/uL (0-0.7); Eosinophils % (A) 1 %; HCT 35.9 % (34.0-46.0); HGB 12.4 gm/dL (11.4-16.0); Lymphocytes # (A) 0.6 k/uL (1.0-4.8); Lymphocytes % (A) 6 %; MCH 29.4 pg (25.0-35.0); MCHC 34.4 g/dL (31.0-37.0); MCV 85.5 fL (80.0-100.0); Mean Platelet Volume 8.6; Monocytes # (A) 0.7 k/uL (0-1.0); Monocytes % (A) 8 %; Neutrophils # (A) 7.6 k/uL (1.3-7.7); Neutrophils % (A) 84 %; Platelet Count 151 k/uL (150-450); RDW 13.7 % (11.5-15.5); WBC 9.1 k/uL (3.8-10.6)
[2021-03-08 06:25] LABS: ALT 38 U/L (4-34); AST 53 U/L (14-36); African American GFR (CKD) >90 (>60 ml/min/1.73 sqM); Albumin 3.3 g/dL (3.5-5.0); Alkaline Phosphatase 54 U/L (38-126); Anion Gap 8 mmol/L; Blood Urea Nitrogen 28 mg/dL (7-17); C Reactive Protein 12.7 mg/L (<10.0); Calcium 8.7 mg/dL (8.4-10.2); Carbon Dioxide 34 mmol/L (22-30); Chloride 98 mmol/L (98-107); Glucose 105 mg/dL (74-99); Non-African American GFR(CKD) >90 (>60 ml/min/1.73 sqM); Potassium 3.6 mmol/L (3.5-5.1); Sodium 140 mmol/L (137-145); Total Bilirubin 0.7 mg/dL (0.2-1.3); Total Protein 5.6 g/dL (6.3-8.2)
[2021-03-08] MEDS: LEVOTHYROXINE 100 MCG TAB PO SCH (06:34)
[2021-03-08 06:41] LABS: D-Dimer 5.21 mg/L FEU (<0.60)
[2021-03-08] MEDS: ALBUTEROL HFA INHALER INHALATION SCH ×4 (07:08→19:39)
[2021-03-08] MEDS: SYMBICORT 160-4.5 MCG INHALER INHALATION PRN ×2 (07:08→19:39)
[2021-03-08] MEDS ORDERED: POTASSIUM CHLORIDE 20 MEQ in WATER FOR INJECTION 1 100ML.BAG IVPB STA (07:16)
--- NOTE | 2021-03-08 08:14 | XR ---
EXAMINATION TYPE: XR chest 1V portable DATE OF EXAM: 03/08/2021 COMPARISON: Chest x-ray 03/07/2021 HISTORY: Extubated, abnormal chest x-ray TECHNIQUE: Single frontal view of the chest is obtained. FINDINGS: There is been interval removal of endotracheal tube, orogastric tube. Central venous faina ter remain stable. Patient is again rotated. There may be some slight improved aeration at the lung b ases. No pneumothorax. IMPRESSION: Improved aeration, interval extubation
[2021-03-08] MEDS: ZINC SULFATE 220 MG CAP PO SCH (08:43)
[2021-03-08] MEDS: dexAMETHasone 2 MG TAB PO SCH (08:43)
[2021-03-08] MEDS: ASCORBIC ACID 500 MG TAB PO SCH ×2 (08:43→20:59)
[2021-03-08] MEDS: atenoloL 25 MG TAB PO SCH (08:43)
[2021-03-08] MEDS: DULoxetine HCL 60 MG CAPSULE.DR PO SCH ×2 (08:43→20:59)
[2021-03-08] MEDS: CHOLECALCIFEROL 25 MCG (1000 IU) TABLET PO SCH (08:43)
[2021-03-08] MEDS: DICYCLOMINE 10 MG CAP PO SCH ×3 (08:44→21:00)
[2021-03-08] MEDS: ENOXAPARIN 40 MG/0.4 ML SYRINGE SQ SCH (08:45)
[2021-03-08] MEDS: QUEtiapine 50 MG TAB PO SCH ×2 (08:45→21:00)
[2021-03-08] MEDS ORDERED: FUROSEMIDE 10 MG/ML 4 ML VIAL IV SCH (09:30)
[2021-03-08 11:37] LABS: Glucose,Whole Blood 129 mg/dL (75-99)
--- NOTE | 2021-03-08 12:06 | P.PN ---
Subjective Progress Note Date: 03/08/21 Principal diagnosis: extubated on 4 L oxygen lethargic and confused Objective - Vital Signs Vital signs: Vital Signs Temp 97.6 F 03/08/21 08:00 Pulse 71 03/08/21 11:00 Resp 16 03/08/21 11:00 BP 127/80 03/08/21 11:00 Pulse Ox 94 L 03/08/21 11:00 Intake & Output 03/07/21 03/08/21 03/08/21 18:59 06:59 18:59 Intake Total 893.939 424.500 495.768 Output Total 1735 1680 325 Balance -841.061 -1255.500 170.768 Intake: IV 303 276 115 Pressure Bag 63 36 15 Sodium Chloride 0.9% 1, 240 240 100 000 ml @ 20 mls/hr IV . Q24H [facility] Rx#:[id number] Intake, IV Titration 352.939 148.500 280.768 Amount Clevidipine Butyrate 25 100.000 48.5 50 mg In Empty Bag 1 bag @ 1 MG/HR 2 mls/hr IV .Q24H [facility] Rx#:[id number] Dexmedetomidine/0.9% NaCl 152.939 (Pmx) 400 mcg In Empty Bag 1 bag @ Titrate IV . Q0M [facility] Rx#:[id number] Dexmedetomidine/0.9% NaCl 100.000 130.768 (Pmx) 400 mcg In Empty Bag 1 bag @ Titrate IV . Q0M [facility] Rx#:[id number] Potassium Chloride 20 meq 100 In Water For Injection 1 100ml.bag @ 50 mls/hr IVPB ONCE [facility] Rx#: [id number] propofoL 1,000 mg In 100.000 Empty Bag 1 bag @ Titrate IV .Q0M [facility] Rx#: [id number] Oral 100 Tube Feeding 148 Other 90 Output: Urine 1735 1680 325 Other: Voiding Method Indwelling Catheter Indwelling Catheter Indwelling Catheter ABP, PAP, CO, CI - Last Documented Arterial Blood Pressure 144/85 - Exam GENERAL EXAM: lethargic HEAD: Normocephalic. EYES: Normal reaction of pupils, equal size. NOSE: Clear NECK: No masses LUNGS: decreased bs CVS: S1 and S2 normal no murmur, regular rhythm. ABDOMEN: No hepatosplenomegaly, normal bowel sounds, no guarding or rigidity. SPINE: No scoliosis or deformity SKIN: No rashes CENTRAL NERVOUS SYSTEM: CN 2-12 intact EXTREMITIES: no peripheral edema. No clubbing, no cyanosis. - Labs CBC & Chem 7: 03/08/21 06:02 03/08/21 06:02 Labs: Abnormal Lab Results - Last 24 Hours (Table) 03/07/21 03/07/21 03/08/21 Range/Units 13:27 17:47 00:03 Lymphocytes # (1.0-4.8) k/uL D-Dimer (<0.60) mg/L FEU ABG pH 7.53 H (7.35-7.45) ABG pCO2 46 H (35-45) mmHg ABG HCO3 38 H (21-25) mmol/L ABG Total CO2 40 H (19-24) mmol/L ABG O2 Saturation 98.1 H (94-97) % Carbon Dioxide (22-30) mmol/L BUN (7-17) mg/dL Creatinine (0.52-1.04) mg/dL Glucose (74-99) mg/dL POC Glucose (mg/dL) 139 H 111 H (75-99) mg/dL AST (14-36) U/L ALT (4-34) U/L C-Reactive Protein (<10.0) mg/L Total Protein (6.3-8.2) g/dL Albumin (3.5-5.0) g/dL 03/08/21 03/08/21 03/08/21 Range/Units 05:50 06:02 06:02 Lymphocytes # 0.6 L (1.0-4.8) k/uL D-Dimer (<0.60) mg/L FEU ABG pH (7.35-7.45) ABG pCO2 (35-45) mmHg ABG HCO3 (21-25) mmol/L ABG Total CO2 (19-24) mmol/L ABG O2 Saturation (94-97) % Carbon Dioxide 34 H (22-30) mmol/L BUN 28 H (7-17) mg/dL Creatinine 0.50 L (0.52-1.04) mg/dL Glucose 105 H (74-99) mg/dL POC Glucose (mg/dL) 104 H (75-99) mg/dL AST 53 H (14-36) U/L ALT 38 H (4-34) U/L C-Reactive Protein 12.7 H (<10.0) mg/L Total Protein 5.6 L (6.3-8.2) g/dL Albumin 3.3 L (3.5-5.0) g/dL 03/08/21 03/08/21 Range/Units 06:02 11:36 Lymphocytes # (1.0-4.8) k/uL D-Dimer 5.21 H (<0.60) mg/L FEU ABG pH (7.35-7.45) ABG pCO2 (35-45) mmHg ABG HCO3 (21-25) mmol/L ABG Total CO2 (19-24) mmol/L ABG O2 Saturation (94-97) % Carbon Dioxide (22-30) mmol/L BUN (7-17) mg/dL Creatinine (0.52-1.04) mg/dL Glucose (74-99) mg/dL POC Glucose (mg/dL) 129 H (75-99) mg/dL AST (14-36) U/L ALT (4-34) U/L C-Reactive Protein (<10.0) mg/L Total Protein (6.3-8.2) g/dL Albumin (3.5-5.0) g/dL Assessment and Plan Plan: 1 Acute hypoxic respiratory failure requiring intubation and mechanical ventilatory support on 03/02/2021 secondary to CoVID 19 pneumonia. Outside the window for Remdesivir. sp tocilizumab and convalescent plasma on 03/02/2021. Continue on dexamethasone, bronchodilators, vitamin C and zinc. extubated on 4 L Continue with IV Lasix 2 Increased inflammatory markers secondary to above: Continue to treat underlyi ng condition 3 Morbid obesity, body mass index of 53.8 4 Hypertension, essential: On atenolol 5 History of mild intermittent chronic bronchial asthma , maintained on Symbicort 6 History of ulcerative colitis, monitor 7 Hiatal hernia 8 Gastroesophageal reflux disease without esophagitis 9 Generalized anxiety disorder, maintained on Xanax on outpatient basis 10 hypothyroidism: Continue Synthroid 11. confusion with metabolic encephalopathy : multifactorial , started seroquel , monitor Disposition: Gradually better , continue supportive care
[2021-03-08] MEDS: ONDANSETRON 4 MG/2 ML VIAL IVP PRN ×2 (12:42→20:14)
[2021-03-08] MEDS: FUROSEMIDE 40 MG TAB PO SCH (15:41)
[2021-03-08] MEDS: POTASSIUM CHLORIDE 10 MEQ in WATER FOR INJECTION 1 100ML.BAG IVPB SCH ×2 (15:44→16:50)
[2021-03-08 16:52] LABS: Glucose,Whole Blood 124 mg/dL (75-99)
[2021-03-08 20:54] LABS: Glucose,Whole Blood 106 mg/dL (75-99)
[2021-03-08] MEDS: SODIUM CHLORIDE 0.9% 1,000 ML IV SCH (23:04)
[2021-03-09] MEDS: DEXMEDETOMIDINE/0.9% NACL(PMX) 400 MCG in EMPTY BAG 1 BAG IV SCH ×3 (00:14→08:06)
[2021-03-09] MEDS: CLEVIDIPINE BUTYRATE 25 MG in EMPTY BAG 1 BAG IV SCH ×2 (03:55→09:34)
[2021-03-09 05:53] LABS: Glucose,Whole Blood 93 mg/dL (75-99)
[2021-03-09 06:06] LABS: Basophils % (A) 0 %; Eosinophils # (A) 0.1 k/uL (0-0.7); Eosinophils % (A) 1 %; HCT 36.3 % (34.0-46.0); HGB 12.7 gm/dL (11.4-16.0); Lymphocytes # (A) 0.9 k/uL (1.0-4.8); Lymphocytes % (A) 11 %; MCH 30.3 pg (25.0-35.0); MCHC 35.1 g/dL (31.0-37.0); MCV 86.3 fL (80.0-100.0); Mean Platelet Volume 8.4; Monocytes # (A) 0.5 k/uL (0-1.0); Monocytes % (A) 7 %; Neutrophils # (A) 6.3 k/uL (1.3-7.7); Neutrophils % (A) 79 %; Platelet Count 145 k/uL (150-450); RBC 4.21 m/uL (3.80-5.40); RDW 13.6 % (11.5-15.5); WBC 7.9 k/uL (3.8-10.6)
--- NOTE | 2021-03-09 06:20 | P.PN ---
Subjective Progress Note Date: 03/09/21 55-year-old white female patient with past medical history of hypertension, morbid obesity with BMI of 54.1 kg/m, ulcerative colitis, possible sleep apnea, chronic bronchial asthma, unspecified patient is on Symbicort on a regular basis, GERD/reflux, hiatal hernia, osteoarthritis, hypothyroidism, and fibromyalgia. Come into the emergency department on 02/27/2021 with symptoms of headache, fever, worsening shortness of breath. Her symptom onset was about a week ago and patient had a positive outpatient Covid 19 test. She is not normally on any oxygen, she reports fevers, body aches, headaches, she reports some diarrhea, but no nausea or vomiting, she is requiring supplement oxygen, 4 L. Pulse ox is 92-93%, she is still having a low-grade fevers this morning, with a temp of 100F, she was started on IV steroids, he was given some IV hydration, prophylactic anticoagulation. She states she is feeling better, her headache is better, she seems to be breathing comfortably, although still r equiring 4 L of supplemental oxygen, lung sounds are diminished, with some diffuse crackles at bilateral bases, her lab work revealed squamous cell, 3.9, hemoglobin is 12.5, platelet count was 108, leukocyte, 0.4, d-dimer 0.9, sodium is 137, potassium is 3.5, B1 is 12 creatinine 0.84, LDH is 1355, CRP is 55.9. Patient was reevaluated today on 03/01/2021, she seems to be quite comfortable, resting in bed, she is however on 15 L high flow nasal cannula, O2 saturation is 90%. Again clinically she looks great and does not seem to be in any form of distress. She is afebrile and her vital signs are stable. CBC today is relatively normal. Her d-dimer is 0.29 normal. Her electrolytes are normal, LDH today is 487. It is significantly improved and her C-reactive protein is down to 5.8. Patient feels generally weak and tired, she also feels achy, but on physical examination she looks great. Patient was reevaluated today on 03/02/2021, patient seems to be getting worse since yesterday. Patient is now requiring placement on BiPAP, she is on IPAP of 14 and EPAP of 600% FiO2, and she is barely maintaining an O2 saturation of 83%. I saw the patient and I ordered a follow-up chest x-ray this morning, chest x- ray is showing significant worsening of her bilateral infiltrates. Not to menti on the patient has a very large hiatal hernia. Patient was tried on prone positions, and did not seem to help, she was placed on left lateral decubitus position that seems to be the best for her oxygenation on this patient. Considering the worsening of her chest x-ray, and considering the patient is requiring relatively high FiO2 with BiPAP, I will arrange for the patient to be transferred to the ICU immediately. In the meantime I will arrange for the patient to start on actemra, and would also add convalescent plasma. Her inflammatory markers were noted to come down yesterday, LDH came down to 487 from 1355 The patient is seen today 03/03/2021 in follow-up in the intensive care unit. S he did require urgent transfer to the ICU and intubation yesterday. She is currently sedated on the mechanical ventilator at assist control mode at a rate of 24, tidal volume 400, FiO2 100%, PEEP of 15. Morning blood gases reveal a pO2 127, pCO2 49, pH 7.38. She is sedated on propofol 50 mcg/kg/m. 0.9 normal saline at 100 ML's per hour. Chest x-ray reveals patchy bilateral infiltrates right greater than left. She did receive 1 unit of convalescent plasma. Also received tocilizumab. White count 5.9. Hemoglobin 11.4. D-dimer 1.72. Sodium 142. Potassium 3.6. Creatinine 0.59. LDH 1403. C-reactive protein 65.6. Glucose 147. She is continued on Decadron, Symbicort, albuterol, vitamin supplements. Lovenox for DVT prophylaxis. The patient is seen today 03/04/2021 follow-up in the intensive care unit. She remains intubated, sedated and on the mechanical ventilator. Current mode assist control with a rate of 24, tidal volume 400, FiO2 50% and a PEEP of 15. Arterial blood gases reveal a P O2 of 76, pCO2 46, pH 7.40. She is sedated on propofol at 40 mcg/kg/m. 0.9 normal saline at 100 ML's per hour. She is being nourished with vital HP at 37 mL per hour which is goal. Chest x-ray continues to show bilateral patchy infiltrates. She did receive 1 unit of convalescent plasma. White count 4.8. Hemoglobin 11.0. Lymphocytes 0.4. Sodium 143. Potassium 3.6. Creatinine 0.48. AST 48, ALT 21. She remains on Symbicort, albuterol, dexamethasone. Lovenox. Vitamin supplements. On today's evaluation of 03/05/2021, seeing the patient for a follow-up in the intensive care unit. The patient was hospitalized for community related pneumonia and the patient was also intubated and placed on a mechanical ventilator on 03/02/2021. The patient sedated with propofol. The patient is on a mechanical ventilator assist control mode with a tidal volume 400, FiO2 of 50%, PEEP of 15 and a rate of 24. Propofol is running at 50 mcg/kg per minute and the patient is also on IV fluids with normal saline at the rate of 50 mL an hour. The ABGs from today showing a pH of 7.48 with a pCO2 of 38 and pO2 of 134. The peak and static pressures are 37/32 Patient receiving enteral feeding for nutritional support. The patient was given convalescent plasma. The patient is on Decadron. Patient anticoagulation with Lovenox. The chest x-ray showing diffuse bilateral pulmonary infiltrates. ET tube is in a good location. The patient's left subclavian catheter in place. The patient is also requiring on and off norepinephrine infusion for blood pressure control. The LDH level from 03/03/2021 was 1063 with a CRP of 27. The fluid balance is positive in the order of 2.4 L 4 03/03/2021 and 2.4 L on 03/04/2021. As such, the patient is in a positive fluid balance. 03/06/2021 the patient remains intubated on a mechanical ventilator. This is a case of COVID related pneumonia with respiratory failure and the patient has been on mechanical ventilator since 03/02/2021. She currently sedated with propofol. Propofol is running at 30 mcg/kg per minute and the patient is on a mechanical ventilator on assist control mode with a tidal volume of 400 and a PEEP of 8 with an FiO2 of 50% and rate of 24. The peak airway pressure in the setting of her pressure is 28 and 26 respectively. Chest x-ray findings are stable with lower lobe pulmonary infiltrates. Lung volumes are small and the patient is morbidly obese and the patient has a BMI of 56. ET tube is sitting high in the trachea. NG tube is in a good location. The patient is returning her volumes back. Otherwise, the patient is currently being treated with Decadron 6 mg IV daily, Lovenox 40 mg by subcu daily, the patient is also on Lasix 40 mg every 12 hours and this was started yesterday. The neck fluid balance is -3 L over the past 24 hours. The labs from today shows a pH of 7.49 with a pCO2 of 44 and pO2 of 101. The rest of the blood work is all within normal limits. She continues to have some degree of lymphopenia. No other significant events. The patient is on no pressors for now. The patient is receiving enteral feeding for nutritional support and she is currently on vital high protein at that a goal of 37 mL. She is tolerating her tube feeds fine. On 03/07/2021, the patient remains intubated on a mechanical ventilator. The patient is sedated with propofol which is running at 25 mcg/kg per minute. She is also on mechanical ventilator on assist control mode with a tidal volume of 400, PEEP of 5, FiO2 of 50% and a rate of 24. The peak airway pressures around 28. The static pressure is 24. The blood gases from today shows a pH of 7.7 with a pCO2 of 40 and pO2 of 86. The chest x-ray from today showing stable lower lobe pulmonary infiltrates. ET tube remains in a good location. The patient may have an underlying hiatal hernia. NG tube is also in good location. Note that the patient was given a sedation holiday yesterday and following that she was given a spontaneous breathing trial. During the process, the patient became restless, tachypneic and agitated. She was not felt to be ready for extubation and following she was not following directions or commands and for that reason, the procedure was aborted. The same will be done today with the possibility of switching her sedation to Precedex if needed. The patient was started on Precedex which is currently running at 0.7 mcg/kg/h. For now, we're going to try to wean off the propofol and assess the patient's mental status and weaning parameters. She is on enteral feeding for nutritional support and currently she is on vital high protein at 37 mL an hour. Her net fluid balance -3 L over the past 24 hours and the patient is receiving Lasix on a daily basis. She is also on Decadron 6 mg IV 24 hours and Lovenox 40 mg subcu every 24 hours 03/08/2021, the patient is currently extubated. As planned, the patient was given sedation holiday, she demonstrated adequate weaning parameters. She was given this point is breathing trial and following that she was extubated and currently she is on oxygen at 4 L per minute nasal cannula. She is resting comfortably in bed. Note that postextubation, the patient became a bit use and restless and agitated. I had to continue sedation and the patient is currently still on Precedex which is running at 0.5 mcg/kg per minute. She also required Haldol. She received 2 mg IV overnight and later on another milligram was given which very much controlled her agitation and she is resting comfortably in bed. The chest x-ray is unchanged. There is diffuse bilateral pulmonary pulses consistent with COVID-19 related pneumonia. Rest of the labs are still pending from this morning. Meanwhile, the patient is doing well pH is hemodynamically stable. She is producing adequate amount of urine output. She remains on Decadron 6 mg IV every 24 hours and she is also on Lovenox 40 mg subcu every 24 hours. She is profoundly weak and she will need aggressive physical therapy. In terms of swallow, she did a bedside evaluation and she swallows fine. Or 2020, the patient remains extubated. She is on 2 L of oxygen. Nevertheless, her chest x-ray has not shown any major interval improvement and shows bilateral pulmonary infiltrates worse on the right. Her overall pulmonary status is stable. She is not having any difficulties in breathing. She is delirious. She is trying to hold on stuff and reaches soft and becomes restless throughout the day. At times she is appropriate, other times she is more confused. She is strong Cleviprex informally grams an hour for blood pressure control. She is also on Precedex to control her agitation. Precedex is running at 0.7 mcg/kg per minute. During my morning evaluation, I found this patient quite comfortable. She is well rested. However she is quite drowsy and sleepy. She was arousable. She was communicating. No nausea. No emesis. She was able to tolerate oral intake. No reported aspiration. His swallow mechanism is adequate. Otherwise, neurologic exam is nonfocal and the patient is moving all 4 extremities without any limitation. She has weakness and this is global generalized weakness. She is afebrile. She remains on Decadron. She remains on Lovenox for DVT prophylaxis. Objective - Vital Signs Vital signs: Vital Signs Temp 98.3 F 03/09/21 04:00 Pulse 66 03/09/21 04:00 Resp 20 03/09/21 04:00 BP 132/82 03/09/21 04:00 Pulse Ox 95 03/09/21 04:00 Intake & Output 03/08/21 03/08/21 03/09/21 06:59 18:59 06:59 Intake Total 145.488 2074.297 577.250 Output Total 1679 2009 2279 Balance -1255.500 -907.703 -1702.750 Weight 116.3 kg Intake: IV 276 276 253 Pressure Bag 36 36 33 Sodium Chloride 0.9% 1, 240 240 220 000 ml @ 20 mls/hr IV . Q24H [facility] Rx#:[id number] Intake, IV Titration 148.500 626.297 324.250 Amount Clevidipine Butyrate 25 48.5 93.300 63.200 mg In Empty Bag 1 bag @ 1 MG/HR 2 mls/hr IV .Q24H [facility] Rx#:[id number] Dexmedetomidine/0.9% NaCl 100.000 232.997 261.050 (Pmx) 400 mcg In Empty Bag 1 bag @ Titrate IV . Q0M [facility] Rx#:[id number] Potassium Chloride 10 meq 200 In Water For Injection 1 100ml.bag @ 100 mls/hr IVPB Q1H [facility] Rx#: [id number] Potassium Chloride 20 meq 100 In Water For Injection 1 100ml.bag @ 50 mls/hr IVPB ONCE [facility] Rx#: [id number] Oral 200 Output: Urine 1679 2009 2279 Other: Voiding Method Indwelling Catheter Indwelling Catheter Indwelling Catheter ABP, PAP, CO, CI - Last Documented Arterial Blood Pressure 150/73 - Exam GENERAL EXAM: Extubated on 2 L of oxygen by nasal cannula. Calm and comfortable . No signs of any respiratory distress. Still on Precedex. The patient is calm and comfortable moving all 4 extremities without any limitation. HEAD: Normocephalic. EYES: Normal reaction of pupils, equal size. NOSE: Clear with pink turbinates. THROAT: Oral endotracheal and gastric tube secured in place. No erythema or exudates. NECK: No masses, no JVD. CHEST: No chest wall deformity. LUNGS: Equal air entry with crackles in the bilateral posterior bases CVS: S1 and S2 normal with no audible murmur, regular rhythm. ABDOMEN: No hepatosplenomegaly, normal bowel sounds, no guarding or rigidity. SPINE: No scoliosis or deformity SKIN: No rashes CENTRAL NERVOUS SYSTEM: Somnolent, rested, no agitation this morning still on Precedex. Neurologic exam is nonfocal and she is moving all 4 extremities without any limitation. - Labs CBC & Chem 7: 03/09/21 05:48 03/08/21 15:21 Labs: Abnormal Lab Results - Last 24 Hours (Table) 03/08/21 03/08/21 03/08/21 Range/Units 06:02 06:02 06:02 Plt Count (150-450) k/uL Lymphocytes # 0.6 L (1.0-4.8) k/uL D-Dimer 5.21 H (<0.60) mg/L FEU Carbon Dioxide 34 H (22-30) mmol/L BUN 28 H (7-17) mg/dL Creatinine 0.50 L (0.52-1.04) mg/dL Glucose 105 H (74-99) mg/dL POC Glucose (mg/dL) (75-99) mg/dL AST 53 H (14-36) U/L ALT 38 H (4-34) U/L C-Reactive Protein 12.7 H (<10.0) mg/L Total Protein 5.6 L (6.3-8.2) g/dL Albumin 3.3 L (3.5-5.0) g/dL 03/08/21 03/08/21 03/08/21 Range/Units 11:36 16:51 20:51 Plt Count (150-450) k/uL Lymphocytes # (1.0-4.8) k/uL D-Dimer (<0.60) mg/L FEU Carbon Dioxide (22-30) mmol/L BUN (7-17) mg/dL Creatinine (0.52-1.04) mg/dL Glucose (74-99) mg/dL POC Glucose (mg/dL) 129 H 124 H 106 H (75-99) mg/dL AST (14-36) U/L ALT (4-34) U/L C-Reactive Protein (<10.0) mg/L Total Protein (6.3-8.2) g/dL Albumin (3.5-5.0) g/dL 03/09/21 Range/Units 05:48 Plt Count 145 L (150-450) k/uL Lymphocytes # 0.9 L (1.0-4.8) k/uL D-Dimer (<0.60) mg/L FEU Carbon Dioxide (22-30) mmol/L BUN (7-17) mg/dL Creatinine (0.52-1.04) mg/dL Glucose (74-99) mg/dL POC Glucose (mg/dL) (75-99) mg/dL AST (14-36) U/L ALT (4-34) U/L C-Reactive Protein (<10.0) mg/L Total Protein (6.3-8.2) g/dL Albumin (3.5-5.0) g/dL Assessment and Plan Plan: 1 Acute hypoxic respiratory failure requiring intubation and mechanical ventilatory support on 03/02/2021 secondary to CoVID 19 pneumonia. Outside the window for Remdesivir. Did receive tocilizumab and convalescent plasma on 03/02/2021. The patient was extubated on 03/07/2021 the patient is currently on 2 L about 2 by nasal cannula and the chest x-ray findings are essentially stab le. No signs of any respiratory distress. 2 Increased inflammatory markers secondary to above, 3 Morbid obesity, body mass index of 54 4 Hypertension, currently on Cleviprex drip for blood pressure control running at 4 mg an hour 5 History of mild intermittent chronic bronchial asthma , maintained on Symbicort 6 History of ulcerative colitis 7 Hiatal hernia 8 Gastroesophageal reflux disease 9 Generalized anxiety disorder, maintained on Xanax on outpatient basis 10 hypothyroidism on thyroid hormone replacement 11 delirium Plan: Increase the Seroquel to 100 mg twice a day and wean off the Precedex and discontinue Start the patient on Cozaar 100 mg by mouth daily Start the patient on Norvasc 10 mg by mouth daily Wean off Cleviprex and discontinue Continue oral Lasix Advance diet For medications were restarted including Cymbalta and Synthroid Continue Decadron Continue Lovenox It'll be useful to have a sitter at the bedside We'll transfer this patient out of the intensive care unit once all of the drips are discontinued.
[2021-03-09 06:24] LABS: ALT 54 U/L (4-34); AST 71 U/L (14-36); African American GFR (CKD) >90 (>60 ml/min/1.73 sqM); Albumin 3.4 g/dL (3.5-5.0); Alkaline Phosphatase 55 U/L (38-126); Anion Gap 5 mmol/L; Blood Urea Nitrogen 16 mg/dL (7-17); C Reactive Protein 10.7 mg/L (<10.0); Calcium 8.8 mg/dL (8.4-10.2); Carbon Dioxide 34 mmol/L (22-30); Chloride 97 mmol/L (98-107); Glucose 96 mg/dL (74-99); Non-African American GFR(CKD) >90 (>60 ml/min/1.73 sqM); Potassium 3.9 mmol/L (3.5-5.1); Sodium 136 mmol/L (137-145); Total Protein 5.9 g/dL (6.3-8.2)
[2021-03-09] MEDS: INSULIN ASPART (NovoLOG) 100 UNIT/ML VIAL SQ SCH ×4 (06:34→20:55)
[2021-03-09] MEDS ORDERED: POTASSIUM CHLORIDE 20 MEQ in WATER FOR INJECTION 1 100ML.BAG IVPB STA (06:38)
[2021-03-09] MEDS: QUEtiapine 50 MG TAB PO SCH ×4 (06:54→20:11)
[2021-03-09] MEDS: LEVOTHYROXINE 100 MCG TAB PO SCH (06:54)
[2021-03-09 07:04] LABS: D-Dimer 3.26 mg/L FEU (<0.60)
[2021-03-09] MEDS: ALBUTEROL HFA INHALER INHALATION SCH ×5 (07:08→19:29)
--- NOTE | 2021-03-09 07:55 | XR ---
EXAMINATION TYPE: XR chest 1V DATE OF EXAM: 03/09/2021 COMPARISON: 03/08/2020 HISTORY: Shortness of breath TECHNIQUE: Single frontal view of the chest is obtained. FINDINGS: Next interstitial and alveolar infiltrate stable. Left-sided central line stable. No pneum othorax. Heart size mildly enlarged. Tiny effusions not excluded. IMPRESSION: Stable bilateral mixed interstitial and alveolar infiltrates.
[2021-03-09] MEDS: ASCORBIC ACID 500 MG TAB PO SCH ×2 (08:20→20:11)
[2021-03-09] MEDS: CHOLECALCIFEROL 25 MCG (1000 IU) TABLET PO SCH (08:20)
[2021-03-09] MEDS: FUROSEMIDE 40 MG TAB PO SCH ×2 (08:21→16:07)
[2021-03-09] MEDS: LOSARTAN 50 MG TAB PO SCH (08:21)
[2021-03-09] MEDS: dexAMETHasone 2 MG TAB PO SCH (08:21)
[2021-03-09] MEDS: amLODIPine 10 MG TAB PO SCH (08:21)
[2021-03-09] MEDS: atenoloL 25 MG TAB PO SCH (08:21)
[2021-03-09] MEDS: DULoxetine HCL 60 MG CAPSULE.DR PO SCH ×2 (08:21→20:11)
[2021-03-09] MEDS: ZINC SULFATE 220 MG CAP PO SCH (08:21)
[2021-03-09] MEDS: ENOXAPARIN 40 MG/0.4 ML SYRINGE SQ SCH (08:22)
[2021-03-09] MEDS: DICYCLOMINE 10 MG CAP PO SCH ×3 (08:22→20:11)
[2021-03-09] MEDS: ONDANSETRON 4 MG/2 ML VIAL IVP PRN (08:31)
--- NOTE | 2021-03-09 08:35 | P.PN ---
Subjective Progress Note Date: 03/09/21 Principal diagnosis: Currently is extubated, currently on 2 L of oxygen. More awake and interactive. Answers some questions but still not comprehensive . Objective - Vital Signs Vital signs: Vital Signs Temp 98.3 F 03/09/21 04:00 Pulse 64 03/09/21 07:00 Resp 14 03/09/21 07:00 BP 120/65 03/09/21 07:00 Pulse Ox 92 L 03/09/21 07:00 Intake & Output 03/08/21 03/09/21 03/09/21 18:59 06:59 18:59 Intake Total 1102.297 600.250 123 Output Total 2009 2400 175 Balance -907.703 -1799.750 -52 Weight 116.3 kg Intake: IV 276 276 23 Pressure Bag 36 36 3 Sodium Chloride 0.9% 1, 240 240 20 000 ml @ 20 mls/hr IV . Q24H [facility] Rx#:[id number] Intake, IV Titration 626.297 324.250 100 Amount Clevidipine Butyrate 25 93.300 63.200 mg In Empty Bag 1 bag @ 1 MG/HR 2 mls/hr IV .Q24H [facility] Rx#:[id number] Dexmedetomidine/0.9% NaCl 232.997 261.050 100 (Pmx) 400 mcg In Empty Bag 1 bag @ Titrate IV . Q0M [facility] Rx#:[id number] Potassium Chloride 10 meq 200 In Water For Injection 1 100ml.bag @ 100 mls/hr IVPB Q1H [facility] Rx#: [id number] Potassium Chloride 20 meq 100 In Water For Injection 1 100ml.bag @ 50 mls/hr IVPB ONCE [facility] Rx#: [id number] Oral 200 Output: Urine 2009 2400 175 Other: Voiding Method Indwelling Catheter Indwelling Catheter ABP, PAP, CO, CI - Last Documented Arterial Blood Pressure 140/68 - Exam GENERAL EXAM: Awake, partially oriented HEAD: Normocephalic. EYES: Normal reaction of pupils, equal size. NOSE: Clear NECK: No masses LUNGS: decreased bs , no wheezing CVS: S1 and S2 normal no murmur, regular rhythm. ABDOMEN: No hepatosplenomegaly, normal bowel sounds, no guarding or rigidity. SPINE: No scoliosis or deformity SKIN: No rashes CENTRAL NERVOUS SYSTEM: CN 2-12 intact EXTREMITIES: no peripheral edema. No clubbing, no cyanosis. - Labs CBC & Chem 7: 03/09/21 05:48 03/09/21 05:48 Labs: Abnormal Lab Results - Last 24 Hours (Table) 03/08/21 03/08/21 03/08/21 Range/Units 11:36 16:51 20:51 Plt Count (150-450) k/uL Lymphocytes # (1.0-4.8) k/uL D-Dimer (<0.60) mg/L FEU Sodium (137-145) mmol/L Chloride (98-107) mmol/L Carbon Dioxide (22-30) mmol/L POC Glucose (mg/dL) 129 H 124 H 106 H (75-99) mg/dL AST (14-36) U/L ALT (4-34) U/L C-Reactive Protein (<10.0) mg/L Total Protein (6.3-8.2) g/dL Albumin (3.5-5.0) g/dL 03/09/21 03/09/21 03/09/21 Range/Units 05:48 05:48 05:48 Plt Count 145 L (150-450) k/uL Lymphocytes # 0.9 L (1.0-4.8) k/uL D-Dimer 3.26 H (<0.60) mg/L FEU Sodium 136 L (137-145) mmol/L Chloride 97 L (98-107) mmol/L Carbon Dioxide 34 H (22-30) mmol/L POC Glucose (mg/dL) (75-99) mg/dL AST 71 H (14-36) U/L ALT 54 H (4-34) U/L C-Reactive Protein 10.7 H (<10.0) mg/L Total Protein 5.9 L (6.3-8.2) g/dL Albumin 3.4 L (3.5-5.0) g/dL Assessment and Plan Plan: 1 Acute hypoxic respiratory failure requiring intubation and mechanical ve ntilatory support on 03/02/2021 secondary to CoVID 19 pneumonia. Outside the window for Remdesivir. sp tocilizumab and convalescent plasma on 03/02/2021. Continue on dexamethasone, bronchodilators, vitamin C and zinc. extubated oxygen requirement decreased to 2 L. Continue with Lasix 2 Increased inflammatory markers secondary to above: Continue to treat underlying condition 3 Morbid obesity, body mass index of 53.8 4 Hypertension, essential: On atenolol, Norvasc and Vasotec added. 5 History of mild intermittent chronic bronchial asthma , maintained on Symbicort 6 History of ulcerative colitis, monitor 7 Hiatal hernia 8 Gastroesophageal reflux disease without esophagitis 9 Generalized anxiety disorder, maintained on Xanax on outpatient basis 10 hypothyroidism: Continue Synthroid 11. confusion with metabolic encephalopathy : multifactorial , started seroquel , increased to 100 mg monitor . Restraints as indicated Disposition: Gradually better , continue supportive care Transferred to medical floor once off drips
[2021-03-09 10:09] LABS: Ferritin 366.8 ng/mL (10.0-291.0)
[2021-03-09 10:09] LABS: Ferritin 353.4 ng/mL (10.0-291.0)
[2021-03-09] MEDS: HALOPERIDOL LACTATE 5 MG/ML 1 ML VIAL IVP PRN (10:38)
[2021-03-09] MEDS ORDERED: HALOPERIDOL LACTATE 5 MG/ML 1 ML VIAL IM PRN (10:55)
[2021-03-09 11:27] LABS: Glucose,Whole Blood 111 mg/dL (75-99)
[2021-03-09] MEDS ORDERED: HALOPERIDOL LACTATE 5 MG/ML 1 ML VIAL IVP PRN (13:27)
[2021-03-09 17:09] LABS: Glucose,Whole Blood 111 mg/dL (75-99)
[2021-03-09] MEDS: SYMBICORT 160-4.5 MCG INHALER INHALATION PRN (19:29)
[2021-03-09] MEDS: SODIUM CHLORIDE 0.9% 1,000 ML IV SCH (20:13)
[2021-03-09 20:21] LABS: Glucose,Whole Blood 90 mg/dL (75-99)
[2021-03-10] MEDS: LEVOTHYROXINE 100 MCG TAB PO SCH (06:15)
[2021-03-10] MEDS: INSULIN ASPART (NovoLOG) 100 UNIT/ML VIAL SQ SCH ×4 (06:18→21:08)
[2021-03-10 06:20] LABS: Glucose,Whole Blood 66 mg/dL (75-99)
[2021-03-10 06:36] LABS: Glucose,Whole Blood 82 mg/dL (75-99)
--- NOTE | 2021-03-10 08:32 | P.PN ---
Subjective Progress Note Date: 03/10/21 Principal diagnosis: On 2 L of oxygen. Awake but not a good historian. Answers some questions. Objective - Vital Signs Vital signs: Vital Signs Temp 98.3 F 03/10/21 07:57 Pulse 93 03/10/21 07:57 Resp 18 03/10/21 07:57 BP 113/57 03/10/21 07:57 Pulse Ox 96 03/10/21 07:57 Intake & Output 03/09/21 03/10/21 03/10/21 18:59 06:59 18:59 Intake Total 601.847 Output Total 795 2400 Balance -193.153 -2400 Weight 116.3 kg 135 kg Intake: IV 227 Pressure Bag 27 Sodium Chloride 0.9% 1, 200 000 ml @ 20 mls/hr IV . Q24H [facility] Rx#:[id number] Intake, IV Titration 174.847 Amount Clevidipine Butyrate 25 49.6 mg In Empty Bag 1 bag @ 1 MG/HR 2 mls/hr IV .Q24H [facility] Rx#:[id number] Dexmedetomidine/0.9% NaCl 125.247 (Pmx) 400 mcg In Empty Bag 1 bag @ Titrate IV . Q0M [facility] Rx#:[id number] Oral 200 Output: Urine 795 2400 Straight 1200 Other: Voiding Method Indwelling Catheter Incontinent Incontinent External Catheter External Catheter # Voids 0 ABP, PAP, CO, CI - Last Documented Arterial Blood Pressure 143/78 - Exam GENERAL EXAM: Awake, partially oriented HEAD: Normocephalic. EYES: Normal reaction of pupils, equal size. NOSE: Clear NECK: No masses LUNGS: decreased bs , no wheezing CVS: S1 and S2 normal no murmur, regular rhythm. ABDOMEN: No hepatosplenomegaly, normal bowel sounds SKIN: No rashes CENTRAL NERVOUS SYSTEM: CN 2-12 intact EXTREMITIES: no peripheral edema. No clubbing, no cyanosis. - Labs CBC & Chem 7: 03/09/21 05:48 03/09/21 05:48 Labs: Abnormal Lab Results - Last 24 Hours (Table) 03/08/21 03/09/21 03/09/21 Range/Units 06:02 05:48 11:26 POC Glucose (mg/dL) 111 H (75-99) mg/dL Ferritin 353.4 H 366.8 H (10.0-291.0) ng/mL 03/09/21 03/10/21 Range/Units 17:01 06:18 POC Glucose (mg/dL) 111 H 66 L (75-99) mg/dL Ferritin (10.0-291.0) ng/mL Assessment and Plan Plan: 1 Acute hypoxic respiratory failure requiring intubation and mechanical ventilatory support on 03/02/2021 secondary to CoVID 19 pneumonia. Outside the window for Remdesivir. sp tocilizumab and convalescent plasma on 03/02/2021. Continue on dexamethasone, bronchodilators, vitamin C and zinc. extubated oxygen requirement decreased to 2 L. Continue with Lasix 2 Increased inflammatory markers secondary to above: Continue to treat underlying condition 3 Morbid obesity, body mass index of 53.8 4 Hypertension, essential: On atenolol, Norvasc and Vasotec added. 5 History of mild intermittent chronic bronchial asthma , maintained on Symbicort, monitor 6 History of ulcerative colitis, monitor 7 Hiatal hernia 8 Gastroesophageal reflux disease without esophagitis 9 Generalized anxiety disorder, maintained on Xanax on outpatient basis 10 hypothyroidism: Continue Synthroid 11. confusion with metabolic encephalopathy : multifactorial , continue seroquel , increased to 100 mg monitor and Haldol , consider psychiatry evaluation. Disposition: Gradually better , continue supportive care
[2021-03-10] MEDS: ENOXAPARIN 40 MG/0.4 ML SYRINGE SQ SCH (09:56)
[2021-03-10] MEDS: ALBUTEROL HFA INHALER INHALATION SCH ×4 (09:56→20:29)
[2021-03-10] MEDS: CHOLECALCIFEROL 25 MCG (1000 IU) TABLET PO SCH (09:56)
[2021-03-10] MEDS: ZINC SULFATE 220 MG CAP PO SCH (09:56)
[2021-03-10] MEDS: dexAMETHasone 2 MG TAB PO SCH (09:56)
[2021-03-10] MEDS: QUEtiapine 50 MG TAB PO SCH ×2 (09:56→20:25)
[2021-03-10] MEDS: FUROSEMIDE 40 MG TAB PO SCH ×2 (09:57→15:45)
[2021-03-10] MEDS: ASCORBIC ACID 500 MG TAB PO SCH ×2 (09:57→20:25)
[2021-03-10] MEDS: atenoloL 25 MG TAB PO SCH (09:57)
[2021-03-10] MEDS: amLODIPine 10 MG TAB PO SCH (09:57)
[2021-03-10] MEDS: DULoxetine HCL 60 MG CAPSULE.DR PO SCH ×2 (09:57→20:25)
[2021-03-10] MEDS: LOSARTAN 50 MG TAB PO SCH (09:57)
[2021-03-10] MEDS: DICYCLOMINE 10 MG CAP PO SCH ×3 (09:57→20:25)
--- NOTE | 2021-03-10 11:20 | P.PN ---
Subjective Progress Note Date: 03/10/21 55-year-old white female patient with past medical history of hypertension, morbid obesity with BMI of 54.1 kg/m, ulcerative colitis, possible sleep apnea, chronic bronchial asthma, unspecified patient is on Symbicort on a regular basis, GERD/reflux, hiatal hernia, osteoarthritis, hypothyroidism, and fibromyalgia. Come into the emergency department on 02/27/2021 with symptoms of headache, fever, worsening shortness of breath. Her symptom onset was about a week ago and patient had a positive outpatient Covid 19 test. She is not normally on any oxygen, she reports fevers, body aches, headaches, she reports some diarrhea, but no nausea or vomiting, she is requiring supplement oxygen, 4 L. Pulse ox is 92-93%, she is still having a low-grade fevers this morning, with a temp of 100F, she was started on IV steroids, he was given some IV hydration, prophylactic anticoagulation. She states she is feeling better, her headache is better, she seems to be breathing comfortably, although still r equiring 4 L of supplemental oxygen, lung sounds are diminished, with some diffuse crackles at bilateral bases, her lab work revealed squamous cell, 3.9, hemoglobin is 12.5, platelet count was 108, leukocyte, 0.4, d-dimer 0.9, sodium is 137, potassium is 3.5, B1 is 12 creatinine 0.84, LDH is 1355, CRP is 55.9. Patient was reevaluated today on 03/01/2021, she seems to be quite comfortable, resting in bed, she is however on 15 L high flow nasal cannula, O2 saturation is 90%. Again clinically she looks great and does not seem to be in any form of distress. She is afebrile and her vital signs are stable. CBC today is relatively normal. Her d-dimer is 0.29 normal. Her electrolytes are normal, LDH today is 487. It is significantly improved and her C-reactive protein is down to 5.8. Patient feels generally weak and tired, she also feels achy, but on physical examination she looks great. Patient was reevaluated today on 03/02/2021, patient seems to be getting worse since yesterday. Patient is now requiring placement on BiPAP, she is on IPAP of 14 and EPAP of 600% FiO2, and she is barely maintaining an O2 saturation of 83%. I saw the patient and I ordered a follow-up chest x-ray this morning, chest x- ray is showing significant worsening of her bilateral infiltrates. Not to menti on the patient has a very large hiatal hernia. Patient was tried on prone positions, and did not seem to help, she was placed on left lateral decubitus position that seems to be the best for her oxygenation on this patient. Considering the worsening of her chest x-ray, and considering the patient is requiring relatively high FiO2 with BiPAP, I will arrange for the patient to be transferred to the ICU immediately. In the meantime I will arrange for the patient to start on actemra, and would also add convalescent plasma. Her inflammatory markers were noted to come down yesterday, LDH came down to 487 from 1355 The patient is seen today 03/03/2021 in follow-up in the intensive care unit. S he did require urgent transfer to the ICU and intubation yesterday. She is currently sedated on the mechanical ventilator at assist control mode at a rate of 24, tidal volume 400, FiO2 100%, PEEP of 15. Morning blood gases reveal a pO2 127, pCO2 49, pH 7.38. She is sedated on propofol 50 mcg/kg/m. 0.9 normal saline at 100 ML's per hour. Chest x-ray reveals patchy bilateral infiltrates right greater than left. She did receive 1 unit of convalescent plasma. Also received tocilizumab. White count 5.9. Hemoglobin 11.4. D-dimer 1.72. Sodium 142. Potassium 3.6. Creatinine 0.59. LDH 1403. C-reactive protein 65.6. Glucose 147. She is continued on Decadron, Symbicort, albuterol, vitamin supplements. Lovenox for DVT prophylaxis. The patient is seen today 03/04/2021 follow-up in the intensive care unit. She remains intubated, sedated and on the mechanical ventilator. Current mode assist control with a rate of 24, tidal volume 400, FiO2 50% and a PEEP of 15. Arterial blood gases reveal a P O2 of 76, pCO2 46, pH 7.40. She is sedated on propofol at 40 mcg/kg/m. 0.9 normal saline at 100 ML's per hour. She is being nourished with vital HP at 37 mL per hour which is goal. Chest x-ray continues to show bilateral patchy infiltrates. She did receive 1 unit of convalescent plasma. White count 4.8. Hemoglobin 11.0. Lymphocytes 0.4. Sodium 143. Potassium 3.6. Creatinine 0.48. AST 48, ALT 21. She remains on Symbicort, albuterol, dexamethasone. Lovenox. Vitamin supplements. On today's evaluation of 03/05/2021, seeing the patient for a follow-up in the intensive care unit. The patient was hospitalized for community related pneumonia and the patient was also intubated and placed on a mechanical ventilator on 03/02/2021. The patient sedated with propofol. The patient is on a mechanical ventilator assist control mode with a tidal volume 400, FiO2 of 50%, PEEP of 15 and a rate of 24. Propofol is running at 50 mcg/kg per minute and the patient is also on IV fluids with normal saline at the rate of 50 mL an hour. The ABGs from today showing a pH of 7.48 with a pCO2 of 38 and pO2 of 134. The peak and static pressures are 37/32 Patient receiving enteral feeding for nutritional support. The patient was given convalescent plasma. The patient is on Decadron. Patient anticoagulation with Lovenox. The chest x-ray showing diffuse bilateral pulmonary infiltrates. ET tube is in a good location. The patient's left subclavian catheter in place. The patient is also requiring on and off norepinephrine infusion for blood pressure control. The LDH level from 03/03/2021 was 1063 with a CRP of 27. The fluid balance is positive in the order of 2.4 L 4 03/03/2021 and 2.4 L on 03/04/2021. As such, the patient is in a positive fluid balance. 03/06/2021 the patient remains intubated on a mechanical ventilator. This is a case of COVID related pneumonia with respiratory failure and the patient has been on mechanical ventilator since 03/02/2021. She currently sedated with propofol. Propofol is running at 30 mcg/kg per minute and the patient is on a mechanical ventilator on assist control mode with a tidal volume of 400 and a PEEP of 8 with an FiO2 of 50% and rate of 24. The peak airway pressure in the setting of her pressure is 28 and 26 respectively. Chest x-ray findings are stable with lower lobe pulmonary infiltrates. Lung volumes are small and the patient is morbidly obese and the patient has a BMI of 56. ET tube is sitting high in the trachea. NG tube is in a good location. The patient is returning her volumes back. Otherwise, the patient is currently being treated with Decadron 6 mg IV daily, Lovenox 40 mg by subcu daily, the patient is also on Lasix 40 mg every 12 hours and this was started yesterday. The neck fluid balance is -3 L over the past 24 hours. The labs from today shows a pH of 7.49 with a pCO2 of 44 and pO2 of 101. The rest of the blood work is all within normal limits. She continues to have some degree of lymphopenia. No other significant events. The patient is on no pressors for now. The patient is receiving enteral feeding for nutritional support and she is currently on vital high protein at that a goal of 37 mL. She is tolerating her tube feeds fine. On 03/07/2021, the patient remains intubated on a mechanical ventilator. The patient is sedated with propofol which is running at 25 mcg/kg per minute. She is also on mechanical ventilator on assist control mode with a tidal volume of 400, PEEP of 5, FiO2 of 50% and a rate of 24. The peak airway pressures around 28. The static pressure is 24. The blood gases from today shows a pH of 7.7 with a pCO2 of 40 and pO2 of 86. The chest x-ray from today showing stable lower lobe pulmonary infiltrates. ET tube remains in a good location. The patient may have an underlying hiatal hernia. NG tube is also in good location. Note that the patient was given a sedation holiday yesterday and following that she was given a spontaneous breathing trial. During the process, the patient became restless, tachypneic and agitated. She was not felt to be ready for extubation and following she was not following directions or commands and for that reason, the procedure was aborted. The same will be done today with the possibility of switching her sedation to Precedex if needed. The patient was started on Precedex which is currently running at 0.7 mcg/kg/h. For now, we're going to try to wean off the propofol and assess the patient's mental status and weaning parameters. She is on enteral feeding for nutritional support and currently she is on vital high protein at 37 mL an hour. Her net fluid balance -3 L over the past 24 hours and the patient is receiving Lasix on a daily basis. She is also on Decadron 6 mg IV 24 hours and Lovenox 40 mg subcu every 24 hours 03/08/2021, the patient is currently extubated. As planned, the patient was given sedation holiday, she demonstrated adequate weaning parameters. She was given this point is breathing trial and following that she was extubated and currently she is on oxygen at 4 L per minute nasal cannula. She is resting comfortably in bed. Note that postextubation, the patient became a bit use and restless and agitated. I had to continue sedation and the patient is currently still on Precedex which is running at 0.5 mcg/kg per minute. She also required Haldol. She received 2 mg IV overnight and later on another milligram was given which very much controlled her agitation and she is resting comfortably in bed. The chest x-ray is unchanged. There is diffuse bilateral pulmonary pulses consistent with COVID-19 related pneumonia. Rest of the labs are still pending from this morning. Meanwhile, the patient is doing well pH is hemodynamically stable. She is producing adequate amount of urine output. She remains on Decadron 6 mg IV every 24 hours and she is also on Lovenox 40 mg subcu every 24 hours. She is profoundly weak and she will need aggressive physical therapy. In terms of swallow, she did a bedside evaluation and she swallows fine. Or 2020, the patient remains extubated. She is on 2 L of oxygen. Nevertheless, her chest x-ray has not shown any major interval improvement and shows bilateral pulmonary infiltrates worse on the right. Her overall pulmonary status is stable. She is not having any difficulties in breathing. She is delirious. She is trying to hold on stuff and reaches soft and becomes restless throughout the day. At times she is appropriate, other times she is more confused. She is strong Cleviprex informally grams an hour for blood pressure control. She is also on Precedex to control her agitation. Precedex is running at 0.7 mcg/kg per minute. During my morning evaluation, I found this patient quite comfortable. She is well rested. However she is quite drowsy and sleepy. She was arousable. She was communicating. No nausea. No emesis. She was able to tolerate oral intake. No reported aspiration. His swallow mechanism is adequate. Otherwise, neurologic exam is nonfocal and the patient is moving all 4 extremities without any limitation. She has weakness and this is global generalized weakness. She is afebrile. She remains on Decadron. She remains on Lovenox for DVT prophylaxis. 03/10/2021, the patient remains extubated on 2 L. She is still confused. No agitation. She is on Seroquel 100 mg by mouth twice a day. She remains on Decadron 6 mg on a daily basis. She is tolerating diet. Nothing new nothing ever told is a left of this she is taking and drinking and sure along with some soft diet. She has a good cough. No nausea. No vomiting. No emesis. She remains extubated for the past 48 hours. She remains on Lovenox for DVT prophylaxis and she is completing her course of Decadron. She is also on Lasix and she has been in a negative fluid balance. No other significant events overnight and her night was essentially uneventful. Objective - Vital Signs Vital signs: Vital Signs Temp 98.3 F 03/10/21 07:57 Pulse 93 03/10/21 07:57 Resp 18 03/10/21 07:57 BP 113/57 03/10/21 07:57 Pulse Ox 96 03/10/21 07:57 Intake & Output 03/09/21 03/10/21 03/10/21 18:59 06:59 18:59 Intake Total 601.847 Output Total 795 2400 Balance -193.153 -2400 Weight 116.3 kg 135 kg Intake: IV 227 Pressure Bag 27 Sodium Chloride 0.9% 1, 200 000 ml @ 20 mls/hr IV . Q24H VIANEY Rx#:[id number] Intake, IV Titration 174.847 Amount Clevidipine Butyrate 25 49.6 mg In Empty Bag 1 bag @ 1 MG/HR 2 mls/hr IV .Q24H VIANEY Rx#:[id number] Dexmedetomidine/0.9% NaCl 125.247 (Pmx) 400 mcg In Empty Bag 1 bag @ Titrate IV . Q0M VIANEY Rx#:[id number] Oral 200 Output: Urine 795 2400 Straight 1200 Other: Voiding Method Indwelling Catheter Incontinent Incontinent External Catheter External Catheter # Voids 0 ABP, PAP, CO, CI - Last Documented Arterial Blood Pressure 143/78 - Exam GENERAL EXAM: Extubated on 2 L of oxygen by nasal cannula. Calm and comfortable. No signs of any respiratory distress. The patient is calm and comfortable moving all 4 extremities without any limitation. HEAD: Normocephalic. EYES: Normal reaction of pupils, equal size. NOSE: Clear with pink turbinates. THROAT: Oral endotracheal and gastric tube secured in place. No erythema or exudates. NECK: No masses, no JVD. CHEST: No chest wall deformity. LUNGS: Equal air entry with crackles in the bilateral posterior bases CVS: S1 and S2 normal with no audible murmur, regular rhythm. ABDOMEN: No hepatosplenomegaly, normal bowel sounds, no guarding or rigidity. SPINE: No scoliosis or deformity SKIN: No rashes CENTRAL NERVOUS SYSTEM: Somnolent, rested, no agitation Neurologic exam is nonfocal and she is moving all 4 extremities without any limitation. - Labs CBC & Chem 7: 03/09/21 05:48 03/09/21 05:48 Labs: Abnormal Lab Results - Last 24 Hours (Table) 03/09/21 03/09/21 03/10/21 Range/Units 11:26 17:01 06:18 POC Glucose (mg/dL) 111 H 111 H 66 L (75-99) mg/dL Assessment and Plan Plan: 1 Acute hypoxic respiratory failure requiring intubation and mechanical ventilatory support on 03/02/2021 secondary to CoVID 19 pneumonia. Outside the window for Remdesivir. Did receive tocilizumab and convalescent plasma on 03/02/2021. The patient was extubated on 03/07/2021 the patient is currently on 2 L about 2 by nasal cannula and the chest x-ray findings are essentially stable. No signs of any respiratory distress. 2 Increased inflammatory markers secondary to above, awaiting further labs from today 3 Morbid obesity, body mass index of 54 4 Hypertension, labile 5 History of mild intermittent chronic bronchial asthma , maintained on Symbicort 6 History of ulcerative colitis 7 Hiatal hernia 8 Gastroesophageal reflux disease 9 Generalized anxiety disorder, maintained on Xanax on outpatient basis 10 hypothyroidism on thyroid hormone replacement 11 delirium Plan: Continue Seroquel to 100 mg twice a day and wean off the Precedex and discontinue Cozaar 100 mg by mouth daily Norvasc 10 mg by mouth daily Continue oral Lasix 40 mg by mouth twice a day Advance diet Cymbalta and Synthroid Continue Decadron Continue Lovenox PT Incentive spirometer.
[2021-03-10 11:23] LABS: Glucose,Whole Blood 99 mg/dL (75-99)
[2021-03-10 12:38] LABS: Basophils % (A) 0 %; Eosinophils # (A) 0.1 k/uL (0-0.7); Eosinophils % (A) 1 %; HCT 36.2 % (34.0-46.0); HGB 11.9 gm/dL (11.4-16.0); Lymphocytes # (A) 1.1 k/uL (1.0-4.8); Lymphocytes % (A) 12 %; MCH 28.7 pg (25.0-35.0); MCV 87.1 fL (80.0-100.0); Mean Platelet Volume 9.3; Monocytes # (A) 0.7 k/uL (0-1.0); Monocytes % (A) 8 %; Neutrophils # (A) 6.9 k/uL (1.3-7.7); Neutrophils % (A) 77 %; Platelet Count 147 k/uL (150-450); RBC 4.16 m/uL (3.80-5.40); RDW 13.5 % (11.5-15.5)
[2021-03-10 12:43] LABS: ALT 91 U/L (4-34); AST 97 U/L (14-36); African American GFR (CKD) >90 (>60 ml/min/1.73 sqM); Albumin 3.4 g/dL (3.5-5.0); Alkaline Phosphatase 59 U/L (38-126); Anion Gap 5 mmol/L; Blood Urea Nitrogen 22 mg/dL (7-17); Calcium 8.7 mg/dL (8.4-10.2); Carbon Dioxide 35 mmol/L (22-30); Chloride 98 mmol/L (98-107); Glucose 102 mg/dL (74-99); LDH 1245 U/L (313-618); Non-African American GFR(CKD) >90 (>60 ml/min/1.73 sqM); Potassium 3.5 mmol/L (3.5-5.1); Sodium 138 mmol/L (137-145); Total Bilirubin 1.7 mg/dL (0.2-1.3); Total Protein 5.8 g/dL (6.3-8.2)
[2021-03-10 13:09] LABS: C Reactive Protein 0.8 mg/dL (<1.0)
[2021-03-10] MEDS: ACETAMINOPHEN TAB 325 MG TAB PO PRN (15:45)
--- NOTE | 2021-03-10 16:35 | CT ---
EXAMINATION TYPE: CT brain wo con DATE OF EXAM: 03/10/2021 COMPARISON: None HISTORY: Altered mental status CT DLP: mGycm Automated exposure control for dose reduction was used. There is mild cerebral atrophy. There is no mass effect nor midline shift. There is no sign of intrac ranial hemorrhage. Calvarium is intact. There is mucosal thickening in the sphenoid sinus. Skull base is intact. There is normal aeration of the mastoid sinuses. IMPRESSION: No acute intracranial abnormality. Sphenoid sinusitis.
[2021-03-10 16:45] LABS: Glucose,Whole Blood 114 mg/dL (75-99)
[2021-03-10] MEDS: SODIUM CHLORIDE 0.9% 1,000 ML IV SCH (20:25)
[2021-03-10 20:52] LABS: Glucose,Whole Blood 101 mg/dL (75-99)
[2021-03-10 22:38] LABS: LD Isoenzymes 1 19 % (19-38); LD Isoenzymes 2 40 % (30-43); LD Isoenzymes 3 24 % (16-26); LD Isoenzymes 4 9 % (3-12); LD Isoenzymes 5 8 % (3-14); Lactacte Dehydrogenase(LD) ISO 415 U/L (120-250)
[2021-03-11] MEDS: LEVOTHYROXINE 100 MCG TAB PO SCH (05:30)
[2021-03-11 06:23] LABS: Glucose,Whole Blood 85 mg/dL (75-99)
[2021-03-11] MEDS: INSULIN ASPART (NovoLOG) 100 UNIT/ML VIAL SQ SCH ×4 (06:25→21:32)
--- NOTE | 2021-03-11 07:11 | XR ---
EXAMINATION TYPE: XR chest 1V portable DATE OF EXAM: 03/11/2021 CLINICAL HISTORY: Difficulty breathing progress study. TECHNIQUE: Single AP portable upright view of the chest is obtained. COMPARISON: Chest x-ray from 2 days earlier and older studies FINDINGS: Interval removal of left-sided subclavian central venous catheter. Persistent low lung vol umes and cardiomegaly with central and bibasilar opacities. No pleural effusion or pneumothorax seen bilaterally. Visualized osseous structures are intact. Retrocardiac opacity consistent with moderate to large size hiatal hernia is redemonstrated confirmed on [address] IMPRESSION: Diminished inspiration on current study. Persistent cardiomegaly with central and lower l cristobal edema and/or infiltrates redemonstrated.
[2021-03-11] MEDS: CHOLECALCIFEROL 25 MCG (1000 IU) TABLET PO SCH (07:53)
[2021-03-11] MEDS: ASCORBIC ACID 500 MG TAB PO SCH ×2 (07:53→20:38)
[2021-03-11] MEDS: ENOXAPARIN 40 MG/0.4 ML SYRINGE SQ SCH (07:53)
[2021-03-11] MEDS: amLODIPine 10 MG TAB PO SCH (07:53)
[2021-03-11] MEDS: dexAMETHasone 2 MG TAB PO SCH (07:53)
[2021-03-11] MEDS: DULoxetine HCL 60 MG CAPSULE.DR PO SCH ×2 (07:53→20:38)
[2021-03-11] MEDS: ZINC SULFATE 220 MG CAP PO SCH (07:53)
[2021-03-11] MEDS: LOSARTAN 50 MG TAB PO SCH (07:53)
[2021-03-11] MEDS: DICYCLOMINE 10 MG CAP PO SCH ×3 (07:53→20:37)
[2021-03-11] MEDS: atenoloL 25 MG TAB PO SCH (07:54)
[2021-03-11] MEDS: FUROSEMIDE 40 MG TAB PO SCH ×2 (07:54→15:43)
[2021-03-11] MEDS: QUEtiapine 50 MG TAB PO SCH ×2 (07:54→20:38)
[2021-03-11] MEDS: ALBUTEROL HFA INHALER INHALATION SCH ×4 (07:54→20:30)
--- NOTE | 2021-03-11 08:40 | P.PN ---
Subjective Progress Note Date: 03/11/21 Principal diagnosis: On 2 L of oxygen. Awake much more alert, answers questions appropriately. No chest pain, no abdominal pain, no nausea or vomiting Objective - Vital Signs Vital signs: Vital Signs Temp 97.9 F 03/11/21 04:00 Pulse 97 03/11/21 04:00 Resp 18 03/11/21 04:00 BP 110/61 03/11/21 04:00 Pulse Ox 94 L 03/11/21 04:00 Intake & Output 03/10/21 03/11/21 03/11/21 18:59 06:59 18:59 Intake Total 240 Output Total 900 2400 Balance -660 -2400 Weight 131 kg Intake: Oral 240 Output: Urine 900 2400 Straight 450 1200 ABP, PAP, CO, CI - Last Documented Arterial Blood Pressure 143/78 - Exam GENERAL EXAM: Awake, partially oriented HEAD: Normocephalic. EYES: Normal reaction of pupils, equal size. NOSE: Clear NECK: No masses LUNGS: decreased bs , no wheezing CVS: S1 and S2 normal no murmur, regular rhythm. ABDOMEN: Soft nontender nondistended positive bowel sounds CENTRAL NERVOUS SYSTEM: CN 2-12 intact EXTREMITIES: no peripheral edema. No clubbing, no cyanosis. - Labs CBC & Chem 7: 03/10/21 11:02 03/10/21 11:19 Labs: Abnormal Lab Results - Last 24 Hours (Table) 03/08/21 03/10/21 03/10/21 Range/Units 06:02 11:02 11:19 Plt Count 147 L (150-450) k/uL D-Dimer (<0.60) mg/L FEU Carbon Dioxide 35 H (22-30) mmol/L BUN 22 H (7-17) mg/dL Glucose 102 H (74-99) mg/dL POC Glucose (mg/dL) (75-99) mg/dL Total Bilirubin 1.7 H (0.2-1.3) mg/dL AST 97 H (14-36) U/L ALT 91 H (4-34) U/L Lactate Dehydrogenase 1245 H (313-618) U/L LD Isoenzymes 415 H (120-250) U/L Total Protein 5.8 L (6.3-8.2) g/dL Albumin 3.4 L (3.5-5.0) g/dL 03/10/21 03/10/21 03/10/21 Range/Units 11:41 16:43 20:51 Plt Count (150-450) k/uL D-Dimer 2.57 H (<0.60) mg/L FEU Carbon Dioxide (22-30) mmol/L BUN (7-17) mg/dL Glucose (74-99) mg/dL POC Glucose (mg/dL) 114 H 101 H (75-99) mg/dL Total Bilirubin (0.2-1.3) mg/dL AST (14-36) U/L ALT (4-34) U/L Lactate Dehydrogenase (313-618) U/L LD Isoenzymes (120-250) U/L Total Protein (6.3-8.2) g/dL Albumin (3.5-5.0) g/dL Assessment and Plan Plan: 1 Acute hypoxic respiratory failure requiring intubation and mechanical ventilatory support on 03/02/2021 secondary to CoVID 19 pneumonia. Outside the window for Remdesivir. sp tocilizumab and convalescent plasma on 03/02/2021. Continue on dexamethasone, bronchodilators, vitamin C and zinc. extubated oxygen requirement decreased to 2 L. Continue with Lasix, clinically better. 2 Increased inflammatory markers secondary to above: Continue to treat underlying condition 3 Morbid obesity, body mass index of 53.8 4 Hypertension, essential: On atenolol, Norvasc and Vasotec added. 5 History of mild intermittent chronic bronchial asthma , maintained on Symbicort, monitor 6 History of ulcerative colitis, monitor 7 Hiatal hernia 8 Gastroesophageal reflux disease without esophagitis 9 Generalized anxiety disorder, maintained on Xanax on outpatient basis 10 hypothyroidism: Continue Synthroid 11. confusion with metabolic encephalopathy : multifactorial , continue seroquel , increased to 100 mg monitor and Haldol , clinically better , monitor 12. Weakness: Consult PT/OT Disposition: Gradually improving, continue supportive care
[2021-03-11 09:29] LABS: HCT 35.1 % (34.0-46.0); HGB 11.8 gm/dL (11.4-16.0); MCH 29.5 pg (25.0-35.0); MCHC 33.7 g/dL (31.0-37.0); MCV 87.5 fL (80.0-100.0); Platelet Count 148 k/uL (150-450); RBC 4.01 m/uL (3.80-5.40); RDW 13.6 % (11.5-15.5); WBC 9.7 k/uL (3.8-10.6)
[2021-03-11 09:45] LABS: Albumin 3.5 g/dL (3.5-5.0); C Reactive Protein 0.6 mg/dL (<1.0); Calcium 9.1 mg/dL (8.4-10.2); Potassium 3.6 mmol/L (3.5-5.1); Total Bilirubin 1.4 mg/dL (0.2-1.3); Total Protein 5.8 g/dL (6.3-8.2)
[2021-03-11 09:55] LABS: Glucose,Whole Blood 101 mg/dL (75-99)
--- NOTE | 2021-03-11 10:54 | P.PN ---
Subjective Progress Note Date: 03/11/21 55-year-old white female patient with past medical history of hypertension, morbid obesity with BMI of 54.1 kg/m, ulcerative colitis, possible sleep apnea, chronic bronchial asthma, unspecified patient is on Symbicort on a regular basis, GERD/reflux, hiatal hernia, osteoarthritis, hypothyroidism, and fibromyalgia. Come into the emergency department on 02/27/2021 with symptoms of headache, fever, worsening shortness of breath. Her symptom onset was about a week ago and patient had a positive outpatient Covid 19 test. She is not normally on any oxygen, she reports fevers, body aches, headaches, she reports some diarrhea, but no nausea or vomiting, she is requiring supplement oxygen, 4 L. Pulse ox is 92-93%, she is still having a low-grade fevers this morning, with a temp of 100F, she was started on IV steroids, he was given some IV hydration, prophylactic anticoagulation. She states she is feeling better, her headache is better, she seems to be breathing comfortably, although still r equiring 4 L of supplemental oxygen, lung sounds are diminished, with some diffuse crackles at bilateral bases, her lab work revealed squamous cell, 3.9, hemoglobin is 12.5, platelet count was 108, leukocyte, 0.4, d-dimer 0.9, sodium is 137, potassium is 3.5, B1 is 12 creatinine 0.84, LDH is 1355, CRP is 55.9. Patient was reevaluated today on 03/01/2021, she seems to be quite comfortable, resting in bed, she is however on 15 L high flow nasal cannula, O2 saturation is 90%. Again clinically she looks great and does not seem to be in any form of distress. She is afebrile and her vital signs are stable. CBC today is relatively normal. Her d-dimer is 0.29 normal. Her electrolytes are normal, LDH today is 487. It is significantly improved and her C-reactive protein is down to 5.8. Patient feels generally weak and tired, she also feels achy, but on physical examination she looks great. Patient was reevaluated today on 03/02/2021, patient seems to be getting worse since yesterday. Patient is now requiring placement on BiPAP, she is on IPAP of 14 and EPAP of 600% FiO2, and she is barely maintaining an O2 saturation of 83%. I saw the patient and I ordered a follow-up chest x-ray this morning, chest x- ray is showing significant worsening of her bilateral infiltrates. Not to menti on the patient has a very large hiatal hernia. Patient was tried on prone positions, and did not seem to help, she was placed on left lateral decubitus position that seems to be the best for her oxygenation on this patient. Considering the worsening of her chest x-ray, and considering the patient is requiring relatively high FiO2 with BiPAP, I will arrange for the patient to be transferred to the ICU immediately. In the meantime I will arrange for the patient to start on actemra, and would also add convalescent plasma. Her inflammatory markers were noted to come down yesterday, LDH came down to 487 from 1355 The patient is seen today 03/03/2021 in follow-up in the intensive care unit. S he did require urgent transfer to the ICU and intubation yesterday. She is currently sedated on the mechanical ventilator at assist control mode at a rate of 24, tidal volume 400, FiO2 100%, PEEP of 15. Morning blood gases reveal a pO2 127, pCO2 49, pH 7.38. She is sedated on propofol 50 mcg/kg/m. 0.9 normal saline at 100 ML's per hour. Chest x-ray reveals patchy bilateral infiltrates right greater than left. She did receive 1 unit of convalescent plasma. Also received tocilizumab. White count 5.9. Hemoglobin 11.4. D-dimer 1.72. Sodium 142. Potassium 3.6. Creatinine 0.59. LDH 1403. C-reactive protein 65.6. Glucose 147. She is continued on Decadron, Symbicort, albuterol, vitamin supplements. Lovenox for DVT prophylaxis. The patient is seen today 03/04/2021 follow-up in the intensive care unit. She remains intubated, sedated and on the mechanical ventilator. Current mode assist control with a rate of 24, tidal volume 400, FiO2 50% and a PEEP of 15. Arterial blood gases reveal a P O2 of 76, pCO2 46, pH 7.40. She is sedated on propofol at 40 mcg/kg/m. 0.9 normal saline at 100 ML's per hour. She is being nourished with vital HP at 37 mL per hour which is goal. Chest x-ray continues to show bilateral patchy infiltrates. She did receive 1 unit of convalescent plasma. White count 4.8. Hemoglobin 11.0. Lymphocytes 0.4. Sodium 143. Potassium 3.6. Creatinine 0.48. AST 48, ALT 21. She remains on Symbicort, albuterol, dexamethasone. Lovenox. Vitamin supplements. On today's evaluation of 03/05/2021, seeing the patient for a follow-up in the intensive care unit. The patient was hospitalized for community related pneumonia and the patient was also intubated and placed on a mechanical ventilator on 03/02/2021. The patient sedated with propofol. The patient is on a mechanical ventilator assist control mode with a tidal volume 400, FiO2 of 50%, PEEP of 15 and a rate of 24. Propofol is running at 50 mcg/kg per minute and the patient is also on IV fluids with normal saline at the rate of 50 mL an hour. The ABGs from today showing a pH of 7.48 with a pCO2 of 38 and pO2 of 134. The peak and static pressures are 37/32 Patient receiving enteral feeding for nutritional support. The patient was given convalescent plasma. The patient is on Decadron. Patient anticoagulation with Lovenox. The chest x-ray showing diffuse bilateral pulmonary infiltrates. ET tube is in a good location. The patient's left subclavian catheter in place. The patient is also requiring on and off norepinephrine infusion for blood pressure control. The LDH level from 03/03/2021 was 1063 with a CRP of 27. The fluid balance is positive in the order of 2.4 L 4 03/03/2021 and 2.4 L on 03/04/2021. As such, the patient is in a positive fluid balance. 03/06/2021 the patient remains intubated on a mechanical ventilator. This is a case of COVID related pneumonia with respiratory failure and the patient has been on mechanical ventilator since 03/02/2021. She currently sedated with propofol. Propofol is running at 30 mcg/kg per minute and the patient is on a mechanical ventilator on assist control mode with a tidal volume of 400 and a PEEP of 8 with an FiO2 of 50% and rate of 24. The peak airway pressure in the setting of her pressure is 28 and 26 respectively. Chest x-ray findings are stable with lower lobe pulmonary infiltrates. Lung volumes are small and the patient is morbidly obese and the patient has a BMI of 56. ET tube is sitting high in the trachea. NG tube is in a good location. The patient is returning her volumes back. Otherwise, the patient is currently being treated with Decadron 6 mg IV daily, Lovenox 40 mg by subcu daily, the patient is also on Lasix 40 mg every 12 hours and this was started yesterday. The neck fluid balance is -3 L over the past 24 hours. The labs from today shows a pH of 7.49 with a pCO2 of 44 and pO2 of 101. The rest of the blood work is all within normal limits. She continues to have some degree of lymphopenia. No other significant events. The patient is on no pressors for now. The patient is receiving enteral feeding for nutritional support and she is currently on vital high protein at that a goal of 37 mL. She is tolerating her tube feeds fine. On 03/07/2021, the patient remains intubated on a mechanical ventilator. The patient is sedated with propofol which is running at 25 mcg/kg per minute. She is also on mechanical ventilator on assist control mode with a tidal volume of 400, PEEP of 5, FiO2 of 50% and a rate of 24. The peak airway pressures around 28. The static pressure is 24. The blood gases from today shows a pH of 7.7 with a pCO2 of 40 and pO2 of 86. The chest x-ray from today showing stable lower lobe pulmonary infiltrates. ET tube remains in a good location. The patient may have an underlying hiatal hernia. NG tube is also in good location. Note that the patient was given a sedation holiday yesterday and following that she was given a spontaneous breathing trial. During the process, the patient became restless, tachypneic and agitated. She was not felt to be ready for extubation and following she was not following directions or commands and for that reason, the procedure was aborted. The same will be done today with the possibility of switching her sedation to Precedex if needed. The patient was started on Precedex which is currently running at 0.7 mcg/kg/h. For now, we're going to try to wean off the propofol and assess the patient's mental status and weaning parameters. She is on enteral feeding for nutritional support and currently she is on vital high protein at 37 mL an hour. Her net fluid balance -3 L over the past 24 hours and the patient is receiving Lasix on a daily basis. She is also on Decadron 6 mg IV 24 hours and Lovenox 40 mg subcu every 24 hours 03/08/2021, the patient is currently extubated. As planned, the patient was given sedation holiday, she demonstrated adequate weaning parameters. She was given this point is breathing trial and following that she was extubated and currently she is on oxygen at 4 L per minute nasal cannula. She is resting comfortably in bed. Note that postextubation, the patient became a bit use and restless and agitated. I had to continue sedation and the patient is currently still on Precedex which is running at 0.5 mcg/kg per minute. She also required Haldol. She received 2 mg IV overnight and later on another milligram was given which very much controlled her agitation and she is resting comfortably in bed. The chest x-ray is unchanged. There is diffuse bilateral pulmonary pulses consistent with COVID-19 related pneumonia. Rest of the labs are still pending from this morning. Meanwhile, the patient is doing well pH is hemodynamically stable. She is producing adequate amount of urine output. She remains on Decadron 6 mg IV every 24 hours and she is also on Lovenox 40 mg subcu every 24 hours. She is profoundly weak and she will need aggressive physical therapy. In terms of swallow, she did a bedside evaluation and she swallows fine. Or 2020, the patient remains extubated. She is on 2 L of oxygen. Nevertheless, her chest x-ray has not shown any major interval improvement and shows bilateral pulmonary infiltrates worse on the right. Her overall pulmonary status is stable. She is not having any difficulties in breathing. She is delirious. She is trying to hold on stuff and reaches soft and becomes restless throughout the day. At times she is appropriate, other times she is more confused. She is strong Cleviprex informally grams an hour for blood pressure control. She is also on Precedex to control her agitation. Precedex is running at 0.7 mcg/kg per minute. During my morning evaluation, I found this patient quite comfortable. She is well rested. However she is quite drowsy and sleepy. She was arousable. She was communicating. No nausea. No emesis. She was able to tolerate oral intake. No reported aspiration. His swallow mechanism is adequate. Otherwise, neurologic exam is nonfocal and the patient is moving all 4 extremities without any limitation. She has weakness and this is global generalized weakness. She is afebrile. She remains on Decadron. She remains on Lovenox for DVT prophylaxis. 03/10/2021, the patient remains extubated on 2 L. She is still confused. No agitation. She is on Seroquel 100 mg by mouth twice a day. She remains on Decadron 6 mg on a daily basis. She is tolerating diet. Nothing new nothing ever told is a left of this she is taking and drinking and sure along with some soft diet. She has a good cough. No nausea. No vomiting. No emesis. She remains extubated for the past 48 hours. She remains on Lovenox for DVT prophylaxis and she is completing her course of Decadron. She is also on Lasix and she has been in a negative fluid balance. No other significant events overnight and her night was essentially uneventful. 03/11/2021 the patient's is on liters about 2 by nasal cannula and her pulse ox is around 95%. No agitation. Still confused on and off during the day. She is tolerating her diet. She is on oral Lasix 40 mg twice a day. She was able to sit up on a chair today. She is post intubation mechanical ventilation related to COVID-19 related pneumonia. She remains on Seroquel 100 mg by mouth twice a day. She is working with physical therapy for generalized weakness. She has been extubated more than 72 hours ago. No other new complaints for now. No aspiration. His swallow mechanism is normal. LDH is at 975 with a CRP level of 0.6. Electrolytes are normal. The platelet count is at 148. Objective - Vital Signs Vital signs: Vital Signs Temp 98 F 03/11/21 08:00 Pulse 89 03/11/21 08:00 Resp 18 03/11/21 08:00 BP 123/60 03/11/21 08:00 Pulse Ox 95 03/11/21 08:00 Intake & Output 03/10/21 03/11/21 03/11/21 18:59 06:59 18:59 Intake Total 240 Output Total 900 2400 Balance -660 -2400 Weight 131 kg Intake: Oral 240 Output: Urine 900 2400 Straight 450 1200 ABP, PAP, CO, CI - Last Documented Arterial Blood Pressure 143/78 - Exam GENERAL EXAM: Extubated on 2 L of oxygen by nasal cannula. Calm and comfortable. No signs of any respiratory distress. The patient is calm and comfortable moving all 4 extremities without any limitation. HEAD: Normocephalic. EYES: Normal reaction of pupils, equal size. NOSE: Clear with pink turbinates. THROAT: Oral endotracheal and gastric tube secured in place. No erythema or exudates. NECK: No masses, no JVD. CHEST: No chest wall deformity. LUNGS: Equal air entry with crackles in the bilateral posterior bases CVS: S1 and S2 normal with no audible murmur, regular rhythm. ABDOMEN: No hepatosplenomegaly, normal bowel sounds, no guarding or rigidity. SPINE: No scoliosis or deformity SKIN: No rashes CENTRAL NERVOUS SYSTEM: Somnolent, occasionally confused, rested, no agitation Neurologic exam is nonfocal and she is moving all 4 extremities without any limitation. - Labs CBC & Chem 7: 03/11/21 09:07 03/11/21 09:07 Labs: Abnormal Lab Results - Last 24 Hours (Table) 03/08/21 03/10/21 03/10/21 Range/Units 06:02 11:02 11:19 Plt Count 147 L (150-450) k/uL D-Dimer (<0.60) mg/L FEU Sodium (137-145) mmol/L Carbon Dioxide 35 H (22-30) mmol/L BUN 22 H (7-17) mg/dL Glucose 102 H (74-99) mg/dL POC Glucose (mg/dL) (75-99) mg/dL Total Bilirubin 1.7 H (0.2-1.3) mg/dL AST 97 H (14-36) U/L ALT 91 H (4-34) U/L Lactate Dehydrogenase 1245 H (313-618) U/L LD Isoenzymes 415 H (120-250) U/L Total Protein 5.8 L (6.3-8.2) g/dL Albumin 3.4 L (3.5-5.0) g/dL 03/10/21 03/10/21 03/10/21 Range/Units 11:41 16:43 20:51 Plt Count (150-450) k/uL D-Dimer 2.57 H (<0.60) mg/L FEU Sodium (137-145) mmol/L Carbon Dioxide (22-30) mmol/L BUN (7-17) mg/dL Glucose (74-99) mg/dL POC Glucose (mg/dL) 114 H 101 H (75-99) mg/dL Total Bilirubin (0.2-1.3) mg/dL AST (14-36) U/L ALT (4-34) U/L Lactate Dehydrogenase (313-618) U/L LD Isoenzymes (120-250) U/L Total Protein (6.3-8.2) g/dL Albumin (3.5-5.0) g/dL 03/11/21 03/11/21 03/11/21 Range/Units 09:07 09:07 09:54 Plt Count 148 L (150-450) k/uL D-Dimer (<0.60) mg/L FEU Sodium 136 L (137-145) mmol/L Carbon Dioxide 33 H (22-30) mmol/L BUN 22 H (7-17) mg/dL Glucose 100 H (74-99) mg/dL POC Glucose (mg/dL) 101 H (75-99) mg/dL Total Bilirubin 1.4 H (0.2-1.3) mg/dL AST 59 H (14-36) U/L ALT 83 H (4-34) U/L Lactate Dehydrogenase 975 H (313-618) U/L LD Isoenzymes (120-250) U/L Total Protein 5.8 L (6.3-8.2) g/dL Albumin (3.5-5.0) g/dL Assessment and Plan Plan: 1 Acute hypoxic respiratory failure requiring intubation and mechanical ventilatory support on 03/02/2021 secondary to CoVID 19 pneumonia. Outside the window for Remdesivir. Did receive tocilizumab and convalescent plasma on 03/02/2021. The patient was extubated on 03/07/2021 the patient is currently on 2 L about 2 by nasal cannula and the chest x-ray findings are essentially stable. No signs of any respiratory distress. 2 Increased inflammatory markers secondary to above, LHD level has dropped 3 Morbid obesity, body mass index of 54 4 Hypertension, labile, controlled for now 5 History of mild intermittent chronic bronchial asthma , maintained on Symbicort 6 History of ulcerative colitis 7 Hiatal hernia 8 Gastroesophageal reflux disease 9 Generalized anxiety disorder, maintained on Xanax on outpatient basis 10 hypothyroidism on thyroid hormone replacement 11 delirium Plan: Continue Seroquel and The Dose to 50 mg twice a day Cozaar 100 mg by mouth daily Norvasc 10 mg by mouth daily Continue oral Lasix 40 mg by mouth once daily Advance diet Cymbalta and Synthroid Continue Decadron, completed total of 10 day course and this could be essentially weaned down to 4 mg and then stop within the next few days Continue Lovenox PT Incentive spirometer. [facility] will sign off.
[2021-03-11 11:30] LABS: Glucose,Whole Blood 118 mg/dL (75-99)
[2021-03-11 13:23] LABS: Band Neutrophils % 1 %; Lymphocytes # (M) 1.36 k/uL (1.0-4.8); Monocytes # (M) 1.07 k/uL (0-1.0); Neutrophils % (M) 74 %; Nucleated Red Blood Cells 0 /100 WBC (0-0); Total Cells Counted 200
[2021-03-11 17:13] LABS: Glucose,Whole Blood 120 mg/dL (75-99)
[2021-03-11 20:29] LABS: Glucose,Whole Blood 94 mg/dL (75-99)
[2021-03-12] MEDS: SODIUM CHLORIDE 0.9% 1,000 ML IV SCH (00:58)
[2021-03-12] MEDS: LEVOTHYROXINE 100 MCG TAB PO SCH (06:01)
[2021-03-12 06:26] LABS: Glucose,Whole Blood 95 mg/dL (75-99)
[2021-03-12] MEDS: INSULIN ASPART (NovoLOG) 100 UNIT/ML VIAL SQ SCH ×4 (06:31→20:17)
[2021-03-12] MEDS: ALBUTEROL HFA INHALER INHALATION SCH ×4 (08:02→20:50)
[2021-03-12] MEDS: SYMBICORT 160-4.5 MCG INHALER INHALATION PRN (08:05)
[2021-03-12] MEDS: DICYCLOMINE 10 MG CAP PO SCH ×3 (08:32→20:20)
[2021-03-12] MEDS: ASCORBIC ACID 500 MG TAB PO SCH ×2 (08:32→20:20)
[2021-03-12] MEDS: QUEtiapine 50 MG TAB PO SCH ×2 (08:32→20:20)
[2021-03-12] MEDS: ZINC SULFATE 220 MG CAP PO SCH (08:32)
[2021-03-12] MEDS: atenoloL 25 MG TAB PO SCH (08:32)
[2021-03-12] MEDS: DULoxetine HCL 60 MG CAPSULE.DR PO SCH ×2 (08:32→20:20)
[2021-03-12] MEDS: amLODIPine 10 MG TAB PO SCH (08:32)
[2021-03-12] MEDS: FUROSEMIDE 40 MG TAB PO SCH ×2 (08:32→17:51)
[2021-03-12] MEDS: dexAMETHasone 2 MG TAB PO SCH (08:32)
[2021-03-12] MEDS: CHOLECALCIFEROL 25 MCG (1000 IU) TABLET PO SCH (08:32)
[2021-03-12] MEDS: ENOXAPARIN 40 MG/0.4 ML SYRINGE SQ SCH (08:33)
[2021-03-12] MEDS: LOSARTAN 50 MG TAB PO SCH (08:33)
--- NOTE | 2021-03-12 09:23 | P.PN ---
Subjective Progress Note Date: 03/12/21 Principal diagnosis: On 2 L of oxygen. Much more awake and oriented today. Answered all questions appropriately. No chest pain no abdominal pain, no nausea or vomiting Objective - Vital Signs Vital signs: Vital Signs Temp 98.5 F 03/12/21 08:29 Pulse 104 H 03/12/21 08:29 Resp 18 03/12/21 08:29 BP 99/57 03/12/21 08:29 Pulse Ox 95 03/12/21 08:29 Intake & Output 03/11/21 03/12/21 03/12/21 18:59 06:59 18:59 Intake Total 337 500 240 Output Total 700 1200 Balance -363 -700 240 Weight 131.5 kg Intake: Oral 337 500 240 Output: Urine 700 1200 Straight 1200 Other: Voiding Method Incontinent External Catheter ABP, PAP, CO, CI - Last Documented Arterial Blood Pressure 143/78 - Exam GENERAL EXAM: Awake, oriented 3, not in distress HEAD: Normocephalic. EYES: Normal reaction of pupils, equal size. LUNGS: decreased bs , no wheezing CVS: S1 and S2 normal no murmur, regular rhythm. ABDOMEN: Soft nontender nondistended positive bowel sounds CENTRAL NERVOUS SYSTEM: CN 2-12 intact EXTREMITIES: no peripheral edema. No clubbing, no cyanosis. - Labs CBC & Chem 7: 03/11/21 09:07 03/11/21 09:07 Labs: Abnormal Lab Results - Last 24 Hours (Table) 03/11/21 03/11/21 03/11/21 Range/Units 09:07 09:07 09:07 Plt Count 148 L (150-450) k/uL Monocytes # (Manual) 1.07 H (0-1.0) k/uL D-Dimer 2.09 H (<0.60) mg/L FEU Sodium 136 L (137-145) mmol/L Carbon Dioxide 33 H (22-30) mmol/L BUN 22 H (7-17) mg/dL Glucose 100 H (74-99) mg/dL POC Glucose (mg/dL) (75-99) mg/dL Total Bilirubin 1.4 H (0.2-1.3) mg/dL AST 59 H (14-36) U/L ALT 83 H (4-34) U/L Lactate Dehydrogenase 975 H (313-618) U/L Total Protein 5.8 L (6.3-8.2) g/dL 03/11/21 03/11/21 03/11/21 Range/Units 09:54 11:29 17:12 Plt Count (150-450) k/uL Monocytes # (Manual) (0-1.0) k/uL D-Dimer (<0.60) mg/L FEU Sodium (137-145) mmol/L Carbon Dioxide (22-30) mmol/L BUN (7-17) mg/dL Glucose (74-99) mg/dL POC Glucose (mg/dL) 101 H 118 H 120 H (75-99) mg/dL Total Bilirubin (0.2-1.3) mg/dL AST (14-36) U/L ALT (4-34) U/L Lactate Dehydrogenase (313-618) U/L Total Protein (6.3-8.2) g/dL Assessment and Plan Plan: 1 Acute hypoxic respiratory failure requiring intubation and mechanical ventilatory support on 03/02/2021 secondary to CoVID 19 pneumonia. Outside the window for Remdesivir. sp tocilizumab and convalescent plasma on 03/02/2021. Continue on dexamethasone, bronchodilators, vitamin C and zinc. extubated oxygen requirement decreased to 2 L. Continue with Lasix, clinically improved 2 Increased inflammatory markers secondary to above: Continue to treat underlying condition 3 Morbid obesity, body mass index of 53.8 4 Hypertension, essential: On atenolol, Norvasc and Vasotec added. 5 History of mild intermittent chronic bronchial asthma , maintained on Symbicort, monitor 6 History of ulcerative colitis, monitor 7 Hiatal hernia 8 Gastroesophageal reflux disease without esophagitis 9 Generalized anxiety disorder, maintained on Xanax on outpatient basis 10 hypothyroidism: Continue Synthroid 11. confusion with metabolic encephalopathy : multifactorial , continue seroquel , increased to 100 mg monitor and Haldol , clinically much better , monitor 12. Weakness: Consult PT/OT Disposition: Home versus rehab in 1-2 days
[2021-03-12] MEDS ORDERED: LIDOCAINE 1% INJ 10MG/ML (20 ML MDV) ONE (10:09)
[2021-03-12 11:46] LABS: Glucose,Whole Blood 124 mg/dL (75-99)
[2021-03-12 15:28] VITALS: BMI 48.2
[2021-03-12 17:07] LABS: Glucose,Whole Blood 141 mg/dL (75-99)
[2021-03-12 20:14] LABS: Glucose,Whole Blood 98 mg/dL (75-99)
[2021-03-13] MEDS: SODIUM CHLORIDE 0.9% 1,000 ML IV SCH (01:40)
[2021-03-13 06:07] LABS: Glucose,Whole Blood 89 mg/dL (75-99)
[2021-03-13] MEDS: INSULIN ASPART (NovoLOG) 100 UNIT/ML VIAL SQ SCH ×4 (06:09→21:29)
[2021-03-13] MEDS: LEVOTHYROXINE 100 MCG TAB PO SCH (06:42)
[2021-03-13] MEDS: ALBUTEROL HFA INHALER INHALATION SCH ×4 (08:24→21:12)
[2021-03-13] MEDS: SYMBICORT 160-4.5 MCG INHALER INHALATION PRN (08:24)
[2021-03-13 08:44] LABS: Basophils % (A) 0 %; Eosinophils % (A) 1 %; HCT 34.2 % (34.0-46.0); HGB 11.9 gm/dL (11.4-16.0); Lymphocytes # (A) 1.9 k/uL (1.0-4.8); Lymphocytes % (A) 26 %; MCH 30.3 pg (25.0-35.0); MCHC 34.7 g/dL (31.0-37.0); MCV 87.4 fL (80.0-100.0); Mean Platelet Volume 9.2; Monocytes # (A) 0.4 k/uL (0-1.0); Monocytes % (A) 6 %; Neutrophils # (A) 4.7 k/uL (1.3-7.7); Neutrophils % (A) 64 %; Platelet Count 124 k/uL (150-450); RBC 3.91 m/uL (3.80-5.40); RDW 13.6 % (11.5-15.5); WBC 7.3 k/uL (3.8-10.6)
[2021-03-13 08:58] LABS: ALT 52 U/L (4-34); AST 32 U/L (14-36); African American GFR (CKD) >90 (>60 ml/min/1.73 sqM); Albumin 3.6 g/dL (3.5-5.0); Alkaline Phosphatase 52 U/L (38-126); Anion Gap 3 mmol/L; Blood Urea Nitrogen 19 mg/dL (7-17); Carbon Dioxide 36 mmol/L (22-30); Chloride 100 mmol/L (98-107); Glucose 86 mg/dL (74-99); Non-African American GFR(CKD) >90 (>60 ml/min/1.73 sqM); Potassium 3.4 mmol/L (3.5-5.1); Sodium 139 mmol/L (137-145); Total Bilirubin 1.3 mg/dL (0.2-1.3); Total Protein 5.9 g/dL (6.3-8.2)
[2021-03-13] MEDS: DICYCLOMINE 10 MG CAP PO SCH ×3 (09:45→21:32)
[2021-03-13] MEDS: ZINC SULFATE 220 MG CAP PO SCH (09:45)
[2021-03-13] MEDS: CHOLECALCIFEROL 25 MCG (1000 IU) TABLET PO SCH (09:45)
[2021-03-13] MEDS: ENOXAPARIN 40 MG/0.4 ML SYRINGE SQ SCH (09:45)
[2021-03-13] MEDS: DULoxetine HCL 60 MG CAPSULE.DR PO SCH ×2 (09:45→21:32)
[2021-03-13] MEDS: atenoloL 25 MG TAB PO SCH (09:46)
[2021-03-13] MEDS: LOSARTAN 50 MG TAB PO SCH (09:46)
[2021-03-13] MEDS: FUROSEMIDE 40 MG TAB PO SCH ×2 (09:46→16:15)
[2021-03-13] MEDS: ASCORBIC ACID 500 MG TAB PO SCH ×2 (09:46→21:33)
[2021-03-13] MEDS: amLODIPine 10 MG TAB PO SCH (09:46)
[2021-03-13] MEDS: dexAMETHasone 2 MG TAB PO SCH (09:46)
[2021-03-13] MEDS: QUEtiapine 50 MG TAB PO SCH ×2 (09:46→21:33)
--- NOTE | 2021-03-13 09:58 | P.PN ---
Subjective Progress Note Date: 03/13/21 Principal diagnosis: Not requiring Oxygen, feels much better. No chest pain no abdominal pain no nausea no vomiting. Much more awake and disoriented. Objective - Vital Signs Vital signs: Vital Signs Temp 98.9 F 03/13/21 08:30 Pulse 76 03/13/21 08:30 Resp 18 03/13/21 08:30 BP 93/58 03/13/21 08:30 Pulse Ox 95 03/13/21 08:30 Intake & Output 03/12/21 03/13/21 03/13/21 18:59 06:59 18:59 Intake Total 462 Output Total 500 Balance 462 -500 Weight 131.5 kg 131 kg Intake: Oral 462 Output: Urine 500 Other: Voiding Method Incontinent Toilet External Catheter Incontinent # Voids 1 1 ABP, PAP, CO, CI - Last Documented Arterial Blood Pressure 143/78 - Exam GENERAL EXAM: Awake, oriented 3, not in distress HEAD: Normocephalic. Atraumatic EYES: Normal reaction of pupils, equal size. LUNGS: decreased bs , no wheezing CVS: S1 and S2 normal no murmur, regular rhythm. ABDOMEN: Soft nontender nondistended positive bowel sounds CENTRAL NERVOUS SYSTEM: CN 2-12 intact EXTREMITIES: no peripheral edema. No clubbing, no cyanosis. - Labs CBC & Chem 7: 03/13/21 08:18 03/13/21 08:18 Labs: Abnormal Lab Results - Last 24 Hours (Table) 03/12/21 03/12/21 03/13/21 Range/Units 11:22 17:01 08:18 Plt Count 124 L (150-450) k/uL Potassium (3.5-5.1) mmol/L Carbon Dioxide (22-30) mmol/L BUN (7-17) mg/dL POC Glucose (mg/dL) 124 H 141 H (75-99) mg/dL ALT (4-34) U/L Total Protein (6.3-8.2) g/dL 03/13/21 Range/Units 08:18 Plt Count (150-450) k/uL Potassium 3.4 L (3.5-5.1) mmol/L Carbon Dioxide 36 H (22-30) mmol/L BUN 19 H (7-17) mg/dL POC Glucose (mg/dL) (75-99) mg/dL ALT 52 H (4-34) U/L Total Protein 5.9 L (6.3-8.2) g/dL Assessment and Plan Plan: 1 Acute hypoxic respiratory failure requiring intubation and mechanical ventilatory support on 03/02/2021 secondary to CoVID 19 pneumonia. Outside the window for Remdesivir. sp tocilizumab and convalescent plasma on 03/02/2021. Continue on dexamethasone, bronchodilators, vitamin C and zinc. Not requiring oxygen Continue with Lasix, clinically improved 2 Increased inflammatory markers secondary to above: Continue to treat underlying condition 3 Morbid obesity, body mass index of 53.8 4 Hypertension, essential: On atenolol, Norvasc and Vasotec added. 5 History of mild intermittent chronic bronchial asthma , maintained on Symbicort, monitor 6 History of ulcerative colitis, monitor 7 Hiatal hernia 8 Gastroesophageal reflux disease without esophagitis 9 Generalized anxiety disorder, maintained on Xanax on outpatient basis 10 hypothyroidism: Continue Synthroid 11. confusion with metabolic encephalopathy : multifactorial , continue seroquel , increased to 100 mg monitor and Haldol , clinically much better , monitor 12. Weakness: Consult PT/OT Disposition: Home versus rehab today or tomorrow
[2021-03-13 11:40] LABS: Glucose,Whole Blood 99 mg/dL (75-99)
[2021-03-13 17:10] LABS: Glucose,Whole Blood 141 mg/dL (75-99)
[2021-03-13 20:34] LABS: Glucose,Whole Blood 107 mg/dL (75-99)
[2021-03-13 22:40] LABS: LD Isoenzymes 1 20 % (19-38); LD Isoenzymes 2 39 % (30-43); LD Isoenzymes 3 21 % (16-26); LD Isoenzymes 4 8 % (3-12); LD Isoenzymes 5 12 % (3-14); Lactacte Dehydrogenase(LD) ISO 421 U/L (120-250)
[2021-03-14] MEDS: SODIUM CHLORIDE 0.9% 1,000 ML IV SCH (00:59)
[2021-03-14 04:17] VITALS: RESP 16
[2021-03-14 06:22] LABS: Glucose,Whole Blood 68 mg/dL (75-99)
[2021-03-14] MEDS: INSULIN ASPART (NovoLOG) 100 UNIT/ML VIAL SQ SCH ×2 (06:30→11:49)
[2021-03-14 06:33] LABS: Glucose,Whole Blood 81 mg/dL (75-99)
[2021-03-14] MEDS: LEVOTHYROXINE 100 MCG TAB PO SCH (06:33)
[2021-03-14] MEDS: SYMBICORT 160-4.5 MCG INHALER INHALATION PRN (08:19)
[2021-03-14] MEDS: ALBUTEROL HFA INHALER INHALATION SCH ×3 (08:19→15:28)
[2021-03-14] MEDS ORDERED: ZINC SULFATE 220 MG CAP PO SCH (09:00)
[2021-03-14] MEDS: atenoloL 25 MG TAB PO SCH (09:41)
[2021-03-14] MEDS: dexAMETHasone 2 MG TAB PO SCH (09:41)
[2021-03-14] MEDS: amLODIPine 10 MG TAB PO SCH (09:41)
[2021-03-14] MEDS: FUROSEMIDE 40 MG TAB PO SCH (09:41)
[2021-03-14] MEDS: ASCORBIC ACID 500 MG TAB PO SCH (09:41)
[2021-03-14] MEDS: DULoxetine HCL 60 MG CAPSULE.DR PO SCH (09:41)
[2021-03-14] MEDS: DICYCLOMINE 10 MG CAP PO SCH (09:41)
[2021-03-14] MEDS: LOSARTAN 50 MG TAB PO SCH (09:41)
[2021-03-14] MEDS: ENOXAPARIN 40 MG/0.4 ML SYRINGE SQ SCH (09:42)
[2021-03-14] MEDS: CHOLECALCIFEROL 25 MCG (1000 IU) TABLET PO SCH (09:42)
[2021-03-14] MEDS: QUEtiapine 50 MG TAB PO SCH (09:43)
[2021-03-14 10:03] LABS: Basophils % (A) 0 %; Eosinophils % (A) 0 %; HCT 35.3 % (34.0-46.0); HGB 12.1 gm/dL (11.4-16.0); Lymphocytes % (A) 30 %; MCH 29.8 pg (25.0-35.0); MCHC 34.3 g/dL (31.0-37.0); MCV 86.8 fL (80.0-100.0); Mean Platelet Volume 9.3; Monocytes # (A) 0.6 k/uL (0-1.0); Monocytes % (A) 9 %; Neutrophils # (A) 3.9 k/uL (1.3-7.7); Neutrophils % (A) 57 %; Platelet Count 111 k/uL (150-450); RBC 4.07 m/uL (3.80-5.40); RDW 13.8 % (11.5-15.5); WBC 6.8 k/uL (3.8-10.6)
[2021-03-14 10:20] LABS: ALT 47 U/L (4-34); AST 28 U/L (14-36); African American GFR (CKD) >90 (>60 ml/min/1.73 sqM); Albumin 3.5 g/dL (3.5-5.0); Alkaline Phosphatase 48 U/L (38-126); Anion Gap 4 mmol/L; Blood Urea Nitrogen 16 mg/dL (7-17); Calcium 8.9 mg/dL (8.4-10.2); Carbon Dioxide 35 mmol/L (22-30); Chloride 100 mmol/L (98-107); Glucose 93 mg/dL (74-99); Non-African American GFR(CKD) >90 (>60 ml/min/1.73 sqM); Potassium 3.2 mmol/L (3.5-5.1); Sodium 139 mmol/L (137-145); Total Bilirubin 1.2 mg/dL (0.2-1.3)
[2021-03-14] MEDS ORDERED: POTASSIUM CHLORIDE ER 20 MEQ TAB.ER PO STA (11:15)
[2021-03-14 11:38] LABS: Glucose,Whole Blood 106 mg/dL (75-99)
--- NOTE | 2021-03-14 12:44 | P.DS ---
Providers Date of admission: 02/28/21 01:39 Expected date of discharge: 03/14/21 Attending physician: Luli Ortez MD Consults: 02/28/21 01:40 Consult Physician Routine Consulting Provider: Heriberto Merrill Consult Reason/Comments: covid Do you want consulting provider notified?: Yes Primary care physician: [facility] Course: This is a 55-year-old female with complex past medical history noted below who presented to the emergency room with nonspecific complaint of headache and shortness of breath. Patient was evaluated in the ER and admitted to the [facility] for further management of her medical problems noted below. 1 Acute hypoxic respiratory failure requiring intubation and mechanical ventilatory support on 03/02/2021 secondary to CoVID 19 pneumonia. Outside the window for Remdesivir. Did receive tocilizumab and convalescent plasma on 03/02/2021. The patient was extubated on 03/07/2021 the patient is currently on 2 L by nasal cannula and the chest x-ray findings are essentially stable. No signs of any respiratory distress. Continue vitamin supplements including vitamin D, vitamin C, and sitting 2 Increased inflammatory markers secondary to above, LHD level has improved 3 Morbid obesity, body mass index of 54 4 Hypertension, labile, controlled for now with current regimen 5 History of mild intermittent chronic bronchial asthma , maintained on Symbicort 6 History of ulcerative colitis 7 Hiatal hernia 8 Gastroesophageal reflux disease 9 Generalized anxiety disorder, maintained on Xanax on outpatient basis 10 hypothyroidism on thyroid hormone replacement Patient will be discharged in a stable condition to [facility]. For further details about this hospitalization please refer to the electronic chart. Patient Condition at Discharge: Serious Plan - Discharge Summary Discharge Rx Participant: Yes New Discharge Prescriptions: New Losartan [Cozaar] 100 mg PO DAILY #30 tab amLODIPine [Norvasc] 10 mg PO DAILY #30 tab Cholecalciferol [Vitamin D3 (25 Mcg = 1000 Iu)] 125 mcg PO DAILY #60 tablet Gabapentin 800 mg PO TID 3 Days #9 tab Furosemide [Lasix] 40 mg PO DAILY #30 tab Zinc Sulfate [Orazinc] 220 mg PO DAILY #30 cap Ascorbic Acid [Vitamin C] 500 mg PO BID #60 tab Continue ALPRAZolam [Xanax] 0.25 mg PO QAM Multivitamins, Thera [Multivitamin (formulary)] 1 tab PO HS Gabapentin [Neurontin] 800 mg PO TID Levothyroxine Sodium [Levoxyl] 100 mcg PO DAILY Dexlansoprazole [Dexilant] 60 mg PO DAILY traZODone HCL [Desyrel] 100 mg PO HS DULoxetine HCL [Cymbalta] 60 mg PO BID Budesonide/Formoterol Fumarate [Symbicort 160-4.5 Mcg Inhaler] 2 puff INHALATION RT-BID PRN PRN Reason: breathing problems atenoloL [Tenormin] 25 mg PO DAILY Balsalazide Disodium 2,250 mg PO TID #270 capsule Dicyclomine [Bentyl] 10 mg PO TID #90 capsule Albuterol Sulfate [Ventolin HFA] 1 - 2 puff INHALATION RT-Q6H PRN PRN Reason: Shortness Of Breath Loteprednol Etabonate [Alrex] 2 drop BOTH EYES BID Hydroxychloroquine Sulfate [Plaquenil] 200 mg PO BID Cetirizine HCl [Zyrtec] 10 mg PO DAILY PRN PRN Reason: Allergy Symptoms Changed Cyclobenzaprine [Flexeril] 10 mg PO TID PRN #0 PRN Reason: Muscle Spasm Discharge Medication List ALPRAZolam [Xanax] 0.25 mg PO QAM 12/05/15 [History] DULoxetine HCL [Cymbalta] 60 mg PO BID 12/05/15 [History] Dexlansoprazole [Dexilant] 60 mg PO DAILY 12/05/15 [History] Gabapentin [Neurontin] 800 mg PO TID 12/05/15 [History] Levothyroxine Sodium [Levoxyl] 100 mcg PO DAILY 12/05/15 [History] Multivitamins, Thera [Multivitamin (formulary)] 1 tab PO HS 12/05/15 [History] traZODone HCL [Desyrel] 100 mg PO HS 12/05/15 [History] Budesonide/Formoterol Fumarate [Symbicort 160-4.5 Mcg Inhaler] 2 puff INHALATION RT-BID PRN 12/23/17 [History] atenoloL [Tenormin] 25 mg PO DAILY 04/25/18 [History] Balsalazide Disodium 2,250 mg PO TID #270 capsule 04/30/18 [Rx] Dicyclomine [Bentyl] 10 mg PO TID #90 capsule 04/30/18 [Rx] Albuterol Sulfate [Ventolin HFA] 1 - 2 puff INHALATION RT-Q6H PRN 06/07/20 [History] Hydroxychloroquine Sulfate [Plaquenil] 200 mg PO BID 06/07/20 [History] Loteprednol Etabonate [Alrex] 2 drop BOTH EYES BID 06/07/20 [History] Cetirizine HCl [Zyrtec] 10 mg PO DAILY PRN 02/28/21 [History] Ascorbic Acid [Vitamin C] 500 mg PO BID #60 tab 03/14/21 [Rx] Cholecalciferol [Vitamin D3 (25 Mcg = 1000 Iu)] 125 mcg PO DAILY #60 tablet 03/14/21 [Rx] Cyclobenzaprine [Flexeril] 10 mg PO TID PRN #0 03/14/21 [Rx] Furosemide [Lasix] 40 mg PO DAILY #30 tab 03/14/21 [Rx] Gabapentin 800 mg PO TID 3 Days #9 tab 03/14/21 [Rx] Losartan [Cozaar] 100 mg PO DAILY #30 tab 03/14/21 [Rx] Zinc Sulfate [Orazinc] 220 mg PO DAILY #30 cap 03/14/21 [Rx] amLODIPine [Norvasc] 10 mg PO DAILY #30 tab 03/14/21 [Rx] Follow up Appointment(s)/Referral(s): Lu Mancera MD [Primary Care Provider] - 1-2 days Discharge Disposition: TRANSFER TO SNF/ECF
[2021-03-14 14:55] VITALS: BP 100/55; PULSE 67; TEMP 98.4
== END 2021-03-14 17:23 | DRG 207 ==
LOC: EC 23:12 → 5NMEDONC 02-28 01:39 → 4SSUR 02-28 15:56 → 2SICU 03-02 11:25 → 3SCARD 03-09 16:33
PROVIDERS: ADMIT Internal Medicine; ATTEND Internal Medicine
PROC: XW033E5 Introduction of Remdesivir Anti-infective into Peripheral Vein, Percutaneous Approach, New Technology Group 5 (ICD-10-PCS; 2021-02-28)
PROC: XW13325 Transfusion of Convalescent Plasma (Nonautologous) into Peripheral Vein, Percutaneous Approach, New Technology Group 5 (ICD-10-PCS; 2021-02-28)
PROC: 5A0945A Assistance with Respiratory Ventilation, 24-96 Consecutive Hours, High Flow/Velocity Cannula (ICD-10-PCS; 2021-02-28)
PROC: 0BH17EZ Insertion of Endotracheal Airway into Trachea, Via Natural or Artificial Opening (ICD-10-PCS; principal; 2021-03-02)
PROC: 5A1955Z Respiratory Ventilation, Greater than 96 Consecutive Hours (ICD-10-PCS; principal; 2021-03-02)
PROC: XW033H5 Introduction of Tocilizumab into Peripheral Vein, Percutaneous Approach, New Technology Group 5 (ICD-10-PCS; 2021-03-02)
PROC: 02H633Z Insertion of Infusion Device into Right Atrium, Percutaneous Approach (ICD-10-PCS; 2021-03-02)
PROC: 03HY32Z Insertion of Monitoring Device into Upper Artery, Percutaneous Approach (ICD-10-PCS; 2021-03-02)
PROC: 4A133B1 Monitoring of Arterial Pressure, Peripheral, Percutaneous Approach (ICD-10-PCS; 2021-03-02)
PROC: 4A133J1 Monitoring of Arterial Pulse, Peripheral, Percutaneous Approach (ICD-10-PCS; 2021-03-02)
PROC: 5A09357 Assistance with Respiratory Ventilation, Less than 24 Consecutive Hours, Continuous Positive Airway Pressure (ICD-10-PCS; 2021-03-02)
DX: U07.1 COVID-19 (principal); J12.82 Pneumonia due to coronavirus disease 2019; G93.41 Metabolic encephalopathy; J96.01 Acute respiratory failure with hypoxia; Z68.43 Body mass index [BMI] 50.0-59.9, adult; K51.90 Ulcerative colitis, unspecified, without complications; D69.6 Thrombocytopenia, unspecified; M35.00 Sjogren syndrome, unspecified; E66.01 Morbid (severe) obesity due to excess calories; I11.9 Hypertensive heart disease without heart failure; A08.4 Viral intestinal infection, unspecified; D72.810 Lymphocytopenia; J45.20 Mild intermittent asthma, uncomplicated; K21.9 Gastro-esophageal reflux disease without esophagitis; M79.7 Fibromyalgia; F43.10 Post-traumatic stress disorder, unspecified; E03.9 Hypothyroidism, unspecified; F32.9 Major depressive disorder, single episode, unspecified; F41.1 Generalized anxiety disorder; G43.909 Migraine, unspecified, not intractable, without status migrainosus; G89.29 Other chronic pain; M54.9 Dorsalgia, unspecified; K44.9 Diaphragmatic hernia without obstruction or gangrene; G47.33 Obstructive sleep apnea (adult) (pediatric); M19.90 Unspecified osteoarthritis, unspecified site; H40.9 Unspecified glaucoma; K57.90 Diverticulosis of intestine, part unspecified, without perforation or abscess without bleeding; R32 Unspecified urinary incontinence; D64.9 Anemia, unspecified; G56.00 Carpal tunnel syndrome, unspecified upper limb; F45.8 Other somatoform disorders; Z79.51 Long term (current) use of inhaled steroids; Z77.22 Contact with and (suspected) exposure to environmental tobacco smoke (acute) (chronic); Z79.890 Hormone replacement therapy; Z79.899 Other long term (current) drug therapy; Z87.42 Personal history of other diseases of the female genital tract; Z90.89 Acquired absence of other organs; Z96.653 Presence of artificial knee joint, bilateral; Z87.19 Personal history of other diseases of the digestive system; Z87.39 Personal history of other diseases of the musculoskeletal system and connective tissue; Z87.2 Personal history of diseases of the skin and subcutaneous tissue; Z87.891 Personal history of nicotine dependence; Z71.3 Dietary counseling and surveillance; Z87.820 Personal history of traumatic brain injury; Z98.890 Other specified postprocedural states; Z88.6 Allergy status to analgesic agent; Z88.0 Allergy status to penicillin; Z88.2 Allergy status to sulfonamides; Z88.8 Allergy status to other drugs, medicaments and biological substances; Z91.018 Allergy to other foods; Z82.5 Family history of asthma and other chronic lower respiratory diseases; Z82.61 Family history of arthritis; Z83.79 Family history of other diseases of the digestive system; Z80.49 Family history of malignant neoplasm of other genital organs; Z80.51 Family history of malignant neoplasm of kidney; Z83.49 Family history of other endocrine, nutritional and metabolic diseases; Z82.49 Family history of ischemic heart disease and other diseases of the circulatory system; Z83.2 Family history of diseases of the blood and blood-forming organs and certain disorders involving the immune mechanism
CPT/HCPCS: 36415; 36600; 70450; 71045; 71046; 80048; 80053; 82550; 82553; 82728; 82805; 83605; 83615; 83625; 83735; 83880; 84100; 84132; 84145; 84484; 85025; 85027; 85379; 85384; 85610; 85730; 86140; 86850; 86900; 86901; 93005; 93306; 94003; 94640; 94660; 94760; 96361; 96374; 96375; 99291

== ENCOUNTER → 2021-04-12 | Outpatient (CLI) | payer MEDICARE, OTHER ==
--- NOTE | 2021-04-16 10:02 | MM ---
Reason for exam: screening (asymptomatic). Last mammogram was performed 1 year and 4 months ago. History: Patient is postmenopausal and is nulliparous. Family history of breast cancer in maternal grandmother and breast cancer in aunt at age 49. Benign cyst aspiration of the right breast, 2012. Benign cyst aspiration of the right breast, 2010. Took hormonal contraceptives for 1 month beginning at age 36. Physical Findings: A clinical breast exam by your physician is recommended on an annual basis and results should be correlated with mammographic findings. MG 3D Screening Mammo W/Cad Bilateral CC and MLO view(s) were taken. Prior study comparison: December 23, 2019, left breast MG 3d work up w/cad LT. December 13, 2019, bilateral MG 3d screening mammo w/cad. The breast tissue is heterogeneously dense. This may lower the sensitivity of mammography. Right density superior axillary tail, new, on MLO view. Right CC view lateral increased density posterior position. ASSESSMENT: Incomplete: need additional imaging evaluation, BI-RAD 0 RECOMMENDATION: Special view mammogram of the right breast. If lesion persists on supplemental views, image directed ultrasound is recommended. [facility] will attempt to contact patient to return for supplemental views and ultrasound if indicated.
== END | disposition home or self-care (01) ==
LOC: RADMAMWWP 13:48
PROVIDERS: ATTEND Family Medicine
DX: Z12.31 Encounter for screening mammogram for malignant neoplasm of breast (principal); Z78.0 Asymptomatic menopausal state; Z80.3 Family history of malignant neoplasm of breast
CPT/HCPCS: 77063; 77067

== ENCOUNTER → 2021-04-24 | Outpatient (CLI) | payer MEDICARE, OTHER ==
--- NOTE | 2021-04-25 08:31 | MM ---
Reason for exam: additional evaluation requested from abnormal screening. Last mammogram was performed less than 1 month ago. History: Patient is postmenopausal and is nulliparous. Family history of breast cancer in maternal grandmother and breast cancer in aunt at age 49. Benign cyst aspiration of the right breast, 2011. Benign cyst aspiration of the right breast, 2010. Took hormonal contraceptives for 1 month beginning at age 36. Physical Findings: Nurse did not find any significant physical abnormalities on exam. MG 3D Work Up W/Cad RT Spot compression CC, spot compression MLO, and LM view(s) were taken of the right breast. Prior study comparison: April 12, 2021, bilateral MG 3d screening mammo w/cad. December 23, 2019, left breast MG 3d work up w/cad LT. The breast tissue is heterogeneously dense. This may lower the sensitivity of mammography. Right CC density lateral posterior depth benign asymmetry/overlapping tissues. Right axillary tail nodule most likely reactive lymph node. These results were verbally communicated with the patient and result sheet given to the patient on 04/24/21. ASSESSMENT: Benign, BI-RAD 2 RECOMMENDATION: Return to routine screening mammogram schedule for both breasts.
== END | disposition home or self-care (01) ==
LOC: RADMAMWWP 13:24
PROVIDERS: ATTEND Family Medicine
DX: N64.89 Other specified disorders of breast (principal); N63.31 Unspecified lump in axillary tail of the right breast; Z80.3 Family history of malignant neoplasm of breast; Z78.0 Asymptomatic menopausal state
CPT/HCPCS: 77065; G0279; 77061

== ENCOUNTER → 2021-05-22 | Outpatient (CLI) | payer MEDICARE, OTHER ==
--- NOTE | 2021-05-22 14:54 | XR ---
EXAMINATION TYPE: XR chest 2V DATE OF EXAM: 05/22/2021 COMPARISON: 03/11/2021 TECHNIQUE: PA and lateral views submitted. HISTORY: Cough FINDINGS: Large hiatal hernia appears stable. The interstitium appears improved. No pleural effusion or pneumot horax. Heart size stable. IMPRESSION: 1. Interval marked improvement of the interstitial relative to the prior exam suggestive of resolving interstitial pneumonitis. 2. Large hiatal hernia.
== END | disposition home or self-care (01) ==
LOC: RADXRMAIN 14:18
PROVIDERS: ATTEND Internal Medicine Sleep Medicine
DX: K44.9 Diaphragmatic hernia without obstruction or gangrene (principal)
CPT/HCPCS: 71046

== ENCOUNTER 2021-10-23 23:24 | Emergency (ER) | payer MEDICARE, OTHER ==
[2021-10-23 23:34] VITALS: TEMP 98.8
[2021-10-24 01:34] LABS: Basophils # (A) 0.1 k/uL (0-0.2); Basophils % (A) 1 %; Eosinophils # (A) 0.2 k/uL (0-0.7); Eosinophils % (A) 3 %; HCT 37.7 % (34.0-46.0); HGB 12.3 gm/dL (11.4-16.0); Lymphocytes # (A) 1.2 k/uL (1.0-4.8); Lymphocytes % (A) 17 %; MCH 28.6 pg (25.0-35.0); MCHC 32.7 g/dL (31.0-37.0); MCV 87.3 fL (80.0-100.0); Mean Platelet Volume 8.1; Monocytes # (A) 0.5 k/uL (0-1.0); Monocytes % (A) 6 %; Neutrophils # (A) 5.1 k/uL (1.3-7.7); Neutrophils % (A) 72 %; Platelet Count 187 k/uL (150-450); RBC 4.32 m/uL (3.80-5.40); RDW 13.4 % (11.5-15.5); WBC 7.1 k/uL (3.8-10.6)
--- NOTE | 2021-10-24 01:34 | XR ---
EXAMINATION TYPE: XR chest 2V DATE OF EXAM: 10/24/2021 COMPARISON: 05/22/2021 HISTORY: Chest pain TECHNIQUE: FINDINGS: Heart is enlarged. There is large hiatal hernia. Lungs are clear of infiltrate. There are n o hilar masses. Bony thorax is intact. IMPRESSION: Cardiomegaly. No active cardiopulmonary disease. No change.
[2021-10-24 01:43] LABS: Albumin 3.9 g/dL (3.5-5.0); Potassium 4.1 mmol/L (3.5-5.1); Total Bilirubin 0.3 mg/dL (0.2-1.3); Total Protein 6.4 g/dL (6.3-8.2)
[2021-10-24 01:49] LABS: INR 0.9 (<1.2); Prothrombin Time 9.8 sec (9.0-12.0)
[2021-10-24 01:52] LABS: Partial Thromboplastin Time 17.8 sec (22.0-30.0)
[2021-10-24 04:09] VITALS: RESP 18
--- NOTE | 2021-10-24 04:55 | CT ---
EXAMINATION TYPE: CT chest angio for PE DATE OF EXAM: 10/24/2021 COMPARISON: None HISTORY: CHEST PAIN, R/O PE CT DLP: 836.70 mGycm Automated exposure control for dose reduction was used. CONTRAST: Performed with IV Contrast, patient injected with 70 mL of Isovue 370. There are 3-D post processed i mages. There is some groundglass interstitial density in the mid and upper lung jeong. There is no mediasti nal adenopathy. There are no hilar masses. Thoracic aorta is intact. There is no aneurysm or dissecti on. There is very large hiatal hernia. There is intrathoracic stomach. There are multiple bilateral b ronchial lymph nodes up to 1 cm. There is no evidence of filling defect in the pulmonary arteries. The thoracic spine is intact. There is no compression fracture. Sternum is intact. IMPRESSION: No evidence of pulmonary embolism. Mild pulmonary interstitial infiltrates. Mild bronchial adenopathy .
[2021-10-24] MEDS ORDERED: MORPHINE SULFATE 4 MG/ML SYRINGE IV STA (05:21)
[2021-10-24 05:50] VITALS: BP 133/73; PULSE 72
--- NOTE | 2021-10-24 06:35 | ED ---
Chest Pain HPI - General Chief Complaint: Chest Pain Stated Complaint: Chest Pain Time Seen by Provider: 10/24/21 00:06 Source: patient Mode of arrival: wheelchair Limitations: no limitations - Related Data Home Medications Medication Instructions Recorded Confirmed DULoxetine HCL [Cymbalta] 60 mg PO BID 12/05/15 02/28/21 Dexlansoprazole [Dexilant] 60 mg PO DAILY 12/05/15 02/28/21 Gabapentin [Neurontin] 800 mg PO TID 12/05/15 02/28/21 Levothyroxine Sodium [Levoxyl] 100 mcg PO DAILY 12/05/15 02/28/21 Multivitamins, Thera [Multivitamin 1 tab PO HS 12/05/15 02/28/21 (formulary)] traZODone HCL [Desyrel] 100 mg PO HS 12/05/15 02/28/21 Budesonide/Formoterol Fumarate 2 puff INHALATION RT-BID PRN 12/23/17 02/28/21 [Symbicort 160-4.5 Mcg Inhaler] atenoloL [Tenormin] 25 mg PO DAILY 04/25/18 02/28/21 Albuterol Sulfate [Ventolin HFA] 1 - 2 puff INHALATION RT-Q6H PRN 06/07/20 02/28/21 Hydroxychloroquine Sulfate 200 mg PO BID 06/07/20 02/28/21 [Plaquenil] Loteprednol Etabonate [Alrex] 2 drop BOTH EYES BID 06/07/20 02/28/21 Cetirizine HCl [Zyrtec] 10 mg PO DAILY PRN 02/28/21 02/28/21 Previous Rx's Medication Instructions Recorded Balsalazide Disodium 2,250 mg PO TID #270 capsule 04/30/18 Dicyclomine [Bentyl] 10 mg PO TID #90 capsule 04/30/18 Ascorbic Acid [Vitamin C] 500 mg PO BID #60 tab 03/14/21 Cholecalciferol [Vitamin D3 (25 125 mcg PO DAILY #60 tablet 03/14/21 Mcg = 1000 Iu)] Cyclobenzaprine [Flexeril] 10 mg PO TID PRN #0 03/14/21 Furosemide [Lasix] 40 mg PO DAILY #30 tab 03/14/21 Gabapentin 800 mg PO TID 3 Days #9 tab 03/14/21 Losartan [Cozaar] 100 mg PO DAILY #30 tab 03/14/21 Zinc Sulfate [Orazinc] 220 mg PO DAILY #30 cap 03/14/21 amLODIPine [Norvasc] 10 mg PO DAILY #30 tab 03/14/21 Allergies Allergy/AdvReac Type Severity Reaction Status Date / Time buspirone HCl [From BuSpar] Allergy Severe numbness Verified 10/23/21 23:31 of tongue and face Sulfa (Sulfonamide Allergy Severe Rash/Hives Verified 10/23/21 23:31 Antibiotics) coconut Allergy Rash/Hives Verified 10/23/21 23:31 aspirin AdvReac Severe Vomiting Verified 10/23/21 23:31 iron AdvReac Severe Nausea & Verified 10/23/21 23:31 Vomiting,hives,swelling,skin changed color loracarbef [From Lorabid] AdvReac Intermediate yeast Verified 10/23/21 23:31 infection potassium clavulanate AdvReac Intermediate yeast Verified 10/23/21 23:31 [From Augmentin] infection amoxicillin trihydrate AdvReac yeast Verified 10/23/21 23:31 [From Augmentin] infection Review of Systems ROS Statement: Those systems with pertinent positive or pertinent negative responses have been documented in the HPI. ROS Other: All systems not noted in ROS Statement are negative. EKG Findings - EKG Comments: EKG Findings:: Possible old anterior infarct. - EKG Results: EKG: interpreted by ERMD, sinus rhythm (Rate 82 bpm), normal axis, normal ST/T Past Medical History Past Medical History: Asthma, Eye Disorder, Fibromyalgia, GERD/Reflux, Hypertension, Osteoarthritis (OA), Thyroid Disorder Additional Past Medical History / Comment(s): ANEMIA, FIBROMYALGIA, MIGRAINE, DIVERTICULOSIS, ULCERATIVE COLITIS, IBD, OVARIAN CYST, CHRONIC BACK PAIN. BULDGING AND COMPRESSED DISC C 6/7; T 3/4; L4/5. BURSITIS TENDONITIS RIGHT SHOULDER, ENDOMETRIOSIS. CARPAL TUNNEL SYNDROME LEANNE WRISTS. BRUXISM, BREAST CYSTS. GLAUCOMA, DX SJORGREN'S SYNDROME, HIATAL HERNIA History of Any Multi-Drug Resistant Organisms: None Reported Past Surgical History: Joint Replacement, Orthopedic Surgery, Tonsillectomy Additional Past Surgical History / Comment(s): , RT HAND THUMB TENDON REPAIR, LIPOMA, BILAT TKA, D&C, COLONOSCOPY, EGD, EYE SX FOR GLAUCOMA X 2, CYST REMOVED FROM BREAST AND FOOT, BILAT KNEE SX Past Anesthesia/Blood Transfusion Reactions: Motion Sickness Past Psychological History: Anxiety, Depression, PTSD Smoking Status: Former smoker Past Alcohol Use History: Rare Past Drug Use History: None Reported - Past Family History Mother Family Medical History: Asthma, Cancer, GERD/Reflux, Osteoarthritis (OA) Additional Family Medical History / Comment(s): cancer on the kidney that grew into the kidney. cancer of the uterine. blood clots. obesity. carotid artery narrowing General Exam Limitations: no limitations Course Vital Signs 10/23/21 10/23/21 10/24/21 23:31 23:57 04:08 Temperature 98.8 F Pulse Rate 80 79 Pulse Rate [ 78 Pulse Oximetery ] Respiratory 20 18 Rate Blood Pressure 127/81 125/72 O2 Sat by Pulse 98 92 L Oximetry 10/24/21 05:49 Temperature Pulse Rate 72 Pulse Rate [ Pulse Oximetery ] Respiratory 18 Rate Blood Pressure 133/73 O2 Sat by Pulse 94 L Oximetry Procedures - [facility] Protocol (Time Out) Nurse: Willian Barron Disposition Clinical Impression: Chest pain Disposition: HOME SELF-CARE Condition: Good Instructions (If sedation given, give patient instructions): Chest Pain (ED) Is patient prescribed a controlled substance at d/c from ED?: No Referrals: Lu Mancera MD [Primary Care Provider] - 1-2 days
== END 2021-10-24 07:09 | disposition home or self-care (01) ==
LOC: EC 23:24
DX: R07.9 Chest pain, unspecified (principal); J45.909 Unspecified asthma, uncomplicated; I10 Essential (primary) hypertension; M19.90 Unspecified osteoarthritis, unspecified site; G43.909 Migraine, unspecified, not intractable, without status migrainosus; F41.9 Anxiety disorder, unspecified; F32.A Depression, unspecified; F43.10 Post-traumatic stress disorder, unspecified; Z87.891 Personal history of nicotine dependence; Z72.89 Other problems related to lifestyle; Z79.51 Long term (current) use of inhaled steroids
CPT/HCPCS: 36415; 93005; 85379; 80053; 83735; 84484; 85025; 85610; 85730; 87635; 71046; 71275; 99285; 96374; Q9967

== ENCOUNTER 2021-12-10 17:43 | Inpatient (IN) | payer MEDICARE, OTHER ==
[2021-12-10 19:17] LABS: Basophils % (A) 0 %; Eosinophils # (A) 0.1 k/uL (0-0.7); Eosinophils % (A) 1 %; HCT 37.5 % (34.0-46.0); HGB 12.6 gm/dL (11.4-16.0); Lymphocytes # (A) 0.8 k/uL (1.0-4.8); Lymphocytes % (A) 6 %; MCH 30.3 pg (25.0-35.0); MCHC 33.6 g/dL (31.0-37.0); MCV 90.3 fL (80.0-100.0); Mean Platelet Volume 8.2; Monocytes # (A) 0.6 k/uL (0-1.0); Monocytes % (A) 4 %; Neutrophils # (A) 11.9 k/uL (1.3-7.7); Neutrophils % (A) 88 %; Platelet Count 181 k/uL (150-450); RBC 4.16 m/uL (3.80-5.40); RDW 13.6 % (11.5-15.5); WBC 13.5 k/uL (3.8-10.6)
[2021-12-10 19:25] LABS: ALT 80 U/L (4-34); AST 65 U/L (14-36); African American GFR (CKD) >90 (>60 ml/min/1.73 sqM); Albumin 3.6 g/dL (3.5-5.0); Alkaline Phosphatase 155 U/L (38-126); Amylase 43 U/L (30-110); Anion Gap 8 mmol/L; Blood Urea Nitrogen 10 mg/dL (7-17); Calcium 8.6 mg/dL (8.4-10.2); Carbon Dioxide 26 mmol/L (22-30); Chloride 101 mmol/L (98-107); Glucose 104 mg/dL (74-99); Lipase 54 U/L (23-300); Non-African American GFR(CKD) 86 (>60 ml/min/1.73 sqM); Potassium 3.4 mmol/L (3.5-5.1); Sodium 135 mmol/L (137-145); Total Bilirubin 1.7 mg/dL (0.2-1.3); Total Protein 6.4 g/dL (6.3-8.2)
--- NOTE | 2021-12-10 19:56 | XR ---
EXAMINATION TYPE: XR KUB DATE OF EXAM: 12/10/2021 COMPARISON: 12/23/2017 HISTORY: Pain TECHNIQUE: 2 views upright FINDINGS: There is no sign of intestinal obstruction or pneumoperitoneum. Fecal pattern is normal. Th ere is a large hiatal hernia. There is some atelectasis at the lung bases. There are no calcification s over the kidneys. IMPRESSION: Nonacute abdomen. Large hiatal hernia. No significant change.
[2021-12-10] MEDS ORDERED: MORPHINE SULFATE 4 MG/ML SYRINGE IVP STA (21:09)
[2021-12-10] MEDS ORDERED: ONDANSETRON 4 MG/2 ML VIAL IVP STA (21:09)
[2021-12-10] MEDS ORDERED: ACETAMINOPHEN TAB 500 MG TAB PO STA (21:09)
--- NOTE | 2021-12-10 22:23 | CT ---
EXAMINATION TYPE: CT abdomen pelvis w con DATE OF EXAM: 12/10/2021 COMPARISON: April 25, 2018 HISTORY: RT side abdomen pain, fever CT DLP: 2660.7 mGycm Automated exposure control for dose reduction was used. CONTRAST: Performed with IV Contrast, patient injected with 100 mL of Isovue 300. There is large hiatal hernia. There is intrathoracic stomach. Liver is intact. There is dilated gallb ladder with some wall thickening and mild edema around the gallbladder. Gallbladder measures 5.7 cm i n diameter. Spleen is intact. There is no evidence of pancreatic mass. The bile ducts are not dilated . There is no adrenal mass. Kidneys show satisfactory contrast opacification. There is no hydronephrosi s. Delayed images show normal renal excretion. There is no retroperitoneal adenopathy. Bladder disten ds smoothly. There is no inguinal hernia. There is small amount of free fluid in the pelvis. The lumbar vertebrae have normal alignment. There is no compression fracture. Posterior elements are intact. There is no evidence of focal bone destruction. The bony pelvis is intact. Hip joints are int act. Appendix appears normal. IMPRESSION: Small amount of free fluid in the pelvis. Dilated gallbladder with wall thickening and adjacent fat s tranding and is consistent with acute cholecystitis. This is a change compared to the old exam. Small right pleural effusion..
--- NOTE | 2021-12-10 22:25 | ED ---
Abdominal Pain HPI - General Chief Complaint: Abdominal Pain Stated Complaint: Abdominal Pain Source: patient Mode of arrival: ambulatory Limitations: no limitations - History of Present Illness Initial Comments: 56 year old female with past history of fibromyalgia, hypertension presents emergency room with reported right upper quadrant abdominal pain. States that the pain began on . Radiates around to her right flank. She has associated nausea with vomiting. Also reports to low-grade fevers. She has been unable to hold down any food or drink. Denies previous history of gallbladder disease. Does report to ulcerative colitis. States that some bright red blood per rectum is normal for her and denies any bloody stools outside of her normal. She last took Tylenol earlier today. Has not attempted to take any medications for her vomiting. Denies any vaginal bleeding or discharge. No concerns with dysuria, hematuria or difficulty voiding. Denies diarrhea, constipation, melenic stools or hematochezia. No other alleviating, precipitating or modifying factors - Related Data Home Medications Medication Instructions Recorded Confirmed DULoxetine HCL [Cymbalta] 60 mg PO BID 12/05/15 12/10/21 Dexlansoprazole [Dexilant] 60 mg PO DAILY@1200 12/05/15 12/10/21 Gabapentin [Neurontin] 800 mg PO TID 12/05/15 12/10/21 Levothyroxine Sodium [Levoxyl] 100 mcg PO DAILY 12/05/15 12/10/21 Multivitamins, Thera [Multivitamin 1 tab PO HS 12/05/15 12/10/21 (formulary)] traZODone HCL [Desyrel] 100 mg PO HS 12/05/15 12/10/21 Budesonide/Formoterol Fumarate 2 puff INHALATION RT-BID PRN 12/23/17 12/10/21 [Symbicort 160-4.5 Mcg Inhaler] atenoloL [Tenormin] 25 mg PO DAILY 04/25/18 12/10/21 Hydroxychloroquine Sulfate 200 mg PO BID 06/07/20 12/10/21 [Plaquenil] Cetirizine HCl [Zyrtec] 10 mg PO DAILY PRN 02/28/21 12/10/21 ALPRAZolam [Xanax] 0.25 mg PO DAILY 12/10/21 12/10/21 Ascorbic Acid [Vitamin C] 1,000 mg PO DAILY@1200 12/10/21 12/10/21 Balsalazide Disodium 2,250 mg PO TID 12/10/21 12/10/21 Cholecalciferol [Vitamin D3 (25 50 mcg PO DAILY@1200 12/10/21 12/10/21 Mcg = 1000 Iu)] Losartan Potassium [Cozaar] 100 mg PO DAILY 12/10/21 12/10/21 Montelukast [Singulair] 10 mg PO HS 12/10/21 12/10/21 Olopatadine HCl [Pataday] 1 drop BOTH EYES BID 12/10/21 12/10/21 Zinc 50 mg PO DAILY@1200 12/10/21 12/10/21 Previous Rx's Medication Instructions Recorded Dicyclomine [Bentyl] 10 mg PO TID #90 capsule 04/30/18 Cyclobenzaprine [Flexeril] 10 mg PO TID PRN #0 03/14/21 Furosemide [Lasix] 40 mg PO DAILY #30 tab 03/14/21 amLODIPine [Norvasc] 10 mg PO DAILY #30 tab 03/14/21 Allergies Allergy/AdvReac Type Severity Reaction Status Date / Time buspirone HCl [From BuSpar] Allergy Severe numbness Verified 12/10/21 23:22 of tongue and face Sulfa (Sulfonamide Allergy Severe Rash/Hives Verified 12/10/21 23:22 Antibiotics) coconut Allergy Rash/Hives Verified 12/10/21 23:22 aspirin AdvReac Severe Vomiting Verified 12/10/21 23:22 iron AdvReac Severe Nausea & Verified 12/10/21 23:22 Vomiting,hives,swelling,skin changed color loracarbef [From Lorabid] AdvReac Intermediate yeast Verified 12/10/21 23:22 infection potassium clavulanate AdvReac Intermediate yeast Verified 12/10/21 23:22 [From Augmentin] infection amoxicillin trihydrate AdvReac yeast Verified 12/10/21 23:22 [From Augmentin] infection Review of Systems ROS Statement: Those systems with pertinent positive or pertinent negative responses have been documented in the HPI. ROS Other: All systems not noted in ROS Statement are negative. Past Medical History Past Medical History: Asthma, Eye Disorder, Fibromyalgia, GERD/Reflux, Hypertension, Osteoarthritis (OA), Thyroid Disorder Additional Past Medical History / Comment(s): ANEMIA, FIBROMYALGIA, MIGRAINE, DIVERTICULOSIS, ULCERATIVE COLITIS, IBD, OVARIAN CYST, CHRONIC BACK PAIN. BULDGING AND COMPRESSED DISC C 6/7; T 3/4; L4/5. BURSITIS TENDONITIS RIGHT SHOULDER, ENDOMETRIOSIS. CARPAL TUNNEL SYNDROME LEANNE WRISTS. BRUXISM, BREAST CYSTS. GLAUCOMA, DX SJORGREN'S SYNDROME, HIATAL HERNIA History of Any Multi-Drug Resistant Organisms: None Reported Past Surgical History: Joint Replacement, Orthopedic Surgery, Tonsillectomy Additional Past Surgical History / Comment(s): , RT HAND THUMB TENDON REPAIR, LIPOMA, BILAT TKA, D&C, COLONOSCOPY, EGD, EYE SX FOR GLAUCOMA X 2, CYST REMOVED FROM BREAST AND FOOT, BILAT KNEE SX Past Anesthesia/Blood Transfusion Reactions: Motion Sickness Past Psychological History: Anxiety, Depression, PTSD Smoking Status: Former smoker Past Alcohol Use History: Rare Past Drug Use History: None Reported - Past Family History Mother Family Medical History: Asthma, Cancer, GERD/Reflux, Osteoarthritis (OA) Additional Family Medical History / Comment(s): cancer on the kidney that grew i nto the kidney. cancer of the uterine. blood clots. obesity. carotid artery narrowing General Exam Limitations: no limitations Course Vital Signs 12/10/21 12/11/21 18:50 00:00 Temperature 100.9 F H 98.4 F Pulse Rate 72 70 Respiratory 20 18 Rate Blood Pressure 106/63 99/54 O2 Sat by Pulse 98 94 L Oximetry Medical Decision Making - Medical Decision Making Upon arrival patient was placed into room 8. A thorough history and physical exam is performed. IV is established laboratory studies were conducted. Patient is given 4 mg of morphine and 4 mg of Zofran. Laboratory studies are reviewed and reveal white count 13.5. AST 65. ALT 80. Alk phos 155. Covid is not detected. CT of the patient's abdomen and pelvis does demonstrate small amount of free fluid in the pelvis. Dilated gallbladder with wall thickening and adjacent fat stranding consistent with acute cholecystitis. Because of these findings patient is initiated on Zosyn. I did call and speak with Dr. Giles who agreed to admit the patient. Patient will be made nothing by mouth. Pain medications ordered for the floor. Patient in stable condition awaiting a bed - Lab Data Result diagrams: 12/10/21 19:08 12/10/21 19:08 Lab Results 12/10/21 12/10/21 12/10/21 Range/Units 19:08 19:08 21:19 WBC 13.5 H (3.8-10.6) k/uL RBC 4.16 (3.80-5.40) m/uL Hgb 12.6 (11.4-16.0) gm/dL Hct 37.5 (34.0-46.0) % MCV 90.3 (80.0-100.0) fL MCH 30.3 (25.0-35.0) pg MCHC 33.6 (31.0-37.0) g/dL RDW 13.6 (11.5-15.5) % Plt Count 181 (150-450) k/uL MPV 8.2 Neutrophils % 88 % Lymphocytes % 6 % Monocytes % 4 % Eosinophils % 1 % Basophils % 0 % Neutrophils # 11.9 H (1.3-7.7) k/uL Lymphocytes # 0.8 L (1.0-4.8) k/uL Monocytes # 0.6 (0-1.0) k/uL Eosinophils # 0.1 (0-0.7) k/uL Basophils # 0.0 (0-0.2) k/uL Sodium 135 L (137-145) mmol/L Potassium 3.4 L (3.5-5.1) mmol/L Chloride 101 (98-107) mmol/L Carbon Dioxide 26 (22-30) mmol/L Anion Gap 8 mmol/L BUN 10 (7-17) mg/dL Creatinine 0.78 (0.52-1.04) mg/dL Est GFR (CKD-EPI)AfAm >90 (>60 ml/min/1.73 sqM) Est GFR (CKD-EPI)NonAf 86 (>60 ml/min/1.73 sqM) Glucose 104 H (74-99) mg/dL Calcium 8.6 (8.4-10.2) mg/dL Total Bilirubin 1.7 H (0.2-1.3) mg/dL AST 65 H (14-36) U/L ALT 80 H (4-34) U/L Alkaline Phosphatase 155 H (38-126) U/L Total Protein 6.4 (6.3-8.2) g/dL Albumin 3.6 (3.5-5.0) g/dL Amylase 43 (30-110) U/L Lipase 54 (23-300) U/L Coronavirus (PCR) Not Detected (Not Detectd) Disposition Clinical Impression: Abdominal pain, Acute cholecystitis Disposition: ADMITTED IP TO THIS HOSP Condition: Stable Is patient prescribed a controlled substance at d/c from ED?: No Decision to Admit Reason: Admit from EC Decision Date: 12/10/21 Decision Time: 22:46
[2021-12-10] MEDS ORDERED: IBUPROFEN 400 MG TAB PO PRN (22:46)
[2021-12-10] MEDS ORDERED: NALOXONE 0.4 MG/ML 1 ML VIAL IV PRN (22:46)
[2021-12-10] MEDS ORDERED: ONDANSETRON 4 MG/2 ML VIAL IVP PRN (22:46)
[2021-12-10] MEDS ORDERED: ACETAMINOPHEN TAB 325 MG TAB PO PRN (22:46)
--- NOTE | 2021-12-10 23:36 | US ---
EXAMINATION TYPE: US gallbladder DATE OF EXAM: 12/10/2021 COMPARISON: CT, US CLINICAL HISTORY: abd pain, fever. Abdominal pain, fever. EXAM MEASUREMENTS: Liver Length: 19.2 cm Gallbladder Wall: 0.4 cm CBD: Limited, measured at 0.5 cm Right Kidney: 12.3 x 5.3 x 4.9 cm Limited due to gas and body habitus. Pancreas: Limited due to gas. Appears hyperechoic. Liver: Increased attenuation, appears enlarged and coarse in echotexture. Gallbladder: Appears enlarged measuring 12.5 cm in length. Hyperechoic foci with posterior shadowing seen within the gallbladder. Wall appears thickened. Evidence for sonographic Nayak's sign: No CBD: Limited visibility. Right Kidney: No hydronephrosis or masses seen, measures upper limits of normal versus minimally enl arged. IMPRESSION: Large gallbladder with gallstones. No dilated ducts. No ascites. Gallbladder measures 5.[address] and consistent with acute and chronic cholecystitis.
[2021-12-11] MEDS: PIPERACILLIN-TAZOBACTAM 3.375 GM in SODIUM CHLORIDE 0.9% 100 ML IVPB SCH ×3 (00:40→16:16)
[2021-12-11] MEDS: SODIUM CHLORIDE 0.9% 1,000 ML IV SCH ×2 (00:40→13:44)
[2021-12-11] MEDS ORDERED: CYCLOBENZAPRINE 10 MG TAB PO PRN (01:29)
[2021-12-11] MEDS ORDERED: SYMBICORT 160-4.5 MCG INHALER INHALATION PRN (02:00)
[2021-12-11] MEDS: MORPHINE SULFATE 4 MG/ML SYRINGE IV PRN (03:04)
[2021-12-11] MEDS: LEVOTHYROXINE 100 MCG TAB PO SCH (05:24)
[2021-12-11 07:31] LABS: Basophils % (A) 0 %; Eosinophils # (A) 0.2 k/uL (0-0.7); Eosinophils % (A) 2 %; HCT 34.2 % (34.0-46.0); HGB 10.7 gm/dL (11.4-16.0); Hypochromasia Slight; Lymphocytes # (A) 0.8 k/uL (1.0-4.8); Lymphocytes % (A) 8 %; MCH 29.2 pg (25.0-35.0); MCHC 31.4 g/dL (31.0-37.0); MCV 93.2 fL (80.0-100.0); Mean Platelet Volume 8.6; Monocytes # (A) 0.6 k/uL (0-1.0); Monocytes % (A) 6 %; Neutrophils # (A) 8.3 k/uL (1.3-7.7); Neutrophils % (A) 82 %; Platelet Count 142 k/uL (150-450); RBC 3.67 m/uL (3.80-5.40); RDW 13.4 % (11.5-15.5); WBC 10.2 k/uL (3.8-10.6)
[2021-12-11 07:48] LABS: Calcium 8.1 mg/dL (8.4-10.2); Potassium 3.3 mmol/L (3.5-5.1)
[2021-12-11] MEDS: BALSALAZIDE DISODIUM 750 MG CAPSULE PO SCH ×3 (08:30→21:43)
[2021-12-11] MEDS: ALPRAZolam 0.25 MG TAB PO SCH (08:30)
[2021-12-11] MEDS: DULoxetine HCL 60 MG CAPSULE.DR PO SCH ×2 (08:30→21:42)
[2021-12-11] MEDS: GABAPENTIN 400 MG CAP PO SCH ×3 (08:30→21:43)
[2021-12-11] MEDS: LOSARTAN 50 MG TAB PO SCH (08:30)
[2021-12-11] MEDS: POTASSIUM CHLORIDE 10 MEQ in WATER FOR INJECTION 1 100ML.BAG IVPB SCH (08:30)
[2021-12-11] MEDS: HYDROXYCHLOROQUINE SULFATE 200 MG TAB PO SCH ×2 (08:30→21:42)
[2021-12-11] MEDS: atenoloL 25 MG TAB PO SCH (08:30)
[2021-12-11] MEDS: amLODIPine 10 MG TAB PO SCH (08:30)
[2021-12-11] MEDS: KETOTIFEN 0.025% OPHTH DROPS 5 ML BTL BOTH EYES SCH ×2 (08:30→21:42)
[2021-12-11 08:54] LABS: Total Bilirubin 1.4 mg/dL (0.2-1.3)
--- NOTE | 2021-12-11 08:58 | P.GSHP ---
History of Present Illness H&P Date: 12/11/21 Chief Complaint: Right upper quadrant pain This a 56-year-old female with a four-day history of right quadrant pain. Patient was seen emergently have evidence of cholelithiasis. Patient has had previous complaints of pain approximately a year ago. Past Medical History Past Medical History: Asthma, Eye Disorder, Fibromyalgia, GERD/Reflux, Hypertension, Osteoarthritis (OA), Thyroid Disorder Additional Past Medical History / Comment(s): ANEMIA, FIBROMYALGIA, MIGRAINE, DIVERTICULOSIS, ULCERATIVE COLITIS, IBD, OVARIAN CYST, CHRONIC BACK PAIN. BULDGING AND COMPRESSED DISC C 6/7; T 3/4; L4/5. BURSITIS TENDONITIS RIGHT SHOULDER, ENDOMETRIOSIS. CARPAL TUNNEL SYNDROME LEANNE WRISTS. BRUXISM, BREAST CYSTS. GLAUCOMA, DX SJORGREN'S SYNDROME, HIATAL HERNIA History of Any Multi-Drug Resistant Organisms: None Reported Past Surgical History: Joint Replacement, Orthopedic Surgery, Tonsillectomy Additional Past Surgical History / Comment(s): , RT HAND THUMB TENDON REPAIR, LIPOMA, BILAT TKA, D&C, COLONOSCOPY, EGD, EYE SX FOR GLAUCOMA X 2, CYST REMOVED FROM BREAST AND FOOT, BILAT KNEE SX Past Anesthesia/Blood Transfusion Reactions: Motion Sickness Past Psychological History: Anxiety, Depression, PTSD Smoking Status: Former smoker Past Alcohol Use History: Rare Past Drug Use History: None Reported - Past Family History Mother Family Medical History: Asthma, Cancer, GERD/Reflux, Osteoarthritis (OA) Additional Family Medical History / Comment(s): cancer on the kidney that grew into the kidney. cancer of the uterine. blood clots. obesity. carotid artery narrowing Medications and Allergies Home Medications Medication Instructions Recorded Confirmed Type DULoxetine HCL [Cymbalta] 60 mg PO BID 12/05/15 12/10/21 History Dexlansoprazole [Dexilant] 60 mg PO DAILY@1200 12/05/15 12/10/21 History Gabapentin [Neurontin] 800 mg PO TID 12/05/15 12/10/21 History Levothyroxine Sodium [Levoxyl] 100 mcg PO DAILY 12/05/15 12/10/21 History Multivitamins, Thera [Multivitamin 1 tab PO HS 12/05/15 12/10/21 History (formulary)] traZODone HCL [Desyrel] 100 mg PO HS 12/05/15 12/10/21 History Budesonide/Formoterol Fumarate 2 puff INHALATION RT-BID PRN 12/23/17 12/10/21 History [Symbicort 160-4.5 Mcg Inhaler] atenoloL [Tenormin] 25 mg PO DAILY 04/25/18 12/10/21 History Dicyclomine [Bentyl] 10 mg PO TID #90 capsule 04/30/18 12/10/21 Rx Hydroxychloroquine Sulfate 200 mg PO BID 06/07/20 12/10/21 History [Plaquenil] Cetirizine HCl [Zyrtec] 10 mg PO DAILY PRN 02/28/21 12/10/21 History Cyclobenzaprine [Flexeril] 10 mg PO TID PRN #0 03/14/21 12/10/21 Rx Furosemide [Lasix] 40 mg PO DAILY #30 tab 03/14/21 12/10/21 Rx amLODIPine [Norvasc] 10 mg PO DAILY #30 tab 03/14/21 12/10/21 Rx ALPRAZolam [Xanax] 0.25 mg PO DAILY 12/10/21 12/10/21 History Ascorbic Acid [Vitamin C] 1,000 mg PO DAILY@1200 12/10/21 12/10/21 History Balsalazide Disodium 2,250 mg PO TID 12/10/21 12/10/21 History Cholecalciferol [Vitamin D3 (25 50 mcg PO DAILY@1200 12/10/21 12/10/21 History Mcg = 1000 Iu)] Losartan Potassium [Cozaar] 100 mg PO DAILY 12/10/21 12/10/21 History Montelukast [Singulair] 10 mg PO HS 12/10/21 12/10/21 History Olopatadine HCl [Pataday] 1 drop BOTH EYES BID 12/10/21 12/10/21 History Zinc 50 mg PO DAILY@1200 12/10/21 12/10/21 History Allergies Allergy/AdvReac Type Severity Reaction Status Date / Time buspirone HCl [From BuSpar] Allergy Severe numbness Verified 12/10/21 23:22 of tongue and face Sulfa (Sulfonamide Allergy Severe Rash/Hives Verified 12/10/21 23:22 Antibiotics) coconut Allergy Rash/Hives Verified 12/10/21 23:22 aspirin AdvReac Severe Vomiting Verified 12/10/21 23:22 iron AdvReac Severe Nausea & Verified 12/10/21 23:22 Vomiting,hives,swelling,skin changed color loracarbef [From Lorabid] AdvReac Intermediate yeast Verified 12/10/21 23:22 infection potassium clavulanate AdvReac Intermediate yeast Verified 12/10/21 23:22 [From Augmentin] infection amoxicillin trihydrate AdvReac yeast Verified 12/10/21 23:22 [From Augmentin] infection Surgical - Exam Vital Signs Temp Pulse Resp BP Pulse Ox 100.9 F H 72 20 106/63 98 12/10/21 18:50 12/10/21 18:50 12/10/21 18:50 12/10/21 18:50 12/10/21 18:50 - General well developed, well nourished, no distress - Eyes PERRL - ENT normal pinna - Neck no masses - Respiratory normal expansion - Cardiovascular Rhythm: regular - Abdomen Abdomen: soft, non tender Results - Labs 12/11/21 06:48 12/11/21 06:48 Abnormal Lab Results - Last 24 Hours (Table) 12/10/21 12/10/21 12/11/21 Range/Units 19:08 19:08 06:48 WBC 13.5 H (3.8-10.6) k/uL RBC 3.67 L (3.80-5.40) m/uL Hgb 10.7 L (11.4-16.0) gm/dL Plt Count 142 L (150-450) k/uL Neutrophils # 11.9 H 8.3 H (1.3-7.7) k/uL Lymphocytes # 0.8 L 0.8 L (1.0-4.8) k/uL Sodium 135 L (137-145) mmol/L Potassium 3.4 L (3.5-5.1) mmol/L Glucose 104 H (74-99) mg/dL Calcium (8.4-10.2) mg/dL Total Bilirubin 1.7 H (0.2-1.3) mg/dL AST 65 H (14-36) U/L ALT 80 H (4-34) U/L Alkaline Phosphatase 155 H (38-126) U/L 12/11/21 12/11/21 Range/Units 06:48 06:48 WBC (3.8-10.6) k/uL RBC (3.80-5.40) m/uL Hgb (11.4-16.0) gm/dL Plt Count (150-450) k/uL Neutrophils # (1.3-7.7) k/uL Lymphocytes # (1.0-4.8) k/uL Sodium 136 L (137-145) mmol/L Potassium 3.3 L (3.5-5.1) mmol/L Glucose (74-99) mg/dL Calcium 8.1 L (8.4-10.2) mg/dL Total Bilirubin 1.4 H (0.2-1.3) mg/dL AST 48 H (14-36) U/L ALT 64 H (4-34) U/L Alkaline Phosphatase 133 H (38-126) U/L Diabetes panel 12/10/21 12/11/21 12/11/21 Range/Units 19:08 06:48 06:48 Sodium 135 L 136 L (137-145) mmol/L Potassium 3.4 L 3.3 L (3.5-5.1) mmol/L Chloride 101 102 (98-107) mmol/L Carbon Dioxide 26 26 (22-30) mmol/L BUN 10 11 (7-17) mg/dL Creatinine 0.78 0.85 (0.52-1.04) mg/dL Glucose 104 H 83 (74-99) mg/dL Calcium 8.6 8.1 L (8.4-10.2) mg/dL AST 65 H 48 H (14-36) U/L ALT 80 H 64 H (4-34) U/L Alkaline Phosphatase 155 H 133 H (38-126) U/L Total Protein 6.4 (6.3-8.2) g/dL Albumin 3.6 (3.5-5.0) g/dL Calcium panel 12/10/21 12/11/21 Range/Units 19:08 06:48 Calcium 8.6 8.1 L (8.4-10.2) mg/dL Albumin 3.6 (3.5-5.0) g/dL Pituitary panel 12/10/21 12/11/21 Range/Units 19:08 06:48 Sodium 135 L 136 L (137-145) mmol/L Potassium 3.4 L 3.3 L (3.5-5.1) mmol/L Chloride 101 102 (98-107) mmol/L Carbon Dioxide 26 26 (22-30) mmol/L BUN 10 11 (7-17) mg/dL Creatinine 0.78 0.85 (0.52-1.04) mg/dL Glucose 104 H 83 (74-99) mg/dL Calcium 8.6 8.1 L (8.4-10.2) mg/dL Adrenal panel 12/10/21 12/11/21 12/11/21 Range/Units 19:08 06:48 06:48 Sodium 135 L 136 L (137-145) mmol/L Potassium 3.4 L 3.3 L (3.5-5.1) mmol/L Chloride 101 102 (98-107) mmol/L Carbon Dioxide 26 26 (22-30) mmol/L BUN 10 11 (7-17) mg/dL Creatinine 0.78 0.85 (0.52-1.04) mg/dL Glucose 104 H 83 (74-99) mg/dL Calcium 8.6 8.1 L (8.4-10.2) mg/dL Total Bilirubin 1.7 H 1.4 H (0.2-1.3) mg/dL AST 65 H 48 H (14-36) U/L ALT 80 H 64 H (4-34) U/L Alkaline Phosphatase 155 H 133 H (38-126) U/L Total Protein 6.4 (6.3-8.2) g/dL Albumin 3.6 (3.5-5.0) g/dL - Imaging Additional studies: Ultrasound shows evidence of cholelithiasis Assessment and Plan Plan: Lower quadrant pain Cholelithiasis We'll perform laparoscopic cholecystectomy
[2021-12-11] MEDS ORDERED: LORATADINE 10 MG TAB PO PRN (09:00)
[2021-12-11] MEDS ORDERED: LACTATED RINGERS 1,000 ML IV ONE (09:01)
[2021-12-11] MEDS ORDERED: HEPARIN SODIUM,PORCINE 5,000 UNIT/ML 1 ML VIAL SQ ONE (09:02)
[2021-12-11] MEDS ORDERED: ONDANSETRON 4 MG/2 ML VIAL IVP ONE (09:02)
[2021-12-11] MEDS ORDERED: DEXAMETHASONE SOD PHOSPHATE 4 MG/ML 1 ML VIAL IVP ONE (09:03)
[2021-12-11] MEDS ORDERED: LIDOCAINE 1% INJ 10MG/ML (20 ML MDV) ONE (09:15)
[2021-12-11] MEDS ORDERED: ceFAZolin 1,000 MG VIAL ONE (09:15)
[2021-12-11] MEDS ORDERED: NEOSTIGMINE 1 MG/ML 10 ML VIAL ONE (09:15)
[2021-12-11] MEDS ORDERED: SODIUM CHLORIDE 0.9% 100 ML BAG ONE (09:15)
[2021-12-11] MEDS ORDERED: fentaNYL (PF) 50 MCG/ML 2 ML AMP ONE (09:15)
[2021-12-11] MEDS ORDERED: HYDROmorphone (PF) 1 MG/ML ONE (09:15)
[2021-12-11] MEDS ORDERED: MIDAZOLAM 2 MG/2 ML VIAL ONE (09:15)
[2021-12-11] MEDS ORDERED: GLYCOPYRROLATE 0.2 MG/ML 2 ML VIAL ONE (09:15)
[2021-12-11] MEDS ORDERED: SUCCINYLCHOLINE CHLORIDE VIAL 200 MG/10 ML VIAL IV ONE (09:15)
[2021-12-11] MEDS ORDERED: PROPOFOL 10 MG/ML 20 ML VIAL IV ONE (09:15)
[2021-12-11] MEDS ORDERED: ROCURONIUM 10 MG/ML (5 ML VIAL) IV ONE (09:15)
[2021-12-11] MEDS ORDERED: BUPIVACAIN-EPI 0.25%-1:200,000 30 ML VIAL SQ ONE (09:32)
[2021-12-11] MEDS ORDERED: HYDROmorphone 1 MG/ML 1 ML SYRINGE IVP PRN (10:24)
--- NOTE | 2021-12-11 10:24 | P.OP ---
Date of Procedure: 12/11/21 Preoperative Diagnosis: Acute cholecystitis Postoperative Diagnosis: Acute gangrenous cholecystitis Procedure(s) Performed: Laparoscopic cholecystectomy with drain placement Anesthesia: FATMATA Surgeon: Donavon Giles IV fluids (ml): 50 Pathology: other (Gallbladder) Condition: stable Disposition: PACU Description of Procedure: The patient was placed on the operating table. The patient received a general endotracheal tube anesthesia. The patients abdomen was prepped and draped in the usual sterile fashion. Through an infraumbilical stab incision, the fascia of the anterior abdominal wall was grasped with a pair of Kochers and then the Veress needle was placed in the peritoneal cavity. Position of the Veress needle was confirmed with positive drop test. The abdomen was then insufflated. After adequate insufflation, the 10 mm trocar was placed in the pe ritoneal cavity. Following this the laparoscope was placed in the peritoneal cavity. The patient was placed in the head-up, right side up position and then a 5 mm trocar was placed in the right lateral and right subcostal position under direct visualization. A 8 mm trocar was placed in the epigastric position. The gallbladder was necrotic. It was stuck to the abdominal wall. It was gently retracted off the abdominal wall. The gallbladder appeared to be perforated where it was stuck to the abdominal wall The gallbladder was grasped in the fundus and infundibulum. Traction on the ga llbladder was placed in the lateral and the cephalad positions. The triangle of Calot was visualized.. The cystic duct was bluntly dissected until the union of the cystic duct and common bile duct was seen. A critical view of safety was achieved. The cystic duct was then divided and sealed with the Harmonic scissors. A PDS Endoloop was then placed throughout the cystic duct stump. The cystic artery divided and sealed with the Harmonic scissors. The gallbladder was then removed from the liver bed using Harmonic scissors. The gallbladder was then extracted through the epigastric port site. Operative field was checked for any bleeding spots and Harmonic scissors was used to coagulate the liver bed. The abdomen was irrigated. A CHAZ drain is placed in gallbladder fossa and brought out through the lateral port site. The trocars were removed. The skin was closed using interrupted 3-0 Vicryl suture. Dermabond dressing were applied. The patient tolerated the procedure well.
--- NOTE | 2021-12-11 11:30 | P.CONS ---
History of Present Illness - Reason for Consult Consult date: 12/11/21 - History of Present Illness 56-year-old female with past medical history of ulcerative colitis fibromyalgia asthma versus COPD was admitted to the hospital for cholecystitis underwent cholecystectomy and we will consulted for medical management patient is awake after surgery able to respond and answer some questions slightly hypoxic 2 L oxygen Denies any chest pain or shortness of breath Review of systems and systems has been reviewed all negative and positive findings as per history of present illness Past Medical History Past Medical History: Asthma, Eye Disorder, Fibromyalgia, GERD/Reflux, Hypertension, Osteoarthritis (OA), Thyroid Disorder Additional Past Medical History / Comment(s): ANEMIA, FIBROMYALGIA, MIGRAINE, DIVERTICULOSIS, ULCERATIVE COLITIS, IBD, OVARIAN CYST, CHRONIC BACK PAIN. BULDGING AND COMPRESSED DISC C 6/7; T 3/4; L4/5. BURSITIS TENDONITIS RIGHT SHOULDER, ENDOMETRIOSIS. CARPAL TUNNEL SYNDROME LEANNE WRISTS. BRUXISM, BREAST CYSTS. GLAUCOMA, DX SJORGREN'S SYNDROME, HIATAL HERNIA History of Any Multi-Drug Resistant Organisms: None Reported Past Surgical History: Joint Replacement, Orthopedic Surgery, Tonsillectomy Additional Past Surgical History / Comment(s): , RT HAND THUMB TENDON REPAIR, LIPOMA, BILAT TKA, D&C, COLONOSCOPY, EGD, EYE SX FOR GLAUCOMA X 2, CYST REMOVED FROM BREAST AND FOOT, BILAT KNEE SX Past Anesthesia/Blood Transfusion Reactions: Motion Sickness Past Psychological History: Anxiety, Depression, PTSD Smoking Status: Former smoker Past Alcohol Use History: Rare Past Drug Use History: None Reported - Past Family History Mother Family Medical History: Asthma, Cancer, GERD/Reflux, Osteoarthritis (OA) Additional Family Medical History / Comment(s): cancer on the kidney that grew into the kidney. cancer of the uterine. blood clots. obesity. carotid artery narrowing Medications and Allergies Home Medications Medication Instructions Recorded Confirmed Type DULoxetine HCL [Cymbalta] 60 mg PO BID 12/05/15 12/10/21 History Dexlansoprazole [Dexilant] 60 mg PO DAILY@1200 12/05/15 12/10/21 History Gabapentin [Neurontin] 800 mg PO TID 12/05/15 12/10/21 History Levothyroxine Sodium [Levoxyl] 100 mcg PO DAILY 12/05/15 12/10/21 History Multivitamins, Thera [Multivitamin 1 tab PO HS 12/05/15 12/10/21 History (formulary)] traZODone HCL [Desyrel] 100 mg PO HS 12/05/15 12/10/21 History Budesonide/Formoterol Fumarate 2 puff INHALATION RT-BID PRN 12/23/17 12/10/21 History [Symbicort 160-4.5 Mcg Inhaler] atenoloL [Tenormin] 25 mg PO DAILY 04/25/18 12/10/21 History Dicyclomine [Bentyl] 10 mg PO TID #90 capsule 04/30/18 12/10/21 Rx Hydroxychloroquine Sulfate 200 mg PO BID 06/07/20 12/10/21 History [Plaquenil] Cetirizine HCl [Zyrtec] 10 mg PO DAILY PRN 02/28/21 12/10/21 History Cyclobenzaprine [Flexeril] 10 mg PO TID PRN #0 03/14/21 12/10/21 Rx Furosemide [Lasix] 40 mg PO DAILY #30 tab 03/14/21 12/10/21 Rx amLODIPine [Norvasc] 10 mg PO DAILY #30 tab 03/14/21 12/10/21 Rx ALPRAZolam [Xanax] 0.25 mg PO DAILY 12/10/21 12/10/21 History Ascorbic Acid [Vitamin C] 1,000 mg PO DAILY@1200 12/10/21 12/10/21 History Balsalazide Disodium 2,250 mg PO TID 12/10/21 12/10/21 History Cholecalciferol [Vitamin D3 (25 50 mcg PO DAILY@1200 12/10/21 12/10/21 History Mcg = 1000 Iu)] Losartan Potassium [Cozaar] 100 mg PO DAILY 12/10/21 12/10/21 History Montelukast [Singulair] 10 mg PO HS 12/10/21 12/10/21 History Olopatadine HCl [Pataday] 1 drop BOTH EYES BID 12/10/21 12/10/21 History Zinc 50 mg PO DAILY@1200 12/10/21 12/10/21 History Allergies Allergy/AdvReac Type Severity Reaction Status Date / Time buspirone HCl [From BuSpar] Allergy Severe numbness Verified 12/10/21 23:22 of tongue and face Sulfa (Sulfonamide Allergy Severe Rash/Hives Verified 12/10/21 23:22 Antibiotics) coconut Allergy Rash/Hives Verified 12/10/21 23:22 aspirin AdvReac Severe Vomiting Verified 12/10/21 23:22 iron AdvReac Severe Nausea & Verified 12/10/21 23:22 Vomiting,hives,swelling,skin changed color loracarbef [From Lorabid] AdvReac Intermediate yeast Verified 12/10/21 23:22 infection potassium clavulanate AdvReac Intermediate yeast Verified 12/10/21 23:22 [From Augmentin] infection amoxicillin trihydrate AdvReac yeast Verified 12/10/21 23:22 [From Augmentin] infection Constitutional: No acute distress, conversant, pleasant Eyes: Anicteric sclerae, moist conjunctiva, no lid-lag PERRLA ENMT: NC/AT Oropharynx clear, no erythema, exudates Neck: Supple, FROM, no masses, or JVD No carotid bruits No thyromegaly Lungs: Clear to auscultation Clear to percussion Normal respiratory effort, no accessory muscle use Cardiovascular: Heart regular in rate and rhythm, No murmurs, gallops, or rubs No peripheral edema Abdominal: Soft Nontender, no guarding, rebound or rigidity Abdomen moving with respiration Normoactive bowel sounds No hepatomegaly, No splenomegaly No palpable mass No abdominal wall hernia noted Skin: Normal temperature, tone, texture, turgor No induration No subcutaneous nodules No rash, lesions No ulcers Extremities: No digital cyanosis No clubbing Pedal pulses intact and symmetrical Radial pulses intact and symmetrical Normal gait and station No calf tenderness Psychiatric:Alert and oriented to person, place and time Appropriate affect Intact judgement Neuro: Muscles Strength 5/5 in all 4 extremities Sensation to light touch grossly present throughout Cranial nerves II-XII grossly intact No focal sensory deficits Assessment and plan Hypoxia Mild but since the patient is a high risk for PE will check computed tomography scan of the lungs to rule out PE Status post cholecystectomy Fibromyalgia We checked troponins and put the patient on telemetry Surgical - Exam Past Medical History Past Medical History: Asthma, Eye Disorder, Fibromyalgia, GERD/Reflux, Hypertension, Osteoarthritis (OA), Thyroid Disorder Additional Past Medical History / Comment(s): ANEMIA, FIBROMYALGIA, MIGRAINE, D IVERTICULOSIS, ULCERATIVE COLITIS, IBD, OVARIAN CYST, CHRONIC BACK PAIN. BULDGING AND COMPRESSED DISC C 6/7; T 3/4; L4/5. BURSITIS TENDONITIS RIGHT SHOULDER, ENDOMETRIOSIS. CARPAL TUNNEL SYNDROME LEANNE WRISTS. BRUXISM, BREAST CYSTS. GLAUCOMA, DX SJORGREN'S SYNDROME, HIATAL HERNIA History of Any Multi-Drug Resistant Organisms: None Reported Past Surgical History: Joint Replacement, Orthopedic Surgery, Tonsillectomy Additional Past Surgical History / Comment(s): , RT HAND THUMB TENDON REPAIR, LIPOMA, BILAT TKA, D&C, COLONOSCOPY, EGD, EYE SX FOR GLAUCOMA X 2, CYST REMOVED FROM BREAST AND FOOT, BILAT KNEE SX Past Anesthesia/Blood Transfusion Reactions: Motion Sickness Past Psychological History: Anxiety, Depression, PTSD Smoking Status: Former smoker Past Alcohol Use History: Rare Past Drug Use History: None Reported - Past Family History Mother Family Medical History: Asthma, Cancer, GERD/Reflux, Osteoarthritis (OA) Additional Family Medical History / Comment(s): cancer on the kidney that grew into the kidney. cancer of the uterine. blood clots. obesity. carotid artery narrowing Medications and Allergies Home Medications Medication Instructions Recorded Confirmed Type DULoxetine HCL [Cymbalta] 60 mg PO BID 12/05/15 12/10/21 History Dexlansoprazole [Dexilant] 60 mg PO DAILY@1200 12/05/15 12/10/21 History Gabapentin [Neurontin] 800 mg PO TID 12/05/15 12/10/21 History Levothyroxine Sodium [Levoxyl] 100 mcg PO DAILY 12/05/15 12/10/21 History Multivitamins, Thera [Multivitamin 1 tab PO HS 12/05/15 12/10/21 History (formulary)] traZODone HCL [Desyrel] 100 mg PO HS 12/05/15 12/10/21 History Budesonide/Formoterol Fumarate 2 puff INHALATION RT-BID PRN 12/23/17 12/10/21 History [Symbicort 160-4.5 Mcg Inhaler] atenoloL [Tenormin] 25 mg PO DAILY 04/25/18 12/10/21 History Dicyclomine [Bentyl] 10 mg PO TID #90 capsule 04/30/18 12/10/21 Rx Hydroxychloroquine Sulfate 200 mg PO BID 06/07/20 12/10/21 History [Plaquenil] Cetirizine HCl [Zyrtec] 10 mg PO DAILY PRN 02/28/21 12/10/21 History Cyclobenzaprine [Flexeril] 10 mg PO TID PRN #0 03/14/21 12/10/21 Rx Furosemide [Lasix] 40 mg PO DAILY #30 tab 03/14/21 12/10/21 Rx amLODIPine [Norvasc] 10 mg PO DAILY #30 tab 03/14/21 12/10/21 Rx ALPRAZolam [Xanax] 0.25 mg PO DAILY 12/10/21 12/10/21 History Ascorbic Acid [Vitamin C] 1,000 mg PO DAILY@1200 12/10/21 12/10/21 History Balsalazide Disodium 2,250 mg PO TID 12/10/21 12/10/21 History Cholecalciferol [Vitamin D3 (25 50 mcg PO DAILY@1200 12/10/21 12/10/21 History Mcg = 1000 Iu)] Losartan Potassium [Cozaar] 100 mg PO DAILY 12/10/21 12/10/21 History Montelukast [Singulair] 10 mg PO HS 12/10/21 12/10/21 History Olopatadine HCl [Pataday] 1 drop BOTH EYES BID 12/10/21 12/10/21 History Zinc 50 mg PO DAILY@1200 12/10/21 12/10/21 History Allergies Allergy/AdvReac Type Severity Reaction Status Date / Time buspirone HCl [From BuSpar] Allergy Severe numbness Verified 12/11/21 08:58 of tongue and face Sulfa (Sulfonamide Allergy Severe Rash/Hives Verified 12/11/21 08:58 Antibiotics) coconut Allergy Rash/Hives Verified 12/11/21 08:58 aspirin AdvReac Severe Vomiting Verified 12/11/21 08:58 iron AdvReac Severe Nausea & Verified 12/11/21 08:58 Vomiting,hives,swelling,skin changed color loracarbef [From Lorabid] AdvReac Intermediate yeast Verified 12/11/21 08:58 infection potassium clavulanate AdvReac Intermediate yeast Verified 12/11/21 08:58 [From Augmentin] infection amoxicillin trihydrate AdvReac yeast Verified 12/11/21 08:58 [From Augmentin] infection Physical Exam Vitals: Vital Signs Temp Pulse Pulse Pulse Resp BP BP 12/11/21 10:47 87 16 137/65 12/11/21 10:32 87 16 133/64 12/11/21 10:16 97.8 F 91 12 131/62 12/11/21 08:58 98.2 F 78 18 118/67 12/11/21 07:00 99.0 F 73 16 102/67 12/11/21 02:54 98.8 F 78 23 123/66 12/11/21 00:00 98.4 F 70 18 99/54 12/10/21 18:50 100.9 F H 72 20 106/63 Pulse Ox 12/11/21 10:47 94 L 12/11/21 10:32 98 12/11/21 10:16 95 12/11/21 08:58 95 12/11/21 07:00 92 L 12/11/21 02:54 97 12/11/21 00:00 94 L 12/10/21 18:50 98 Intake and Output 12/10/21 12/11/21 12/11/21 22:59 06:59 14:59 Intake Total 700 Output Total 50 Balance 650 Intake: IV 700 Output: Estimated Blood Loss 50 Other: Voiding Method Toilet # Voids 1 Weight 147.418 kg 147.418 kg Results CBC & Chem 7: 12/11/21 06:48 12/11/21 06:48 Labs: Abnormal Lab Results - Last 24 Hours (Table) 12/10/21 12/10/21 12/11/21 Range/Units 19:08 19:08 06:48 WBC 13.5 H (3.8-10.6) k/uL RBC 3.67 L (3.80-5.40) m/uL Hgb 10.7 L (11.4-16.0) gm/dL Plt Count 142 L (150-450) k/uL Neutrophils # 11.9 H 8.3 H (1.3-7.7) k/uL Lymphocytes # 0.8 L 0.8 L (1.0-4.8) k/uL Sodium 135 L (137-145) mmol/L Potassium 3.4 L (3.5-5.1) mmol/L Glucose 104 H (74-99) mg/dL Calcium (8.4-10.2) mg/dL Total Bilirubin 1.7 H (0.2-1.3) mg/dL AST 65 H (14-36) U/L ALT 80 H (4-34) U/L Alkaline Phosphatase 155 H (38-126) U/L 12/11/21 12/11/21 Range/Units 06:48 06:48 WBC (3.8-10.6) k/uL RBC (3.80-5.40) m/uL Hgb (11.4-16.0) gm/dL Plt Count (150-450) k/uL Neutrophils # (1.3-7.7) k/uL Lymphocytes # (1.0-4.8) k/uL Sodium 136 L (137-145) mmol/L Potassium 3.3 L (3.5-5.1) mmol/L Glucose (74-99) mg/dL Calcium 8.1 L (8.4-10.2) mg/dL Total Bilirubin 1.4 H (0.2-1.3) mg/dL AST 48 H (14-36) U/L ALT 64 H (4-34) U/L Alkaline Phosphatase 133 H (38-126) U/L
[2021-12-11 12:37] LABS: Creatine Kinase MB 1.3 ng/mL (0.0-2.4)
[2021-12-11] MEDS: ZINC SULFATE 220 MG CAP PO SCH (13:39)
[2021-12-11] MEDS: HYDROcodone/APAP 7.5-325MG 1 EACH TAB PO PRN ×2 (13:39→21:42)
[2021-12-11] MEDS: ASCORBIC ACID 500 MG TAB PO SCH (13:39)
[2021-12-11] MEDS: PANTOPRAZOLE 40 MG TABLET PO SCH (13:40)
[2021-12-11] MEDS: CHOLECALCIFEROL 25 MCG (1000 IU) TABLET PO SCH (13:40)
[2021-12-11] MEDS: MULTIVITAMINS, THERA 1 EACH TAB PO SCH (21:42)
[2021-12-11] MEDS: MONTELUKAST 10 MG TAB PO SCH (21:42)
[2021-12-11] MEDS: traZODone HCL 100 MG TAB PO SCH (21:42)
[2021-12-12] MEDS: MORPHINE SULFATE 4 MG/ML SYRINGE IV PRN ×2 (01:03→15:36)
[2021-12-12] MEDS: PIPERACILLIN-TAZOBACTAM 3.375 GM in SODIUM CHLORIDE 0.9% 100 ML IVPB SCH ×3 (01:04→16:19)
[2021-12-12] MEDS: SODIUM CHLORIDE 0.9% 1,000 ML IV SCH ×2 (01:52→15:37)
[2021-12-12] MEDS: LEVOTHYROXINE 100 MCG TAB PO SCH (05:41)
[2021-12-12 09:32] LABS: Basophils # (A) 0.01 X 10*3/uL (0.00-0.10); Basophils % (A) 0.1 %; Eosinophils # (A) 0.01 X 10*3/uL (0.04-0.35); Eosinophils % (A) 0.1 %; HCT 35.2 % (37.2-46.3); HGB 10.7 g/dL (12.0-15.0); Lymphocytes # (A) 0.61 X 10*3/uL (0.90-5.00); Lymphocytes % (A) 5.7 %; MCH 27.6 pg (27.0-32.0); MCHC 30.4 g/dL (32.0-37.0); MCV 90.7 fL (80.0-97.0); Mean Platelet Volume 11.1 fL (9.5-12.2); Monocytes # (A) 1.08 X 10*3/uL (0.20-1.00); Monocytes % (A) 10.1 %; Neutrophils # (A) 8.96 X 10*3/uL (1.80-7.70); Neutrophils % (A) 83.3 %; Platelet Count 175 X 10*3/uL (140-440); RBC 3.88 X 10*6/uL (4.10-5.20); RDW 13.8 % (11.5-14.5); WBC 10.74 X 10*3/uL (4.50-10.00)
[2021-12-12] MEDS ORDERED: MORPHINE SULFATE 4 MG/ML SYRINGE ONE (09:35)
--- NOTE | 2021-12-12 10:26 | P.PN ---
Subjective Progress Note Date: 12/12/21 Principal diagnosis: Patient feels better today We'll continue try to wean oxygen onstitutional: No acute distress, conversant, pleasant Eyes: Anicteric sclerae, moist conjunctiva, no lid-lag PERRLA ENMT: NC/AT Oropharynx clear, no erythema, exudates Neck: Supple, FROM, no masses, or JVD No carotid bruits No thyromegaly Lungs: Clear to auscultation Clear to percussion Normal respiratory effort, no accessory muscle use Cardiovascular: Heart regular in rate and rhythm, No murmurs, gallops, or rubs No peripheral edema Abdominal: Soft Nontender, no guarding, rebound or rigidity Abdomen moving with respiration Normoactive bowel sounds No hepatomegaly, No splenomegaly No palpab le mass No abdominal wall hernia noted Skin: Normal temperature, tone, texture, turgor No induration No subcutaneous nodules No rash, lesions No ulcers Extremities: No digital cyanosis No clubbing Pedal pulses intact and symmetrical Radial pulses intact and symmetrical Normal gait and station No calf tenderness Psychiatric:Alert and oriented to person, place and time Appropriate affect Intact judgement Neuro: Muscles Strength 5/5 in all 4 extremities Sensation to light touch grossly present throughout Cranial nerves II-XII grossly intact No focal sensory deficits Assessment and plan Hypoxia Hypoxia likely to be chronic likely the patient does have COPD and asthma We'll continue to wean If not able to wean patient may be discharged home on 2 L oxygen Status post cholecystectomy Fibromyalgia Objective - Vital Signs Vital signs: Vital Signs Temp 98.8 F 12/12/21 07:00 Pulse 72 12/12/21 07:00 Resp 20 12/12/21 07:00 BP 127/63 12/12/21 07:00 Pulse Ox 98 12/12/21 07:00 Intake & Output 12/11/21 12/12/21 12/12/21 18:59 06:59 18:59 Intake Total 700 Output Total 90 40 Balance 610 -40 Intake: IV 700 Output: Drainage 40 40 Right Abdomen 40 40 Estimated Blood Loss 50 Other: Voiding Method Toilet Toilet # Voids 1 3 - Labs CBC & Chem 7: 12/12/21 06:16 12/11/21 06:48 Labs: Abnormal Lab Results - Last 24 Hours (Table) 12/12/21 Range/Units 06:16 WBC 10.74 H (4.50-10.00) X 10*3/uL RBC 3.88 L (4.10-5.20) X 10*6/uL Hgb 10.7 L (12.0-15.0) g/dL Hct 35.2 L (37.2-46.3) % MCHC 30.4 L (32.0-37.0) g/dL Immature Gran # 0.07 H (0.00-0.04) X 10*3/uL Neutrophils # 8.96 H (1.80-7.70) X 10*3/uL Lymphocytes # 0.61 L (0.90-5.00) X 10*3/uL Monocytes # 1.08 H (0.20-1.00) X 10*3/uL Eosinophils # 0.01 L (0.04-0.35) X 10*3/uL Microbiology - Last 24 Hours (Table) 12/11/21 00:00 Blood Culture - Preliminary Blood No Growth after 24 hours 12/11/21 00:15 Blood Culture - Preliminary Blood No Growth after 24 hours
[2021-12-12] MEDS: ENOXAPARIN 40 MG/0.4 ML SYRINGE SQ SCH (10:28)
[2021-12-12] MEDS: BALSALAZIDE DISODIUM 750 MG CAPSULE PO SCH ×3 (10:28→20:34)
[2021-12-12] MEDS: HYDROXYCHLOROQUINE SULFATE 200 MG TAB PO SCH ×2 (10:29→20:34)
[2021-12-12] MEDS: PANTOPRAZOLE 40 MG TABLET PO SCH (10:29)
[2021-12-12] MEDS: ASCORBIC ACID 500 MG TAB PO SCH (10:29)
[2021-12-12] MEDS: GABAPENTIN 400 MG CAP PO SCH ×3 (10:29→20:34)
[2021-12-12] MEDS: ZINC SULFATE 220 MG CAP PO SCH (10:29)
[2021-12-12] MEDS: ALPRAZolam 0.25 MG TAB PO SCH (10:29)
[2021-12-12] MEDS: amLODIPine 10 MG TAB PO SCH (10:29)
[2021-12-12] MEDS: LOSARTAN 50 MG TAB PO SCH (10:30)
[2021-12-12] MEDS: DULoxetine HCL 60 MG CAPSULE.DR PO SCH ×2 (10:30→20:34)
[2021-12-12] MEDS: CHOLECALCIFEROL 25 MCG (1000 IU) TABLET PO SCH (10:30)
[2021-12-12] MEDS: KETOTIFEN 0.025% OPHTH DROPS 5 ML BTL BOTH EYES SCH ×2 (10:31→20:35)
[2021-12-12] MEDS: atenoloL 25 MG TAB PO SCH (10:31)
[2021-12-12 11:36] LABS: African American GFR (CKD) 112.3 (60.0-200.0); Albumin 3.3 g/dL (3.8-4.9); Albumin/Globulin Ratio 1.43 (1.60-3.17); BUN/Creat Ratio 12.71 Ratio (12.00-20.00); Blood Urea Nitrogen 8.9 mg/dL (9.0-27.0); Calcium 8.4 mg/dL (8.7-10.3); Globulin 2.3 g/dL (1.6-3.3); Non-African American GFR(CKD) 96.9 (60.0-200.0); Potassium 3.8 mmol/L (3.5-5.5); Total Bilirubin 0.7 mg/dL (0.30-1.20); Total Protein 5.6 g/dL (6.2-8.2)
--- NOTE | 2021-12-12 15:03 | P.PN ---
Subjective Progress Note Date: 12/12/21 CHIEF COMPLAINT: Acute gangrenous cholecystitis HISTORY OF PRESENT ILLNESS: Postop day #1 status post laparoscopic cholecystectomy. Patient reports her pain is controlled. She is passing some gas. She does admit to nausea. She's sitting at bedside chair. CHAZ drain with serosanguineous output. She is requiring 4 L of oxygen. Afebrile. WBC is 10.7 for hemoglobin 10.7 potassium up from 3.3-3.8 LFTs trending downwards PHYSICAL EXAM: VITAL SIGNS: Reviewed. GENERAL: Well-developed in no acute distress. HEENT: No sclera icterus. Extraocular movements grossly intact. Moist buccal mucosa. Head is atraumatic, normocephalic. ABDOMEN: Soft. Incision sites with dried blood noted. NEUROLOGIC: Alert and oriented. Cranial nerves II through XII grossly intact. ASSESSMENT: 1. Acute gangrenous cholecystitis status post laparoscopic cholecystectomy PLAN: -Continue antibiotics -Continue pain medication as needed -Encouraged patient to ambulate -Continue to wean oxygen. We'll add Mary wellington. She does have a history of COPD. -Added incentive spirometer -GI prophylaxis Protonix and DVT prophylaxis Lovenox Physician Dialysis Biomed Technician note has been reviewed by physician. Signing provider agrees with the documented findings, assessment, and plan of care. Objective - Vital Signs Vital signs: Vital Signs Temp 98.8 F 12/12/21 07:00 Pulse 72 12/12/21 07:00 Resp 20 12/12/21 07:00 BP 127/63 12/12/21 07:00 Pulse Ox 98 12/12/21 07:00 Intake & Output 12/11/21 12/12/21 12/12/21 18:59 06:59 18:59 Intake Total 700 Output Total 90 40 Balance 610 -40 Intake: IV 700 Output: Drainage 40 40 Right Abdomen 40 40 Estimated Blood Loss 50 Other: Voiding Method Toilet Toilet # Voids 1 3 - Labs CBC & Chem 7: 12/12/21 06:16 12/12/21 06:16 Labs: Abnormal Lab Results - Last 24 Hours (Table) 12/12/21 12/12/21 Range/Units 06:16 06:16 WBC 10.74 H (4.50-10.00) X 10*3/uL RBC 3.88 L (4.10-5.20) X 10*6/uL Hgb 10.7 L (12.0-15.0) g/dL Hct 35.2 L (37.2-46.3) % MCHC 30.4 L (32.0-37.0) g/dL Immature Gran # 0.07 H (0.00-0.04) X 10*3/uL Neutrophils # 8.96 H (1.80-7.70) X 10*3/uL Lymphocytes # 0.61 L (0.90-5.00) X 10*3/uL Monocytes # 1.08 H (0.20-1.00) X 10*3/uL Eosinophils # 0.01 L (0.04-0.35) X 10*3/uL BUN 8.9 L (9.0-27.0) mg/dL Calcium 8.4 L (8.7-10.3) mg/dL AST 45 H (13-35) U/L ALT 54 H (8-44) U/L Alkaline Phosphatase 144 H (41-126) U/L Total Protein 5.6 L (6.2-8.2) g/dL Albumin 3.3 L (3.8-4.9) g/dL Albumin/Globulin Ratio 1.43 L (1.60-3.17) g/dL Microbiology - Last 24 Hours (Table) 12/11/21 00:00 Blood Culture - Preliminary Blood No Growth after 24 hours 12/11/21 00:15 Blood Culture - Preliminary Blood No Growth after 24 hours
[2021-12-12] MEDS: IPRATROPIUM-ALBUTEROL 3 ML NEB INHALATION SCH ×2 (16:11→20:50)
[2021-12-12] MEDS: traZODone HCL 100 MG TAB PO SCH (20:34)
[2021-12-12] MEDS: MONTELUKAST 10 MG TAB PO SCH (20:34)
[2021-12-12] MEDS: MULTIVITAMINS, THERA 1 EACH TAB PO SCH (20:34)
[2021-12-13] MEDS: PIPERACILLIN-TAZOBACTAM 3.375 GM in SODIUM CHLORIDE 0.9% 100 ML IVPB SCH ×2 (00:45→08:23)
[2021-12-13] MEDS: HYDROcodone/APAP 7.5-325MG 1 EACH TAB PO PRN ×3 (01:26→15:47)
[2021-12-13] MEDS: SODIUM CHLORIDE 0.9% 1,000 ML IV SCH (04:58)
[2021-12-13] MEDS: LEVOTHYROXINE 100 MCG TAB PO SCH (05:37)
[2021-12-13] MEDS: IPRATROPIUM-ALBUTEROL 3 ML NEB INHALATION SCH ×2 (08:09→11:34)
[2021-12-13] MEDS: ENOXAPARIN 40 MG/0.4 ML SYRINGE SQ SCH (08:24)
[2021-12-13] MEDS: PANTOPRAZOLE 40 MG TABLET PO SCH (08:24)
[2021-12-13] MEDS: atenoloL 25 MG TAB PO SCH (08:25)
[2021-12-13] MEDS: ALPRAZolam 0.25 MG TAB PO SCH (08:25)
[2021-12-13] MEDS: BALSALAZIDE DISODIUM 750 MG CAPSULE PO SCH ×2 (08:25→15:47)
[2021-12-13] MEDS: amLODIPine 10 MG TAB PO SCH (08:25)
[2021-12-13] MEDS: GABAPENTIN 400 MG CAP PO SCH ×2 (08:26→15:47)
[2021-12-13] MEDS: CHOLECALCIFEROL 25 MCG (1000 IU) TABLET PO SCH (08:26)
[2021-12-13] MEDS: ASCORBIC ACID 500 MG TAB PO SCH (08:26)
[2021-12-13] MEDS: ZINC SULFATE 220 MG CAP PO SCH (08:26)
[2021-12-13] MEDS: HYDROXYCHLOROQUINE SULFATE 200 MG TAB PO SCH (08:26)
[2021-12-13] MEDS: KETOTIFEN 0.025% OPHTH DROPS 5 ML BTL BOTH EYES SCH (08:27)
[2021-12-13] MEDS: LOSARTAN 50 MG TAB PO SCH (08:27)
[2021-12-13] MEDS: DULoxetine HCL 60 MG CAPSULE.DR PO SCH (08:27)
[2021-12-13 10:15] LABS: Basophils % (A) 1 %; Eosinophils # (A) 0.1 k/uL (0-0.7); Eosinophils % (A) 2 %; HCT 35.8 % (34.0-46.0); Hypochromasia Marked; Lymphocytes # (A) 0.9 k/uL (1.0-4.8); Lymphocytes % (A) 12 %; MCH 29.8 pg (25.0-35.0); MCHC 30.6 g/dL (31.0-37.0); MCV 97.6 fL (80.0-100.0); Mean Platelet Volume 8.6; Monocytes # (A) 0.6 k/uL (0-1.0); Monocytes % (A) 7 %; Neutrophils % (A) 77 %; Platelet Count 163 k/uL (150-450); RBC 3.67 m/uL (3.80-5.40); RDW 13.4 % (11.5-15.5); WBC 7.8 k/uL (3.8-10.6)
--- NOTE | 2021-12-13 10:29 | P.PN ---
Subjective Progress Note Date: 12/13/21 Principal diagnosis: Patient feels better today Patient is off oxygen today onstitutional: No acute distress, conversant, pleasant Eyes: Anicteric sclerae, moist conjunctiva, no lid-lag PERRLA ENMT: NC/AT Oropharynx clear, no erythema, exudates Neck: Supple, FROM, no masses, or JVD No carotid bruits No thyromegaly Lungs: Clear to auscultation Clear to percussion Normal respiratory effort, no accessory muscle use Cardiovascular: Heart regular in rate and rhythm, No murmurs, gallops, or rubs No peripheral edema Abdominal: Soft Nontender, no guarding, rebound or rigidity Abdomen moving with respiration Normoactive bowel sounds No hepatomegaly, No splenomegaly No palpable mass No abdominal wall hernia noted Skin: Normal temperature, tone, texture, turgor No induration No subcutaneous nodules No rash, lesions No ulcers Extremities: No digital cyanosis No clubbing Pedal pulses intact and symmetrical Radial pulses intact and symmetrical Normal gait and station No calf tenderness Psychiatric:Alert and oriented to person, place and time Appropriate affect Intact judgement Neuro: Muscles Strength 5/5 in all 4 extremities Sensation to light touch grossly present throughout Cranial nerves II-XII grossly intact No focal sensory deficits Assessment and plan Hypoxia Hypoxia likely to be chronic likely the patient does have COPD and asthma Patient is off oxygen today Overall stable We'll continue to wean If not able to wean patient may be discharged home on 2 L oxygen Status post cholecystectomy Fibromyalgia Objective - Vital Signs Vital signs: Vital Signs Temp 98.3 F 12/13/21 08:00 Pulse 79 12/13/21 08:00 Resp 16 12/13/21 08:00 BP 117/56 12/13/21 08:00 Pulse Ox 93 L 12/13/21 08:00 Intake & Output 12/12/21 12/13/21 12/13/21 18:59 06:59 18:59 Intake Total 118 Output Total 20 Balance 118 -20 Intake: Oral 118 Output: Drainage 20 Right Abdomen 20 Other: Voiding Method Toilet # Voids 2 2 - Labs CBC & Chem 7: 12/13/21 09:15 12/12/21 06:16 Labs: Abnormal Lab Results - Last 24 Hours (Table) 12/12/21 12/13/21 Range/Units 06:16 09:15 RBC 3.67 L (3.80-5.40) m/uL Hgb 11.0 L (11.4-16.0) gm/dL MCHC 30.6 L (31.0-37.0) g/dL Lymphocytes # 0.9 L (1.0-4.8) k/uL BUN 8.9 L (9.0-27.0) mg/dL Calcium 8.4 L (8.7-10.3) mg/dL AST 45 H (13-35) U/L ALT 54 H (8-44) U/L Alkaline Phosphatase 144 H (41-126) U/L Total Protein 5.6 L (6.2-8.2) g/dL Albumin 3.3 L (3.8-4.9) g/dL Albumin/Globulin Ratio 1.43 L (1.60-3.17) g/dL Microbiology - Last 24 Hours (Table) 12/11/21 00:00 Blood Culture - Preliminary Blood No Growth after 48 hours 12/11/21 00:15 Blood Culture - Preliminary Blood No Growth after 48 hours
[2021-12-13 10:36] LABS: ALT 36 U/L (4-34); African American GFR (CKD) >90 (>60 ml/min/1.73 sqM); Albumin/Globulin Ratio 1.1; Anion Gap 9 mmol/L; Blood Urea Nitrogen 12 mg/dL (7-17); Calcium 8.3 mg/dL (8.4-10.2); Carbon Dioxide 26 mmol/L (22-30); Chloride 100 mmol/L (98-107); Globulin 2.9 g/dL; Glucose 94 mg/dL (74-99); Non-African American GFR(CKD) >90 (>60 ml/min/1.73 sqM); Sodium 135 mmol/L (137-145); Total Bilirubin 1.2 mg/dL (0.2-1.3)
[2021-12-13 10:51] LABS: AST 46 U/L (14-36); Albumin 3.1 g/dL (3.5-5.0); Alkaline Phosphatase 103 U/L (38-126); Potassium 4.1 mmol/L (3.5-5.1)
[2021-12-13] MEDS ORDERED: AMOXIC-POT CLAV 875-125MG 1 EACH TAB PO SCH (11:15)
--- NOTE | 2021-12-13 13:22 | P.DS ---
Providers Date of admission: 12/11/21 13:37 Expected date of discharge: 12/13/21 Attending physician: Donavon Giles Consults: 12/11/21 10:25 Consult Physician Routine Consulting Provider: Karolyn Boykin Consult Reason/Comments: Medical management Do you want consulting provider notified?: Yes Primary care physician: Lu Mancera Hospital Course: Discharge diagnosis 1. Acute gangrenous cholecystitis status post laparoscopic cholecystectomy Discharge diagnosis This a 56-year-old female with a four-day history of right quadrant pain. Patient was seen emergently have evidence of cholelithiasis. Patient has had previous complaints of pain approximately a year ago. Ultrasound had shown evidence of cholelithiasis. Patient is status post cholaparoscopiclecystectom y. She tolerated surgery well. Her pain is controlled. She is having flatus. She is tolerating diet. She has been up and ambulating. She is requiring home O2. she was evaluated by medicine service. They felt her hypoxia is likely due to her COPD and chronic 20 failure and patient will require 2 L of oxygen at home. She is afebrile. She'll be discharged home with antibiotics. She is stable for discharge. Please refer to chart for any further details. Physician Pocket Cutter note has been reviewed by physician. Signing provider agrees with the documented findings, assessment, and plan of care. Patient Condition at Discharge: Stable Plan - Discharge Summary New Discharge Prescriptions: New Amoxicillin/Potassium Clav [Augmentin 875-125 Tablet] 1 tab PO Q12HR 7 Days #14 tab Docusate [Colace] 100 mg PO BID #30 capsule HYDROcodone/APAP 7.5-325MG [L[place]ombe 7.5-325] 1 tab PO Q6HR PRN 3 Days #12 tab PRN Reason: Pain No Action Multivitamins, Thera [Multivitamin (formulary)] 1 tab PO HS Gabapentin [Neurontin] 800 mg PO TID Levothyroxine Sodium [Levoxyl] 100 mcg PO DAILY Dexlansoprazole [Dexilant] 60 mg PO DAILY@1200 traZODone HCL [Desyrel] 100 mg PO HS DULoxetine HCL [Cymbalta] 60 mg PO BID Budesonide/Formoterol Fumarate [Symbicort 160-4.5 Mcg Inhaler] 2 puff INHALATION RT-BID PRN PRN Reason: breathing problems atenoloL [Tenormin] 25 mg PO DAILY Dicyclomine [Bentyl] 10 mg PO TID #90 capsule Hydroxychloroquine Sulfate [Plaquenil] 200 mg PO BID Cetirizine HCl [Zyrtec] 10 mg PO DAILY PRN PRN Reason: Allergy Symptoms amLODIPine [Norvasc] 10 mg PO DAILY #30 tab Zinc 50 mg PO DAILY@1200 ALPRAZolam [Xanax] 0.25 mg PO DAILY Cholecalciferol [Vitamin D3 (25 Mcg = 1000 Iu)] 50 mcg PO DAILY@1200 Ascorbic Acid [Vitamin C] 1,000 mg PO DAILY@1200 Losartan Potassium [Cozaar] 100 mg PO DAILY Balsalazide Disodium 2,250 mg PO TID Furosemide [Lasix] 40 mg PO DAILY #30 tab Cyclobenzaprine [Flexeril] 10 mg PO TID PRN #0 PRN Reason: Muscle Spasm Montelukast [Singulair] 10 mg PO HS Olopatadine HCl [Pataday] 1 drop BOTH EYES BID Discharge Medication List DULoxetine HCL [Cymbalta] 60 mg PO BID 12/05/15 [History] Dexlansoprazole [Dexilant] 60 mg PO DAILY@1200 12/05/15 [History] Gabapentin [Neurontin] 800 mg PO TID 12/05/15 [History] Levothyroxine Sodium [Levoxyl] 100 mcg PO DAILY 12/05/15 [History] Multivitamins, Thera [Multivitamin (formulary)] 1 tab PO HS 12/05/15 [History] traZODone HCL [Desyrel] 100 mg PO HS 12/05/15 [History] Budesonide/Formoterol Fumarate [Symbicort 160-4.5 Mcg Inhaler] 2 puff INHALATION RT-BID PRN 12/23/17 [History] atenoloL [Tenormin] 25 mg PO DAILY 04/25/18 [History] Dicyclomine [Bentyl] 10 mg PO TID #90 capsule 04/30/18 [Rx] Hydroxychloroquine Sulfate [Plaquenil] 200 mg PO BID 06/07/20 [History] Cetirizine HCl [Zyrtec] 10 mg PO DAILY PRN 02/28/21 [History] Cyclobenzaprine [Flexeril] 10 mg PO TID PRN #0 03/14/21 [Rx] Furosemide [Lasix] 40 mg PO DAILY #30 tab 03/14/21 [Rx] amLODIPine [Norvasc] 10 mg PO DAILY #30 tab 03/14/21 [Rx] ALPRAZolam [Xanax] 0.25 mg PO DAILY 12/10/21 [History] Ascorbic Acid [Vitamin C] 1,000 mg PO DAILY@1200 12/10/21 [History] Balsalazide Disodium 2,250 mg PO TID 12/10/21 [History] Cholecalciferol [Vitamin D3 (25 Mcg = 1000 Iu)] 50 mcg PO DAILY@1200 12/10/21 [History] Losartan Potassium [Cozaar] 100 mg PO DAILY 12/10/21 [History] Montelukast [Singulair] 10 mg PO HS 12/10/21 [History] Olopatadine HCl [Pataday] 1 drop BOTH EYES BID 12/10/21 [History] Zinc 50 mg PO DAILY@1200 12/10/21 [History] Amoxicillin/Potassium Clav [Augmentin 875-125 Tablet] 1 tab PO Q12HR 7 Days #14 tab 12/13/21 [Rx] Docusate [Colace] 100 mg PO BID #30 capsule 12/13/21 [Rx] HYDROcodone/APAP 7.5-325MG [Lacombe 7.5-325] 1 tab PO Q6HR PRN 3 Days #12 tab 12/13/21 [Rx] Follow up Appointment(s)/Referral(s): [facility] [NON-STAFF] - 1-2 Days (Supplier of home oxygen) Lu Mancera MD [Primary Care Provider] - 1-2 days Donavon Giles MD [STAFF PHYSICIAN] - 1 Week Activity/Diet/Wound Care/Special Instructions: Medicine service to complete discharge med rec No driving while taking [place] No lifting over 10 pounds You may shower. No soaking or tub baths for 2 weeks Very light activity until you are reevaluated at your follow up appointment with your surgeon Discharge Disposition: HOME WITH HOME HEALTH SERVICES
[2021-12-13 15:03] VITALS: BP 103/57; PULSE 77; RESP 17; TEMP 99.1
== END 2021-12-13 16:36 | disposition home health service (06) | DRG 418 ==
LOC: EC 17:43 → 6NMEDSUR 22:46 → OBSVTOIN 12-11 13:37 → 6NMEDSUR 12-12 02:50
PROVIDERS: ADMIT Surgery; ATTEND Surgery
PROC: 0FT44ZZ Resection of Gallbladder, Percutaneous Endoscopic Approach (ICD-10-PCS; principal; 2021-12-11 10:40)
DX: K80.00 Calculus of gallbladder with acute cholecystitis without obstruction (principal); J96.11 Chronic respiratory failure with hypoxia; K51.90 Ulcerative colitis, unspecified, without complications; K82.A1 Gangrene of gallbladder in cholecystitis; F32.A Depression, unspecified; F43.10 Post-traumatic stress disorder, unspecified; I10 Essential (primary) hypertension; J44.9 Chronic obstructive pulmonary disease, unspecified; M79.7 Fibromyalgia; Z20.822 Contact with and (suspected) exposure to COVID-19; Z79.51 Long term (current) use of inhaled steroids; Z79.890 Hormone replacement therapy; Z79.899 Other long term (current) drug therapy; Z80.51 Family history of malignant neoplasm of kidney; Z82.5 Family history of asthma and other chronic lower respiratory diseases; Z87.891 Personal history of nicotine dependence; Z88.1 Allergy status to other antibiotic agents; Z88.2 Allergy status to sulfonamides; Z88.8 Allergy status to other drugs, medicaments and biological substances
CPT/HCPCS: 36415; 74018; 74177; 76705; 80048; 80053; 82150; 82247; 82550; 82553; 83690; 84075; 84450; 84460; 85025; 87040; 87635; 88304; 94640; 94760; 96374; 96375; 99285

== ENCOUNTER → 2022-02-13 | Outpatient (CLI) | payer MEDICARE, OTHER ==
[2022-02-13 18:49] LABS: T4, Free (Free Thyroxine) 1.15 ng/dL (0.800-1.800)
== END | disposition home or self-care (01) ==
LOC: LABWHC1 14:31
PROVIDERS: ATTEND Internal Medicine Endocrinology, Diabetes & Metabolism
DX: E03.9 Hypothyroidism, unspecified (principal)
CPT/HCPCS: 36415; 84439; 84443

== ENCOUNTER → 2022-06-28 | Outpatient (CLI) | payer MEDICARE, OTHER ==
--- NOTE | 2022-06-28 12:50 | BD ---
EXAMINATION TYPE: Axial Bone Density DATE OF EXAM: 06/28/2022 COMPARISON: NONE CLINICAL HISTORY: 57 years year old Female. ICD-10 CODE: Z12.31 Screening; Z78.0 post nabil Height: 5'4 1/2 Weight: 325 FRAX RISK QUESTIONS: Secondary Osteoporosis: RISK FACTORS HISTORY OF: History of Wrist Fracture: rt When: march 2022 Family History of Osteoporosis: y Active: y MEDICATIONS: Thyroid Medications: Which medication: Synthroid How Lon years Additional Medications: blood pressure, ulcerative colitis, anxiety, depression Additional History: olaf quinn EXAM MEASUREMENTS: Bone mineral densitometry was performed using the Mibio System. Bone mineral density as measured about the Lumbar spine is: ----- L1-L4(G/cm2): 1.114 T Score Values are as follows: ----- L1: -0.3 ----- L2: 0.4 ----- L3: -0.8 ----- L4: -1.3 ----- L1-L4: -0.5 Bone mineral density about the R hip (g/cm2): 0.829 Bone mineral density about the L hip (g/cm2): 0.928 T Score values are as follows: -----R Neck: -1.5 -----L Neck: -0.8 -----R Total: -0.2 -----L Total: 0.2 FRAX%s: The graph provided illustrates a 10.0% chance for a major osteoporotic fx and a 0.7% chance f or the hips probability for fx in 10 years time. IMPRESSION: Osteopenia (T Score between -2.5 and -1). There is slightly increased risk of fracture and the patient may be considered for treatment. Re-Screen 2-5 years. NOTE: T-SCORE=SD OF THE YOUNG ADULT MEAN.
--- NOTE | 2022-07-01 08:05 | MM ---
Reason for Exam: Screening (asymptomatic). Last mammogram was performed 1 year(s) and 3 month(s) ago. Patient History: Menarche at age 12. Patient has no children. Postmenopausal. Hormonal Contraceptives for 1 month from age 36 until age 36. 2010, Benign Cyst Aspiration on the right side. 2011, Benign Cyst Aspiration on the right side. Maternal grandmother had breast cancer. Maternal aunt had breast cancer, age 49. Risk Values: Yesenia 5 year model risk: 1.4%. NCI Lifetime model risk: 8.7%. Prior Study Comparison: 12/23/2019 Left Diagnostic Mammogram, [facility]. 04/12/2021 Bilateral Screening Mammogram, [facility]. 04/24/2021 Right Diagnostic Mammogram, [facility]. Tissue Density: The breast tissue is heterogeneously dense. This may lower the sensitivity of mammography. Findings: Analyzed By CAD. There is no suspicious group of microcalcifications or new suspicious mass in either breast. Stable chronic nodularity within both breasts. No significant change from prior examinations. Overall Assessment: Benign, BI-RAD 2 Management: Screening Mammogram of both breasts in 1 year. A clinical breast exam by your physician is recommended on an annual basis and results should be correlated with mammographic findings. Electronically signed and approved by: Rafat Nix D.O.
== END | disposition home or self-care (01) ==
LOC: RADMAMWWP 10:58
PROVIDERS: ATTEND Family Medicine
DX: Z12.31 Encounter for screening mammogram for malignant neoplasm of breast (principal); Z78.0 Asymptomatic menopausal state; M85.89 Other specified disorders of bone density and structure, multiple sites
CPT/HCPCS: 77063; 77067; 77080

== ENCOUNTER → 2022-09-06 | Outpatient (CLI) | payer MEDICARE, OTHER ==
--- NOTE | 2022-09-06 16:31 | US ---
EXAMINATION TYPE: US thyroid st tissue head/neck DATE OF EXAM: 09/06/2022 COMPARISON: 07/21/2020 CLINICAL HISTORY: E04.2 NONTOXIC MULTINODULAR GOITER. GLAND SIZE: Right Lobe: 4.4 x 1.5 x 1.1 cm Left Lobe: 4.2 x 1.2 x 1.1 cm Isthmus Thickness: 0.3 cm NODULES RIGHT: # of nodules measured on right: 1. 0.6 X 0.4 x 0.5 cm, mid, cystic or almost completely cystic, anechoic nodule, which is wider jevon n tall, with smooth margins, without echogenic foci. Prior size: 1.0 X .7 x .7 cm LEFT: # of nodules measured on left: 1. 0.9 X 0.7 x 0.8 cm, upper, solid or almost completely solid, isoechoic nodule, which is wider th an tall, with smooth margins, without echogenic foci. Prior size: 9 X .6 x .6 cm 2. 0.6 X 0.6 x 0.6 cm, mid , solid or almost completely solid, hypoechoic nodule, which is wider t mota tall, with smooth margins, without echogenic foci. TR 4 Prior size: .9 X .6 x .6 cm 3. 0.4 X 0.3 x 0.5 cm, lower , solid or almost completely solid, isoechoic nodule, which is wider th an tall, with smooth margins, without echogenic foci. Prior size: .5 X .4 x .4 cm ISTHMUS: # of nodules measured in the isthmus: 0 Bilateral neck scanned, no evidence of lymphadenopathy. IMPRESSION: Moderately suspicious nodule left lobe thyroid. Consider follow-up in one year. 2017 ACR TI-RADS LEVEL: TR-RADS 4 - Moderately Suspicious: Follow if > 1 cm, FNA if > 1.5 cm *Highest TI-RADS level nodule reported
[2022-09-06 23:16] LABS: T4, Free (Free Thyroxine) 1.3 ng/dL (0.800-1.800)
== END | disposition home or self-care (01) ==
LOC: RADUSWWP 14:40
PROVIDERS: ATTEND Internal Medicine Endocrinology, Diabetes & Metabolism
DX: E04.2 Nontoxic multinodular goiter (principal)
CPT/HCPCS: 76536; 84439; 84443

== ENCOUNTER 2023-02-21 08:22 | Day surgery (SDC) | payer MEDICARE, OTHER ==
[~2023-02-21 08:22] MED LIST changes: +LACTATED RINGERS 1,000 ML IV SCH; +ONDANSETRON 4 MG/2 ML VIAL IVP PRN
[2023-02-21 08:54] VITALS: TEMP 97.3
[2023-02-21] MEDS ORDERED: LIDOCAINE 2% INJ 20 MG/ML (2 ML VIAL) ONE (09:52)
[2023-02-21] MEDS ORDERED: PROPOFOL 10 MG/ML 20 ML VIAL IV ONE (09:52)
--- NOTE | 2023-02-21 10:20 | P.PCN ---
Date of Procedure: 02/21/23 Procedure(s) Performed: BRIEF HISTORY: Patient is a 37-year-old pleasant white female scheduled for an elective colonoscopy as a part of surveillance of long-standing history of ulcerative colitis that was diagnosed in 1997. She is presently maintained on balsalazide 3 tablets 3 times daily and remains in clinical remission PROCEDURE PERFORMED: Colonoscopy. PREOPERATIVE DIAGNOSIS: Long-standing history of ulcerative colitis. IV sedation per Anesthesia. PROCEDURE: After informed consent was obtained, the patient, was brought into the endoscopy unit. IV sedation was administered by Anesthesia under continuous monitoring. Digital rectal examination was normal. Initially the Olympus CF-160 flexible video colonoscope was then inserted in the rectum, gradually advanced into the cecum without any difficulty. Careful examination was performed as the scope was gradually being withdrawn. Ileocecal valve and the appendiceal orifice were visualized and appeared normal. Prep was excellent. Mucosa of the cecum, ascending colon, transverse colon, descending colon, sigmoid colon, and rectum appeared normal. Random biopsies were done from the cecum to rectum at every 10 cm intervals to rule out dysplasia Retroflexion was performed in the rectum and no lesions were seen. The patient tolerated the procedure well. IMPRESSION: Normal-appearing colon from rectum to cecum with no evidence of active colitis or colorectal neoplasia . RECOMMENDATIONS: Findings of this examination were discussed with the patient as well as a family. She was advised to follow with the biopsy results. If the biopsies does not show any evidence of dysplasia, she can have a repeat colonoscopy in 2 yrs.
[2023-02-21 10:44] VITALS: RESP 20
[2023-02-21 11:08] VITALS: BP 109/74; PULSE 59
== END 2023-02-21 11:15 | disposition home or self-care (01) ==
LOC: ORWHC2ENDO 08:22
PROVIDERS: ATTEND Internal Medicine Gastroenterology
DX: K51.90 Ulcerative colitis, unspecified, without complications (principal); I10 Essential (primary) hypertension; E78.5 Hyperlipidemia, unspecified; J44.9 Chronic obstructive pulmonary disease, unspecified; G47.33 Obstructive sleep apnea (adult) (pediatric); Z88.8 Allergy status to other drugs, medicaments and biological substances; Z79.899 Other long term (current) drug therapy; Z88.2 Allergy status to sulfonamides; E03.9 Hypothyroidism, unspecified; K21.9 Gastro-esophageal reflux disease without esophagitis
CPT/HCPCS: 88305; 45380; J2704; J2001

== ENCOUNTER → 2023-07-25 | Outpatient (CLI) | payer MEDICARE, OTHER ==
[2023-07-25 20:29] LABS: T4, Free (Free Thyroxine) 1.29 ng/dL (0.80-1.80)
== END | disposition home or self-care (01) ==
LOC: LABWHC1 15:40
PROVIDERS: ATTEND Internal Medicine Endocrinology, Diabetes & Metabolism
DX: E04.2 Nontoxic multinodular goiter (principal); E03.8 Other specified hypothyroidism
CPT/HCPCS: 36415; 84439; 84443

== ENCOUNTER 2023-08-24 20:44 | Emergency (ER) | payer MEDICARE, OTHER ==
[2023-08-24] MEDS ORDERED: IBUPROFEN 800 MG TAB PO STA (21:25)
--- NOTE | 2023-08-24 21:36 | ED ---
Fever HPI <GreenbergShanae Toby - Last Filed: 08/25/23 00:30> - General Source: patient, RN notes reviewed, old records reviewed Mode of arrival: ambulatory Limitations: no limitations - History of Present Illness MD Complaint: fever, malaise, weakness -: days(s) Temperature Source: subjective Context: sick contacts, multiple patients with similar symptoms Associated Symptoms: chills, myalgias, nasal congestion, sore throat Treatments Prior to Arrival: none <Shawn Somers - Last Filed: 08/31/23 20:39> - General Chief Complaint: Upper Respiratory Infection Stated Complaint: POSSIBLE COVID Time Seen by Provider: 08/24/23 21:14 - History of Present Illness Initial Comments: This is a 58-year-old female to the emergency department for evaluation she does have coronavirus does have positive exposure to covert. Patient states she's been feeling body aches pains or cough or congestion. History taken at home test which was positive presenting for clarification of her test (Shawn Somers) - Related Data Home Medications Medication Instructions Recorded Confirmed DULoxetine HCL [Cymbalta] 60 mg PO BID 12/05/15 02/19/23 Gabapentin [Neurontin] 800 mg PO TID 12/05/15 02/19/23 Multivitamins, Thera [Multivitamin 1 tab PO HS 12/05/15 02/19/23 (formulary)] traZODone HCL [Desyrel] 100 mg PO HS 12/05/15 02/19/23 atenoloL [Tenormin] 25 mg PO DAILY 04/25/18 02/19/23 Hydroxychloroquine Sulfate 200 mg PO BID 06/07/20 02/19/23 [Plaquenil] Cetirizine HCl [Zyrtec] 10 mg PO DAILY PRN 02/28/21 02/19/23 ALPRAZolam [Xanax] 0.25 mg PO DAILY 12/10/21 02/19/23 Ascorbic Acid [Vitamin C] 1,000 mg PO DAILY@1700 12/10/21 02/19/23 Balsalazide Disodium 2,250 mg PO TID 12/10/21 02/19/23 Cholecalciferol [Vitamin D3 (25 50 mcg PO DAILY@1700 12/10/21 02/19/23 Mcg = 1000 Iu)] Losartan Potassium [Cozaar] 100 mg PO DAILY 12/10/21 02/19/23 Montelukast [Singulair] 10 mg PO HS 12/10/21 02/19/23 Olopatadine HCl [Pataday] 1 drop BOTH EYES BID 12/10/21 02/19/23 Zinc 50 mg PO DAILY@1700 12/10/21 02/19/23 Levothyroxine Sodium [Synthroid] 100 mcg PO DAILY 01/13/23 02/19/23 Pantoprazole [Protonix] 20 mg PO 1700 02/19/23 02/19/23 Previous Rx's Medication Instructions Recorded Dicyclomine [Bentyl] 10 mg PO TID #90 capsule 04/30/18 Furosemide [Lasix] 40 mg PO DAILY #30 tab 03/14/21 amLODIPine [Norvasc] 10 mg PO DAILY #30 tab 03/14/21 Allergies Allergy/AdvReac Type Severity Reaction Status Date / Time buspirone HCl [From BuSpar] Allergy Severe numbness Verified 08/24/23 20:54 of tongue and face Sulfa (Sulfonamide Allergy Severe Anaphylaxis Verified 08/24/23 20:54 Antibiotics) coconut Allergy Rash/Hives Verified 08/24/23 20:54 aspirin AdvReac Severe Vomiting Verified 08/24/23 20:54 iron AdvReac Severe Nausea & Verified 08/24/23 20:54 Vomiting,hives,swelling,skin changed color loracarbef [From Lorabid] AdvReac Intermediate yeast Verified 08/24/23 20:54 infection potassium clavulanate AdvReac Intermediate yeast Verified 08/24/23 20:54 [From Augmentin] infection amoxicillin trihydrate AdvReac yeast Verified 08/24/23 20:54 [From Augmentin] infection Review of Systems ROS Other: All systems not noted in ROS Statement are negative. <Shanae Greenberg - Last Filed: 08/25/23 00:30> ROS Other: All systems not noted in ROS Statement are negative. <Shawn Somers - Last Filed: 08/31/23 20:39> ROS Statement: Those systems with pertinent positive or pertinent negative responses have been documented in the HPI. Past Medical History Past Medical History: Asthma, COPD, Eye Disorder, Fibromyalgia, GERD/Reflux, Hypertension, Osteoarthritis (OA), Sleep Apnea/CPAP/BIPAP, Thyroid Disorder Additional Past Medical History / Comment(s): ANEMIA borderline, MIGRAINE, DIVERTICULOSIS, ULCERATIVE COLITIS, IBD, OVARIAN CYST, CHRONIC BACK PAIN. BULGING AND COMPRESSED DISC C 6/7; T 3/4; L4/5. BURSITIS TENDONITIS RIGHT SHOULDER, ENDOMETRIOSIS. CARPAL TUNNEL SYNDROME LEANNE WRISTS. BRUXISM, BREAST CYSTS. GLAUCOMA, DX SJOGREN'S SYNDROME, HIATAL HERNIA ,uses cpap. use 02 as needed during the day since covid. 02/18/21 covid was in ICU, long hauler, recent bronchitis-mostly resolved, still wheezes History of Any Multi-Drug Resistant Organisms: None Reported Past Surgical History: Cholecystectomy, Joint Replacement, Orthopedic Surgery, Tonsillectomy Additional Past Surgical History / Comment(s): , RT HAND THUMB TENDON REPAIR, LIPOMA, BILAT TKA, D&C, COLONOSCOPY, EGD, EYE SX FOR GLAUCOMA X 2, CYST REMOVED FROM BREAST AND FOOT, BILAT KNEE SX Past Anesthesia/Blood Transfusion Reactions: No Reported Reaction, Motion Sickness Past Psychological History: Anxiety, Depression, PTSD Smoking Status: Former smoker - Past Family History Mother Family Medical History: Asthma, Cancer, GERD/Reflux, Osteoarthritis (OA) Additional Family Medical History / Comment(s): cancer on the kidney that grew into the kidney. skin cancer. cancer of the uterine. blood clots. obesity. carotid artery narrowing <Shawn Somers - Last Filed: 08/31/23 20:39> General Exam Limitations: no limitations General appearance: alert, in no apparent distress Head exam: Present: atraumatic, normocephalic, normal inspection Eye exam: Present: normal appearance, PERRL, EOMI. Absent: scleral icterus, conjunctival injection, periorbital swelling ENT exam: Present: normal exam, mucous membranes moist Neck exam: Present: normal inspection. Absent: tenderness, meningismus, lymphadenopathy Respiratory exam: Present: normal lung sounds bilaterally. Absent: respiratory distress, wheezes, rales, rhonchi, stridor Cardiovascular Exam: Present: regular rate, normal rhythm, normal heart sounds. Absent: systolic murmur, diastolic murmur, rubs, gallop, clicks GI/Abdominal exam: Present: soft, normal bowel sounds. Absent: distended, tenderness, guarding, rebound, rigid Extremities exam: Present: normal inspection, full ROM, normal capillary refill. Absent: tenderness, pedal edema, joint swelling, calf tenderness Back exam: Present: normal inspection Neurological exam: Present: alert, oriented X3, CN II-XII intact Psychiatric exam: Present: normal affect, normal mood Skin exam: Present: warm, dry, intact, normal color. Absent: rash <Shawn Somers - Last Filed: 08/31/23 20:39> Course <Shawn Somers - Last Filed: 08/31/23 20:39> Vital Signs 08/24/23 08/24/23 08/25/23 20:49 22:00 00:00 Temperature 100 F H 98.9 F Pulse Rate 89 69 65 Respiratory 22 20 20 Rate Blood Pressure 125/70 126/77 O2 Sat by Pulse 94 L 94 L 93 L Oximetry - Reevaluation(s) Reevaluation #1: Medical records reviewed (Shawn Somers) Reevaluation #2: Patient symptoms improved (Shawn Somers) Reevaluation #3: Patient informed results questions answered (Shawn Somers) Reevaluation #4: Was pt. sent in by a medical professional or institution (JESSIE Browning, [employer]PER[employer], urgent care, hospital, or half-way...) When possible be specific @ -no Did you speak to anyone other than the patient for history (EMS, parent, family, police, friend...)? What history was obtained from this source @ -no Did you review nursing and triage notes (agree or disagree)? Why? @ -agree Are old charts reviewed (outside hosp., previous admission, EMS record, old EKG, old radiological studies, urgent care reports/EKG's, half-way records)? Report findings @ -yes Differential Diagnosis (chest pain, altered mental status, abdominal pain women, abdominal pain men, vaginal bleeding, weakness, fever, dyspnea, syncope, headache, dizziness, GI bleed, back pain, seizure, CVA, palpatations, mental health, musculoskeletal)? @ -prior EKG interpreted by me (3pts min.). @ -no X-rays interpreted by me (1pt min.). @ -yes CT interpreted by me (1pt min.). @ -no U/S interpreted by me (1pt. min.). @ -no What testing was considered but not performed or refused? (CT, X-rays, U/S, labs)? Why? @ -none What meds were considered but not given or refused? Why? @ -none Did you discuss the management of the patient with other professionals (professionals i.e. DrFelicia, PA, [employer], lab, RT, psych nurse, social worker masters, dynamometer tester, teacher, biosecurity officer, hospice case manager)? Give summary @ -no Was smoking cessation discussed for >3mins.? @ -no Was critical care preformed (if so, how long)? @ -no Were there social determinants of health that impacted care today? How? (Homelessness, low income, unemployed, alcoholism, drug addiction, transportation, low edu. Level, literacy, decrease access to med. care, penitentiary, rehab)? @ -none Was there de-escalation of care discussed even if they declined (Discuss DNR or withdrawal of care, Hospice)? DNR status @ -no What co-morbidities impacted this encounter? (DM, HTN, Smoking, COPD, CAD, Cancer, CVA, ARF, Chemo, Hep., AIDS, mental health diagnosis, sleep apnea, morbid obesity)? @ -none Was patient admitted / discharged? Hospital course, mention meds given and route, prescriptions, significant lab abnormalities, going to OR and other pertinent info. @ - 58 female to the emergency department for evaluation of coronavirus. Patient believes she has coronavirus she currently feels well. Patient for results of x-ray results patient can be discharged home Discharge Undiagnosed new problem with uncertain prognosis? @ -no Drug Therapy requiring intensive monitoring for toxicity (Heparin, Nitro, Ins ulin, Cardizem)? @ -no Were any procedures done? @ -no Diagnosis/symptom? @ -coronavirus, fever, possible coronavirus with pneumonia Acute, or Chronic, or Acute on Chronic? @ -Acute Uncomplicated (without systemic symptoms) or Complicated (systemic symptoms)? @ -Complicated Side effects of treatment? @ -no Exacerbation, Progression, or Severe Exacerbation? @ -exacerbation Poses a threat to life or bodily function? How? (Chest pain, USA, DC, pneumonia, PE, COPD, DKA, ARF, appy, cholecystitis, CVA, Diverticulitis, Homicidal, Suicidal, threat to staff... and all critical care pts) @ -yes with severe coronavirus infection (Shawn Somers) Reevaluation #5: Differential Fever: Pneumonia, viral URI, endocarditis, myocarditis, pericarditis, otitis, sinusitis, peritonsillar Abscess, retropharyngeal Abscess, epiglottitis, peritonitis, appendicitis, Nicki cystitis, diverticulitis, hepatitis, colitis, UTI, PID, TOA, pyelonephritis, prostatitis, epididymitis, meningitis, encephalitis, pulmonary embolism, CVA, thyroid storm, pancreatitis, adrenal crisis, cavernous sinus thrombosis, this is not meant to be an all-inclusive l ist. (Shawn Somers) Medical Decision Making <Shanae Greenberg - Last Filed: 08/25/23 00:30> - Radiology Data Radiology results: report reviewed (Chest x-rays negative for acute disease), image reviewed <Shawn Somers - Last Filed: 08/31/23 20:39> - Medical Decision Making Patient tested positive for COVID, fever broke, she is not hypoxic or tachycardic, upon my evaluation patient states she is comfortable with plan for discharge home for supportive care and close return parameters. (Shanae Greenberg) 58 female to the emergency department for evaluation of coronavirus. Patient believes she has coronavirus she currently feels well. Patient for results of x-ray results patient can be discharged home (Shawn Somers) - Lab Data Lab Results 08/24/23 Range/Units 21:54 Coronavirus (PCR) Detected A (Not Detectd) Disposition Is patient prescribed a controlled substance at d/c from ED?: No <Shanae Greenberg - Last Filed: 08/25/23 00:30> Is patient prescribed a controlled substance at d/c from ED?: No Time of Disposition: 23:50 <Shawn Somers - Last Filed: 08/31/23 20:39> Clinical Impression: COVID, Fever, Coronavirus infection, Pneumonia due to COVID-19 virus Disposition: HOME SELF-CARE Condition: Stable Instructions (If sedation given, give patient instructions): How to Recover from COVID-19 at Home (ED) Referrals: Maggie Galicia MD [Primary Care Provider] - 1-2 days
[2023-08-24 23:03] VITALS: RESP 20
--- NOTE | 2023-08-24 23:32 | XR ---
EXAMINATION TYPE: XR chest 1V portable DATE OF EXAM: 08/24/2023 9:44 PM CLINICAL INDICATION:Female, 58 years old with history of covid; [facility] COMPARISON: None. TECHNIQUE: Chest single view. FINDINGS: Lines/tubes/devices: None. Cardiomediastinum: Cardiac silhouette appears moderately enlarged. Moderate to large hiatal hernia suggested. Upper mediastinal contours appear within normal limits. Vasculature: Mild central vascular congestion. Mildly increased interstitial markings can be related to congestion or infiltrates. Lungs/pleura: No consolidation, sizeable effusion, or visible pneumothorax. Tiny lung nodules unable to be ruled ou t. Bones/soft tissues: Bony thorax appears grossly intact as seen. Regional soft tissues appear unremarkable. IMPRESSION: Cardiomegaly with findings suggesting mild CHF.
[2023-08-25 00:45] VITALS: BP 126/77; PULSE 65; TEMP 98.9
== END 2023-08-25 00:39 | disposition home or self-care (01) ==
LOC: EC 20:44
DX: U07.1 COVID-19 (principal); J12.82 Pneumonia due to coronavirus disease 2019; J44.9 Chronic obstructive pulmonary disease, unspecified; K21.9 Gastro-esophageal reflux disease without esophagitis; I10 Essential (primary) hypertension; M19.90 Unspecified osteoarthritis, unspecified site; E07.9 Disorder of thyroid, unspecified; F41.9 Anxiety disorder, unspecified; F32.A Depression, unspecified; Z87.891 Personal history of nicotine dependence; Z86.16 Personal history of COVID-19; Z88.2 Allergy status to sulfonamides; Z88.6 Allergy status to analgesic agent; Z88.8 Allergy status to other drugs, medicaments and biological substances; Z79.890 Hormone replacement therapy; Z79.899 Other long term (current) drug therapy
CPT/HCPCS: 71045; 87635; 99285

== ENCOUNTER → 2023-09-15 | Outpatient (CLI) | payer MEDICARE, OTHER ==
--- NOTE | 2023-09-18 07:58 | MM ---
Reason for Exam: Screening (asymptomatic). Last mammogram was performed 1 year(s) and 2 month(s) ago. Patient History: Menarche at age 12. Patient has no children. Postmenopausal. Hormonal Contraceptives for 1 month from age 36 until age 36. 2010, Benign Cyst Aspiration on the right side. 2011, Benign Cyst Aspiration on the right side. Maternal grandmother had breast cancer, age 40. Maternal aunt had breast cancer, age 49. Risk Values: Yesenia 5 year model risk: 1.5%. NCI Lifetime model risk: 8.5%. Prior Study Comparison: 04/12/2021 Bilateral Screening Mammogram, [facility]. 04/24/2021 Right Diagnostic Mammogram, [facility]. 06/28/2022 Bilateral MG 3D screening mammo w/cad, [facility]. Tissue Density: The breast tissue is heterogeneously dense. This may lower the sensitivity of mammography. Findings: Analyzed By CAD. There is no suspicious group of microcalcifications or new suspicious mass in either breast. Stable chronic nodularity within both breasts. Overall Assessment: Benign, BI-RAD 2 Management: Screening Mammogram of both breasts in 1 year. A clinical breast exam by your physician is recommended on an annual basis and results should be correlated with mammographic findings. Note on Yesenia scores and lifetime risk: 1. A Yesenia score greater than 3% is considered moderate risk. If this is the case, consider specialist referral to assess eligibility for a risk reducing agent. If overall lifetime risk for the development of breast cancer is 20% or higher, the patient may qualify for future screening with alternating mammogram and breast MRI. Electronically signed and approved by: Rafat Nix D.O.
== END | disposition home or self-care (01) ==
LOC: RADMAMWWP 16:38
PROVIDERS: ATTEND Family Medicine
DX: Z12.31 Encounter for screening mammogram for malignant neoplasm of breast (principal); Z78.0 Asymptomatic menopausal state; Z80.3 Family history of malignant neoplasm of breast
CPT/HCPCS: 77063; 77067

== ENCOUNTER → 2023-09-15 | Outpatient (CLI) | payer MEDICARE, OTHER ==
--- NOTE | 2023-09-16 09:34 | US ---
EXAMINATION TYPE: US thyroid st tissue head/neck DATE OF EXAM: 09/15/2023 COMPARISON: 09/06/22 CLINICAL INDICATION: Female, 58 years old with history of E04.1 NONTOXIC SINGLE THYROID NODULE; Follo w up on nodules. On thyroid medication for decades GLAND SIZE: Right Lobe: 4.2 x 1.2 x 1.4 cm Overall Parenchyma: homogenous Left Lobe: 4.8 x 1.5 x 1.1 cm Overall Parenchyma: homogeneous Isthmus Thickness: 0.51 cm NODULES RIGHT: # of nodules measured on right: 1 1. 0.8 X 0.8 x 0.6 cm, mid lateral, solid or almost completely solid, hypoechoic nodule, which is w ider than tall, with lobulated or irregular margins, without echogenic foci. LEFT: # of nodules measured on left: 3 1. 1.2 X 1.0 x 0.7 cm, mid mid, solid or almost completely solid, hypoechoic nodule, which is wider than tall, with ill-defined margins, without echogenic foci. Prior size: 0.9 x 0.8 x 0.7 cm TR4. 2. 0.6 X 0.5 x 0.7 cm, lower mid, cystic or almost completely cystic, hypoechoic nodule, which is taller than wide, with smooth margins, without echogenic foci. Prior size: 0.6 x 0.6 x 0.5 cm 3. 0.6 X 0.7 x 0.5 cm, lower mid, mixed cystic and solid, hypoechoic nodule, which is wider than ta ll, with ill-defined margins, without echogenic foci. Prior size: 0.4 x 0.3 x 0.4 cm ISTHMUS: # of nodules measured in the isthmus: 0 Bilateral neck scanned, no evidence of lymphadenopathy. IMPRESSION: TR4. Moderately Suspicious: FNA if ? 1.5 cm; Follow if ? 1 cm at 1, 2, 3, and 5 y
== END | disposition home or self-care (01) ==
LOC: RADUSWWP 16:40
PROVIDERS: ATTEND Internal Medicine Endocrinology, Diabetes & Metabolism
DX: E04.2 Nontoxic multinodular goiter (principal)
CPT/HCPCS: 76536

== ENCOUNTER → 2024-08-25 | Outpatient (CLI) | payer MEDICARE, OTHER ==
--- NOTE | 2024-08-25 16:29 | US ---
EXAMINATION TYPE: US thyroid st tissue head/neck DATE OF EXAM: 08/25/2024 COMPARISON: Multiple, most recent 09/15/2023 CLINICAL INDICATION: Female, 59 years old with history of E04.2 NONTOXIC MULTINODULAR GOITER; Patient denies any changes from prior TECHNIQUE: Grayscale and color Doppler imaging of the thyroid gland. FINDINGS: GLAND SIZE: Right Lobe: 4.8 x 1.2 x 1.6 cm Overall Parenchyma: homogeneous Left Lobe: 4.4 x 1.1 x 1.3 cm Overall Parenchyma: homogeneous Isthmus Thickness: 0.4 cm NODULES RIGHT: # of nodules measured on right: 1 1. 1.0 X 0.5 x 0.7 cm, mid lateral, solid or almost completely solid, hypoechoic nodule, which is w ider than tall, with smooth margins, without echogenic foci. Prior size: 0.8 x 0.8 x 0.6 cm TIRADS Score: 4 TIRADS Category 4: Composition: Solid or almost completely solid (2 points). Echogenicity: Hypoechoic (2 points). Shape: Wider than tall (0 points). Margin: Smooth (0 points). Echogenic foci: None or large comet-tail artifacts (0 points) Recommendation: If >1.5cm: FNA; If >1cm: Follow up at 1,2, 3,5 years LEFT: # of nodules measured on left: 3 1. 1.3 X 0.7 x 0.9 cm, upper mid, Prior size: 1.2 x 1.0 x 0.7 cm TIRADS Score: 4 TIRADS Category 4: Composition: Solid or almost completely solid (2 points). Echogenicity: Hypoechoic (2 points). Shape: Wider than tall (0 points). Margin: Smooth (0 points). Echogenic foci: None or large comet-tail artifacts (0 points) Recommendation: If >1.5cm: FNA; If >1cm: Follow up at 1,2, 3,5 years 2. 0.9 X .07 x 0.8 cm, mid medial, Prior size: 0.6 x 0.5 x 0.7 cm TIRADS Score: 4 TIRADS Category 4: Composition: Solid or almost completely solid (2 points). Echogenicity: Hypoechoic (2 points). Shape: Wider than tall (0 points). Margin: Smooth (0 points). Echogenic foci: None or large comet-tail artifacts (0 points) Recommendation: If >1.5cm: FNA; If >1cm: Follow up at 1,2, 3,5 years 3. 0.8 X 0.7 x 0.7 cm, lower mid, Prior size: 0.6 x 0.7 x 0.5 cm TIRADS Score: 3 TIRADS Category 3: Composition: Solid or almost completely solid (2 points). Echogenicity: Hyperechoic or isoechoic (1 point). Shape: Wider than tall (0 points). Margin: Smooth (0 points). Echogenic foci: None or large comet-tail artifacts (0 points) Recommendation: If >2.5cm: FNA; If >1.5cm: Follow up at 1,3,5 years ISTHMUS: # of nodules measured in the isthmus: 0 Bilateral neck scanned, no evidence of lymphadenopathy. IMPRESSION: Bilateral thyroid nodules that meet criteria for follow-up. [facility], , 08/25/2024 4:26 PM
== END | disposition home or self-care (01) ==
LOC: RADUSWWP 13:38
PROVIDERS: ATTEND Internal Medicine Endocrinology, Diabetes & Metabolism
DX: E04.2 Nontoxic multinodular goiter (principal)
CPT/HCPCS: 76536

== ENCOUNTER → 2025-01-25 | Outpatient (CLI) | payer MEDICARE ==
--- NOTE | 2025-01-26 07:36 | MM ---
Reason for Exam: Screening (asymptomatic). Last mammogram was performed 1 year(s) and 5 month(s) ago. Patient History: Menarche at age 12. Patient has no children. Postmenopausal. Hormonal Contraceptives for 1 month from age 36 until age 36. 2010, Benign Cyst Aspiration on the right side. 2011, Benign Cyst Aspiration on the right side. Maternal grandmother had breast cancer, age 40. Maternal aunt had breast cancer, age 49. Risk Values: Yesenia 5 year model risk: 1.5%. NCI Lifetime model risk: 8.3%. Prior Study Comparison: 04/24/2021 Right Diagnostic Mammogram, [facility]. 06/28/2022 Bilateral MG 3D screening mammo w/cad, [facility]. 09/15/2023 Bilateral MG 3D screening mammo w/cad, [facility]. Tissue Density: There are scattered areas of fibroglandular density. Findings: Analyzed By CAD. Bilateral areas of asymmetric density remain unchanged. Intramammary lymph node lateral left breast remains unchanged. No significant change from prior exams. Overall Assessment: Benign, BI-RAD 2 Management: Screening Mammogram of both breasts in 1 year. Patient should continue monthly self-breast exams. A clinical breast exam by your physician is recommended on an annual basis. This exam should not preclude additional follow-up of suspicious palpable abnormalities. Note on Yesenia scores and lifetime risk: 1. A Yesenia score greater than 3% is considered moderate risk. If this is the case, consider specialist referral to assess eligibility for a risk reducing agent. 2. If overall lifetime risk for the development of breast cancer is 20% or higher, the patient may qualify for future screening with alternating mammogram and breast MRI. [facility], , 01/26/2025 7:33 AM. Electronically signed and approved by: Senait Wright M.D. Radiologist
== END | disposition home or self-care (01) ==
LOC: RADMAMWWP 14:44
PROVIDERS: ATTEND Family Medicine
DX: Z12.31 Encounter for screening mammogram for malignant neoplasm of breast (principal); R92.323 Mammographic fibroglandular density, bilateral breasts; Z78.0 Asymptomatic menopausal state; Z80.3 Family history of malignant neoplasm of breast
CPT/HCPCS: 77063; 77067